=== PATIENT | female | born 1960 | race Two or more races ===

== ENCOUNTER → 2020-05-12 14:44 | Outpatient (BNVA) | payer MEDICARE, MEDICAID, SELFPAY | PROVIDERS: PCP Internal Medicine; Visit Provider Internal Medicine Cardiovascular Disease | DX: I69.351 Hemiplegia and hemiparesis following cerebral infarction affecting right dominant side (principal); I73.9 Peripheral vascular disease, unspecified; R06.00 Dyspnea, unspecified; Z79.01 Long term (current) use of anticoagulants; Z79.82 Long term (current) use of aspirin | CPT/HCPCS: 93005; 99212 ==

== ENCOUNTER 2020-05-24 17:37 | Outpatient (REF) | payer MEDICARE, MEDICAID, SELFPAY ==
--- NOTE | 2020-05-24 | CT_ITS ---
EXAMINATION: CT HEAD WITHOUT CONTRAST CLINICAL INFORMATION: Trauma. COMPARISON: CT head from 08/29/2018. TECHNIQUE: Contiguous axial imaging was performed from the skull base to vertex without intravenous administration of contrast. This CT examination was performed using dose optimization techniques as appropriate, variously including the following: *Automated exposure control. *Adjustment of mA and/or kV according to patient size (this includes techniques or standardized protocols for targeted exams where dose is matched to indication/reason for exam; i.e. extremities or head). *Use of iterative reconstruction technique. 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 Calcific atherosclerotic disease of the intracranial internal carotid arteries. There is no evidence of acute intracranial hemorrhage or edematous territorial infarction. A few foci of hypoattenuation in the periventricular and deep white matter most commonly seen with mild microangiopathy. 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 Otherwise, the figueroa-white matter differentiation is preserved. The ventricles are normal in size and configuration. No evidence for obstructive hydrocephalus. The sella turcica is expanded and partially empty. No new abnormal mass effect or midline shift. No extra-axial fluid collections. No acute soft tissue or osseous abnormalities. 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 Chronic mild retrosubluxation of the odontoid tip with respect to the basion. The mastoid air cells and paranasal sinuses are clear. CT/CT head/brain wo con IMPRESSION: 1. No evidence of acute intracranial hemorrhage or edematous territorial infarction. 2. Changes of prior stent-assisted aneurysm coiling along the anterior communicating artery and right M1-M2 junction. 3. 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 Mild scattered white matter changes.
== END 2020-05-24 17:38 | disposition home or self-care (01) ==
LOC: HO.CT 17:37
PROVIDERS: PCP Internal Medicine; Visit Provider Psychiatry & Neurology Neurology
DX: I60.9 Nontraumatic subarachnoid hemorrhage, unspecified (principal)
CPT/HCPCS: 70450

== ENCOUNTER 2020-06-27 19:15 | Emergency (ER) | payer MEDICARE, MEDICAID, SELFPAY ==
[2020-06-27 20:51] VITALS: BP 165/79; PULSE 84; RESP 18; TEMP 37.1; O2SAT 98; BMI 31.6
[2020-06-27 22:08] LABS: Basophils Percent Auto 0.4 % (0-2); Eosinophils Percent Auto 0.5 % (0-4); Hematocrit 38.1 % (37-47); Hemoglobin 11.7 g/dl (12.0-16.0); Imm Gran Abs Auto 0.02 X10*3/uL (0.00-0.03); Imm Gran Pct Auto 0.3 % (0.0-0.4); Lymphocytes Absolute Auto 1.6 X10*3/uL (1.2-4.9); Lymphocytes Percent Auto 20.1 % (20-40); Mean Corpuscular HGB Conc 30.7 g/dl (31.0-35.0); Mean Corpuscular Hemoglobin 27.5 pg (27.0-33.0); Mean Corpuscular Volume 89.6 fL (80-98); Mean Platelet Volume 11.2 fL (9.4-12.3); Monocytes Absolute Auto 0.6 X10*3/uL (0.1-1.2); Monocytes Percent Auto 7.5 % (2-11); Neutrophils Absolute Auto 5.5 X10*3/uL (2.0-8.3); Neutrophils Percent Auto 71.2 % (45-73); Platelet Count 237 X10*3/uL (160-400); Red Blood Count 4.25 X10*6/uL (4.20-5.50); Red Cell Distribution Width 14.2 % (11.0-16.0); White Blood Count 7.8 X10*3/uL (4.8-10.8)
[2020-06-27 22:09] LABS: MANUAL DIFF FLAG NO
[2020-06-27 22:17] LABS: INTERNATIONAL NORM RATIO 1.1 (0.9-1.1); Prothrombin Time 12.7 SEC (10.8-13.0)
[2020-06-27 22:20] LABS: Partial Thromboplastin Time 46.6 SEC (24.1-38.0)
[2020-06-27 22:29] LABS: Anion Gap 12 (12-20); Blood Urea Nitrogen 10 mg/dL (9-16); Carbon Dioxide 30 mmol/L (22-29); Chloride 107 mmol/L (96-108); Creatinine Clr Calc Pharmacy 84.2; Estimated Glomerular Filt Rate > 60; Glucose Random 104 mg/dL (60-115); Potassium 5.6 mmol/l (3.3-5.1); Sodium 143 mmol/L (135-145)
--- NOTE | 2020-06-27 23:50 | ECG_ITS ---
Test Reason : HEADACHE Blood Pressure : / mmHG Vent. Rate : 073 BPM Atrial Rate : 073 BPM P-R Int : 182 ms QRS Dur : 098 ms QT Int : 388 ms P-R-T Axes : 058 050 032 degrees QTc Int : 427 ms Normal sinus rhythm Normal ECG When compared with ECG of 28-MAR-2019 19:19, No significant change was found Referred By: Page Dalal Electronically Signed By:JARAD GOMES
[2020-06-28] VITALS: BP 141/81; PULSE 86; RESP 18; TEMP 37.2; O2SAT 99
--- NOTE | 2020-06-28 | CT_ITS ---
EXAMINATION: CT HEAD WITHOUT CONTRAST CLINICAL INFORMATION: Headache COMPARISON: 05/24/2020 TECHNIQUE: Contiguous axial imaging was performed from the skull base to vertex without intravenous contrast. This CT examination was performed using dose optimization techniques as appropriate, variously including the following: * Automated exposure control * Adjustment of mA and/or kV according to patient size (this includes techniques or standardized protocols for targeted exams where dose is matched to indication/reason for exam; i.e. extremities or head) Use of iterative reconstruction technique DLP: 669 mGy-cm. FINDINGS: There is no evidence of acute intracranial hemorrhage or territorial infarction. No abnormal mass effect or midline shift is seen. Soriano to white matter differentiation is well preserved. No extra-axial fluid collections are identified. No hydrocephalus. No significant volume loss. Chronic lacunar infarcts of the bilateral caudate heads. Radiopaque coiling again noted at the region of the anterior communicating artery and the right MCA. The osseous structures and soft tissues are normal. The mastoid air cells and visualized portions of the paranasal sinuses are well aerated. CT/CT head/brain wo con IMPRESSION: No acute intracranial pathology.
--- NOTE | 2020-06-28 00:09 | ED.HA ---
HPI - Headache General Chief Complaint: Headache Stated Complaint: HEADACHE Time Seen by Provider: 06/27/20 23:48 Source: patient Mode of arrival: ambulatory History of Present Illness HPI Narrative: This is a 60-year-old female who presents with 2-3 days left-sided headache without photosensitivity or sensitivity to auditory sensation and no speech changes without dizziness, shortness of breath, fevers, chills, chest pain/palpitations and no unilateral weakness numbness/tingling. She does states that she was experiencing blurry vision in the left eye but then describes that is primarily pressure. She endorses a significant history having had a brain bleed in January and is currently on aspirin and Brilinta. Related Data Home Medications Medication Instructions Recorded Confirmed aspirin 81 mg tablet,delayed 81 mg PO QAM 05/12/20 05/12/20 release atorvastatin 80 mg tablet 80 mg PO DAILY 05/12/20 05/12/20 cyclobenzaprine 10 mg tablet 10 mg PO BEDTIME 05/12/20 05/12/20 duloxetine 30 mg capsule,delayed 30 mg PO QAM 05/12/20 05/12/20 release ergocalciferol (vitamin D2) 1,250 1,250 mcg PO QWEEK 05/12/20 05/12/20 mcg (50,000 unit) capsule fluticasone propionate 110 2 puff PO BID 05/12/20 05/12/20 mcg/actuation HFA aerosol inhaler gabapentin 800 mg tablet 800 mg PO TID 05/12/20 05/12/20 hydrochlorothiazide 25 mg tablet 25 mg PO DAILY 05/12/20 05/12/20 loratadine 10 mg tablet 10 mg PO DAILY PRN 05/12/20 05/12/20 meloxicam 15 mg tablet 15 mg PO DAILY 05/12/20 05/12/20 metformin 500 mg tablet mg PO 05/12/20 05/12/20 montelukast 10 mg tablet 10 mg PO DAILY 05/12/20 05/12/20 omeprazole 20 mg capsule,delayed 20 mg PO DAILY 05/12/20 05/12/20 release ondansetron HCl 4 mg tablet mg PO 05/12/20 05/12/20 pregabalin 300 mg capsule 300 mg PO BID 05/12/20 05/12/20 ticagrelor 90 mg tablet 90 mg PO BID 05/12/20 05/12/20 Previous Rx's Medication Instructions Recorded [id number]-[id number] 1 cap PO Q8H PRN #3 cap 06/28/20 [Fioricet] Allergies Allergy/AdvReac Type Severity Reaction Status Date / Time Iodinated Contrast Media Allergy Unknown ITCHING Verified 06/27/20 20:51 [IV CONTRAST] nut - unspecified Allergy Unknown THROAT Verified 06/27/20 20:51 [NUT - UNSPECIFIED] SWELLING penicillin G Allergy Unknown hives Verified 06/27/20 20:51 Penicillins [PENICILLINS] Allergy Unknown HIVES Verified 06/27/20 20:51 peanuts Allergy Unknown Anaphylaxis Uncoded 06/27/20 20:51 Review of Systems Review of Systems: Pertinent positives and negatives as stated in HPI 10 point review of systems otherwise negative. PMFSH Past Medical History Source: nursing notes reviewed Medical History Carpal tunnel syndrome, right Surgical History H/O left breast biopsy History of appendectomy History of cholecystectomy Hx of section Hx of laparoscopic gastric banding Total knee replacement status Family History Family History Father CVA (cerebral vascular accident) CVD (cardiovascular disease) Mother CVD (cardiovascular disease) Uterus cancer Heart attack Social History Social History Alcohol intake: never Smoking Status: Never smoker Use of substances other than those prescribed or required for medical reasons: No Advance Directives: No Advance Directives Information Provided: No Physical Exam Vital Signs: Vital Signs: Last Vital Signs Temp 98.9 F 06/28/20 00:00 Pulse 65 06/28/20 04:48 Resp 16 06/28/20 04:48 BP 156/74 H 06/28/20 04:48 Pulse Ox 100 06/28/20 04:48 Body Mass Index 31.6 VITAL SIGNS: Reviewed. GENERAL: Well developed, well nourished, in no acute distress. HEAD: Normocephalic/atraumatic, EYES: PERRLA, EOMI intact without pain, no nystagmus/pallor/icterus noted EARS: Ext canals without abnormality, TMs non-bulging and non-erythematous NOSE: Nares patent bilateral OROPHARYNX: no oral lesions noted, posterior pharynx clear NECK: Supple, no adenopathy LUNGS: Normal breath sounds. No adventitious sounds or accessory muscle use. SpO2<98> CARDIOVASCULAR: Regular rate and rhythm without noted murmurs, no JVD or lower extremity edema. ABDOMEN: Soft, non-tender, non-distended with bowel sounds. No rigidity. No guarding. No palpable masses or hernias noted MUSCULOSKELETAL: No tenderness, deformities, or effusions noted on gross inspection. EXTREMITIES: No cyanosis, clubbing or edema. SKIN: Inspection of the skin reveals no rashes, ulcerations, jaundice, pallor, or petechiae. NEUROLOGIC: Alert and oriented x 4. Strength and sensation to light touch were grossly intact x 4, no pronator drift, cerebellar testing without deficits, cranial nerves 2-12 grossly intact. Course Course Course Narrative: This is a 60-year-old female with history and clinical presentation consistent with likely headache, migraine headache, doubt glaucoma or intracranial bleed. -labs, CT head without contrast, EKG, Tylenol On review of all investigations there is no evidence of infection, PTT consistent with current anti-platelet/anticoagulation regimen and CT scan without acute finding. Re-evaluation after patient received Tylenol with minimal improvement, so patient was provided with 1 tablet of Fioricet with complete resolution of headache. Re-evaluation of noted elevated potassium is returned as within normal limits at 4.1 and patient is otherwise asymptomatic without chest pain/palpitations. All results and findings were discussed with her bedside and she was discharged home in stable condition. MDM - Headache Lab Data Result diagrams: 06/27/20 22:01 06/28/20 04:46 Labs: Lab Results 06/27/20 06/27/20 06/27/20 Range/Units 22:01 22:01 22:01 WBC 7.8 (4.8-10.8) X10*3/uL RBC 4.25 (4.20-5.50) X10*6/uL Hgb 11.7 L (12.0-16.0) g/dl Hct 38.1 (37-47) % MCV 89.6 (80-98) fL MCH 27.5 (27.0-33.0) pg MCHC 30.7 L (31.0-35.0) g/dl RDW 14.2 (11.0-16.0) % Plt Count 237 (160-400) X10*3/uL MPV 11.2 (9.4-12.3) fL Immature Gran % (Auto) 0.3 (0.0-0.4) % Neut % (Auto) 71.2 (45-73) % Lymph % (Auto) 20.1 (20-40) % [place] % (Auto) 7.5 (2-11) % Eos % (Auto) 0.5 (0-4) % Baso % (Auto) 0.4 (0-2) % Lymph # (Auto) 1.6 (1.2-4.9) X10*3/uL [place] # (Auto) 0.6 (0.1-1.2) X10*3/uL Eos # (Auto) 0.0 (0.0-0.4) X10*3/uL Baso # (Auto) 0.0 (0.0-0.2) X10*3/uL Abs Immat Gran (auto) 0.02 (0.00-0.03) X10*3/uL Absolute Neuts (auto) 5.5 (2.0-8.3) X10*3/uL Absolute Nucleated RBC 0.000 (0.0-0.012) X10*3/uL Nucleated RBC % (auto) 0.0 (0.0-0.2) /100WBC PT 12.7 (10.8-13.0) SEC INR 1.1 (0.9-1.1) APTT 46.6 H (24.1-38.0) SEC Sodium 143 (135-145) mmol/L Potassium 5.6 H (3.3-5.1) mmol/l Chloride 107 (96-108) mmol/L Carbon Dioxide 30 H (22-29) mmol/L Anion Gap 12 (12-20) BUN 10 (9-16) mg/dL Creatinine 0.79 (0.5-1.4) mg/dL Estim Creat Clear Calc 84.2 Estimated GFR > 60 Random Glucose 104 (60-115) mg/dL Calcium 9.0 (8.4-10.2) mg/dL 12/29/20 Range/Units 04:46 WBC (4.8-10.8) X10*3/uL RBC (4.20-5.50) X10*6/uL Hgb (12.0-16.0) g/dl Hct (37-47) % MCV (80-98) fL MCH (27.0-33.0) pg MCHC (31.0-35.0) g/dl RDW (11.0-16.0) % Plt Count (160-400) X10*3/uL MPV (9.4-12.3) fL Immature Gran % (Auto) (0.0-0.4) % Neut % (Auto) (45-73) % Lymph % (Auto) (20-40) % [place] % (Auto) (2-11) % Eos % (Auto) (0-4) % Baso % (Auto) (0-2) % Lymph # (Auto) (1.2-4.9) X10*3/uL [place] # (Auto) (0.1-1.2) X10*3/uL Eos # (Auto) (0.0-0.4) X10*3/uL Baso # (Auto) (0.0-0.2) X10*3/uL Abs Immat Gran (auto) (0.00-0.03) X10*3/uL Absolute Neuts (auto) (2.0-8.3) X10*3/uL Absolute Nucleated RBC (0.0-0.012) X10*3/uL Nucleated RBC % (auto) (0.0-0.2) /100WBC PT (10.8-13.0) SEC INR (0.9-1.1) APTT (24.1-38.0) SEC Sodium 141 (135-145) mmol/L Potassium 4.1 D (3.3-5.1) mmol/l Chloride 107 (96-108) mmol/L Carbon Dioxide 24 (22-29) mmol/L Anion Gap 14 (12-20) BUN 11 (9-16) mg/dL Creatinine 0.67 (0.5-1.4) mg/dL Estim Creat Clear Calc 99.2 Estimated GFR > 60 Random Glucose 101 (60-115) mg/dL Calcium 8.5 (8.4-10.2) mg/dL ECG Data Attestation: I personally reviewed and interpreted this ECG as follows: Prior ECG tracings: available for review (05/12/2020 no acute rhythm changes) Interpretation: Sinus rhythm, HR -73, no evidence of acute ischemia, SC/QRS/QTC within normal limits, questionable increase in T-wave Discharge Plan Discharge Clinical Impression: Headache Qualifiers: Headache type: unspecified Headache chronicity pattern: acute headache Intractability: not intractable Qualified Code(s): R51.9 - Headache, unspecified Patient Disposition: Home, Self-Care Instructions: General Headache (ED) Additional Instructions: 1. Please resume all home medications as prescribed. 2. Please follow-up with your primary care provider for further evaluation and management of your headache. 3. Please do not hesitate to return to the emergency department should you experience any worsening of your symptoms. Prescriptions: New ecdieilnax-myolgpjwhrwkc-[id number] [Fioricet] 50-300-40 mg capsule 1 cap PO Q8H PRN (Reason: headache) Qty: 3 RF: 0 No Action duloxetine 30 mg capsule,delayed release(DR/EC) 30 mg PO QAM RF: 0 Flovent HFA 110 mcg/actuation HFA aerosol inhaler 2 puff PO BID RF: 0 ergocalciferol (vitamin D2) 1,250 mcg (50,000 unit) capsule 1,250 mcg PO QWEEK RF: 0 hydrochlorothiazide 25 mg tablet 25 mg PO DAILY RF: 0 montelukast 10 mg tablet 10 mg PO DAILY RF: 0 aspirin 81 mg tablet,delayed release (DR/EC) 81 mg PO QAM RF: 0 meloxicam 15 mg tablet 15 mg PO DAILY RF: 0 metformin 500 mg tablet PO RF: 0 Brilinta 90 mg tablet 90 mg PO BID RF: 0 pregabalin 300 mg capsule 300 mg PO BID RF: 0 omeprazole 20 mg capsule,delayed release(DR/EC) 20 mg PO DAILY RF: 0 ondansetron HCl 4 mg tablet PO RF: 0 atorvastatin 80 mg tablet 80 mg PO DAILY RF: 0 gabapentin 800 mg tablet 800 mg PO TID RF: 0 cyclobenzaprine 10 mg tablet 10 mg PO BEDTIME RF: 0 loratadine 10 mg tablet 10 mg PO DAILY PRN (Reason: allergies) RF: 0 Referrals: Maya Brannon MD [Primary Care Provider] - 2 days (Re-evaluation outpatient management for headache with negative CT and improvement with Fioricet) Print Language: Lebanese
[2020-06-28] MEDS: Acetaminophen 325 MG TABLET 975 MG PO (00:59)
[2020-06-28 02:33] VITALS: BP 127/64; PULSE 80; RESP 16; O2SAT 100
[2020-06-28] MEDS: Butalb/Acetamin/Caff 50/325/40 TABLET 1 TAB PO (03:21)
--- NOTE | 2020-06-28 03:24 | PC.NURSE ---
pt has been sleeping ekg done, medicated for 6/10 headache pain. skin pink warm and dry no s/s of resp distress. pt is aox3
[2020-06-28 04:48] VITALS: BP 156/74; PULSE 65; RESP 16; O2SAT 100
[2020-06-28 05:31] LABS: Anion Gap 14 (12-20); Blood Urea Nitrogen 11 mg/dL (9-16); Calcium 8.5 mg/dL (8.4-10.2); Carbon Dioxide 24 mmol/L (22-29); Chloride 107 mmol/L (96-108); Creatinine Clr Calc Pharmacy 99.2; Estimated Glomerular Filt Rate > 60; Glucose Random 101 mg/dL (60-115); Potassium 4.1 mmol/l (3.3-5.1); Sodium 141 mmol/L (135-145)
== END 2020-06-28 05:50 | disposition home or self-care (01) ==
PROVIDERS: Emergency Provider Student in an Organized Health Care Education/Training Program; PCP Internal Medicine
DX: R51.9 Headache, unspecified (principal); Z79.899 Other long term (current) drug therapy
CPT/HCPCS: 36415; 70450; 80048; 85025; 85610; 85730; 93005; 99284

== ENCOUNTER → 2020-07-14 13:15 | Outpatient (BNVA) | payer MEDICARE, MEDICAID, SELFPAY | PROVIDERS: PCP Internal Medicine; Visit Provider Internal Medicine Pulmonary Disease | DX: J45.30 Mild persistent asthma, uncomplicated (principal); Z91.09 Other allergy status, other than to drugs and biological substances | CPT/HCPCS: Q3014 ==

== ENCOUNTER 2020-08-17 | Outpatient (REF) | payer OTHER, SELFPAY | END 2020-08-17 00:01 | disposition home or self-care (01) | LOC: CF | PROVIDERS: Visit Provider Internal Medicine Cardiovascular Disease | DX: Z13.89 Encounter for screening for other disorder (principal) ==

== ENCOUNTER → 2020-08-17 13:18 | Outpatient (BNVA) | payer MEDICARE, MEDICAID, SELFPAY | PROVIDERS: PCP Internal Medicine; Visit Provider Internal Medicine Cardiovascular Disease ==

== ENCOUNTER 2020-08-17 13:48 | Emergency (ER) | payer MEDICARE, MEDICAID, SELFPAY | END 2020-08-17 17:03 | disposition left against medical advice (07) | PROVIDERS: Emergency Provider Emergency Medicine; PCP Internal Medicine | DX: R51.9 Headache, unspecified (principal); M54.2 Cervicalgia | CPT/HCPCS: 99212 ==

== ENCOUNTER 2020-08-18 00:52 | Emergency (ER) | payer MEDICARE, MEDICAID, SELFPAY ==
--- NOTE | 2020-08-18 | ECG_ITS ---
Test Reason : CP Blood Pressure : / mmHG Vent. Rate : 076 BPM Atrial Rate : 076 BPM P-R Int : 164 ms QRS Dur : 086 ms QT Int : 356 ms P-R-T Axes : 051 045 031 degrees QTc Int : 400 ms Normal sinus rhythm Normal ECG When compared with ECG of 28-JUN-2020 03:21, No significant change was found Referred By: Feliz Gusman Electronically Signed By:Sylvester Solano
--- NOTE | ~2020-08-18 | XR_ITS ---
EXAMINATION: XR CHEST CLINICAL INFORMATION: Left-sided chest pain. COMPARISON: 03/28/2019 TECHNIQUE: 2 views of the chest were obtained. FINDINGS: Cardiac leads overlie the chest. The lungs are well expanded. There is no focal consolidation, edema, or effusion. No pneumothorax. The cardiomediastinal silhouette is within normal limits. No acute osseous abnormality. Degenerative changes of the spine. XR/XR chest 2V IMPRESSION: Clear lungs.
--- NOTE | ~2020-08-18 | CT_ITS ---
EXAMINATION: CT HEAD WITHOUT CONTRAST CLINICAL INFORMATION: Left-sided headache. COMPARISON: 06/28/2020 TECHNIQUE: Contiguous axial imaging was performed from the skull base to vertex without intravenous contrast. This CT examination was performed using dose optimization techniques as appropriate, variously including the following: * Automated exposure control * Adjustment of mA and/or kV according to patient size (this includes techniques or standardized protocols for targeted exams where dose is matched to indication/reason for exam; i.e. extremities or head) Use of iterative reconstruction technique DLP: 698 mGy-cm. FINDINGS: There is no evidence of acute intracranial hemorrhage or territorial infarction. No abnormal mass effect or midline shift is seen. Soriano to white matter differentiation is well preserved. No extra-axial fluid collections are identified. No hydrocephalus. No significant volume loss. There is no abnormal attenuation within the brain parenchyma. Radiopaque coiling in the region of the right MCA and at the anterior communicating artery again noted. The osseous structures and soft tissues are normal. The mastoid air cells and visualized portions of the paranasal sinuses are well aerated. CT/CT head/brain wo con IMPRESSION: No acute intracranial pathology.
[2020-08-18 00:58] VITALS: BP 164/61; PULSE 84; RESP 16; TEMP 36.6; O2SAT 99
[2020-08-18 01:15] VITALS: BP 171/57; PULSE 86; RESP 18; TEMP 36.1; O2SAT 99; BMI 35.6
--- NOTE | 2020-08-18 01:34 | ED_ITS ---
HPI - General Adult General Chief complaint: Headache Stated complaint: Head Pain Time Seen by Provider: 08/18/20 01:13 Source: patient Mode of arrival: ambulatory Limitations: language barrier (The patient speaks Ecuadorean but 1st language is Bulgarian, [employer] laboratory was used to obtain information) History of Present Illness HPI narrative: 60-year-old female who presents emergency department for evaluation of headache and chest pain. Patient states that she developed a headache yesterday morning at 9:00 a.m.. She states that the headache came on gradually. She states that the headache is very severe and is 9/10. The pain is located on the left side of her head and is a constant, pressure-like pain. The patient states that she had similar pain in February 24, 2020 secondary to a ruptured aneurysm. Patient states she had 1 aneurysm that ruptured and the 2nd aneurysm acquired a interventional procedure. She states that since the aneurysm she also had a similar headache on June 28, 2020 was seen here in the emergency department with a negative workup. The patient states she has had associated nausea with no vomiting. She denies lightheadedness, dizziness, weakness, numbness, loss of bowel or bladder control. She states that she has residual balance difficulties and right-sided weakness secondary to her aneurysm. The patient also is complaining of left-sided chest pain. She states that this started yesterday evening at 10:00 p.m.. The pain came on gradually. She describes the pain as a squeezing tightness. The pain does not change with breathing or with movement. She states the pain is 6/10. The pain does not radiate to her neck, jaw or arms. She denied diaphoresis, dizziness, lightheadedness or shortness of breath. Related Data Home Medications Medication Instructions Recorded Confirmed aspirin 81 mg tablet,delayed 81 mg PO QAM 05/12/20 08/17/20 release atorvastatin 80 mg tablet 80 mg PO DAILY 05/12/20 08/17/20 cyclobenzaprine 10 mg tablet 10 mg PO BEDTIME 05/12/20 08/17/20 duloxetine 30 mg capsule,delayed 30 mg PO QAM 05/12/20 08/17/20 release ergocalciferol (vitamin D2) 1,250 1,250 mcg PO QWEEK 05/12/20 08/17/20 mcg (50,000 unit) capsule fluticasone propionate 110 2 puff PO BID 05/12/20 08/17/20 mcg/actuation HFA aerosol inhaler gabapentin 800 mg tablet 800 mg PO TID 05/12/20 08/17/20 hydrochlorothiazide 25 mg tablet 25 mg PO DAILY 05/12/20 08/17/20 loratadine 10 mg tablet 10 mg PO DAILY PRN 05/12/20 08/17/20 meloxicam 15 mg tablet 15 mg PO DAILY 05/12/20 08/17/20 metformin 500 mg tablet mg PO 05/12/20 08/17/20 montelukast 10 mg tablet 10 mg PO DAILY 05/12/20 08/17/20 omeprazole 20 mg capsule,delayed 20 mg PO DAILY 05/12/20 08/17/20 release ondansetron HCl 4 mg tablet mg PO 05/12/20 08/17/20 pregabalin 300 mg capsule 300 mg PO BID 05/12/20 08/17/20 ticagrelor 90 mg tablet 90 mg PO BID 05/12/20 08/17/20 Previous Rx's Medication Instructions Recorded nwatbqophe-mxncshhpkfynm-asbu 1 cap PO Q8H PRN #3 cap 06/28/20 [Fioricet] metoclopramide HCl [Reglan] 10 mg PO Q6H PRN #14 tab 08/18/20 Allergies Allergy/AdvReac Type Severity Reaction Status Date / Time Iodinated Contrast Media Allergy Unknown ITCHING Verified 07/14/20 13:16 [IV CONTRAST] nut - unspecified Allergy Unknown THROAT Verified 07/14/20 13:16 [NUT - UNSPECIFIED] SWELLING penicillin G Allergy Unknown hives Verified 07/14/20 13:16 Penicillins [PENICILLINS] Allergy Unknown HIVES Verified 07/14/20 13:16 Review of Systems Review of Systems: Yes all other systems are reviewed and are negative Neurologic: Reports Abnormal speech present [facility] Past Medical History Medical History Brain aneurysm Carpal tunnel syndrome, right Surgical History H/O left breast biopsy History of appendectomy History of cholecystectomy Hx of section Hx of laparoscopic gastric banding Total knee replacement status Family History Family History Father CVA (cerebral vascular accident) CVD (cardiovascular disease) Mother CVD (cardiovascular disease) Uterus cancer Heart attack Social History Social History Alcohol intake: never Smoking Status: Never smoker Smoked in Last 30 Days: No Use of substances other than those prescribed or required for medical reasons: No Advance Directives: No Physical Exam Vital Signs: Vital Signs: Last Vital Signs Temp 98.1 F 08/18/20 02:00 Pulse 74 08/18/20 02:00 Resp 16 08/18/20 02:00 BP 111/70 08/18/20 02:00 Pulse Ox 99 08/18/20 02:00 Body Mass Index 35.6 Const: General: cooperative and healthy appearing Orientation/consciousness: oriented to person and oriented to place Limitations: no limitations HENMT: Head: Yes normal to inspection, Yes normocephalic, Yes atraumatic and Yes other (The patient does have tenderness with palpation over her left scalp area) Ears: external ears normal General nose exam: Normal external nose present Face and sinus: Yes normal facial exam Mouth: Normal oral and palatal mucosa present Throat: Yes posterior oropharynx normal Eyes: Periorbital: periorbital findings normal Eyelids: Yes eyelids normal Conjunctivae: conjunctivae normal Sclerae: sclerae normal Corneas: corneas normal Pupils: Equal, round and reactive pupils present Direct Ophthalmoscopy: normal light reflex Neck: Neck: Yes full ROM, Yes no lymphadenopathy, Yes no meningeal signs, Yes trachea midline and Yes supple Chest: Chest palpation & inspection: normal inspection of the chest and tenderness (Moderate left anterior chest) Resp: Effort & Inspection: normal respiratory effort and able to speak in complete sentences Auscultation: clear to auscultation bilaterally Cardio: Rate: regular rate Rhythm: regular rhythm Heart sounds: S1 normal heart sound present, S2 normal heart sound present and no murmurs GI: Inspection: Yes normal to inspection Palpation (GI): Soft to palpation, nontender, no guarding, not rigid and No hepatosplenomegaly present : General: Yes no CVA tenderness Back/Spine/Pelvis: Back: no CVA tenderness Cervical Spine: normal cervical lordosis Thoracic/Lumbar Spine: thoracic and lumbar spine normal to inspection Skin: Lesions: no lesions Rashes: no rashes Wounds: no wounds Neuro: General: oriented to person, oriented to place and no meningeal signs Cranial nerves: Yes CN's II-XII intact bilaterally and Yes Equal, round and reactive pupils present Cognition (Neuro): normal cognition Speech: Abnormal speech present Motor exam (neuro): Other motor observations present (Right upper and lower extremity weakness-chronic) Extrem: General: Yes normal to inspection and Yes full ROM Psych: Appearance: well kempt Mental Status: mental status grossly normal Speech and movement: Normal speech and movement present Affect: normal affect Attitude: cooperative Thought process: Normal thought process present Thought content: Normal thought content present Course Course Course Narrative: 60-year-old female with a history of ruptured brain aneurysm 02/24/2020 who presents emergency department for evaluation of left-sided headache and left-sided chest pain. Physical examination did reveal tenderness palpation of her left scalp as well as tenderness palpation over left anterior chest, otherwise her examination was consistent with her baseline (weakness of the right upper and right lower extremity secondary to subarachnoid hemorrhage/ruptured cerebral aneurysm). At this time I suspect the patient has a migraine syndrome but I will do a workup on the patient to include CT scan of the patient's brain without IV contrast, and a cardiac workup. The patient's headache and left-sided chest pain will be treated with Toradol 30 mg IV, Reglan and 10 mg IV and Benadryl 50 mg IV. She is also ordered to get normal saline x1 L IV. 0359: The patient's headache significantly improved with above treatment. Laboratory evaluation was unremarkable. The CT scan the patient's head without IV contrast revealed no acute process, patient does does have radiopaque coils noted in the right MCA and anterior communicating artery suggesting the both aneurysms were treated in the past. I did discuss these findings with the patient. At this time I do not think that the patient's headache is secondary to subarachnoid bleed. The patient was advised to take the following medications every 6 hours as needed for headaches: Extra-strength Tylenol 2 pills, Benadryl 25 mg 2 pills, Reglan and 10 mg, 1 pill. I did tell her that these medications make her sleepy and that she should lie down in a dark quiet room and this sometimes helps break a migraine-like headache. She was given verbal and printed instructions discharged home. Medical Decision Making Lab Data Result diagrams: 08/18/20 01:59 08/18/20 01:59 Labs: Lab Results 08/18/20 08/18/20 08/18/20 Range/Units 01:59 01:59 01:59 WBC 8.1 (4.8-10.8) X10*3/uL RBC 4.11 L (4.20-5.50) X10*6/uL Hgb 11.4 L (12.0-16.0) g/dl Hct 37.1 (37-47) % MCV 90.3 (80-98) fL MCH 27.7 (27.0-33.0) pg MCHC 30.7 L (31.0-35.0) g/dl RDW 15.4 (11.0-16.0) % Plt Count 252 (160-400) X10*3/uL MPV 10.9 (9.4-12.3) fL Immature Gran % (Auto) 0.1 (0.0-0.4) % Neut % (Auto) 76.0 H (45-73) % Lymph % (Auto) 16.7 L (20-40) % [place] % (Auto) 6.4 (2-11) % Eos % (Auto) 0.6 (0-4) % Baso % (Auto) 0.2 (0-2) % Lymph # (Auto) 1.4 (1.2-4.9) X10*3/uL [place] # (Auto) 0.5 (0.1-1.2) X10*3/uL Eos # (Auto) 0.1 (0.0-0.4) X10*3/uL Baso # (Auto) 0.0 (0.0-0.2) X10*3/uL Abs Immat Gran (auto) 0.01 (0.00-0.03) X10*3/uL Absolute Neuts (auto) 6.2 (2.0-8.3) X10*3/uL Absolute Nucleated RBC 0.000 (0.0-0.012) X10*3/uL Nucleated RBC % (auto) 0.0 (0.0-0.2) /100WBC ESR (0-20) MM/HR Sodium 140 (135-145) mmol/L Potassium 5.2 H (3.3-5.1) mmol/L Chloride 105 (96-108) mmol/L Carbon Dioxide 27 (22-29) mmol/L Anion Gap 13 (12-20) BUN 20 H D (9-16) mg/dL Creatinine 0.83 (0.5-1.4) mg/dL Estim Creat Clear Calc 73.4 Estimated GFR > 60 Random Glucose 118 H (60-115) mg/dL Calcium 8.7 (8.4-10.2) mg/dL Total Bilirubin 0.4 (0.0-1.0) mg/dL AST 22 (5-31) U/L ALT 22 (0-31) U/L Alkaline Phosphatase 92 (39-117) U/L Troponin I High Sens 3.9 (<3.5-17.0) ng/L Total Protein 7.2 (6.5-8.0) g/dL Albumin 4.3 (3.5-5.0) g/dL 08/18/20 Range/Units 01:59 WBC (4.8-10.8) X10*3/uL RBC (4.20-5.50) X10*6/uL Hgb (12.0-16.0) g/dl Hct (37-47) % MCV (80-98) fL MCH (27.0-33.0) pg MCHC (31.0-35.0) g/dl RDW (11.0-16.0) % Plt Count (160-400) X10*3/uL MPV (9.4-12.3) fL Immature Gran % (Auto) (0.0-0.4) % Neut % (Auto) (45-73) % Lymph % (Auto) (20-40) % [place] % (Auto) (2-11) % Eos % (Auto) (0-4) % Baso % (Auto) (0-2) % Lymph # (Auto) (1.2-4.9) X10*3/uL [place] # (Auto) (0.1-1.2) X10*3/uL Eos # (Auto) (0.0-0.4) X10*3/uL Baso # (Auto) (0.0-0.2) X10*3/uL Abs Immat Gran (auto) (0.00-0.03) X10*3/uL Absolute Neuts (auto) (2.0-8.3) X10*3/uL Absolute Nucleated RBC (0.0-0.012) X10*3/uL Nucleated RBC % (auto) (0.0-0.2) /100WBC ESR 14 (0-20) MM/HR Sodium (135-145) mmol/L Potassium (3.3-5.1) mmol/L Chloride (96-108) mmol/L Carbon Dioxide (22-29) mmol/L Anion Gap (12-20) BUN (9-16) mg/dL Creatinine (0.5-1.4) mg/dL Estim Creat Clear Calc Estimated GFR Random Glucose (60-115) mg/dL Calcium (8.4-10.2) mg/dL Total Bilirubin (0.0-1.0) mg/dL AST (5-31) U/L ALT (0-31) U/L Alkaline Phosphatase (39-117) U/L Troponin I High Sens (<3.5-17.0) ng/L Total Protein (6.5-8.0) g/dL Albumin (3.5-5.0) g/dL ECG Data Attestation: I personally reviewed and interpreted this ECG as follows: Interpretation: 0129: Normal sinus rhythm a rate of 76, normal ID, QRS and QTC intervals, no ST segment elevation, no ST segment depression, slightly peaked T- waves V 2 through V5, no old EKG for comparison. Discharge Plan Discharge Clinical Impression: Headache Qualifiers: Headache type: other headache syndrome Qualified Code(s): G44.89 - Other headache syndrome Patient Disposition: Home, Self-Care Instructions: Migraine Headache (ED) Additional Instructions: Your blood work was normal. The CT scan of your brain revealed no bleeding in the brain. Based on your CT scan, you had 2 aneurysms which were treated in the past with metal coils which hopefully will prevent these things from bleeding in the future. For your headaches take the following medications together every 6 hours: Extra-strength Tylenol 500 mg, 2 pills Benadryl 25 mg, 2 pills Reglan (metoclopramide) 10 mg, 1 pill These medications make you sleepy. Do not drive after take these medications. Lie down in a dark quiet room and this often helps the headache go away. Follow-up with your doctor in 2 days. Please return to the emergency department if your symptoms get worse or if you develop any symptoms that are concerning to you. Prescriptions: New metoclopramide HCl [Reglan] 10 mg tablet 10 mg PO Q6H PRN (Reason: nausea and vomiting) Qty: 14 RF: 0 No Action yoliafcipw-fxbbnefozxiph-hofu [Fioricet] 50-300-40 mg capsule 1 cap PO Q8H PRN (Reason: headache) Qty: 3 RF: 0 duloxetine 30 mg capsule,delayed release(DR/EC) 30 mg PO QAM RF: 0 Flovent HFA 110 mcg/actuation HFA aerosol inhaler 2 puff PO BID RF: 0 ergocalciferol (vitamin D2) 1,250 mcg (50,000 unit) capsule 1,250 mcg PO QWEEK RF: 0 hydrochlorothiazide 25 mg tablet 25 mg PO DAILY RF: 0 montelukast 10 mg tablet 10 mg PO DAILY RF: 0 aspirin 81 mg tablet,delayed release (DR/EC) 81 mg PO QAM RF: 0 meloxicam 15 mg tablet 15 mg PO DAILY RF: 0 metformin 500 mg tablet PO RF: 0 Brilinta 90 mg tablet 90 mg PO BID RF: 0 pregabalin 300 mg capsule 300 mg PO BID RF: 0 omeprazole 20 mg capsule,delayed release(DR/EC) 20 mg PO DAILY RF: 0 ondansetron HCl 4 mg tablet PO RF: 0 atorvastatin 80 mg tablet 80 mg PO DAILY RF: 0 gabapentin 800 mg tablet 800 mg PO TID RF: 0 cyclobenzaprine 10 mg tablet 10 mg PO BEDTIME RF: 0 loratadine 10 mg tablet 10 mg PO DAILY PRN (Reason: allergies) RF: 0
[2020-08-18 02:00] VITALS: BP 111/70; PULSE 74; RESP 16; TEMP 36.7; O2SAT 99
[2020-08-18 02:05] LABS: MANUAL DIFF FLAG NO
[2020-08-18] MEDS: 0.9 % Sodium Chloride 1,000 ML 999 ML IV (02:08)
[2020-08-18] MEDS: Metoclopramide HCl 10 MG/2 ML VIAL IVPUSH (02:09)
[2020-08-18] MEDS: diphenhydrAMINE HCL 50 MG/ML VIAL IVPUSH (02:09)
[2020-08-18] MEDS: Ketorolac Tromethamine 30 MG/ML VIAL IVPUSH (02:09)
[2020-08-18 02:16] LABS: Basophils Percent Auto 0.2 % (0-2); Eosinophils Absolute Auto 0.1 X10*3/uL (0.0-0.4); Eosinophils Percent Auto 0.6 % (0-4); Hematocrit 37.1 % (37-47); Hemoglobin 11.4 g/dl (12.0-16.0); Imm Gran Abs Auto 0.01 X10*3/uL (0.00-0.03); Imm Gran Pct Auto 0.1 % (0.0-0.4); Lymphocytes Absolute Auto 1.4 X10*3/uL (1.2-4.9); Lymphocytes Percent Auto 16.7 % (20-40); Mean Corpuscular HGB Conc 30.7 g/dl (31.0-35.0); Mean Corpuscular Hemoglobin 27.7 pg (27.0-33.0); Mean Corpuscular Volume 90.3 fL (80-98); Mean Platelet Volume 10.9 fL (9.4-12.3); Monocytes Absolute Auto 0.5 X10*3/uL (0.1-1.2); Monocytes Percent Auto 6.4 % (2-11); Neutrophils Absolute Auto 6.2 X10*3/uL (2.0-8.3); Platelet Count 252 X10*3/uL (160-400); Red Blood Count 4.11 X10*6/uL (4.20-5.50); Red Cell Distribution Width 15.4 % (11.0-16.0); White Blood Count 8.1 X10*3/uL (4.8-10.8)
[2020-08-18 02:42] LABS: Alanine Aminotransferase 22 U/L (0-31); Albumin Level 4.3 g/dL (3.5-5.0); Alkaline Phosphatase 92 U/L (39-117); Anion Gap 13 (12-20); Aspartate Amino Transferase 22 U/L (5-31); Bilirubin Total 0.4 mg/dL (0.0-1.0); Blood Urea Nitrogen 20 mg/dL (9-16); Calcium 8.7 mg/dL (8.4-10.2); Carbon Dioxide 27 mmol/L (22-29); Chloride 105 mmol/L (96-108); Creatinine Clr Calc Pharmacy 73.4; Estimated Glomerular Filt Rate > 60; Glucose Random 118 mg/dL (60-115); Potassium 5.2 mmol/L (3.3-5.1); Sodium 140 mmol/L (135-145); Total Protein 7.2 g/dL (6.5-8.0)
[2020-08-18 02:47] LABS: Troponin-I High Sensitivity 3.9 ng/L (<3.5-17.0)
[2020-08-18 03:09] LABS: Erythrocyte Sedimentation Rate 14 MM/HR (0-20)
--- NOTE | 2020-08-18 03:25 | PC.NURSE ---
PATIENT AMBULATING STEADILY TO THE RESTROOM. NO DISTRESS NOTED, DENIES DIZZINESS, HEADACHE IS ABOUT 5/10 STATES FEELING BETTER.
== END 2020-08-18 05:11 | disposition home or self-care (01) ==
PROVIDERS: Emergency Provider Emergency Medicine Emergency Medical Services; PCP Internal Medicine
DX: G44.89 Other headache syndrome (principal); Z86.79 Personal history of other diseases of the circulatory system
CPT/HCPCS: 36415; 70450; 71046; 80053; 84484; 85025; 85652; 93005; 96361; 96374; 96375; 99284; J1200; J1885; J2765

== ENCOUNTER 2020-10-06 15:33 | Outpatient (REF) | payer MEDICARE, MEDICAID, SELFPAY ==
--- NOTE | ~2020-10-06 | XR_ITS ---
EXAMINATION: XR CHEST CLINICAL INFORMATION: Dyspnea COMPARISON: 08/18/2020 TECHNIQUE: 2 views of the chest were obtained. FINDINGS: Lung volumes are low. Increased interstitial markings with bronchial wall thickening. No dense consolidation. No effusion. No pneumothorax. The cardiomediastinal silhouette is within normal limits. No acute osseous abnormality. XR/XR chest 2V IMPRESSION: No consolidation. Bronchial wall thickening can be seen with a small airways process such as asthma or atypical/viral infection. Alternatively, mild fluid overload is possible.
== END 2020-10-06 15:34 | disposition home or self-care (01) ==
LOC: HO.XRAY 15:33
PROVIDERS: PCP Internal Medicine; Visit Provider Internal Medicine Cardiovascular Disease
DX: R06.00 Dyspnea, unspecified (principal); I73.9 Peripheral vascular disease, unspecified; I60.9 Nontraumatic subarachnoid hemorrhage, unspecified; I63.9 Cerebral infarction, unspecified
CPT/HCPCS: 71046; 93005; 99212

== ENCOUNTER 2020-11-24 14:30 | Outpatient (RCR) | payer MEDICARE, MEDICAID, SELFPAY | END 2020-12-19 12:59 | disposition other institution (70) | LOC: HO.OT 14:30 | PROVIDERS: PCP Internal Medicine; Visit Provider Internal Medicine | DX: R29.898 Other symptoms and signs involving the musculoskeletal system (principal) | CPT/HCPCS: 97035; 97110; 97167; 97530 ==

== ENCOUNTER → 2021-01-03 12:26 | Outpatient (BNVA) | payer MEDICARE, MEDICAID, SELFPAY | PROVIDERS: PCP Internal Medicine; Visit Provider Internal Medicine Pulmonary Disease | DX: J45.30 Mild persistent asthma, uncomplicated (principal); Z91.09 Other allergy status, other than to drugs and biological substances | CPT/HCPCS: 99212 ==

== ENCOUNTER 2021-02-06 08:57 | Outpatient (REF) | payer MEDICARE, MEDICAID, SELFPAY ==
--- NOTE | ~2021-02-06 | MM_ITS ---
EXAMINATION: MM DIAGNOSTIC DIGITAL BREAST TOMOSYNTHESIS, BILATERAL CLINICAL INFORMATION: Due for yearly. Family history breast cancer, mother and sister. TC score 27%. Benign left stereotactic biopsy 01/28/2019 (Breast parenchyma showing foci with fibroadenomatous changes; calcifications present; negative for malignancy). Follow-up for remaining probable benign calcifications left breast. COMPARISON: Mammography: 02/01/2020, 08/04/2019, 01/28/2019, 01/19/2019, 01/08/2019 (BI-RADS 0). TECHNIQUE: Digital breast tomosynthesis is performed in both the craniocaudal and mediolateral oblique views along with computer-aided detection (CAD). Synthesized 2D images are generated from the tomosynthesis. Magnification left CC x3, magnification left ML x2. FINDINGS: There are scattered areas of fibroglandular density (ACR BI-RADS breast composition Category b). Parenchymal pattern is similar to prior studies. There is no developing density or interval mass or architectural abnormality. There are biopsy clip markers right upper outer quadrant mid depth, left posterior 4:00 position, central inner left breast mid depth. Scattered punctate and some coarse calcifications are noted again on the right. Left breast calcifications for follow-up are similar in distribution to prior studies. There are no suspicious changes. There is some coarsening of calcifications in the left mid outer quadrant and the left mid 6:00 position. The calcifications are now considered to be benign. Results are provided to the patient at time of visit by the technologist. MM/MM tomosynthesis diagnostic BI IMPRESSION: 1. No mammographic evidence of malignancy. 2. No significant changes from prior studies. 3. Left breast calcifications for follow-up are now considered to be benign. ASSESSMENT: BI-RADS 2: Benign RECOMMENDATION: 1. Routine annual mammography screening. 2. The lifetime risk of breast cancer based on the Tyrer-Cuzick Model is 27%. Additional annual adjunct screening with breast MRI may be of benefit in women with a risk score of 20% or greater. This patient's information was entered into a reminder system with a target due date for their next mammogram.
== END 2021-02-06 08:58 | disposition home or self-care (01) ==
LOC: HO.MAMMO 08:57
PROVIDERS: PCP Internal Medicine; Visit Provider Surgery
DX: R92.1 Mammographic calcification found on diagnostic imaging of breast (principal); Z80.3 Family history of malignant neoplasm of breast
CPT/HCPCS: 77062; 77066

== ENCOUNTER 2021-03-13 17:29 | Emergency (ER) | payer MEDICARE, MEDICAID, SELFPAY ==
--- NOTE | ~2021-03-13 | XR_ITS ---
EXAMINATION: XR CHEST CLINICAL INFORMATION: Cough/SOB and chest tightness. COMPARISON: None TECHNIQUE: 2 views of the chest were obtained. FINDINGS: The lungs are well-expanded and clear. The heart size and pulmonary vascularity is normal. There is moderate spondylosis dorsal spine. No lytic process. XR/XR chest 2V IMPRESSION: Unremarkable chest exam.
[2021-03-13 17:33] VITALS: BP 146/107; PULSE 96; RESP 16; TEMP 36.3; O2SAT 98; BMI 32.1
--- NOTE | 2021-03-13 17:37 | ECG_ITS ---
Test Reason : CHEST PAIN Blood Pressure : / mmHG Vent. Rate : 086 BPM Atrial Rate : 086 BPM P-R Int : 176 ms QRS Dur : 086 ms QT Int : 354 ms P-R-T Axes : 047 037 023 degrees QTc Int : 423 ms Normal sinus rhythm Normal ECG When compared with ECG of 18-AUG-2020 01:29, No significant change was found Referred By: Dianne Morel Electronically Signed By:YANY RICHARD
--- NOTE | 2021-03-13 17:49 | ED_ITS ---
HPI - URI/Sore Throat General Chief Complaint: Upper Respiratory Symptoms <JOE Marie - Last Filed: 03/13/21 17:52> Stated Complaint: SOB <JOE Marie - Last Filed: 03/13/21 17:52> Time Seen by Provider: 03/13/21 17:33 <JOE Marie - Last Filed: 03/13/21 17:52> Source: patient <Page Dalal MD - Last Filed: 03/14/21 00:59> Mode of arrival: ambulatory <Page Dalal MD - Last Filed: 03/14/21 00:59> History of Present Illness HPI Narrative: 61-year-old female with known asthma, diabetes presents with worsening shortness of breath over the past couple of days and states that she ran out of her medication. She attempted to call her primary care provider's office yesterday but was unsuccessful in getting refills. She denies any associated fever, chills but states she had a sore throat, headache and corresponding chest tightness. <Page Dalal MD - Last Filed: 03/14/21 00:59> Related Data Home Medications: Home Medications Medication Instructions Recorded Confirmed aspirin 81 mg tablet,delayed 81 mg PO QAM 05/12/20 08/17/20 release atorvastatin 80 mg tablet 80 mg PO DAILY 05/12/20 08/17/20 cyclobenzaprine 10 mg tablet 10 mg PO BEDTIME 05/12/20 08/17/20 duloxetine 30 mg capsule,delayed 30 mg PO QAM 05/12/20 08/17/20 release ergocalciferol (vitamin D2) 1,250 1,250 mcg PO QWEEK 05/12/20 08/17/20 mcg (50,000 unit) capsule fluticasone propionate 110 2 puff PO BID 05/12/20 08/17/20 mcg/actuation HFA aerosol inhaler gabapentin 800 mg tablet 800 mg PO TID 05/12/20 08/17/20 hydrochlorothiazide 25 mg tablet 25 mg PO DAILY 05/12/20 08/17/20 loratadine 10 mg tablet 10 mg PO DAILY PRN 05/12/20 08/17/20 meloxicam 15 mg tablet 15 mg PO DAILY 05/12/20 08/17/20 metformin 500 mg tablet mg PO 05/12/20 08/17/20 montelukast 10 mg tablet 10 mg PO DAILY 05/12/20 08/17/20 omeprazole 20 mg capsule,delayed 20 mg PO DAILY 05/12/20 08/17/20 release ondansetron HCl 4 mg tablet mg PO 05/12/20 08/17/20 pregabalin 300 mg capsule 300 mg PO BID 05/12/20 08/17/20 Previous Rx's Medication Instructions Recorded [id number] 1 cap PO Q8H PRN #3 cap 06/28/20 50 mg-300 mg-40 mg capsule (Fioricet) metoclopramide HCl 10 mg tablet 10 mg PO Q6H PRN #14 tab 08/18/20 (Reglan) albuterol sulfate 90 mcg/actuation 2 puff INHALATION Q4-6H PRN #6.7 g 03/13/21 aerosol inhaler (Ventolin HFA) prednisone 20 mg tablet 40 mg PO DAILY 4 Days #8 tab 03/13/21 <JOE Marie - Last Filed: 03/13/21 17:52> Allergies/Adverse Reactions: Allergies Allergy/AdvReac Type Severity Reaction Status Date / Time Iodinated Contrast Media Allergy Unknown ITCHING Verified 01/03/21 12:55 [IV CONTRAST] nut - unspecified Allergy Unknown THROAT Verified 01/03/21 12:55 [NUT - UNSPECIFIED] SWELLING penicillin G Allergy Unknown hives Verified 01/03/21 12:55 Penicillins [PENICILLINS] Allergy Unknown HIVES Verified 01/03/21 12:55 <JOE Marie - Last Filed: 03/13/21 17:52> Review of Systems Review of Systems: Pertinent positives and negatives as stated in HPI 10 point review systems is otherwise negative. <Page Dalal MD - Last Filed: 03/14/21 00:59> PMFSH Past Medical History Source: nursing notes reviewed <Page Dalal MD - Last Filed: 03/14/21 00:59> Medical History: Medical History Brain aneurysm Carpal tunnel syndrome, right <JOE Marie - Last Filed: 03/13/21 17:52> Surgical History: Surgical History H/O left breast biopsy History of appendectomy History of cholecystectomy Hx of section Hx of laparoscopic gastric banding Total knee replacement status <JOE Marie - Last Filed: 03/13/21 17:52> Family History Family History: Family History Father CVA (cerebral vascular accident) CVD (cardiovascular disease) Mother CVD (cardiovascular disease) Uterus cancer Heart attack <JOE Marie - Last Filed: 03/13/21 17:52> Social History Social History: Social History Alcohol intake: never Patient Tobacco Use Status: Former Tobacco user Use of substances other than those prescribed or required for medical reasons: No Advance Directives: No <JOE Marie - Last Filed: 03/13/21 17:52> Physical Exam Vital Signs: Vital Signs: Last Vital Signs Temp 97.3 F 03/13/21 17:33 Pulse 98 03/14/21 00:33 Resp 17 03/13/21 23:15 BP 146/70 H 03/13/21 23:15 Pulse Ox 97 03/13/21 23:15 Body Mass Index 32.1 <JOE Marie - Last Filed: 03/13/21 17:52> Vital Signs: Last Vital Signs Temp 97.3 F 03/13/21 17:33 Pulse 98 03/14/21 00:33 Resp 17 03/13/21 23:15 BP 146/70 H 03/13/21 23:15 Pulse Ox 97 03/13/21 23:15 Body Mass Index 32.1 VITAL SIGNS: Reviewed. GENERAL: Well developed, well nourished, in no acute distress. HEAD: Normocephalic/atraumatic, EYES: PERRLA, EOMI OROPHARYNX: no oral lesions noted, posterior pharynx clear and non-erythematous without noted tonsillar enlargement/erythema/exudates NECK: Supple, no adenopathy LUNGS: Decreased breath sounds, expiratory wheeze noted bilaterally with scattered rhonchi and tachypnea. SpO2<98> CARDIOVASCULAR: Regular rate and rhythm without noted murmurs, no JVD or lower extremity edema. ABDOMEN: Soft, non-tender, non-distended with bowel sounds. SKIN: Inspection of the skin reveals no rashes NEUROLOGIC: Alert and oriented x 4. Strength and sensation to light touch were grossly intact x 4. <Page Dalal MD - Last Filed: 03/14/21 00:59> Course Course Course Narrative: 17:40pm - 61-year-old female presenting to the ED with URI complaints which include subjective fevers, chills, sore throat, ear pain, intermittent headaches, rhinorrhea/nasal congestion, cough, shortness of breath, chest tightness and wheezing for the past few days worse today. Denies recent travel or sick contacts. On exam patient has mild respiratory distress with inspiratory and expiratory wheezing throughout although her oxygen saturations 98-100% on room air. Patient mildly hypertensive 146/107 otherwise all other vitals are within normal limits. Patient was sent back into the waiting room for further evaluation treatment to the main ED patient had labs, chest x-ray, EKG ordered and she was already swab for COVID/RSV/flu. <JOE Marie - Last Filed: 03/13/21 17:52> Reevaluation(s) Reevaluation #1: 61-year-old female with history and clinical presentation consistent with [id number] asthma exacerbation and she will receive 3 albuterol treatments/Solu-Medrol/magnesium sulfate and re-evaluate. Re-evaluated patient states feeling much better and breath sounds have improved significantly. Patient discharged in stable condition. <Page Dalal MD - Last Filed: 03/14/21 00:59> Time: 23:14 <Page Dalal MD - Last Filed: 03/14/21 00:59> MDM - URI/Sore Throat Lab Data Result diagrams: : 03/13/21 20:37 03/13/21 20:37 <JOE Marie - Last Filed: 03/13/21 17:52> Labs: Lab Results 03/13/21 03/13/21 03/13/21 Range/Units 17:37 20:37 20:37 WBC 7.4 (4.8-10.8) X10*3/uL RBC 4.36 (4.20-5.50) X10*6/uL Hgb 12.2 (12.0-16.0) g/dl Hct 38.5 (37-47) % MCV 88.3 (80-98) fL MCH 28.0 (27.0-33.0) pg MCHC 31.7 (31.0-35.0) g/dl RDW 14.3 (11.0-16.0) % Plt Count 270 (160-400) X10*3/uL MPV 11.4 (9.4-12.3) fL Immature Gran % (Auto) 0.3 (0.0-0.4) % Neut % (Auto) 72.3 (45-73) % Lymph % (Auto) 17.9 L (20-40) % [place] % (Auto) 7.4 (2-11) % Eos % (Auto) 1.8 (0-4) % Baso % (Auto) 0.3 (0-2) % Lymph # (Auto) 1.3 (1.2-4.9) X10*3/uL [place] # (Auto) 0.6 (0.1-1.2) X10*3/uL Eos # (Auto) 0.1 (0.0-0.4) X10*3/uL Baso # (Auto) 0.0 (0.0-0.2) X10*3/uL Abs Immat Gran (auto) 0.02 (0.00-0.03) X10*3/uL Absolute Neuts (auto) 5.4 (2.0-8.3) X10*3/uL Absolute Nucleated RBC 0.000 (0.0-0.012) X10*3/uL Nucleated RBC % (auto) 0.0 (0.0-0.2) /100WBC PT 11.3 (9.9-13.0) SEC INR 1.0 (0.9-1.1) Sodium (135-145) mmol/L Potassium (3.3-5.1) mmol/L Chloride (96-108) mmol/L Carbon Dioxide (22-29) mmol/L Anion Gap (12-20) BUN (9-16) mg/dL Creatinine (0.5-1.4) mg/dL Estim Creat Clear Calc Estimated GFR Random Glucose (60-115) mg/dL Calcium (8.4-10.2) mg/dL Magnesium (1.6-2.6) mg/dL Total Bilirubin (0.0-1.0) mg/dL AST (5-31) U/L ALT (0-31) U/L Alkaline Phosphatase (39-117) U/L Troponin I High Sens (<3.5-17.0) ng/L B-Natriuretic Peptide (<100) pg/mL Total Protein (6.5-8.0) g/dL Albumin (3.5-5.0) g/dL Coronavirus (PCR) NEGATIVE (Negative) Influenza Type A (PCR) NEGATIVE (Negative) Influenza Type B (PCR) NEGATIVE (Negative) RSV RNA Qual (PCR) NEGATIVE (Negative) 03/13/21 03/13/21 Range/Units 20:37 20:37 WBC (4.8-10.8) X10*3/uL RBC (4.20-5.50) X10*6/uL Hgb (12.0-16.0) g/dl Hct (37-47) % MCV (80-98) fL MCH (27.0-33.0) pg MCHC (31.0-35.0) g/dl RDW (11.0-16.0) % Plt Count (160-400) X10*3/uL MPV (9.4-12.3) fL Immature Gran % (Auto) (0.0-0.4) % Neut % (Auto) (45-73) % Lymph % (Auto) (20-40) % [place] % (Auto) (2-11) % Eos % (Auto) (0-4) % Baso % (Auto) (0-2) % Lymph # (Auto) (1.2-4.9) X10*3/uL [place] # (Auto) (0.1-1.2) X10*3/uL Eos # (Auto) (0.0-0.4) X10*3/uL Baso # (Auto) (0.0-0.2) X10*3/uL Abs Immat Gran (auto) (0.00-0.03) X10*3/uL Absolute Neuts (auto) (2.0-8.3) X10*3/uL Absolute Nucleated RBC (0.0-0.012) X10*3/uL Nucleated RBC % (auto) (0.0-0.2) /100WBC PT (9.9-13.0) SEC INR (0.9-1.1) Sodium 140 (135-145) mmol/L Potassium 3.9 D (3.3-5.1) mmol/L Chloride 103 (96-108) mmol/L Carbon Dioxide 29 (22-29) mmol/L Anion Gap 12 (12-20) BUN 18 H (9-16) mg/dL Creatinine 0.77 (0.5-1.4) mg/dL Estim Creat Clear Calc 89.0 Estimated GFR > 60 Random Glucose 106 (60-115) mg/dL Calcium 9.5 D (8.4-10.2) mg/dL Magnesium 2.2 (1.6-2.6) mg/dL Total Bilirubin 0.4 (0.0-1.0) mg/dL AST 19 (5-31) U/L ALT 17 (0-31) U/L Alkaline Phosphatase 123 H D (39-117) U/L Troponin I High Sens 4.6 (<3.5-17.0) ng/L B-Natriuretic Peptide < 10 (<100) pg/mL Total Protein 7.8 (6.5-8.0) g/dL Albumin 4.5 (3.5-5.0) g/dL Coronavirus (PCR) (Negative) Influenza Type A (PCR) (Negative) Influenza Type B (PCR) (Negative) RSV RNA Qual (PCR) (Negative) <JOE Marie - Last Filed: 03/13/21 17:52> Lab Results 03/13/21 03/13/21 03/13/21 Range/Units 17:37 20:37 20:37 WBC 7.4 (4.8-10.8) X10*3/uL RBC 4.36 (4.20-5.50) X10*6/uL Hgb 12.2 (12.0-16.0) g/dl Hct 38.5 (37-47) % MCV 88.3 (80-98) fL MCH 28.0 (27.0-33.0) pg MCHC 31.7 (31.0-35.0) g/dl RDW 14.3 (11.0-16.0) % Plt Count 270 (160-400) X10*3/uL MPV 11.4 (9.4-12.3) fL Immature Gran % (Auto) 0.3 (0.0-0.4) % Neut % (Auto) 72.3 (45-73) % Lymph % (Auto) 17.9 L (20-40) % [place] % (Auto) 7.4 (2-11) % Eos % (Auto) 1.8 (0-4) % Baso % (Auto) 0.3 (0-2) % Lymph # (Auto) 1.3 (1.2-4.9) X10*3/uL [place] # (Auto) 0.6 (0.1-1.2) X10*3/uL Eos # (Auto) 0.1 (0.0-0.4) X10*3/uL Baso # (Auto) 0.0 (0.0-0.2) X10*3/uL Abs Immat Gran (auto) 0.02 (0.00-0.03) X10*3/uL Absolute Neuts (auto) 5.4 (2.0-8.3) X10*3/uL Absolute Nucleated RBC 0.000 (0.0-0.012) X10*3/uL Nucleated RBC % (auto) 0.0 (0.0-0.2) /100WBC PT 11.3 (9.9-13.0) SEC INR 1.0 (0.9-1.1) Sodium (135-145) mmol/L Potassium (3.3-5.1) mmol/L Chloride (96-108) mmol/L Carbon Dioxide (22-29) mmol/L Anion Gap (12-20) BUN (9-16) mg/dL Creatinine (0.5-1.4) mg/dL Estim Creat Clear Calc Estimated GFR Random Glucose (60-115) mg/dL Calcium (8.4-10.2) mg/dL Magnesium (1.6-2.6) mg/dL Total Bilirubin (0.0-1.0) mg/dL AST (5-31) U/L ALT (0-31) U/L Alkaline Phosphatase (39-117) U/L Troponin I High Sens (<3.5-17.0) ng/L B-Natriuretic Peptide (<100) pg/mL Total Protein (6.5-8.0) g/dL Albumin (3.5-5.0) g/dL Coronavirus (PCR) NEGATIVE (Negative) Influenza Type A (PCR) NEGATIVE (Negative) Influenza Type B (PCR) NEGATIVE (Negative) RSV RNA Qual (PCR) NEGATIVE (Negative) 03/13/21 03/13/21 Range/Units 20:37 20:37 WBC (4.8-10.8) X10*3/uL RBC (4.20-5.50) X10*6/uL Hgb (12.0-16.0) g/dl Hct (37-47) % MCV (80-98) fL MCH (27.0-33.0) pg MCHC (31.0-35.0) g/dl RDW (11.0-16.0) % Plt Count (160-400) X10*3/uL MPV (9.4-12.3) fL Immature Gran % (Auto) (0.0-0.4) % Neut % (Auto) (45-73) % Lymph % (Auto) (20-40) % [place] % (Auto) (2-11) % Eos % (Auto) (0-4) % Baso % (Auto) (0-2) % Lymph # (Auto) (1.2-4.9) X10*3/uL [place] # (Auto) (0.1-1.2) X10*3/uL Eos # (Auto) (0.0-0.4) X10*3/uL Baso # (Auto) (0.0-0.2) X10*3/uL Abs Immat Gran (auto) (0.00-0.03) X10*3/uL Absolute Neuts (auto) (2.0-8.3) X10*3/uL Absolute Nucleated RBC (0.0-0.012) X10*3/uL Nucleated RBC % (auto) (0.0-0.2) /100WBC PT (9.9-13.0) SEC INR (0.9-1.1) Sodium 140 (135-145) mmol/L Potassium 3.9 D (3.3-5.1) mmol/L Chloride 103 (96-108) mmol/L Carbon Dioxide 29 (22-29) mmol/L Anion Gap 12 (12-20) BUN 18 H (9-16) mg/dL Creatinine 0.77 (0.5-1.4) mg/dL Estim Creat Clear Calc 89.0 Estimated GFR > 60 Random Glucose 106 (60-115) mg/dL Calcium 9.5 D (8.4-10.2) mg/dL Magnesium 2.2 (1.6-2.6) mg/dL Total Bilirubin 0.4 (0.0-1.0) mg/dL AST 19 (5-31) U/L ALT 17 (0-31) U/L Alkaline Phosphatase 123 H D (39-117) U/L Troponin I High Sens 4.6 (<3.5-17.0) ng/L B-Natriuretic Peptide < 10 (<100) pg/mL Total Protein 7.8 (6.5-8.0) g/dL Albumin 4.5 (3.5-5.0) g/dL Coronavirus (PCR) (Negative) Influenza Type A (PCR) (Negative) Influenza Type B (PCR) (Negative) RSV RNA Qual (PCR) (Negative) <Page Dalal MD - Last Filed: 03/14/21 00:59> ECG Data Attestation: I personally reviewed and interpreted this ECG as follows: <Page Dalal MD - Last Filed: 03/14/21 00:59> Prior ECG tracings: available for review (08/18/2020 no acute changes on comparison) <Page Dalal MD - Last Filed: 03/14/21 00:59> Interpretation: Normal sinus rhythm, HR-86, no STEMI, [place]/QRS/QTC are within normal limits. <Page Dalal MD - Last Filed: 03/14/21 00:59> Discharge Plan Discharge Clinical Impression: Asthma exacerbation <JOE Marie - Last Filed: 03/13/21 17:52> Patient Disposition: Home, Self-Care <JOE Marie - Last Filed: 03/13/21 17:52> Instructions: Asthma (ED) <JOE Marie - Last Filed: 03/13/21 17:52> Additional Instructions: 1. Resume all home medications as prescribed. 2. Follow-up with your primary care provider in the next 1-2 days for re- evaluation and further outpatient management. Return to the ER for acute worsening of symptoms. <JOE Marie - Last Filed: 03/13/21 17:52> Prescriptions: New prednisone 20 mg tablet 40 mg PO DAILY 4 Days Qty: 8 RF: 0 albuterol sulfate [Ventolin HFA] 90 mcg/actuation HFA aerosol inhaler 2 puff inhalation Q4-6H PRN (Reason: shortness of breath or wheezing) Qty: 6 .7 RF: 0 No Action [id number]-ydwupinncecdo-[id number] [Fioricet] 50-300-40 mg capsule 1 cap PO Q8H PRN (Reason: headache) Qty: 3 RF: 0 metoclopramide HCl [Reglan] 10 mg tablet 10 mg PO Q6H PRN (Reason: nausea and vomiting) Qty: 14 RF: 0 duloxetine 30 mg capsule,delayed release(DR/EC) 30 mg PO QAM RF: 0 Flovent HFA 110 mcg/actuation HFA aerosol inhaler 2 puff PO BID RF: 0 ergocalciferol (vitamin D2) 1,250 mcg (50,000 unit) capsule 1,250 mcg PO QWEEK RF: 0 hydrochlorothiazide 25 mg tablet 25 mg PO DAILY RF: 0 montelukast 10 mg tablet 10 mg PO DAILY RF: 0 aspirin 81 mg tablet,delayed release (DR/EC) 81 mg PO QAM RF: 0 meloxicam 15 mg tablet 15 mg PO DAILY RF: 0 metformin 500 mg tablet PO RF: 0 pregabalin 300 mg capsule 300 mg PO BID RF: 0 omeprazole 20 mg capsule,delayed release(DR/EC) 20 mg PO DAILY RF: 0 ondansetron HCl 4 mg tablet PO RF: 0 atorvastatin 80 mg tablet 80 mg PO DAILY RF: 0 gabapentin 800 mg tablet 800 mg PO TID RF: 0 cyclobenzaprine 10 mg tablet 10 mg PO BEDTIME RF: 0 loratadine 10 mg tablet 10 mg PO DAILY PRN (Reason: allergies) RF: 0 <JOE Marie - Last Filed: 03/13/21 17:52> Referrals: Maya Brannon MD [Primary Care Provider] - 2 days <JOE Marie - Last Filed: 03/13/21 17:52> Print Language: Romansh <JOE Marie - Last Filed: 03/13/21 17:52>
[2021-03-13 19:42] LABS: Influenza A PCR NEGATIVE (Negative); Influenza B PCR NEGATIVE (Negative); Resp Syncy Virus RNA Qual PCR NEGATIVE (Negative); SARS COV2 PCR INHOUSE NEGATIVE (Negative)
[2021-03-13 20:42] LABS: MANUAL DIFF FLAG NO
[2021-03-13 20:43] LABS: Basophils Percent Auto 0.3 % (0-2); Eosinophils Absolute Auto 0.1 X10*3/uL (0.0-0.4); Eosinophils Percent Auto 1.8 % (0-4); Hematocrit 38.5 % (37-47); Hemoglobin 12.2 g/dl (12.0-16.0); Imm Gran Abs Auto 0.02 X10*3/uL (0.00-0.03); Imm Gran Pct Auto 0.3 % (0.0-0.4); Lymphocytes Absolute Auto 1.3 X10*3/uL (1.2-4.9); Lymphocytes Percent Auto 17.9 % (20-40); Mean Corpuscular HGB Conc 31.7 g/dl (31.0-35.0); Mean Corpuscular Volume 88.3 fL (80-98); Mean Platelet Volume 11.4 fL (9.4-12.3); Monocytes Absolute Auto 0.6 X10*3/uL (0.1-1.2); Monocytes Percent Auto 7.4 % (2-11); Neutrophils Absolute Auto 5.4 X10*3/uL (2.0-8.3); Neutrophils Percent Auto 72.3 % (45-73); Platelet Count 270 X10*3/uL (160-400); Red Blood Count 4.36 X10*6/uL (4.20-5.50); Red Cell Distribution Width 14.3 % (11.0-16.0); White Blood Count 7.4 X10*3/uL (4.8-10.8)
[2021-03-13 20:48] LABS: Prothrombin Time 11.3 SEC (9.9-13.0)
[2021-03-13 21:02] LABS: Alanine Aminotransferase 17 U/L (0-31); Albumin Level 4.5 g/dL (3.5-5.0); Alkaline Phosphatase 123 U/L (39-117); Anion Gap 12 (12-20); Aspartate Amino Transferase 19 U/L (5-31); Bilirubin Total 0.4 mg/dL (0.0-1.0); Blood Urea Nitrogen 18 mg/dL (9-16); Calcium 9.5 mg/dL (8.4-10.2); Carbon Dioxide 29 mmol/L (22-29); Chloride 103 mmol/L (96-108); Estimated Glomerular Filt Rate > 60; Glucose Random 106 mg/dL (60-115); Magnesium 2.2 mg/dL (1.6-2.6); Potassium 3.9 mmol/L (3.3-5.1); Sodium 140 mmol/L (135-145); Total Protein 7.8 g/dL (6.5-8.0)
[2021-03-13 21:03] LABS: B Type Natriuretic Peptide < 10 pg/mL (<100); Troponin-I High Sensitivity 4.6 ng/L (<3.5-17.0)
--- NOTE | 2021-03-13 21:35 | ED.GENADULT ---
HPI - General Adult General Chief complaint: Upper Respiratory Symptoms Stated complaint: SOB Time Seen by Provider: 03/13/21 17:33 Source: patient Mode of arrival: ambulatory History of Present Illness HPI narrative: 61-year-old female with history of asthma, diabetes, and hypertension who presents with worsening shortness of breath for the past 2 days and states that she ran out of her medication. Otherwise, she denies any fever, chills, sore throat, new cough and is otherwise been eating and drinking without difficulty and denies any GI or symptoms. In addition, patient denies any lower extremity swelling. Related Data Home Medications Medication Instructions Recorded Confirmed aspirin 81 mg tablet,delayed 81 mg PO QAM 05/12/20 08/17/20 release atorvastatin 80 mg tablet 80 mg PO DAILY 05/12/20 08/17/20 cyclobenzaprine 10 mg tablet 10 mg PO BEDTIME 05/12/20 08/17/20 duloxetine 30 mg capsule,delayed 30 mg PO QAM 05/12/20 08/17/20 release ergocalciferol (vitamin D2) 1,250 1,250 mcg PO QWEEK 05/12/20 08/17/20 mcg (50,000 unit) capsule fluticasone propionate 110 2 puff PO BID 05/12/20 08/17/20 mcg/actuation HFA aerosol inhaler gabapentin 800 mg tablet 800 mg PO TID 05/12/20 08/17/20 hydrochlorothiazide 25 mg tablet 25 mg PO DAILY 05/12/20 08/17/20 loratadine 10 mg tablet 10 mg PO DAILY PRN 05/12/20 08/17/20 meloxicam 15 mg tablet 15 mg PO DAILY 05/12/20 08/17/20 metformin 500 mg tablet mg PO 05/12/20 08/17/20 montelukast 10 mg tablet 10 mg PO DAILY 05/12/20 08/17/20 omeprazole 20 mg capsule,delayed 20 mg PO DAILY 05/12/20 08/17/20 release ondansetron HCl 4 mg tablet mg PO 05/12/20 08/17/20 pregabalin 300 mg capsule 300 mg PO BID 05/12/20 08/17/20 Previous Rx's Medication Instructions Recorded glynznkdsm-dvtwfadzrmsnu-mfevkytp 1 cap PO Q8H PRN #3 cap 06/28/20 50 mg-300 mg-40 mg capsule (Fioricet) metoclopramide HCl 10 mg tablet 10 mg PO Q6H PRN #14 tab 08/18/20 (Reglan) albuterol sulfate 90 mcg/actuation 2 puff INHALATION Q4-6H PRN #6.7 g 03/13/21 aerosol inhaler (Ventolin HFA) prednisone 20 mg tablet 40 mg PO DAILY 4 Days #8 tab 03/13/21 Allergies Allergy/AdvReac Type Severity Reaction Status Date / Time Iodinated Contrast Media Allergy Unknown ITCHING Verified 01/03/21 12:55 [IV CONTRAST] nut - unspecified Allergy Unknown THROAT Verified 01/03/21 12:55 [NUT - UNSPECIFIED] SWELLING penicillin G Allergy Unknown hives Verified 01/03/21 12:55 Penicillins [PENICILLINS] Allergy Unknown HIVES Verified 01/03/21 12:55 Review of Systems Review of Systems: Pertinent positives and negatives as stated in HPI 10 point review of systems is otherwise negative. PMFSH Past Medical History Source: nursing notes reviewed Medical History Brain aneurysm Carpal tunnel syndrome, right Surgical History H/O left breast biopsy History of appendectomy History of cholecystectomy Hx of section Hx of laparoscopic gastric banding Total knee replacement status Family History Family History Father CVA (cerebral vascular accident) CVD (cardiovascular disease) Mother CVD (cardiovascular disease) Uterus cancer Heart attack Social History Social History Alcohol intake: never Patient Tobacco Use Status: Former Tobacco user Physical Exam Vital Signs: Vital Signs: Last Vital Signs Temp 97.3 F 03/13/21 17:33 Pulse 98 03/14/21 00:33 Resp 17 03/13/21 23:15 BP 146/70 H 03/13/21 23:15 Pulse Ox 98 03/14/21 01:10 Body Mass Index 32.1 VITAL SIGNS: Reviewed. GENERAL: Well developed, well nourished, in no acute distress. HEAD: Normocephalic/atraumatic EYES: PERRLA, EOMI OROPHARYNX: no oral lesions noted, posterior pharynx clear LUNGS: Good respiratory effort, mild tachypnea, significant expiratory wheezing bilaterally. SpO2<98> CARDIOVASCULAR: Regular rate and rhythm without noted murmurs, no JVD or lower extremity edema. ABDOMEN: Soft, non-tender, non-distended with bowel sounds. MUSCULOSKELETAL: No tenderness, deformities, or effusions noted on gross inspection. EXTREMITIES: No cyanosis, clubbing or edema. SKIN: Inspection of the skin reveals no rashes NEUROLOGIC: Alert and oriented x 4. Strength and sensation to light touch were grossly intact x 4. Course Course Course Narrative: 61-year-old female with history and clinical presentation most suggestive of mild asthma exacerbation without evidence of CHF or pneumonia. Review of all investigations otherwise negative for acute findings and patient discharged in stable condition and on re-evaluation patient states feeling much better. Medical Decision Making Lab Data Result diagrams: 03/13/21 20:37 03/13/21 20:37 Labs: Lab Results 03/13/21 03/13/21 03/13/21 Range/Units 17:37 20:37 20:37 WBC 7.4 (4.8-10.8) X10*3/uL RBC 4.36 (4.20-5.50) X10*6/uL Hgb 12.2 (12.0-16.0) g/dl Hct 38.5 (37-47) % MCV 88.3 (80-98) fL MCH 28.0 (27.0-33.0) pg MCHC 31.7 (31.0-35.0) g/dl RDW 14.3 (11.0-16.0) % Plt Count 270 (160-400) X10*3/uL MPV 11.4 (9.4-12.3) fL Immature Gran % (Auto) 0.3 (0.0-0.4) % Neut % (Auto) 72.3 (45-73) % Lymph % (Auto) 17.9 L (20-40) % [place] % (Auto) 7.4 (2-11) % Eos % (Auto) 1.8 (0-4) % Baso % (Auto) 0.3 (0-2) % Lymph # (Auto) 1.3 (1.2-4.9) X10*3/uL [place] # (Auto) 0.6 (0.1-1.2) X10*3/uL Eos # (Auto) 0.1 (0.0-0.4) X10*3/uL Baso # (Auto) 0.0 (0.0-0.2) X10*3/uL Abs Immat Gran (auto) 0.02 (0.00-0.03) X10*3/uL Absolute Neuts (auto) 5.4 (2.0-8.3) X10*3/uL Absolute Nucleated RBC 0.000 (0.0-0.012) X10*3/uL Nucleated RBC % (auto) 0.0 (0.0-0.2) /100WBC PT 11.3 (9.9-13.0) SEC INR 1.0 (0.9-1.1) Sodium (135-145) mmol/L Potassium (3.3-5.1) mmol/L Chloride (96-108) mmol/L Carbon Dioxide (22-29) mmol/L Anion Gap (12-20) BUN (9-16) mg/dL Creatinine (0.5-1.4) mg/dL Estim Creat Clear Calc Estimated GFR Random Glucose (60-115) mg/dL Calcium (8.4-10.2) mg/dL Magnesium (1.6-2.6) mg/dL Total Bilirubin (0.0-1.0) mg/dL AST (5-31) U/L ALT (0-31) U/L Alkaline Phosphatase (39-117) U/L Troponin I High Sens (<3.5-17.0) ng/L B-Natriuretic Peptide (<100) pg/mL Total Protein (6.5-8.0) g/dL Albumin (3.5-5.0) g/dL Coronavirus (PCR) NEGATIVE (Negative) Influenza Type A (PCR) NEGATIVE (Negative) Influenza Type B (PCR) NEGATIVE (Negative) RSV RNA Qual (PCR) NEGATIVE (Negative) 03/13/21 03/13/21 Range/Units 20:37 20:37 WBC (4.8-10.8) X10*3/uL RBC (4.20-5.50) X10*6/uL Hgb (12.0-16.0) g/dl Hct (37-47) % MCV (80-98) fL MCH (27.0-33.0) pg MCHC (31.0-35.0) g/dl RDW (11.0-16.0) % Plt Count (160-400) X10*3/uL MPV (9.4-12.3) fL Immature Gran % (Auto) (0.0-0.4) % Neut % (Auto) (45-73) % Lymph % (Auto) (20-40) % [place] % (Auto) (2-11) % Eos % (Auto) (0-4) % Baso % (Auto) (0-2) % Lymph # (Auto) (1.2-4.9) X10*3/uL [place] # (Auto) (0.1-1.2) X10*3/uL Eos # (Auto) (0.0-0.4) X10*3/uL Baso # (Auto) (0.0-0.2) X10*3/uL Abs Immat Gran (auto) (0.00-0.03) X10*3/uL Absolute Neuts (auto) (2.0-8.3) X10*3/uL Absolute Nucleated RBC (0.0-0.012) X10*3/uL Nucleated RBC % (auto) (0.0-0.2) /100WBC PT (9.9-13.0) SEC INR (0.9-1.1) Sodium 140 (135-145) mmol/L Potassium 3.9 D (3.3-5.1) mmol/L Chloride 103 (96-108) mmol/L Carbon Dioxide 29 (22-29) mmol/L Anion Gap 12 (12-20) BUN 18 H (9-16) mg/dL Creatinine 0.77 (0.5-1.4) mg/dL Estim Creat Clear Calc 89.0 Estimated GFR > 60 Random Glucose 106 (60-115) mg/dL Calcium 9.5 D (8.4-10.2) mg/dL Magnesium 2.2 (1.6-2.6) mg/dL Total Bilirubin 0.4 (0.0-1.0) mg/dL AST 19 (5-31) U/L ALT 17 (0-31) U/L Alkaline Phosphatase 123 H D (39-117) U/L Troponin I High Sens 4.6 (<3.5-17.0) ng/L B-Natriuretic Peptide < 10 (<100) pg/mL Total Protein 7.8 (6.5-8.0) g/dL Albumin 4.5 (3.5-5.0) g/dL Coronavirus (PCR) (Negative) Influenza Type A (PCR) (Negative) Influenza Type B (PCR) (Negative) RSV RNA Qual (PCR) (Negative) Discharge Plan Discharge Clinical Impression: Asthma exacerbation Patient Disposition: Home, Self-Care Instructions: Asthma (ED) Additional Instructions: 1. Resume all home medications as prescribed. 2. Follow-up with your primary care provider in the next 1-2 days for re-evaluation and further outpatient management. Return to the ER for acute worsening of symptoms. Prescriptions: New prednisone 20 mg tablet 40 mg PO DAILY 4 Days Qty: 8 RF: 0 albuterol sulfate [Ventolin HFA] 90 mcg/actuation HFA aerosol inhaler 2 puff inhalation Q4-6H PRN (Reason: shortness of breath or wheezing) Qty: 6.7 RF: 0 No Action mdxwpbjjnz-rfnpmtesllgyp-hbyd [Fioricet] 50-300-40 mg capsule 1 cap PO Q8H PRN (Reason: headache) Qty: 3 RF: 0 metoclopramide HCl [Reglan] 10 mg tablet 10 mg PO Q6H PRN (Reason: nausea and vomiting) Qty: 14 RF: 0 duloxetine 30 mg capsule,delayed release(DR/EC) 30 mg PO QAM RF: 0 Flovent HFA 110 mcg/actuation HFA aerosol inhaler 2 puff PO BID RF: 0 ergocalciferol (vitamin D2) 1,250 mcg (50,000 unit) capsule 1,250 mcg PO QWEEK RF: 0 hydrochlorothiazide 25 mg tablet 25 mg PO DAILY RF: 0 montelukast 10 mg tablet 10 mg PO DAILY RF: 0 aspirin 81 mg tablet,delayed release (DR/EC) 81 mg PO QAM RF: 0 meloxicam 15 mg tablet 15 mg PO DAILY RF: 0 metformin 500 mg tablet PO RF: 0 pregabalin 300 mg capsule 300 mg PO BID RF: 0 omeprazole 20 mg capsule,delayed release(DR/EC) 20 mg PO DAILY RF: 0 ondansetron HCl 4 mg tablet PO RF: 0 atorvastatin 80 mg tablet 80 mg PO DAILY RF: 0 gabapentin 800 mg tablet 800 mg PO TID RF: 0 cyclobenzaprine 10 mg tablet 10 mg PO BEDTIME RF: 0 loratadine 10 mg tablet 10 mg PO DAILY PRN (Reason: allergies) RF: 0 Referrals: Maya Brannon MD [Primary Care Provider] - 2 days Interventions: ED Discharge Assessment Last Done: 03/14/21 01:12 Discharge Date/Time: 03/14/21 01:18 Print Language: Peruvian
[2021-03-13] MEDS: Albuterol Sulfate (0.083%) 2.5 MG/3 ML VIAL.NEB 10 MG INHALE (21:54)
[2021-03-13 21:57] VITALS: PULSE 96; O2SAT 98
[2021-03-13 22:29] VITALS: PULSE 96; O2SAT 96
[2021-03-13] MEDS: Albuterol Sulfate (0.083%) 2.5 MG/3 ML VIAL.NEB 5 MG INHALE (22:29)
[2021-03-13] MEDS: Magnesium Sulfate/H2O 2 GM/50 ML PIGGYBACK IV (23:06)
[2021-03-13] MEDS: methylPREDNISolone Sod Succ 125 MG/2 ML VIAL IVPUSH (23:06)
[2021-03-13 23:15] VITALS: BP 146/70; PULSE 105; RESP 17; O2SAT 97
[2021-03-14] MEDS: Albuterol Sulfate (0.083%) 2.5 MG/3 ML VIAL.NEB 5 MG INHALE (00:32)
[2021-03-14 00:33] VITALS: PULSE 98; O2SAT 97
[2021-03-14 01:10] VITALS: O2SAT 98
--- NOTE | 2021-03-14 01:11 | PC.NURSE ---
Pt completed last breathing treatment and reports feeling much better. Provider aware of pt not being able to provide urine for UA. Plan is for pt to be discharged home.
== END 2021-03-14 01:18 | disposition home or self-care (01) ==
PROVIDERS: Physician Assistant Medical; Emergency Provider Student in an Organized Health Care Education/Training Program; PCP Internal Medicine
DX: R06.02 Shortness of breath (principal); I10 Essential (primary) hypertension; Z79.899 Other long term (current) drug therapy; Z20.822 Contact with and (suspected) exposure to COVID-19
CPT/HCPCS: 0241U; 36415; 71046; 80053; 83735; 83880; 84484; 85025; 85610; 93005; 94640; 94644; 96365; 96366; 96375; 99285; J2930; J3475

== ENCOUNTER → 2021-05-04 11:17 | Outpatient (BNVA) | payer OTHER, SELFPAY | PROVIDERS: PCP Internal Medicine; Referring Provider Internal Medicine; Visit Provider Internal Medicine Cardiovascular Disease | DX: I73.9 Peripheral vascular disease, unspecified (principal); I63.9 Cerebral infarction, unspecified; R06.00 Dyspnea, unspecified | CPT/HCPCS: 99212 ==

== ENCOUNTER 2021-07-04 10:42 | Outpatient (REF) | payer OTHER, SELFPAY ==
[2021-07-04 13:50] LABS: Binax Internal Control QC Valid; Binax Now Covid-19 Ag Positive (Negative)
[2021-07-04 13:51] LABS: Binax Lot number: 9864
== END 2021-07-04 10:43 | disposition home or self-care (01) ==
LOC: HO.LAB 10:42
PROVIDERS: Visit Provider Internal Medicine
DX: Z20.822 Contact with and (suspected) exposure to COVID-19 (principal)
CPT/HCPCS: 36415; C9803

== ENCOUNTER 2021-07-30 21:25 | Emergency (ER) | payer OTHER, SELFPAY ==
--- NOTE | ~2021-07-30 | XR_ITS ---
EXAMINATION: LEFT HIP 3 VIEWS AND LEFT KNEE 2 VIEWS CLINICAL INFORMATION: Pain status post fall COMPARISON: None TECHNIQUE: As above nonweightbearing FINDINGS: No fracture within the left hip. Left pubic bone intact. Joint spaces preserved. Left knee imaging images no effusion or fracture. Joint spaces maintained. Mild generalized spurring. XR/XR knee LT 2V IMPRESSION: No fracture.
--- NOTE | ~2021-07-30 | XR_ITS ---
EXAMINATION: LEFT HIP 3 VIEWS AND LEFT KNEE 2 VIEWS CLINICAL INFORMATION: Pain status post fall COMPARISON: None TECHNIQUE: As above nonweightbearing FINDINGS: No fracture within the left hip. Left pubic bone intact. Joint spaces preserved. Left knee imaging images no effusion or fracture. Joint spaces maintained. Mild generalized spurring. XR/XR hip LT w PEL1V IMPRESSION: No fracture.
[2021-07-30 21:28] VITALS: BP 146/74; PULSE 83; RESP 18; TEMP 36.4; O2SAT 99; BMI 31.8
[2021-07-30 22:39] VITALS: BP 139/65; PULSE 76; RESP 16; TEMP 36.4; O2SAT 97
--- NOTE | 2021-07-30 22:53 | ED_ITS ---
HPI - Fall General Chief Complaint: Fall Stated Complaint: fall in bathtub Time Seen by Provider: 07/30/21 22:53 History of Present Illness HPI Narrative: Patient 61-year-old female status post accidental fall. Patient fell on her left gluteal area. Having pain also to the left knee. She was in a bathtub at the time. Slipped. Patient denies any head injury. Denies any loss of consciousness. Is not on any blood thinners. No systemic complaints. No nausea no vomiting no focal weakness. Pain worsens with movement. Patient from home. Related Data Home Medications Medication Instructions Recorded Confirmed aspirin 81 mg tablet,delayed 81 mg PO QAM 05/12/20 05/04/21 release atorvastatin 80 mg tablet 80 mg PO DAILY 05/12/20 05/04/21 cyclobenzaprine 10 mg tablet 10 mg PO BEDTIME 05/12/20 05/04/21 duloxetine 30 mg capsule,delayed 30 mg PO QAM 05/12/20 05/04/21 release ergocalciferol (vitamin D2) 1,250 1,250 mcg PO QWEEK 05/12/20 05/04/21 mcg (50,000 unit) capsule fluticasone propionate 110 2 puff PO BID 05/12/20 05/04/21 mcg/actuation HFA aerosol inhaler gabapentin 800 mg tablet 800 mg PO TID 05/12/20 05/04/21 hydrochlorothiazide 25 mg tablet 25 mg PO DAILY 05/12/20 05/04/21 loratadine 10 mg tablet 10 mg PO DAILY PRN 05/12/20 05/04/21 meloxicam 15 mg tablet 15 mg PO DAILY 05/12/20 05/04/21 montelukast 10 mg tablet 10 mg PO DAILY 05/12/20 05/04/21 omeprazole 20 mg capsule,delayed 20 mg PO DAILY 05/12/20 05/04/21 release ondansetron HCl 4 mg tablet mg PO 05/12/20 05/04/21 pregabalin 300 mg capsule 300 mg PO BID 05/12/20 05/04/21 metformin 500 mg tablet 500 mg PO DAILY tab 05/04/21 05/04/21 Previous Rx's Medication Instructions Recorded tpmntgoydr-muakjvdadymoe-dgeerdpp 1 cap PO Q8H PRN #3 cap 06/28/20 50 mg-300 mg-40 mg capsule (Fioricet) metoclopramide HCl 10 mg tablet 10 mg PO Q6H PRN #14 tab 08/18/20 (Reglan) albuterol sulfate 90 mcg/actuation 2 puff INHALATION Q4-6H PRN #6.7 03/13/21 g aerosol inhaler (Ventolin HFA) Allergies Allergy/AdvReac Type Severity Reaction Status Date / Time Iodinated Contrast Media Allergy Unknown ITCHING Verified 07/30/21 21:27 [IV CONTRAST] nut - unspecified Allergy Unknown THROAT Verified 07/30/21 21:27 [NUT - UNSPECIFIED] SWELLING penicillin G Allergy Unknown hives Verified 07/30/21 21:27 Penicillins [PENICILLINS] Allergy Unknown HIVES Verified 07/30/21 21:27 Review of Systems Verdana 4l Review of Systems: Verdana 4d Positive pain to the left Verdana 4d hip area. Positive pain to the left knee area. No head injury no nausea no vomiting. Not on blood thinners. No focal weakness. Verdana 4d Yes all other systems are reviewed and are negative [facility] Past Medical History Attestation statement: The following information was validated with the patient. Medical History Brain aneurysm Carpal tunnel syndrome, right Surgical History H/O left breast biopsy History of appendectomy History of cholecystectomy Hx of section Hx of laparoscopic gastric banding Total knee replacement status Family History Family History Father CVA (cerebral vascular accident) CVD (cardiovascular disease) Mother CVD (cardiovascular disease) Uterus cancer Heart attack Social History Social History Alcohol intake: never Patient Tobacco Use Status: Former Tobacco user Advance Directives: No Advance Directives Information Provided: Yes Physical Exam Verdana 4l Vital Signs: Verdana 4d Verdana 4d Vital Signs: Verdana 4d Verdana 4Bd Last Vital Signs Verdana 4d [employer] New 4d [employer] New 4d Temp 97.5 F 07/30/21 22:39 [employer] New 4d Pulse 76 07/30/21 22:39 [employer] New 4d Resp 16 07/30/21 22:39 BP 139/65 07/30/21 22:39 Pulse Ox 97 07/30/21 22:39 BMI result Body Mass Index 31.8 Appearance: Alert. Oriented X3. No acute distress. Eyes: Pupils equal, round and reactive to light. ENT: Pharynx normal. Neck: Normal inspection. Neck supple. No lymph nodes noted. No crepitus CVS: Normal heart rate and rhythm. Pulses normal. Normal S1 and S2 Respiratory: No respiratory distress. Breath sounds normal. No Wheezing. No rales Abdomen: Soft and nontender. No rigidity. No distention. good BS x4 Skin: Skin warm and dry. Normal skin color. Normal skin turgor. Extremities: Positive contusion noted in the left knee. Pain on full extension of the knee. There is no tenderness on palpation of medial or lateral collateral ligament. Distal pulses intact sensation intact skin intact. Pain on palpation of the left hip. Pain on movement. Neuro: Oriented X 3. No motor deficit. No sensory deficit. Moving all extermities. No slurred speech MDM - Fall MDM Narrative Medical decision making narrative: No head injury. Not on blood thinners. X-ray of the hip and knee were both grossly negative for any acute fractures. Will discharge patient home. Close follow-up on an outpatient basis. Medical Records Attestation: I reviewed the patient's medical records. Lab Data Attestation: I reviewed the patient's lab results. Discharge Plan Discharge Clinical Impression: Contusion Patient Disposition: Home, Self-Care Instructions: Bone Bruise (ED) Prescriptions: No Action huqmkddcpe-zcbgxxaryyujx-rwhf [Fioricet] 50-300-40 mg capsule 1 cap PO Q8H PRN (Reason: headache) Qty: 3 0RF metoclopramide HCl [Reglan] 10 mg tablet 10 mg PO Q6H PRN (Reason: nausea and vomiting) Qty: 14 0RF albuterol sulfate [Ventolin HFA] 90 mcg/actuation HFA aerosol inhaler 2 puff inhalation Q4-6H PRN (Reason: shortness of breath or wheezing) Qty: 6.7 0RF duloxetine 30 mg capsule,delayed release(DR/EC) 30 mg PO QAM 0RF Flovent HFA 110 mcg/actuation HFA aerosol inhaler 2 puff PO BID 0RF ergocalciferol (vitamin D2) 1,250 mcg (50,000 unit) capsule 1,250 mcg PO QWEEK 0RF hydrochlorothiazide 25 mg tablet 25 mg PO DAILY 0RF montelukast 10 mg tablet 10 mg PO DAILY 0RF aspirin 81 mg tablet,delayed release (DR/EC) 81 mg PO QAM 0RF meloxicam 15 mg tablet 15 mg PO DAILY 0RF pregabalin 300 mg capsule 300 mg PO BID 0RF omeprazole 20 mg capsule,delayed release(DR/EC) 20 mg PO DAILY 0RF ondansetron HCl 4 mg tablet PO 0RF atorvastatin 80 mg tablet 80 mg PO DAILY 0RF gabapentin 800 mg tablet 800 mg PO TID 0RF cyclobenzaprine 10 mg tablet 10 mg PO BEDTIME 0RF loratadine 10 mg tablet 10 mg PO DAILY PRN (Reason: allergies) 0RF metformin 500 mg tablet 500 mg PO DAILY 0RF Referrals: Maya Brannon MD [Primary Care Provider] - 2 days (Ice Motrin for pain.) Ellie Petit MD [Physician] - 2 days
== END 2021-07-30 23:29 | disposition home or self-care (01) ==
PROVIDERS: Emergency Provider Emergency Medicine Emergency Medical Services; PCP Internal Medicine
DX: S30.0XXA Contusion of lower back and pelvis, initial encounter (principal); M54.50 Low back pain, unspecified; M25.552 Pain in left hip; M25.551 Pain in right hip; M25.562 Pain in left knee; W18.2XXA Fall in (into) shower or empty bathtub, initial encounter; Y93.9 Activity, unspecified; Y92.002 Bathroom of unspecified non-institutional (private) residence as the place of occurrence of the external cause; Y99.9 Unspecified external cause status; Z87.891 Personal history of nicotine dependence; Z79.899 Other long term (current) drug therapy
CPT/HCPCS: 73502; 73560; 99283

== ENCOUNTER 2021-08-17 | Outpatient (REF) | payer OTHER, SELFPAY | END 2021-08-17 00:01 | disposition home or self-care (01) | LOC: CF | PROVIDERS: Visit Provider Internal Medicine Cardiovascular Disease | DX: Z13.89 Encounter for screening for other disorder (principal) ==

== ENCOUNTER 2022-01-08 14:47 | Outpatient (REF) | payer OTHER, SELFPAY ==
[2022-01-08 16:10] LABS: Hematocrit 36.1 % (37.0-47.0); Hemoglobin 11.3 g/dl (12.0-16.0); Mean Corpuscular HGB Conc 31.3 g/dl (31.0-35.0); Mean Corpuscular Hemoglobin 27.9 pg (27.0-33.0); Mean Corpuscular Volume 89.1 fL (80.0-98.0); Mean Platelet Volume 11.5 fL (9.4-12.3); Platelet Count 289 X10*3/uL (160-400); Red Blood Count 4.05 X10*6/uL (4.20-5.50); Red Cell Distribution Width 14.3 % (11.0-16.0); White Blood Count 8.6 X10*3/uL (4.8-10.8)
[2022-01-08 16:51] LABS: Anion Gap 12 (12-20); Blood Urea Nitrogen 14 mg/dL (9-16); Calcium 9.4 mg/dL (8.4-10.2); Carbon Dioxide 28 mmol/L (22-29); Chloride 104 mmol/L (96-108); Estimated Glomerular Filt Rate > 60; Glucose Random 99 mg/dL (60-115); Potassium 4.1 mmol/L (3.3-5.1); Sodium 140 mmol/L (135-145)
[2022-01-08 17:08] LABS: TSH reflex Free T4 0.68 uIU/mL (0.32-4.0)
== END 2022-01-08 14:48 | disposition home or self-care (01) ==
LOC: HO.LAB 14:47
PROVIDERS: PCP Internal Medicine; Referring Provider Internal Medicine; Visit Provider Internal Medicine Cardiovascular Disease
DX: R53.83 Other fatigue (principal); R06.00 Dyspnea, unspecified; Z79.899 Other long term (current) drug therapy
CPT/HCPCS: 36415; 80048; 84443; 85027; 93005; 99212

== ENCOUNTER → 2022-07-16 10:18 | Outpatient (BNVA) | payer OTHER, SELFPAY | PROVIDERS: PCP Internal Medicine; Referring Provider Internal Medicine; Visit Provider Internal Medicine Cardiovascular Disease | DX: I73.9 Peripheral vascular disease, unspecified (principal); I63.9 Cerebral infarction, unspecified; R06.00 Dyspnea, unspecified | CPT/HCPCS: 99212 ==

== ENCOUNTER 2022-08-03 10:17 | Outpatient (REF) | payer OTHER, SELFPAY ==
--- NOTE | ~2022-08-03 | FL_ITS ---
EXAMINATION: FL MODIFIED BARIUM SWALLOW CLINICAL INFORMATION: Dysphagia, coughing while eating. I63.9-cerebral infarction, unspecified. COMPARISON: None TECHNIQUE: Modified barium swallow examination is performed with imaging in the lateral view and the presence of the speech pathologist using a variety of barium consistencies. The exam is performed with fluoroscopic evaluation, videofluoroscopy, and some fluoroscopic spot views. Fluoroscopy time: 2.3 minutes DAP: 2.794 Gycm2 Fluoroscopic spot and last image saved: 5 FINDINGS: There is no laryngeal penetration or aspiration seen. No nasopharyngeal penetration. Patient has coughing following swallowing. There is some trace coating of aryepiglottic fold and piriform sinus. No significant pooling. See speech pathologist report for further assessment and recommendation. FL/FL barium swallow modified IMPRESSION: -No laryngeal penetration or aspiration demonstrated. -Trace coating aryepiglottic fold and piriform sinus with subsequent coughing. -See speech pathologist report for further assessment and recommendation.
--- NOTE | 2022-08-06 13:19 | MHC.SL.IMP ---
Date of Plan of Treatment: 08/03/22 Onset of Symptoms/Illness: 08/03/21 Date Treatment Started: 08/03/22 Admitting Diagnosis: Past medical hx: brain aneurysm, carpal tunnel syndrome, right; Surgical hx: left breast biopsy, appendectomy, cholecystectomy, , laparoscopic gastric banding, total knee replacement status Primary Speech & Language Diagnosis: R13.10 Dysphagia Reason for Today's Visit: 13453 Modified Barium Swallow Study Pre-evaluation Dietary Consistencies: Regular Pre-evaluation Liquid Consistency: Thin Pre-evaluation Medication Administration: Whole with Liquid Medical History: [place], [place] Modified Barium Swallow Study Fluoroscopic Evaluation of Swallowing Function CPT Code 59864 Evaluation Year: 2022 Reason for Study: Pt reports coughing when eating and drinking. Referring Physician: Sylvester Solano MD Evaluating Clinician: Samra Patino MA, CCC-SEDIMENTATIONIST Study Number: 1 Patient Name: Ewa Kuhn Status: Outpatient, Ambulatory Age: 62 Gender: Female MEDICAL HISTORY: Year of Onset or Diagnosis: 2022 Past Medical History: Past medical hx: brain aneurysm, carpal tunnel syndrome, right; Surgical hx: left breast biopsy, appendectomy, cholecystectomy, , laparoscopic gastric banding, total knee replacement status Current (pre-evaluation) Intake/Diet: Route: PO Diet Grade: Regular Liquid Consistencies: Thin Pre-Study Functional Oral Intake Scale (FOIS): 7- Total oral intake with no restrictions Pain: None reported at time of study SUBJECTIVE: Pt is a 62 year old female referred for a modified barium swallow study by Dr. Solano of [facility]. 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 Pt had residual right side weakness and underwent rehab while in [place]. 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 Pt reported she cannot eat bread, as she coughs and chokes when she tries to eat bread. Pt reported onset of dysphagia after having the aneurysm. Pt reported coughing with both foods and liquids. She also complained of having a very dry mouth and having to chew gum ?to make more saliva.? Oral Motor Exam Facial Symmetry: Symmetrical Mouth Occlusion: Normal Oral-Facial Teeth Characteristics: Intact/Normal Oral-Facial Lip Pucker Description: Normal Oral-Facial Smile (Lips) Description: Normal Oral-Facial Puff Cheeks Description: Normal Tongue Size: Normal Tongue Frenum Length: Normal Tongue Excursion Description: Normal Tongue Range of Movement Description: Normal Tongue Speed of Movement Description: Normal Tongue Strength of Movement (against opposing pressure): Normal Tongue Movement Characteristics: Normal/Absent Is patient able to manage secretions?: Yes Is patient able to produce volitional cough?: Yes Food and Liquid Trials: Oral Impairment: Lip Closure: Did not test Oral Impairment: Tongue Control During Bolus Hold: 0=Cohesive bolus between tongue to palatal seal Oral Impairment: Bolus Preparation/Mastication: 0=Timely and efficient chewing and mashing Oral Impairment: Bolus Transport/Lingual Motion: 0=Brisk tongue motion Oral Impairment: Oral Residue: 1=Trace residue lining oral structures Oral Impairment:Initiation of Pharyngeal Swallow: 0=Bolus head at posterior angle of ramus (first hyoid excursion) Pharyngeal Impairment: Soft Palate Elevation: 0=No bolus between soft palate (SP)/pharyngeal wall (PW) Pharyngeal Impairment: Laryngeal Elevation: 0=Complete superior movement of thyroid cartilage (see description) Pharyngeal Impairment: Anterior Hyoid Excursion: 0=Complete anterior movement Pharyngeal Impairment: Epiglottic Movement: 0=Complete inversion Pharyngeal Impairment: Laryngeal Vestibular Closure:: 0=Complete: no air/contrast in laryngeal vestibule Pharyngeal Impairment: Pharyngeal Stripping Wave: 0=Present: complete Pharyngeal Impairment: Pharyngeal Contraction: 0=Complete Pharyngeal Impairment: Pharyngoesophageal Segment Openin=Complete distension and complete duration: no obstruction of flow Pharyngeal Impairment: Tongue Base (TB) Retraction: 2=Narrow column of contrast/air between TB and posterior PW Pharyngeal Impairment: Pharyngeal Residue: 1=Trace residue within or on pharyngeal structures Pharyngeal Impairment: Esophageal Clearance Upright Position: Did not test Impressions and Recommendations Clinical Observations: OBJECTIVE: Time-out: performed at 02:45 Evaluation Start: 02:30; Stop: 02:36 Patient Positioning: Standing Viewing Planes: LATERAL ONLY Contrast: MBSImP? Standardized Protocol using commercially prepared, standardized Barium viscosities, including: Varibar? THIN LIQUID (40% w/v, <15 cps) , 1/2 Shortbread Cookie (1 x1 x.25 ) MBSImP ID: [id number] MBSImP Results: Lip closure for intraoral bolus containment could not be assessed due to logistical reasons not related to physiologic impairment. Tongue control during bolus hold maintained a cohesive bolus held between tongue to palate seal. Bolus preparation and mastication resulted in timely and efficient chewing and mashing. Bolus transport/lingual motion was with brisk tongue motion. Oral residue was a trace, lining oral structures. Initiation of the pharyngeal swallow occurred as the bolus head reached the posterior angle of the mandibular ramus. Soft palate elevation resulted in no bolus between the soft palate and the pharyngeal wall. Laryngeal elevation demonstrated complete superior movement of the thyroid cartilage with complete approximation of the arytenoids to the epiglottic petiole. Anterior hyoid excursion demonstrated complete anterior movement. Epiglottic movement resulted in complete inversion. Laryngeal vestibular closure was complete, as indicated by no air or contrast within the laryngeal vestibule at the height of the swallow. Pharyngeal stripping wave was present and complete. Pharyngeal contraction was complete. Pharyngoesophageal segment opening was completely distended for complete duration with no obstruction of bolus flow. Tongue base retraction allowed a narrow column of contrast or air between the retracted tongue base and the posterior pharyngeal wall. Pharyngeal residue was a trace within or on pharyngeal structures. Esophageal clearance in the upright position could not be assessed due to logistical reasons not related to physiologic impairment. Oral Impairment Score: 0 (absence of score, component 1) Pharyngeal Impairment Score: 2 Esophageal Impairment Score: --- (absence of score, component 17) Laryngeal Penetration and Aspiration: Neither penetration nor aspiration was observed in today's study with Cookie, Thin. ASSESSMENT: Clinician Assessment: This exam was conducted by a multidisciplinary team, which included a speech pathologist, radiologist, and waste minimization technician. Pt was standing for lateral and AP views. Pt was able to feed herself without any difficulty. Pt trialed the following liquid and solid consistencies: thin liquid barium by cup, pureed solid (applesauce mixed with barium paste), regular solid (Aidee Doone shortbread cookie coated with barium paste), barium pill tablet with sips of thin liquid barium by cup. Pt demonstrated good tongue control, as she maintained a cohesive bolus between tongue to palatal seal with no premature posterior escape. Timely and efficient mastication. Posterior lingual movement for the transport of bolus was timely and brisk. There was trace lingual residue which cleared with a dry swallow. Pharyngeal swallow trigger was timely, initiated as bolus head reached posterior angle of the ramus. No nasopharyngeal reflux. Laryngeal elevation was complete with complete epiglottic inversion and complete laryngeal vestibular closure. Pt was observed to consistently cough when swallowing. However, there was no evidence of penetration or aspiration with intake of solids and liquids during this exam. Pharyngeal clearance was good, with a very trace amount of residue on the tongue base and in the pyriform sinus. No significant pooling. There was no obstruction of flow through the pharyngoesophageal segment opening. Pt swallowed barium pill tablet with sips of thin liquid barium. Barium pill passed through the oral and pharyngeal cavities with no hang up. Liquid Intake Recommendation: Thin Liquid Intake Strategies: Small Sips Dietary Recommendations: Regular Medication Administration: Whole with Liquid Please contact the pharmacy regarding appropriate crushable or liquid drug formulations that are available whenever modified delivery is recommended. Compensatory Strategies Recommended: Sitting Upright (90 deg), Double Swallow, Small Bites and Sips, Alternate Liquids/Solids, Rate of Ingestion Change Supervision during eating and or drinking: None Needed Recommendation for Speech Therapy: NA:Typical Evaluation PLAN: Intake Recommendations: Route: PO Diet Grade: Regular Liquid Consistencies: Thin Post-Study Functional Oral Intake Scale (FOIS): 7- Total oral intake with no restrictions This exam was unremarkable. No evidence of aspiration or penetration with intake of liquids and solids during this exam. Very trace oral and pharyngeal residue considered to be within functional limits. Recommend resume unmodified diet regular solids and thin liquids Further speech therapy intervention is not warranted at this time as pt?s swallow function is deemed to be within functional limits. Pt did cough throughout trials. Recommend continued workup with G.I. versus ENT to work up for cough and pt?s complaints of dry mouth. Recommend pt to continue monitoring dysphagia. If there are any changes or worsening of symptoms, recommend pt to contact PCP, at which time a repeat-evaluation may be indicated. Suggested Referrals: The patient might benefit from a referral to: Gastroenterology Indication for Referral: Cough during PO intake, dry mouth Otolaryngology Indication for Referral: Cough during PO intake, dry mouth Therapy Recommendations: Therapy will be discontinued Prognosis for Improvement: The prognosis for the patient to meet nutritional needs by mouth is excellent based on degree of impairment. Clinician - Supplemental, Miscellaneous Communication: It is important to note MBSS objective studies are snapshots in time and Patient function might vary with factors such as time of day or concomitant medical conditions. For this reason, the final treatment plan for this patient should rest with their medical care team. Additional recommendations should be considered with the totality of the Patient in mind. Thank for the opportunity to participate in the care of this patient. If you have any questions about the content of this report, please contact the [facility] at [facility]. Education: Education regarding findings from today's study and plans for therapy were provided to Patient only through Verbal Instruction. Understanding was expressed by the Patient only. Crisis Counselor Clinician/Clinical Fellow: No Supervisory Statement: N/A Speech Language Pathologist: Samra Patino M.A., CCC-SEDIMENTATIONIST
== END 2022-08-03 10:18 | disposition home or self-care (01) ==
LOC: HO.XRAY 10:17
PROVIDERS: Visit Provider Internal Medicine Cardiovascular Disease
DX: I63.9 Cerebral infarction, unspecified (principal)
CPT/HCPCS: 74230; 92611

== ENCOUNTER 2022-09-04 11:36 | Outpatient (REF) | payer OTHER, SELFPAY ==
--- NOTE | ~2022-09-04 | MM_ITS ---
EXAMINATION: MM SCREENING DIGITAL BREAST TOMOSYNTHESIS, BILATERAL CLINICAL INFORMATION: Screening. Asymptomatic. Family history breast cancer, mother. Left stereotactic biopsy 2018 (fibroadenomatous changes). The lifetime risk of breast cancer based on the Tyrer-Cuzick Model is 21%. COMPARISON: Mammography: 02/06/2021, 02/01/2020, 08/04/2019, 01/28/2019, 01/19/2019, 01/08/2019 TECHNIQUE: Digital breast tomosynthesis is performed in both the craniocaudal and mediolateral oblique views along with computer-aided detection (CAD). Synthesized 2D images are generated from the tomosynthesis. FINDINGS: There are scattered areas of fibroglandular density (ACR BI-RADS breast composition Category b). Parenchymal pattern is similar to prior studies and there is no significant mass or developing density or architectural abnormality. Again, there are biopsy clip markers mid upper outer right breast and 2 clip markers on the left. There are scattered isolated and grouped calcifications, some on left are coarser from more remote exams suggesting fibroadenomatous changes. The axilla and skin contours are unremarkable. There are no significant changes from prior exam. MM/MM tomosynthesis screening BI IMPRESSION: No mammographic evidence of malignancy. ASSESSMENT: BI-RADS 2: Benign RECOMMENDATION: Routine annual mammography screening. This patient's information was entered into a reminder system with a target due date for their next mammogram.
== END 2022-09-04 11:37 | disposition home or self-care (01) ==
LOC: HO.MAMMO 11:36
PROVIDERS: Visit Provider Internal Medicine
DX: Z12.31 Encounter for screening mammogram for malignant neoplasm of breast (principal)
CPT/HCPCS: 77063; 77067

== ENCOUNTER 2023-01-28 09:15 | Outpatient (AMB) | payer OTHER, SELFPAY ==
[2023-01-28 09:44] VITALS: BP 130/80; PULSE 62; BMI 34.5
--- NOTE | 2023-01-28 09:44 | A.OFFVIS_ITS ---
Intake Vital Signs 01/28/23 09:44 Height 5 ft 6 in Weight 213 lb 13.574 oz BMI 34.5 BP 130/80 Blood Pressure Location Lt brachial Position Sitting Pulse 62 Intake Visit Reasons: Sat FU KM PT Intake Note: Sat [facility] PT Lapel Padder Blindstitch Required: No Allergies Iodinated Contrast Media [IV CONTRAST] Allergy (Unknown, Verified 01/28/23 09:53) ITCHING nut - unspecified [NUT - UNSPECIFIED] Allergy (Unknown, Verified 01/28/23 09:53) THROAT SWELLING penicillin G Allergy (Unknown, Verified 01/28/23 09:53) hives Penicillins [PENICILLINS] Allergy (Unknown, Verified 01/28/23 09:53) HIVES Medication List - Last Reconciled 01/28/23 by PATTI Foster albuterol sulfate 90 mcg/actuation (Ventolin HFA) 2 puffs inhalation Q4-6H PRN aspirin 81 mg PO QAM atorvastatin 80 mg PO DAILY zifquqfsrp-jhlllemmsdvor-cnbh 50-300-40 mg (Fioricet) 1 cap PO Q8H PRN cyclobenzaprine 10 mg PO BEDTIME duloxetine 30 mg PO QAM ergocalciferol (vitamin D2) 1,250 mcg PO QWEEK fluticasone propionate 110 mcg/actuation 2 puffs PO BID gabapentin 800 mg PO TID hydrochlorothiazide 25 mg PO DAILY loratadine 10 mg PO DAILY PRN meloxicam 15 mg PO DAILY metformin 500 mg PO DAILY metoclopramide HCl (Reglan) 10 mg PO Q6H PRN montelukast 10 mg PO DAILY omeprazole 20 mg PO DAILY ondansetron HCl mg PO pregabalin 300 mg PO BID HPI 4 MON FU KM PT HPI Details Neris is a 63-year-old female with past medical history of hypertension, smoking, peripheral vascular disease, asthma, 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 Today she reports she has been doing well since her last visit in July. She will notice some heart palpitations in the night where her heart is beating fast but not during the daytime. She has had no sustained rapid heartbeats, no dizziness, presyncope, syncope, falls. No chest discomfort at rest or with activity. No shortness of breath, PND, orthopnea or edema. She has chronic ri ght-sided weakness from her prior CVA and reports only light physical activities. She is able to ambulate without a cane. 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 She is taking her meds as directed. [facility] Medical History Brain aneurysm Carpal tunnel syndrome, right Surgical History H/O left breast biopsy History of appendectomy History of cholecystectomy Hx of section Hx of laparoscopic gastric banding Total knee replacement status Family History Father CVA (cerebral vascular accident) CVD (cardiovascular disease) Mother CVD (cardiovascular disease) Uterus cancer Heart attack Social History Alcohol intake: never Patient Tobacco Use Status: Former Tobacco user Review of Systems ENT Reports dizziness Card Denies chest pain, Denies chest pain at rest, Denies chest pain with activity, Denies rapid heart rate, Denies pedal edema, Denies edema, Denies leg edema, Denies lightheadedness, Reports palpitations (At night at times), Denies dyspnea, Denies dyspnea on exertion and Denies orthopnea Resp Denies cough, Denies dyspnea and Denies dyspnea on exertion GI Denies hematochezia and Denies change in stool character Musc Details: Right-sided weakness Reports abnormal gait, Reports limited range of motion, Reports muscle cramps, Denies muscle weakness, Denies numbness, Denies radiating pain into limb, Denies stiffness and Denies tingling Neuro Reports abnormal gait, Reports dizziness, Denies numbness and Denies tingling Endo Reports palpitations (At night at times) Physical Exam Vital Signs: Last Vital Signs Pulse 62 01/28/23 09:44 BP 130/80 01/28/23 09:44 BMI result Body Mass Index 34.5 Const General: cooperative, healthy appearing, comfortable and no acute distress Orientation/consciousness: patient oriented x3 Neck Neck: Yes normal visual inspection Resp Effort & Inspection: normal respiratory effort Auscultation: clear to auscultation bilaterally, no crackles, no rales, no rhonchi and no wheezes Cardio Jugular venous distension: no JVD Rate: regular rate Rhythm: regular rhythm Heart sounds: S1 normal heart sound present, S2 normal heart sound present, no murmurs and no rubs GI Inspection: Yes normal to inspection Neuro General: patient oriented x3 Extrem Other: Right weakness Psych Appearance: grossly normal Mental Status: mental status grossly normal Speech and movement: Normal speech and movement present Office Procedures EKG Details: Today, read by me Normal sinus rhythm, no acute ST or T-wave abnormalities, rate 62, QTC 391 millisecond [id number], Complete Assessment & Plan Assessment & Plan (1) Hypertension: Code(s): I10 - Essential (primary) hypertension Plan: Dequincy blood pressure goal less than 130/85. Blood pressure controlled at present. Continue hydrochlorothiazide. She tells me labs are followed by her PCP. (2) ANTON (dyspnea on exertion): Code(s): R06.00 - Dyspnea, unspecified Plan: Previously evaluated for shortness of breath with activity. Echocardiogram had shown normal EF, normal RV function, normal valves. She did have mild sleep apnea on sleep study. Currently with her right-sided weakness she is more sedentary overall. Breathing is not a primary complaint of hers. On exam she has no clinical signs indicating heart failure. (3) CVA (cerebral vascular accident): Code(s): I63.9 - Cerebral infarction, unspecified Plan: 03/2020 developed severe headache, subarachnoid hemorrhage related to aneurysm, residual CVA with right-sided weakness. Clinically doing well and ambulates without assistance. (4) Palpitations: Code(s): R00.2 - Palpitations Plan: Reports of waking up in the night at times with rapid heartbeat. She has no daytime heart palpitations. She has no dizziness, presyncope, syncope, falls. Unclear if anxiety is a component. If she does have daytime heart palpitations then will order a Holter monitor. Coding Level of Care Code Est Pt Level 4 (55994) Diagnoses Hypertension I10 ANTON (dyspnea on exertion) R06.00 CVA (cerebral vascular accident) I63.9 Palpitations R00.2 CPT Codes EKG - CPT: 05211-Yhiqrhinliibrechf, Complete ([id number]) Time Spent (min) 22 Comment Chart review, documentation, interview, assess
== END 2023-01-28 10:11 | disposition home or self-care (01) ==
PROVIDERS: PCP Internal Medicine; Visit Provider Nurse Practitioner Family
DX: I10 Essential (primary) hypertension (principal); R06.00 Dyspnea, unspecified; I63.9 Cerebral infarction, unspecified; R00.2 Palpitations
CPT/HCPCS: 93010; 99214

== ENCOUNTER → 2023-01-28 09:15 | Outpatient (BNVA) | payer OTHER, SELFPAY | PROVIDERS: PCP Internal Medicine; Visit Provider Nurse Practitioner Family | DX: I10 Essential (primary) hypertension (principal); R06.00 Dyspnea, unspecified; R00.2 Palpitations; I69.341 Monoplegia of lower limb following cerebral infarction affecting right dominant side | CPT/HCPCS: 93005; 99212 ==

== ENCOUNTER 2023-02-01 10:28 | Outpatient (REF) | payer OTHER, SELFPAY ==
[2023-02-01 15:21] LABS: Alanine Aminotransferase 16 U/L (0-31); Albumin Level 4.1 g/dL (3.5-5.0); Alkaline Phosphatase 111 U/L (39-117); Anion Gap 17 (12-20); Aspartate Amino Transferase 16 U/L (5-31); Bilirubin Direct 0.2 mg/dL (0.0-0.5); Bilirubin Total 0.4 mg/dL (0.0-1.0); Blood Urea Nitrogen 13 mg/dL (9-16); Calcium 9.7 mg/dL (8.4-10.2); Carbon Dioxide 26 mmol/L (22-29); Chloride 103 mmol/L (96-108); Cholesterol 132 mg/dL; Estimated Glomerular Filt Rate > 60; Glucose Random 103 mg/dL (60-115); HDL Cholesterol 42 mg/dL; LDL Cholesterol Calculated 71 mg/dl; Sodium 141 mmol/L (135-145); Total Protein 7.6 g/dL (6.5-8.0); Triglycerides 97 mg/dL
[2023-02-01 15:24] LABS: TSH reflex Free T4 1.16 uIU/mL (0.32-4.0)
== END 2023-02-01 10:29 | disposition home or self-care (01) ==
LOC: HO.HHCL 10:28
PROVIDERS: Visit Provider Internal Medicine
DX: E66.01 Morbid (severe) obesity due to excess calories (principal); Z68.36 Body mass index [BMI] 36.0-36.9, adult; E11.9 Type 2 diabetes mellitus without complications
CPT/HCPCS: 36415; 80048; 80061; 80076; 84443

== ENCOUNTER → 2023-02-07 10:33 | Outpatient (BNVA) | payer OTHER, SELFPAY | PROVIDERS: PCP Internal Medicine; Visit Provider Physician Assistant Surgical ==

== ENCOUNTER 2023-03-08 09:00 | Outpatient (RCR) | payer OTHER, SELFPAY ==
[2023-02-19 11:06] VITALS: BP 155/73; PULSE 71; O2SAT 98
== END 2023-04-18 08:51 | disposition home or self-care (01) ==
LOC: HO.PT 09:00
PROVIDERS: PCP Internal Medicine; Visit Provider Internal Medicine
DX: R26.81 Unsteadiness on feet (principal)
CPT/HCPCS: 97110; 97112; 97162; 97530

== ENCOUNTER 2023-04-03 10:20 | Outpatient (AMB) | payer OTHER, SELFPAY ==
--- NOTE | 2023-04-03 10:52 | MHC.OFFVISWM ---
Intake VS Expanded 04/03/23 10:59 BP 137/68 Blood Pressure Location Rt brachial Blood Pressure Position Sitting Pulse 76 Pulse Source Pulse Oximeter Temp 97.0 F Temperature Source Temporal Artery Scan Pulse Oximetry 97 Oxygen Delivery Method Room Air Height 5 ft 6 in Weight 208 lb 12.8 oz BMI 33.7 Body Fat % 42.8 Body Fat Mass 89.2 Fat Free Mass 119.4 Visceral Fat Rating 12.0 Body Water % 40.5 Body Water Mass 84.6 Muscle Mass/Score 113.6 Basal Metabolic Rate/Score 1,651 Intake Visit Reasons: (OV) TECHNOLOGY RISK INTERN Revision SWL BMI 35.0 Allergies Iodinated Contrast Media [IV CONTRAST] Allergy (Unknown, Verified 04/03/23 11:01) ITCHING nut - unspecified [NUT - UNSPECIFIED] Allergy (Unknown, Verified 04/03/23 11:01) THROAT SWELLING penicillin G Allergy (Unknown, Verified 04/03/23 11:01) hives Penicillins [PENICILLINS] Allergy (Unknown, Verified 04/03/23 11:01) HIVES HPI HPI Comments History of Present Illness Details This is a 63 year old woman who is here to start SWL program. Pt had GBP at [facility] in 2009, pre op weight was 269 lbs and lowest weight ws 133 lbs. She gained weight after diagnosis of CVA and brain aneurysm in 2019. Has not resumed exercise since then. Her goal is to lose enough weight to feel good again. She lives with alone and is retired. She wakes at: 6:30 am, bed at 8pm Breakfast: coffee with black no sugar. 7:30 am - 1 egg with 2 slices toast with butter. Lunch: 11:30 am - chicken soup (canned) or from [employer] Dinner: 6pm - (large poriton) salad with ludivina dressing,may have baked potato. With chicken or fish - not every night. (4-5 oz). Does not eat and drink at same time, water only After dinner: if hungry has a half glass of skim milk Other snacks: not usually, but may have fruit or yogurt Liquids: no soda, has OJ occasionally Alcohol intake: none, tobacco: quit before GBP, marijuana: none Exercise: Has treadmill at home walks up to 10 minutes and gets tired and stops. no gym membership , wants to restart pool exercise at [facility]. Her neurologist is Dr Kline at [facility], but we do not have access to his notes. Will obtain. ECG in computer January 2023 - [facility] - CMP January 2023 , no Hgb A1C or CBC done SS study done about 1-2 years ago - ECHO - do not see results. Last mammogram: August 2022, birads 2 Last pap smear: up to date control method: post menopausal RD: 4 ESS:4 GERD3: QOL:158 PFSH Medical History (Updated 04/03/23 @ 11:03 by Eleni Sousa PA-C) Brain aneurysm Carpal tunnel syndrome, right Surgical History (Updated 04/03/23 @ 11:41 by Eleni Sousa PA-C) Hx of section H/O left breast biopsy Total knee replacement status Hx of laparoscopic gastric banding History of cholecystectomy History of appendectomy Family History Father CVA (cerebral vascular accident) CVD (cardiovascular disease) Mother CVD (cardiovascular disease) Uterus cancer Heart attack Social History Alcohol intake: never Patient Tobacco Use Status: Former Tobacco user Physical Exam Vital Signs: Last Vital Signs Temp 97.0 F 04/03/23 10:59 Pulse 76 04/03/23 10:59 BP 137/68 04/03/23 10:59 Pulse Ox 97 04/03/23 10:59 Oxygen Delivery Method Room Air 04/03/23 10:59 BMI result Body Mass Index 33.7 Const General: cooperative, no acute distress and well developed Nutritional Appearance: obese Orientation/consciousness: patient oriented x3 HEENT Head: Yes normal to inspection Neck Neck: Yes normal visual inspection Thyroid: Thyroid normal Resp Effort & Inspection: normal respiratory effort Auscultation: clear to auscultation bilaterally Cardio Rate: regular rate Rhythm: regular rhythm Heart sounds: S1 normal heart sound present, S2 normal heart sound present and no murmurs GI Inspection: No distended, Yes incision (open maxine and open appy scars. Laparoscopic upper abd incisions) and Yes obesity Palpation (GI): Soft to palpation, nontender and no guarding Skin General skin exam: no rashes or lesions noted and other (warm and dry) Wounds: no wounds Hair: normal Neuro General: patient oriented x3 Extrem General: Yes no pedal edema and Yes no calf tenderness Psych Attitude: cooperative Thought process: Normal thought process present Thought content: Normal thought content present Insight: Good insight present (Psych) Judgement: Good judgement present (Psych) Assessment & Plan Assessment & Plan (1) Obesity: Code(s): E66.9 - Obesity, unspecified Plan: This is a 63 yo woman with obesity s/p GBP and CVA/aneursym who is interested in revision of previous GBP. We will optain OR notes from [facility]. And will obtain last office notes from her neurologist. This is will be reviewed by Dr Mendez for candidacy for revision. Blood work, h pylori (not ordered yet) , CXR, Abd ULS and UGI have been ordered. She is being scheduled for RD and BH initial consultations. She will start SWL classes and watch at 3 classes before her next appt with Razia. 1. Adequate sleep of 7-8 hours per night discussed, had SS 2 years ago at [facility], normal per patient. 2. Healthy meal plan - All meals/MR's need to take 20 minutes to complete 6:30 - coffee 8am - 30 gram shake 1 pm - 4 oz and 4 oz meal 4 pm- shake 7 pm- yogurt Exercise - start with treadmill at spped of 2.5, 0 inlcine for 15 mintues dialy this week, then 20 mintues daily next week. Pt will purchase body composition analyzer (recommended list given to patient) and weight herself weekly. Next appt with me in 3 weeks. Text me with any questions and weekly weights. Patient is morbidly obese and is not considered stable at this time.?I spent a total of 60 minutes reviewing/updating records, examining the patient and counseling the patient on weight management as detailed above. 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 Code(s): I60.9 - Nontraumatic subarachnoid hemorrhage, unspecified (4) Tobacco abuse: Code(s): Z72.0 - Tobacco use (5) Hypertension: Code(s): I10 - Essential (primary) hypertension (6) Diabetes mellitus: Code(s): E11.9 - Type 2 diabetes mellitus without complications (7) S/P gastric bypass: Code(s): Z98.84 - Bariatric surgery status Orders: Orders Insulin Today E11.9 - Type 2 diabetes mellitus without complications, E66.9 - Obesity, unspecified, I60.9 - Nontraumatic subarachnoid hemorrhage, unspecified, I63.9 - Cerebral infarction, unspecified, Z98.84 - Bariatric surgery status Lipid Panel Today E11.9 - Type 2 diabetes mellitus without complications, E66.9 - Obesity, unspecified, I60.9 - Nontraumatic subarachnoid hemorrhage, unspecified, I63.9 - Cerebral infarction, unspecified, Z98.84 - Bariatric surgery status IRON PROFILE Today E11.9 - Type 2 diabetes mellitus without complications, E66.9 - Obesity, unspecified, I60.9 - Nontraumatic subarachnoid hemorrhage, unspecified, I63.9 - Cerebral infarction, unspecified, Z98.84 - Bariatric surgery status Complete Blood Count Auto Diff Today E11.9 - Type 2 diabetes mellitus without complications, E66.9 - Obesity, unspecified, I60.9 - Nontraumatic subarachnoid hemorrhage, unspecified, I63.9 - Cerebral infarction, unspecified, Z98.84 - Bariatric surgery status Vitamin B12 and Folate Today E11.9 - Type 2 diabetes mellitus without complications, E66.9 - Obesity, unspecified, I60.9 - Nontraumatic subarachnoid hemorrhage, unspecified, I63.9 - Cerebral infarction, unspecified, Z98.84 - Bariatric surgery status Zinc Today E11.9 - Type 2 diabetes mellitus without complications, E66.9 - Obesity, unspecified, I60.9 - Nontraumatic subarachnoid hemorrhage, unspecified, I63.9 - Cerebral infarction, unspecified, Z98.84 - Bariatric surgery status Vitamin A Today E11.9 - Type 2 diabetes mellitus without complications, E66.9 - Obesity, unspecified, I60.9 - Nontraumatic subarachnoid hemorrhage, unspecified, I63.9 - Cerebral infarction, unspecified, Z98.84 - Bariatric surgery status C Reactive Protein Today E11.9 - Type 2 diabetes mellitus without complications, E66.9 - Obesity, unspecified, I60.9 - Nontraumatic subarachnoid hemorrhage, unspecified, I63.9 - Cerebral infarction, unspecified, Z98.84 - Bariatric surgery status Ferritin Today E11.9 - Type 2 diabetes mellitus without complications, E66.9 - Obesity, unspecified, I60.9 - Nontraumatic subarachnoid hemorrhage, unspecified, I63.9 - Cerebral infarction, unspecified, Z98.84 - Bariatric surgery status H Pylori Breath Test Today E11.9 - Type 2 diabetes mellitus without complications, E66.9 - Obesity, unspecified, I60.9 - Nontraumatic subarachnoid hemorrhage, unspecified, I63.9 - Cerebral infarction, unspecified, Z98.84 - Bariatric surgery status Vitamin D 25-OH Total Today E11.9 - Type 2 diabetes mellitus without complications, E66.9 - Obesity, unspecified, I60.9 - Nontraumatic subarachnoid hemorrhage, unspecified, I63.9 - Cerebral infarction, unspecified, Z98.84 - Bariatric surgery status Hemoglobin A1c Today E11.9 - Type 2 diabetes mellitus without complications, E66.9 - Obesity, unspecified, I60.9 - Nontraumatic subarachnoid hemorrhage, unspecified, I63.9 - Cerebral infarction, unspecified, Z98.84 - Bariatric surgery status FL upper GI w air Today E11.9 - Type 2 diabetes mellitus without complications, E66.9 - Obesity, unspecified, I60.9 - Nontraumatic subarachnoid hemorrhage, unspecified, I63.9 - Cerebral infarction, unspecified, Z98.84 - Bariatric surgery status Vitamin B1 Today E11.9 - Type 2 diabetes mellitus without complications, E66.9 - Obesity, unspecified, I60.9 - Nontraumatic subarachnoid hemorrhage, unspecified, I63.9 - Cerebral infarction, unspecified, Z98.84 - Bariatric surgery status PTHI Today E11.9 - Type 2 diabetes mellitus without complications, E66.9 - Obesity, unspecified, I60.9 - Nontraumatic subarachnoid hemorrhage, unspecified, I63.9 - Cerebral infarction, unspecified, Z98.84 - Bariatric surgery status US abdomen comp w elastography Today E11.9 - Type 2 diabetes mellitus without complications, E66.9 - Obesity, unspecified, I60.9 - Nontraumatic subarachnoid hemorrhage, unspecified, I63.9 - Cerebral infarction, unspecified, Z98.84 - Bariatric surgery status XR chest 2V Today E11.9 - Type 2 diabetes mellitus without complications, E66.9 - Obesity, unspecified, I60.9 - Nontraumatic subarachnoid hemorrhage, unspecified, I63.9 - Cerebral infarction, unspecified, Z98.84 - Bariatric surgery status Referrals Behavioral Health Referral E11.9 - Type 2 diabetes mellitus without complications, E66.9 - Obesity, unspecified, I60.9 - Nontraumatic subarachnoid hemorrhage, unspecified, I63.9 - Cerebral infarction, unspecified, Z98.84 - Bariatric surgery status Nutrition/Dietitian Referral E11.9 - Type 2 diabetes mellitus without complications, E66.9 - Obesity, unspecified, I60.9 - Nontraumatic subarachnoid hemorrhage, unspecified, I63.9 - Cerebral infarction, unspecified, Z98.84 - Bariatric surgery status Coding Level of Care Code New Pt Level 5 (72818) Diagnoses Obesity E66.9 CVA (cerebral vascular accident) I63.9 Subarachnoid hemorrhage I60.9 Tobacco abuse Z72.0 Hypertension I10 Diabetes mellitus E11.9 S/P gastric bypass Z98.84
[2023-04-03 10:59] VITALS: BP 137/68; PULSE 76; TEMP 36.1; O2SAT 97; BMI 33.7
== END 2023-04-03 11:51 | disposition home or self-care (01) ==
PROVIDERS: PCP Internal Medicine; Visit Provider Physician Assistant
DX: E66.9 Obesity, unspecified (principal); Z68.33 Body mass index [BMI] 33.0-33.9, adult; Z98.84 Bariatric surgery status; E11.9 Type 2 diabetes mellitus without complications
CPT/HCPCS: 99205

== ENCOUNTER → 2023-04-03 10:20 | Outpatient (BNVA) | payer OTHER, SELFPAY | PROVIDERS: PCP Internal Medicine; Visit Provider Physician Assistant ==

== ENCOUNTER 2023-04-10 09:46 | Outpatient (REF) | payer OTHER, SELFPAY ==
--- NOTE | ~2023-04-10 | XR_ITS ---
EXAMINATION: XR CHEST CLINICAL INFORMATION: Obesity COMPARISON: Previous chest x-ray March 2021 TECHNIQUE: 2 views of the chest were obtained. FINDINGS: No significant abnormality is noted involving the heart, lungs, mediastinum, bony thorax or soft tissues. Degenerative changes of the spine. XR/XR chest 2V IMPRESSION: Unremarkable examination.
[2023-04-11 09:39] LABS: Calcium (PTHI) 9.1 mg/dL (8.6-10.4); PTHI 104 pg/mL (16-77)
[2023-04-13 18:08] LABS: Zinc 64 mcg/dL (60-130)
[2023-04-15 00:29] LABS: Vitamin B1 <6 nmol/L (8-30)
[2023-04-16 10:58] LABS: Vitamin A 34 mcg/dL (38-98)
== END 2023-04-10 09:47 | disposition home or self-care (01) ==
LOC: HO.LAB 09:46
PROVIDERS: PCP Internal Medicine; Visit Provider Physician Assistant
DX: E66.9 Obesity, unspecified (principal); E11.9 Type 2 diabetes mellitus without complications; I63.9 Cerebral infarction, unspecified; I60.9 Nontraumatic subarachnoid hemorrhage, unspecified; Z98.84 Bariatric surgery status
CPT/HCPCS: 36415; 71046; 80061; 82306; 82607; 82728; 82746; 83036; 83525; 83540; 83970; 84425; 84590; 84630; 85025; 86140

== ENCOUNTER → 2023-04-29 08:51 | Outpatient (BNVA) | payer OTHER, SELFPAY | PROVIDERS: PCP Internal Medicine; Visit Provider Counselor Mental Health ==

== ENCOUNTER → 2023-05-01 11:43 | Outpatient (BNVA) | payer OTHER, SELFPAY | PROVIDERS: PCP Internal Medicine; Visit Provider Dietitian, Registered | DX: E66.9 Obesity, unspecified (principal); Z71.3 Dietary counseling and surveillance | CPT/HCPCS: 97802 ==

== ENCOUNTER 2023-05-02 09:12 | Outpatient (AMB) | payer OTHER, SELFPAY ==
--- NOTE | 2023-05-02 09:15 | A.OFFVIS_ITS ---
Intake VS Expanded 05/02/23 09:23 BP 139/67 Blood Pressure Location Rt brachial Blood Pressure Position Sitting Pulse 71 Pulse Source Pulse Oximeter Temp 96.3 F L Temperature Source Tympanic Pulse Oximetry 100 Oxygen Delivery Method Room Air Height 5 ft 6 in Weight 212 lb 3.2 oz BMI 34.2 Body Fat % 42.9 Body Fat Mass 91.0 Fat Free Mass 121.0 Visceral Fat Rating 12.0 Body Water % 40.4 Body Water Mass 85.8 Muscle Mass/Score 114.8 Basal Metabolic Rate/Score 1,673 Intake Visit Reasons: (OV) F/U SWL Allergies Iodinated Contrast Media [IV CONTRAST] Allergy (Unknown, Verified 05/02/23 09:20) ITCHING nut - unspecified [NUT - UNSPECIFIED] Allergy (Unknown, Verified 05/02/23:) THROAT SWELLING penicillin G Allergy (Unknown, Verified 05/02/23 09:20) hives Penicillins [PENICILLINS] Allergy (Unknown, Verified 05/02/23:) HIVES HPI HPI Comments History of Present Illness Details This is the patients second appt for SWL. Starting weight was 208.8lbs on 04/03/23. She has gained 4 lbs since [facility] visit. Exercise - states she walks 5 blocks 20 minutes per day. Treadmill 10 minutes - then gets tired and gets off. Meal plan: 7am - 1 egg with 1 toast with no salt bu tter 11 am - homemade chicken soup with yenifer ts and potatoes 5pm - salad with chicken or fish. water or Crystal light 7pm - half or full apple [facility] Medical History (Updated 04/03/23 @ 11:03 by Eleni Sousa PA-C) Brain aneurysm Carpal tunnel syndrome, right Surgical History Hx of section H/O left breast biopsy Total knee replacement status Hx of laparoscopic gastric banding History of cholecystectomy History of appendectomy Family History Father CVA (cerebral vascular accident) CVD (cardiovascular disease) Mother CVD (cardiovascular disease) Uterus cancer Heart attack Social History Alcohol intake: never Patient Tobacco Use Status: Former Tobacco user Physical Exam Vital Signs: Last Vital Signs Temp 96.3 F L 05/02/23 09:23 Pulse 71 05/02/23 09:23 BP 139/67 05/02/23 09:23 Pulse Ox 100 05/02/23 09:23 Oxygen Delivery Method Room Air 05/02/23 09:23 BMI result Body Mass Index 34.2 Assessment & Plan Assessment & Plan (1) Obesity: Code(s): E66.9 - Obesity, unspecified Plan: 63 yo woman s/p GBP with history of CVA/aneurysm has not started the meal or exercise plans that we created on 04/03. She has no explanation about why she did not start. Can not tell me why it is important. She bought a scale but has not weighed herslef or sent me information - she was surprised she had gained 4 lbs. I told her that to stay in our program she will need to adhere to the meal and exercise that we have given her. She has othr options for SWL program in our area. I told her that she will need to send me her weights weekly and her meal and exercise plans via text for now - if she has progress we will continue with appointments. No appts in the office scheduled now. Patient is obese and is not considered stable at this time. I spent 25 minutes in total with patient reviewing/updating records, examining the patient and counseling the patient on weight management as detailed above. (2) S/P gastric bypass: Code(s): Z98.84 - Bariatric surgery status Coding Level of Care Code Est Pt Level 4 (62000) Diagnoses Obesity E66.9 S/P gastric bypass Z98.84
[2023-05-02 09:23] VITALS: BP 139/67; PULSE 71; TEMP 35.7; O2SAT 100; BMI 34.2
== END 2023-05-02 10:13 | disposition home or self-care (01) ==
PROVIDERS: PCP Internal Medicine; Visit Provider Physician Assistant
DX: E66.9 Obesity, unspecified (principal); Z98.84 Bariatric surgery status
CPT/HCPCS: 99214

== ENCOUNTER → 2023-05-02 09:12 | Outpatient (BNVA) | payer OTHER, SELFPAY | PROVIDERS: PCP Internal Medicine; Visit Provider Physician Assistant | DX: E66.9 Obesity, unspecified (principal); Z68.34 Body mass index [BMI] 34.0-34.9, adult; Z98.84 Bariatric surgery status; Z90.49 Acquired absence of other specified parts of digestive tract | CPT/HCPCS: 99212 ==

== ENCOUNTER 2023-05-08 07:49 | Outpatient (REF) | payer OTHER, SELFPAY ==
--- NOTE | ~2023-05-08 | US_ITS ---
EXAMINATION: US COMPLETE ABDOMEN WITH LIVER ELASTOGRAPHY CLINICAL INFORMATION: Obesity. COMPARISON: Report of the CT abdomen and pelvis dated 05/03/2012; report of the abdominal ultrasound dated 12/30/2015. TECHNIQUE: Real-time imaging of the abdominal viscera. Noninvasive ultrasound liver fibrosis assessment is performed using Willis ElastPQ point quantification shear wave elastography (2D-SWE) with a C5-2 MHz transducer. Multiple elastography samples are obtained. FINDINGS: PANCREAS: Normal. The visualized pancreatic head and body are normal in appearance. The remainder of the pancreas is obscured from visualization by the overlying bowel gas. ABDOMINAL AORTA: The proximal, middle, and distal aortic segments are normal in caliber. INFERIOR VENA CAVA: Visualized portions are normal. LIVER: The liver demonstrates normal size, contour and generally increased echogenicity. No intrahepatic biliary duct dilatation. Within the right hepatic lobe, 2.8 x 2.2 x 3.6 cm and 0.8 x 0.5 x 0.4 cm hyperechoic, circumscribed masses are seen, the former showing mild associated color Doppler flow. The right lobe measures 14.9 cm in length. The left lobe measures 9.4 cm in length. Portal flow is towards the liver (hepatopetal). Shear wave liver elastography median stiffness is 1.1 m/s (reference: normal median stiffness is 1.3 m/s or less). IQR/median stiffness to assess sampling precision is 0.29 (reference: good quality data set is IQR/median stiffness of 0.15 or less). GALLBLADDER: Surgically absent. COMMON BILE DUCT: Normal in caliber measuring 1.1 cm in diameter. RIGHT KIDNEY: Normal. No hydronephrosis. No renal calculi or focal parenchymal lesions. The kidney measures 10.3 cm in maximum dimension. LEFT KIDNEY: Normal. No hydronephrosis. No renal calculi or focal parenchymal lesions. The kidney measures 10.9 cm in maximum dimension. SPLEEN: Normal. The spleen measures 9.6 cm in maximum dimension. FREE FLUID: None. US/US abdomen comp w elastography IMPRESSION: 1. There is generalized increase in hepatic echotexture, consistent with fatty infiltration or hepatocellular disease. Please correlate clinically. No focal hepatic mass or intrahepatic biliary dilatation is seen. 2. Liver elastography: Although measurements suggest a high probability of normal liver stiffness, there is statistical variability of the sampling which decreases accuracy. 3. There are 3.6 cm and 0.8 cm hyperechoic, circumscribed masses within the right hepatic lobe, with ultrasound features characteristic of benign hemangiomas. These are of doubtful clinical significance. If of continued clinical concern (i.e., history of hepatocellular disease or known malignancy), these can be further evaluated with ultrasound or MRI. Of note, on the report of the CT the abdomen and pelvis dated 05/03/2012 (images not available), a 5.4 cm benign hemangioma is described within the right hepatic lobe, showing peripheral nodular, clumped enhancement. REFERENCE: Society of Radiologists in Ultrasound Liver Stiffness Thresholds (2020): LIVER STIFFNESS THRESHOLDS: *Liver Stiffness equal or less than 1.3 m/s: High probability of being normal. *Liver Stiffness less than 1.7 m/s: In the absence of other known clinical signs, rules out compensated advanced chronic liver disease. *Liver Stiffness 1.7-2.1 m/s: Suggestive of compensated advanced chronic liver disease but need further test for confirmation. *Liver Stiffness over 2.1 m/s: Rules in compensated advanced chronic liver disease. *Liver Stiffness over 2.4 m/s: Suggestive of clinically significant portal hypertension. QUALITY OF DATA SET: *IQR/Median value equal or less than 0.15 implies a quality data set. *IQR/Median value over 0.15 implies a poor quality data set. SIGNIFICANT CHANGE FROM PRIOR EXAM: Significant change if liver stiffness measurement is 10% or greater from prior exam. OTHER CONSIDERATIONS: The stage of liver fibrosis may be overestimated in the setting of acute hepatitis, liver inflammation, elevated liver function tests, hepatic vascular congestion, obstructive cholestasis, non-fasting state, and infiltrative diseases such as amyloidosis and lymphoma. In some patients with NAFLD, the liver stiffness thresholds for compensated advanced chronic liver disease may be lower. In causes other than viral hepatitis and NAFLD, liver stiffness thresholds are not well established.
== END 2023-05-08 07:50 | disposition home or self-care (01) ==
LOC: HO.US 07:49
PROVIDERS: PCP Internal Medicine; Visit Provider Physician Assistant
DX: E66.9 Obesity, unspecified (principal); Z98.84 Bariatric surgery status; E11.9 Type 2 diabetes mellitus without complications; I60.9 Nontraumatic subarachnoid hemorrhage, unspecified
CPT/HCPCS: 76705; 76981

== ENCOUNTER 2023-05-14 09:26 | Outpatient (AMB) | payer OTHER, SELFPAY ==
--- NOTE | 2023-05-14 09:51 | MHC.OFFVIS ---
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 States her thumb locks and is painful. She reports locking increase 2 months ago. Also states she has bilateral hand numbness and tinging that increases at night time. Right > Left. Patient would like to discuss surgical intervention vs injection. Patient has Hx of right hand CTR in 2006. 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 She is reportedly status post a right carpal tunnel release in 2005 that initially had good resolution of symptoms. She also complains of painful locking and catching of her right thumb. On the right side she also appears to have had a harvesting of her right radial artery which she said was taken for a brain aneurysm surgery. That was in 2019. [facility] Medical History (Updated 05/14/23 @ 10:41 by Ellie Petit MD) Brain aneurysm Carpal tunnel syndrome, right Surgical History Hx of section H/O left breast biopsy Total knee replacement status Hx of laparoscopic gastric banding History of cholecystectomy History of appendectomy Family History Father CVA (cerebral vascular accident) CVD (cardiovascular disease) Mother CVD (cardiovascular disease) Uterus cancer Heart attack Social History (Updated 05/14/23 @ 10:18 by DEVONTE Vang) Alcohol intake: never Patient Tobacco Use Status: Former Tobacco user Current occupational 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 Physical Exam Vital Signs: BMI result Body Mass Index 34.2 Const General: cooperative, healthy appearing and no acute distress Orientation/consciousness: oriented to person and oriented to place HEENT Head: Yes normocephalic and Yes atraumatic Eyes EOM: EOMs intact bilaterally Resp Effort & Inspection: normal respiratory effort and able to speak in complete sentences Cardio Jugular venous distension: no JVD Skin General skin exam: turgor normal Rashes: no rashes Neuro General: oriented to person and oriented to place Extrem Other: Evaluation of right Upper Extremity: Neuro: Median, ulnar, radial nerves motor and sensory intact except for some decreased sensation in the median nerve distribution today. Normal sensation to the small finger. Good finger cross and APB muscle belly firing. She does have a scar over the radial artery in the volar radial distal forearm, and another scar just proximal to the antecubital fossa. She says this is where they took an artery to treat her brain aneurysm. Her fingers are all pink with good cap refill. She does say they get colder in the right hand with cold weather. Vascular: Cap refill brisk. ROM: Can bring fingers closed to a fist and back out to extension. Smooth and painless wrist ROM Skin: No lacerations or abrasions. General: No eccymosis. No erythema or evidence of infection. She has visible and palpable locking and catching of the right thumb. Tenderness over the right thumb A1 danielle. Psych Appearance: grossly normal Affect: normal affect Attitude: cooperative Office Procedures Fracture Care Details: No fracture, injection Fracture Billing Code: Fracture Billing Code Assessment & Plan Assessment & Plan (1) Trigger finger of right thumb: Code(s): M65.311 - Trigger thumb, right thumb (2) Numbness and tingling in both hands: Code(s): R20.0 - Anesthesia of skin; R20.2 - Paresthesia of skin Plan Assessment and plan: 1. Right trigger thumb I educated about this condition We discussed operative and non operative treatment options and she wished to proceed with an injection Injection #1: The risks and benefits of a steroid injection including but not limited to risk of damage to blood vessels, nerves, tendons, infection, skin bleaching, failure to improve symptoms, increased pain, and possible need for further injections or other intervention were discussed with the patient and the patient wishes to proceed with the steroid injection. Once consent was obtained, I sterilely prepped the area over the A1 danielle of the flexor tendon sheath of the right thumb. I then injected the flexor tendon sheath with a combination of 1 mL of dexamethasone (4mg/ml), and 1% lidocaine. The patient tolerated the procedure well with no complications. If the patient continues to have locking and catching 4-6 weeks following this injection, they may call to schedule appointment to be seen for possible A1 danielle release. 2. Bilateral hand numbness and tingling Right hand reportedly status post carpal tunnel release in 2005 initially with good results I am ordering a bilateral EMG nerve conduction study. She will follow-up after that study. Orders: Orders NE nerve conduction velocity Today R20.0 - Anesthesia of skin, R20.2 - Paresthesia of skin Coding Level of Care Code New Pt Level 4 (92484) Diagnoses Trigger finger of right thumb M65.311 Numbness and tingling in both hands R20.0; R20.2 CPT Codes Fracture Care - Fracture Billing Code: Fracture Billing Code ([id number])
[2023-05-14 09:52] VITALS: BMI 34.2
== END 2023-05-14 10:39 | disposition home or self-care (01) ==
PROVIDERS: PCP Internal Medicine; Visit Provider Orthopaedic Surgery
DX: M65.311 Trigger thumb, right thumb (principal); R20.0 Anesthesia of skin; R20.2 Paresthesia of skin
CPT/HCPCS: 20550; 99204

== ENCOUNTER → 2023-05-14 09:26 | Outpatient (BNVA) | payer OTHER, SELFPAY | PROVIDERS: PCP Internal Medicine; Visit Provider Orthopaedic Surgery | DX: M65.311 Trigger thumb, right thumb (principal); R20.0 Anesthesia of skin; R20.2 Paresthesia of skin | CPT/HCPCS: 20550; 99202; J1100 ==

== ENCOUNTER 2023-05-24 16:30 | Inpatient (IN) | payer OTHER, SELFPAY ==
--- NOTE | 2023-05-24 | ECG_ITS ---
Test Reason : STROKE Blood Pressure : / mmHG Vent. Rate : 071 BPM Atrial Rate : 071 BPM P-R Int : 180 ms QRS Dur : 082 ms QT Int : 362 ms P-R-T Axes : 066 036 030 degrees QTc Int : 393 ms Normal sinus rhythm Normal ECG When compared with ECG of 13-MAR-2021 19:14, No significant change was found Referred By: Generic ED Physician Electronically Signed By:CHRISTAL JOHNSON MD
--- NOTE | ~2023-05-24 | CT_ITS ---
EXAMINATION: CT HEAD WITHOUT CONTRAST CLINICAL INFORMATION: Weakness. COMPARISON: 08/18/2020. TECHNIQUE: Contiguous axial imaging was performed from the skull base to vertex without intravenous administration of contrast. This CT examination was performed using dose optimization techniques as appropriate, variously including the following: *Automated exposure control *Adjustment of mA and/or kV according to patient size (this includes techniques or standardized protocols for targeted exams where dose is matched to indication/reason for exam; i.e. extremities or head) *Use of iterative reconstruction technique DLP: 651 mGy-cm FINDINGS: The lateral, third and fourth ventricles are normally outlined. The cortical sulci and basal cisterns are normally outlined as well. There is no acute territorial defect, hemorrhage or midline shift. The extra-axial spaces are unremarkable. Aneurysm clips are seen in the right middle cranial fossa as well as in the region of the sella similar to prior. Calvarium: Intact. Maxillofacial sinuses and mastoids: Clear as visualized. CT/CT head/brain wo IV con IMPRESSION: No acute intracranial pathology.
--- NOTE | ~2023-05-24 | CT_ITS ---
EXAMINATION: CTA head and neck CLINICAL INFORMATION: Headache, right-sided weakness/facial droop, rule out clot COMPARISON: CT head on 08/18/2020 TECHNIQUE: Test bolus sequences followed by intravenous administration of contrast. Helical imaging was performed in the axial plane from the skull vertex to the thoracic inlet. Delayed postcontrast imaging of the head was also performed. The data was processed at the histology technologist workstation for generation of MIP sequences. Angled MIPs and volume rendered reformatted images were also generated at an offline 3D workstation. Stenoses are assessed in accordance with NASCET criteria unless otherwise indicated. This CT examination was performed using dose optimization techniques as appropriate, variously including the following: *Automated exposure control *Adjustment of mA and/or kV according to patient size (this includes techniques or standardized protocols for targeted exams where dose is matched to indication/reason for exam; i.e. extremities or head) *Use of iterative reconstruction technique FINDINGS: CTA NECK: Common origin of the innominate and left common carotid artery, normal variant. The innominate and bilateral subclavian arteries are patent. The origins and cervical segments of the common carotid arteries as well as the common carotid artery bifurcations are patent bilaterally. The cervical segments of the internal carotid arteries are also patent bilaterally. Incidentally identified medialization of the proximal segment of the right cervical ICA with retropharyngeal course. Nondominant right vertebral artery. The origins and cervical segments of the vertebral arteries are patent bilaterally. No hemodynamically significant stenosis, dissection, or aneurysm. CTA HEAD: Mild to moderate atherosclerotic calcifications of the bilateral carotid siphons. Anterior circulation: The petrous, cavernous, and supraclinoid segments of the internal carotid arteries are patent bilaterally. Sequelae of coil embolization in the regions of the anterior communicating artery complex and the right M1 M2 junction with associated streak artifact slightly limiting evaluation. There are additional metallic clips involving the distal left A2 and mid to distal right M2, likely postsurgical. Otherwise, the major branches of the anterior and middle cerebral arteries are patent. No large vessel occlusion, saccular aneurysm, or dissection. Posterior circulation: The intracranial vertebral arteries are normal in caliber and patent. The basilar artery is normal in caliber and course. The posterior cerebral and superior cerebellar arteries arise normally from the basilar summit. Left posterior cerebral artery. No aneurysm. On delayed imaging, the venous structures demonstrate normal contrast opacification. No filling defect. No abnormal intraparenchymal enhancement. Soft tissues: No suspicious neck mass or cervical lymphadenopathy. Lungs: Multifocal groundglass opacities, nonspecific and can be seen with small airway disease, pulmonary edema, infection/inflammation, atelectasis. Bones: No acute osseous abnormality. No lytic or blastic osseous lesions. Multilevel degenerative changes of the visualized spine. CT/CT angio head neck stroke IMPRESSION: 1. No large vessel occlusion, flow-limiting stenosis, or aneurysm of the head and neck vasculature. 2. Sequelae of coil embolization of the anterior communicating artery and right M1 M2 junction. 3. Multifocal groundglass opacities in the visualized lungs, nonspecific and can be seen with small airway disease, pulmonary edema, infection/inflammation, atelectasis.
--- NOTE | ~2023-05-24 | MR_ITS ---
EXAMINATION: MRI OF THE BRAIN WITHOUT CONTRAST CLINICAL INFORMATION: Possible stroke. Severe headache and blurred vision. COMPARISON: CTA of the head and neck and CT scan of the head 05/24/2023. Multiple prior CT scans of the head. TECHNIQUE: MRI of the brain was obtained using routine sequences without contrast. FINDINGS: No diffusion abnormalities are identified to suggest an acute or subacute infarct. No mass effect or midline shift is seen. There is overall mild commensurate prominence of the ventricles and sulci. There are likely sequelae of chronic infarcts in the caudate heads bilaterally with mild exvacuo dilatation of the anterior horns of the lateral ventricles. There are small areas of hyperintense T2 and FLAIR signal in the posterior right centrum semiovale and in the high left posterior frontal lobe, consistent with small areas of gliosis. No extra-axial fluid collections are seen. The brainstem and cerebellum are normal. There are areas of low gradient signal in the regions of the previously embolized aneurysms in the regions of the anterior communicating artery and distal M1 segment of the right middle cerebral artery. There is no evidence of acute hemorrhage. The craniovertebral junction signal are normal. There is a mildly expanded empty sella, demonstrated on prior imaging. Overall, the major intracranial flow-voids at the level of the [place] are preserved. The dural venous sinus flow-voids are maintained. The mastoid air cells and paranasal sinuses are well-aerated. MR/MR head/brain wo con IMPRESSION: 1. There are no acute bleeds or territorial infarcts. No masses are demonstrated. The study redemonstrates a mildly expanded pituitary fossa with an empty sella 2. There are sequelae of previously embolized aneurysms in the regions of the anterior communicating artery and distal M1 segment of the right middle cerebral artery. 3. There are sequelae of chronic infarcts in the caudate heads bilaterally and there are small gliotic areas in the subcortical frontal lobes. There is mild diffuse volume loss.
[2023-05-24 16:50] VITALS: BP 126/74; PULSE 82; RESP 20; TEMP 36.1; O2SAT 97; BMI 33.7
--- NOTE | 2023-05-24 16:56 | ED_ITS ---
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 Patient states that yesterday morning at 09:00 hours she developed a headache. She states the headache came on gradually but then became severe. She describes the headache as a pressure-like sensation in the back of her head. She states she also has pressure behind her eyes. She states that the pain is now a constant, pounding sensation which is 10/10. She states she has blurred vision and weakness in her right arm and right leg. She states that her right hand and right leg also is numb and tingly. The patient states that she did not come to the hospital till today she thought that her symptoms were going to improve. 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 She also has a history of a stroke in 2009. She denied fever, chills, rhinorrhea, sore throat, cough, nausea, vomiting, diarrhea. Related Data Home Medications Medication Instructions Recorded Confirmed aspirin 81 mg tablet,delayed 81 mg PO DAILY 05/12/20 05/24/23 release duloxetine 30 mg capsule,delayed 30 mg PO DAILY 05/12/20 05/24/23 release fluticasone propionate 110 2 puff PO BID 05/12/20 05/24/23 mcg/actuation HFA aerosol inhaler hydrochlorothiazide 25 mg tablet 25 mg PO DAILY 05/12/20 05/24/23 meloxicam 15 mg tablet 15 mg PO DAILY 05/12/20 05/24/23 montelukast 10 mg tablet 10 mg PO BEDTIME 05/12/20 05/24/23 pregabalin 300 mg capsule 300 mg PO BID 05/12/20 05/24/23 metformin 500 mg tablet 500 mg PO DAILY 05/04/21 05/24/23 amlodipine 10 mg tablet 10 mg PO DAILY 05/24/23 05/24/23 atorvastatin 40 mg tablet 40 mg PO DAILY 05/24/23 05/24/23 carvedilol 6.25 mg tablet 6.25 mg PO BIDWM 05/24/23 05/24/23 cholecalciferol (vitamin D3) 25 25 mcg PO QAM 05/24/23 05/24/23 mcg (1,000 unit) capsule (Vitamin D3) esomeprazole magnesium 20 mg 20 mg PO DAILY 05/24/23 05/24/23 capsule,delayed release Previous Rx's Medication Instructions Recorded albuterol sulfate 90 mcg/actuation 2 puff inhalation Q4-6H PRN 03/13/21 aerosol inhaler (Ventolin HFA) shortness of breath or wheezing #6.7 grams iron,carbonyl 65 mg-vitamin C 125 1 tab PO BEDTIME #30 tabs 04/22/23 mg tablet,delayed release (Vitron-C) vit B complex 100 combo no.2 100 1 tab PO DAILY #30 tabs 04/22/23 mg tablet,extended release (Balanced B-100 Complex) vitamin A palmitate 3,000 mcg 3,000 mcg PO DAILY 3 weeks #21 caps 04/22/23 (10,000 unit) capsule Allergies Allergy/AdvReac Type Severity Reaction Status Date / Time Iodinated Contrast Media Allergy Unknown ITCHING Verified 05/24/23 16:57 [IV CONTRAST] nut - unspecified Allergy Unknown THROAT Verified 05/24/23 16:57 [NUT - UNSPECIFIED] SWELLING penicillin G Allergy Unknown hives Verified 05/24/23 16:57 Penicillins [PENICILLINS] Allergy Unknown HIVES Verified 05/24/23 16:57 Review of Systems 2 Review of Systems: Yes all other systems are reviewed and are negative [facility] Past Medical History [facility] Narrative: Past medical history: Diabetes mellitus, hypertension, peripheral vascular disease, stroke 2010, subarachnoid hemorrhage secondary to ruptured aneurysm 4 years prior treated with coil. Social history: She denies tobacco, alcohol and drug use. Medical History (Updated 05/24/23 @ 21:51 by JOE Alvarez) Diabetes mellitus Hypertension Subarachnoid hemorrhage Mild persistent asthma Tobacco abuse PVD (peripheral vascular disease) Brain aneurysm Carpal tunnel syndrome, right Surgical History (Updated 05/24/23 @ 21:50 by JOE Alvarez) Status post coil embolization of cerebral aneurysm Hx of section H/O left breast biopsy Total knee replacement status Hx of laparoscopic gastric banding History of cholecystectomy History of appendectomy Family History Family History Father CVA (cerebral vascular accident) CVD (cardiovascular disease) Mother CVD (cardiovascular disease) Uterus cancer Heart attack Social History Alcohol intake: never Patient Tobacco Use Status: Former Tobacco user Smoked in Last 30 Days: No Use of substances other than those prescribed or required for medical reasons: No Advance Directives: No Advance Directives Information Provided: No Nutrition Risks: No Nutritional Risk Patient : No Current occupational 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 Exam: General: Awake, alert in no distress, answers all questions appropriately Head: Normocephalic, atraumatic EENT: PERRL, Lids normal, sclera normal, conjunctiva normal, nose normal , ears normal, throat without erythema or exudates Neck: Supple, no adenopathy, no trachea midline or C-spine tenderness Lung: breath sounds symmetric, no wheezing, rales or rhonchi Chest: symmetric movement, nontender Heart: regular rate and rhythm, normal S1, S2 no murmurs or rubs Abdomen: soft, non-tender, nondistended, normal bowel sounds Back: no vertebral tenderness, no CVAT Extremities: no deformities, moves all extremities symmetrically Skin: no rashes, no lesion, normal color and warmth Neuro: Cranial nerves: Right facial droop Strength: Upper extremities: Patient is able to hold her right arm up against gravity but then quickly drifts, diminished strength compared to the left Lower extremities: Patient is able to minimally left her right leg up against gravity quickly drifts back to the stretcher Sensory: Diminished light touch on the right compared to left Psych: Pleasant, cooperative NIH Stroke Scale Internal: Initial- Upon Arrival Level of Consciousness: Alert Level of Consciousness Questions: Answers both questions correctly Level of Consciousness Commands: Performs both tasks correctly Best Gaze: Normal Visual: No visual loss Facial Palsy: Partial paralysis Motor Arm (Right): Drift Motor Arm (Left): No drift Motor Leg (Right): Some effort against gravity Motor Leg (Left): No drift Limb Ataxia: Absent Sensory: Normal Best Language: No aphasia Dysarthia: Normal Extinction and Inattention: No abnormality Score: 5 Course Course Course Narrative: This is a rapid medical exam: Additional HPI, ROS, PE not included below will be deferred to primary provider. Patient is a 63-year-old female with history of aneurism with coil placement presenting to the emergency department with severe headache since 9am yesterday. Reports baseline weakness to right side since coil placement but states weakness is worse than normal. Right facial droop and right upper and lower extremity weakness noted in triage. Plan: battery recharger notified and patient brought directly to main ED, head CT ordered Medications Administered Generic Name Dose Route Start Last Admin Trade Name Freq PRN Reason Stop Dose Admin Enoxaparin Sodium 40 mg 05/24/23 21:45 05/24/23 22:32 Enoxaparin Sodium 40 Mg/0.4 Ml Syringe SUBCUT 40 mg Q24H JOHNSON Administration Discontinued Medications Generic Name Dose Route Start Last Admin Trade Name Freq PRN Reason Stop Dose Admin Acetaminophen/Butalbital/Caffeine 1 tab 05/24/23 21:31 05/24/23 22:32 Butalb/Acetamin/Caff 50/325/40 Tablet PO 05/24/23 21:32 1 tab ONCE ONE Administration Aspirin 81 mg 05/24/23 21:31 05/24/23 22:32 Aspirin Enteric Coated 81 Mg Tablet.Dr PO 05/24/23 21:32 81 mg ONCE ONE Administration Diphenhydramine HCl 50 mg 05/24/23 17:43 05/24/23 17:52 Diphenhydramine Hcl 50 Mg/Ml Vial IVPUSH 05/24/23 17:44 50 mg ONCE ONE Administration Iohexol 100 ml 05/24/23 18:07 05/24/23 18:07 Iohexol 350 Mg/Ml 100 Ml Infus..Btl IV 05/24/23 18:08 70 ml ONCE ONE Administration Metoclopramide HCl 10 mg 05/24/23 17:43 05/24/23 17:52 Metoclopramide Hcl 10 Mg/2 Ml Vial IVPUSH 05/24/23 17:44 10 mg ONCE STA Administration Morphine Sulfate 4 mg 05/24/23 17:43 05/24/23 17:52 Morphine Sulfate 4 Mg/Ml Cartridge IVPUSH 05/24/23 17:44 4 mg ONCE STA Administration Protocol Morphine Sulfate 4 mg 05/24/23 20:26 05/24/23 20:36 Morphine Sulfate 4 Mg/Ml Cartridge IVPUSH 05/24/23 20:27 4 mg ONCE STA Administration Protocol Potassium Chloride 40 meq 05/24/23 21:47 05/24/23 22:32 Potassium Chloride Packet 20 Meq Packet PO 05/24/23 21:48 40 meq ONCE ONE Administration Medical Decision Making Medical Decision Making [facility] Narrative: 63-year-old female PMH diabetes mellitus, hypertension, peripheral vascular disease, stroke 2009, subarachnoid hemorrhage secondary to ruptured an emergent 4 years prior to with coil, who presents emergency department for evaluation of headache, blurred vision, facial and right-sided weakness the began yesterday at 09:00 hours and persisted today. Patient's examination revealed a right facial droop with right arm and right leg weak with the leg being weaker than the arm. Following evaluation was ordered: CBC, CMP, PT/INR, PTT, troponin, is CT scan of the brain without IV contrast, CT angiogram head and neck. Patient was treated with morphine 4 mg IV x2, Benadryl 50 mg IV and regular and 10 mg IV with improvement of her headache. 20:46 CT scan of the patient's head revealed no acute stroke or bleed. CT angiogram head and neck did not reveal any retrieval clot. The patient is outside of the therapeutic window for TNK Patient's headache did improve with the above treatment but she still has right- sided weakness, therefore I am concerned that she had a stroke. I will discuss admission with the covering hospitalist. Differential Diagnosis Differential Diagnoses: The differential diagnosis associated with the presentation includes Differential diagnosis includes was not limited to complex migraine, cerebral bleed, stroke, mass effect Admission/Observation Consideration of admission/observation: Escalation of care including admission/observation considered Consult Healthcare Provider Management of the patient was discussed with: Hospitalist Lab Data [facility] Lab Attestation statement: I reviewed the patient's lab results. See MDM 05/24/23 17:20 05/24/23 17:20 Labs: Lab Results 05/24/23 05/24/23 Range/Units 17:20 17:33 WBC 9.5 (4.8-10.8) X10*3/uL RBC 4.81 (4.20-5.50) X10*6/uL Hgb 12.9 (12.0-16.0) g/dl Hct 41.5 (37.0-47.0) % MCV 86.3 (80.0-98.0) fL MCH 26.8 L (27.0-33.0) pg MCHC 31.1 (31.0-35.0) g/dl RDW 15.4 (11.0-16.0) % Plt Count 290 (160-400) X10*3/uL MPV 12.2 (9.4-12.3) fL Immature Gran % (Auto) 0.2 (0.0-0.4) % Neut % (Auto) 72.1 (45-73) % Lymph % (Auto) 17.8 L (20-40) % [place] % (Auto) 8.7 (2-11) % Eos % (Auto) 0.8 (0-4) % Baso % (Auto) 0.4 (0-2) % Lymph # (Auto) 1.7 (1.2-4.9) X10*3/uL [place] # (Auto) 0.8 (0.1-1.2) X10*3/uL Eos # (Auto) 0.1 (0.0-0.4) X10*3/uL Baso # (Auto) 0.0 (0.0-0.2) X10*3/uL Abs Immat Gran (auto) 0.02 (0.00-0.03) X10*3/uL Absolute Neuts (auto) 6.8 (2.0-8.3) x10*3/uL Absolute Nucleated RBC 0.000 (0.0-0.012) X10*3/uL Nucleated RBC % (auto) 0.0 (0.0-0.2) /100WBC PT 11.0 L (11.1-13.3) SEC INR 0.9 (0.9-1.1) APTT 40.9 H (26.0-36.4) SEC Sodium 142 (135-145) mmol/L Potassium 3.1 L D (3.3-5.1) mmol/L Chloride 104 (96-108) mmol/L Carbon Dioxide 29 (22-29) mmol/L Anion Gap 12 (12-20) BUN 14 (9-16) mg/dL Creatinine 0.87 (0.5-1.4) mg/dL Estim Creat Clear Calc 78.7 Estimated GFR > 60 POC Glucose 96 (60-115) mg/dL Random Glucose 95 (60-115) mg/dL Calcium 10.1 (8.4-10.2) mg/dL Total Bilirubin 0.5 (0.0-1.0) mg/dL AST 21 (5-31) U/L ALT 19 (0-31) U/L Alkaline Phosphatase 136 H (39-117) U/L Troponin I High Sens 3.1 (<3.5-17.0) ng/L Total Protein 8.9 H (6.5-8.0) g/dL Albumin 4.9 (3.5-5.0) g/dL Triglycerides 119 (<150) mg/dL Cholesterol 165 (<200) mg/dL LDL Cholesterol, Calc 90 (<100) mg/dL HDL Cholesterol 52 (>40) mg/dL Independent Interpretation I performed an independent interpretation of an: EKG Interpretation: My interpretation patient's 12 EKG done at 17:30 hours is as follows: Normal sinus rhythm rate of 71, normal NM interval, QRS duration QTC interval, no ST segment elevation, no ST segment depression, inverted T-wave in lead 3 and V1, no PACs, no PVCs-this is a normal EKG Radiology Impression Discussion of test interpretation with radiology: I have reviewed the radiologist's reading. Radiologist Impression: CT head/brain wo IV con FINDINGS: The lateral, third and fourth ventricles are normally outlined. The cortical sulci and basal cisterns are normally outlined as well. There is no acute territorial defect, hemorrhage or midline shift. The extra-axial spaces are unremarkable. Aneurysm clips are seen in the right middle cranial fossa as well as in the region of the sella similar to prior. Calvarium: Intact. Maxillofacial sinuses and mastoids: Clear as visualized. IMPRESSION: No acute intracranial pathology. Dictated By: Avni Sanabria CT angio head neck stroke IMPRESSION: 1. No large vessel occlusion, flow-limiting stenosis, or aneurysm of the head and neck vasculature. 2. Sequelae of coil embolization of the anterior communicating artery and right M1 M2 junction. 3. Multifocal groundglass opacities in the visualized lungs, nonspecific and can be seen with small airway disease, pulmonary edema, infection/inflammation, atelectasis. Dictated By: Rolando Pierre MD Independent Historian Clinical information obtained from an independent historian. History obtained from or confirmed by: Spouse Critical Care Time Critical Care Time Critical Care Time: Yes Total Critical Care Time: 45 Attestation: Critical Care: The patient was critically ill with a high probability of imminent or life threatening deterioration. I spent greater than 30 minutes of discontinuous time evaluating the patient,delivering critical care at the bedside, discussing and evaluating pertinent data with consultants. Critical care time does not include time spent performing separately billable procedures or teaching. Total time spent performing critical care was 45 minutes. Discharge Plan Discharge Clinical Impression: Stroke Qualifiers: CVA mechanism: unspecified Qualified Code(s): I63.9 - Cerebral infarction, unspecified Acute headache Qualifiers: Intractability: not intractable Patient Disposition: Admitted As Inpatient
[2023-05-24 17:23] VITALS: BP 129/73; PULSE 71; RESP 12; TEMP 36.8; O2SAT 98
[2023-05-24 17:27] LABS: MANUAL DIFF FLAG NO
[2023-05-24 17:28] LABS: Basophils Percent Auto 0.4 % (0-2); Eosinophils Absolute Auto 0.1 X10*3/uL (0.0-0.4); Eosinophils Percent Auto 0.8 % (0-4); Hematocrit 41.5 % (37.0-47.0); Hemoglobin 12.9 g/dl (12.0-16.0); Imm Gran Abs Auto 0.02 X10*3/uL (0.00-0.03); Imm Gran Pct Auto 0.2 % (0.0-0.4); Lymphocytes Absolute Auto 1.7 X10*3/uL (1.2-4.9); Lymphocytes Percent Auto 17.8 % (20-40); Mean Corpuscular HGB Conc 31.1 g/dl (31.0-35.0); Mean Corpuscular Hemoglobin 26.8 pg (27.0-33.0); Mean Corpuscular Volume 86.3 fL (80.0-98.0); Mean Platelet Volume 12.2 fL (9.4-12.3); Monocytes Absolute Auto 0.8 X10*3/uL (0.1-1.2); Monocytes Percent Auto 8.7 % (2-11); Neutrophils Absolute Auto 6.8 x10*3/uL (2.0-8.3); Neutrophils Percent Auto 72.1 % (45-73); Platelet Count 290 X10*3/uL (160-400); Red Blood Count 4.81 X10*6/uL (4.20-5.50); Red Cell Distribution Width 15.4 % (11.0-16.0); White Blood Count 9.5 X10*3/uL (4.8-10.8)
[2023-05-24 17:35] LABS: INTERNATIONAL NORM RATIO 0.9 (0.9-1.1)
[2023-05-24 17:36] LABS: Glucose, Whole Blood 96 mg/dL (60-115)
[2023-05-24 17:37] LABS: Partial Thromboplastin Time 40.9 SEC (26.0-36.4)
[2023-05-24 17:45] LABS: Alanine Aminotransferase 19 U/L (0-31); Albumin Level 4.9 g/dL (3.5-5.0); Alkaline Phosphatase 136 U/L (39-117); Anion Gap 12 (12-20); Aspartate Amino Transferase 21 U/L (5-31); Bilirubin Total 0.5 mg/dL (0.0-1.0); Blood Urea Nitrogen 14 mg/dL (9-16); Calcium 10.1 mg/dL (8.4-10.2); Carbon Dioxide 29 mmol/L (22-29); Chloride 104 mmol/L (96-108); Creatinine Clr Calc Pharmacy 78.7; Estimated Glomerular Filt Rate > 60; Glucose Random 95 mg/dL (60-115); Potassium 3.1 mmol/L (3.3-5.1); Sodium 142 mmol/L (135-145); Total Protein 8.9 g/dL (6.5-8.0)
[2023-05-24 17:52] LABS: Troponin-I High Sensitivity 3.1 ng/L (<3.5-17.0)
[2023-05-24] MEDS: Morphine Sulfate 4 MG/ML CARTRIDGE IVPUSH ×2 (17:52→20:36)
[2023-05-24] MEDS: diphenhydrAMINE HCL 50 MG/ML VIAL IVPUSH (17:52)
[2023-05-24] MEDS: Metoclopramide HCl 10 MG/2 ML VIAL IVPUSH (17:52)
[2023-05-24] MEDS: iohexoL 350 MG/ML 100 ML INFUS..BTL IV (18:07)
--- NOTE | 2023-05-24 20:09 | PC.NURSE ---
Patient resting on stretcher, respirations even and unlabored, no apparent distress at this time
[2023-05-24 20:36] VITALS: BP 110/60; PULSE 73; RESP 16; TEMP 37.1; O2SAT 96
--- NOTE | 2023-05-24 20:39 | PC.NURSE ---
Patent medicated per AUG, offers no complaints to this RN. Endorses photophobia and 5/10 headache
[2023-05-24 21:39] VITALS: BP 125/68; PULSE 74; RESP 14; O2SAT 97
--- NOTE | 2023-05-24 21:39 | P.HPHOSP_ITS ---
<Statement entered by Harvey Ramos MD - 05/25/23 06:29> Patient seen and examined at bedside, I agree with the findings in PA H&P Patient's presentation is concerning for complex migraine versus stroke, will obtain MRI, neurology consult, aspirin and statin For full H&P please see below History of Present Illness Date of Service: 05/24/23 Attending physician on admission: Harvey Ramos Chief Complaint: headache, r sided weakness 63-year-old female with history of wyn-uflfdfj-bitlhavcn type 2 diabetes, hypertension, history of subarachnoid hemorrhage, history brain aneurysm s/p coil, asthma, peripheral vascular disease, history of left-sided breast cancer treated with radiation and lumpectomy, former smoker presents to the ED earlier today with her sister, Maria R, for evaluation of headache and right-sided weakness. She states yesterday around 09:00 developed an occipital headache described as a pulsing sensation. Yesterday evening, developed photophobia and blurred vision the eyes bilaterally but denies any vision loss. Around 04:00 she woke up and reports is peering Tripp a cramping sensation and paresthesias in the right hand which progressed to the elbow and then her shoulder. She states that the same time had similar symptoms in the right lower extremity with associated weakness. She denies any slurred speech, facial droop, left-sided weakness/paresthesias. Symptoms persist. She also endorses neck pain. On arrival, vital stable. Hematology studies unremarkable. Renal function normal, electrolyte levels normal except for a mild hypokalemia of 3.1. Troponin 3.1. Lipid panel pending. Head CT is negative for any acute intracranial pathology. CTA of the head/neck is negative for any large vessel occlusion or flow-limiting stenosis. There is sequelae of coil embolization of the [place] and right M1 M2 junction. EKG shows NSR, rate 71, no st/t wave abnormality. Review of Systems 2 Review of Systems: General: No fevers, malaise, unintentional weight loss HEENT: +blurred vision, +photophobia. No vision loss, diplopia Cardiovascular: No chest pain, palpitations, or leg edema Respiratory: No shortness of breath, wheezing, cough GI: No abdominal pain, nausea, vomiting, diarrhea : No dysuria, hematuria, increased urinary frequency MSK: No myalgia, back pain Neuro: +headaches, + right sided weakness, +right sided paresthesias Skin: No rashes or lesions [facility] Medical History (Updated 05/24/23 @ 21:51 by JOE Alvarez) Diabetes mellitus Hypertension Subarachnoid hemorrhage Mild persistent asthma Tobacco abuse PVD (peripheral vascular disease) Brain aneurysm Carpal tunnel syndrome, right Family History Father CVA (cerebral vascular accident) CVD (cardiovascular disease) Mother CVD (cardiovascular disease) Uterus cancer Heart attack Surgical History (Updated 05/24/23 @ 21:50 by JOE Alvarez) Status post coil embolization of cerebral aneurysm Hx of section H/O left breast biopsy Total knee replacement status Hx of laparoscopic gastric banding History of cholecystectomy History of appendectomy Alcohol intake: never Patient Tobacco Use Status: Former Tobacco user Current occupational 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 Meds Allergies Allergy/AdvReac Type Severity Reaction Status Date / Time Iodinated Contrast Media Allergy Unknown ITCHING Verified 05/24/23 16:57 [IV CONTRAST] nut - unspecified Allergy Unknown THROAT Verified 05/24/23 16:57 [NUT - UNSPECIFIED] SWELLING penicillin G Allergy Unknown hives Verified 05/24/23 16:57 Penicillins [PENICILLINS] Allergy Unknown HIVES Verified 05/24/23 16:57 Active Medications: Current Medications Acetaminophen (Acetaminophen 325 Mg Tablet) 650 mg PO Q6H PRN PRN Reason: Pain, Mild (Pain Scale 1-3) Al Hydroxide/Mg Hydroxide (Magnesium Hydrox/Alum Hydrox 30 Ml Oral.Susp) 30 ml PO Q4H PRN PRN Reason: Heartburn/Nausea Aspirin (Aspirin Enteric Coated 81 Mg Tablet.Dr) 81 mg PO DAILY [facility] Atorvastatin Calcium (Atorvastatin Calcium 40 Mg Tablet) 40 mg PO DAILY [facility] Enoxaparin Sodium (Enoxaparin Sodium 40 Mg/0.4 Ml Syringe) 40 mg SUBCUT Q24H [facility] Ondansetron HCl (Ondansetron Hcl 4 Mg/2 Ml Vial) 4 mg IVPUSH Q8H PRN PRN Reason: Nausea and Vomiting Senna (Sennosides 8.6 Mg Tablet) 17.2 mg PO BEDTIME PRN PRN Reason: Constipation Sodium Chloride (0.9 % Sodium Chloride Flush 3 Ml Syringe) 3 ml IVFLUSH [facility] Home Medications Medication Instructions Recorded Confirmed Last Taken Type aspirin 81 mg tablet,delayed 81 mg PO DAILY 05/12/20 01/28/23 Unknown History release duloxetine 30 mg capsule,delayed 30 mg PO QAM 05/12/20 07/16/22 Unknown History release fluticasone propionate 110 2 puff PO BID 05/12/20 01/28/23 Unknown History mcg/actuation HFA aerosol inhaler hydrochlorothiazide 25 mg tablet 25 mg PO DAILY 05/12/20 01/28/23 Unknown History loratadine 10 mg tablet 10 mg PO DAILY PRN allergies 05/12/20 01/28/23 Unknown History meloxicam 15 mg tablet 15 mg PO DAILY 05/12/20 01/28/23 Unknown History montelukast 10 mg tablet 10 mg PO BEDTIME 05/12/20 01/28/23 Unknown History omeprazole 20 mg capsule,delayed 20 mg PO DAILY 05/12/20 01/28/23 Unknown History release pregabalin 300 mg capsule 300 mg PO BID 05/12/20 01/28/23 Unknown History metformin 500 mg tablet 500 mg PO DAILY 05/04/21 01/28/23 Unknown History amlodipine 10 mg tablet 10 mg PO DAILY 05/24/23 Unknown History atorvastatin 40 mg tablet 40 mg PO DAILY 05/24/23 Unknown History carvedilol 6.25 mg tablet 6.25 mg PO BIDWM 05/24/23 Unknown History cholecalciferol (vitamin D3) 25 25 mcg PO QAM 05/24/23 Unknown History mcg (1,000 unit) capsule (Vitamin D3) esomeprazole magnesium 20 mg 20 mg PO DAILY 05/24/23 Unknown History capsule,delayed release Physical Exam 2 Vital Signs and Narrative: Vital Signs: Last Vital Signs Temp 98.7 F 05/24/23 20:36 Pulse 73 05/24/23 20:36 Resp 16 05/24/23 20:36 BP 110/60 05/24/23 20:36 Pulse Ox 96 05/24/23 20:36 O2 Del Method Room Air 05/24/23 20:36 BMI result Body Mass Index 33.7 Constitutional - Awake and Alert, No apparent distress Eyes - PERRLA, EOMI Neck - supple but diffusely ttp Cardiovascular - S1S2, RRR, No edema Respiratory - Normal lung expansion, Normal respiratory effort, No respiratory distress, CTA bilaterally Extremities - no calf tenderness bilaterally, no swelling Skin - Warm/Dry Neurological - Alert & oriented x3, left sided facial droop otherwise CN II-XII in tact, 2/5 strength RUE and RLE with +arm drift. 5/5 strength LUE and LLE. 2+ patellar reflexes, downgoing babinski. Normal finger to nose testing Psychological - Appropriate affect Results Labs 05/24/23 17:20 05/24/23 17:20 Labs: Laboratory Results - last 24 hr 05/24/23 05/24/23 17:20 17:33 MCV 86.3 MCH 26.8 L MCHC 31.1 RDW 15.4 Plt Count 290 MPV 12.2 Immature Gran % (Auto) 0.2 Neut % (Auto) 72.1 Lymph % (Auto) 17.8 L [place] % (Auto) 8.7 Eos % (Auto) 0.8 Baso % (Auto) 0.4 Lymph # (Auto) 1.7 [place] # (Auto) 0.8 Eos # (Auto) 0.1 Baso # (Auto) 0.0 Abs Immat Gran (auto) 0.02 Absolute Neuts (auto) 6.8 Absolute Nucleated RBC 0.000 Nucleated RBC % (auto) 0.0 PT 11.0 L INR 0.9 APTT 40.9 H Anion Gap 12 Estim Creat Clear Calc 78.7 Estimated GFR > 60 POC Glucose 96 Random Glucose 95 Calcium 10.1 Total Bilirubin 0.5 AST 21 ALT 19 Alkaline Phosphatase 136 H Total Protein 8.9 H Albumin 4.9 Imaging Radiologist's Impressions: Impressions Head CT 05/24/23 17:11 IMPRESSION: No acute intracranial pathology. Head/Neck CTA 05/24/23 18:15 IMPRESSION: 1. No large vessel occlusion, flow-limiting stenosis, or aneurysm of the head and neck vasculature. 2. Sequelae of coil embolization of the anterior communicating artery and right M1 M2 junction. 3. Multifocal groundglass opacities in the visualized lungs, nonspecific and can be seen with small airway disease, pulmonary edema, infection/inflammation, atelectasis. Assessment and Plan (1) Acute headache: Qualifiers: Intractability: not intractable Status: Acute (2) Stroke: Qualifiers: CVA mechanism: unspecified Qualified Code(s): I63.9 - Cerebral infarction, unspecified Status: Acute Plan 63-year-old female with history of aba-[id number]-[id number] type 2 diabetes, hypertension, history of subarachnoid hemorrhage, history brain aneurysm s/p coil, asthma, peripheral vascular disease, history of left-sided breast cancer treated with radiation and lumpectomy, former smoker to be admitted for further management of suspected CVA. #Suspected CVA- not a tpa candidate given duration of symptoms -vs complex migraine given somewhat insidious onset of symptoms and ongoing headache -still with significant right sided weakness and left sided facial droop -Head CT and CTA head/neck negative for acute intracranial pathology, LVO, or significant stenosis -MRI brain ordered -Nursing bedside swallow eval -ASA 81mg now and daily -Atorvastatin 40mg daily, lipid profile pending -Neuro checks -stroke edu -neuro consult -monitor on telemetry #Acute headache with blurred vision and photophobia- likely migraine headache -head ct negative for acute intracranial abnormality -fioricet ordered #Acute hypokalemia -K 3.1, repleted -Follow lytes. Consider alternative to hctz or daily supplement if persistent #HTN -bp reasonably controlled -continue carvedilol, hctz # qrg-xkaaczn-ojppxsaxu type 2 diabetes -controlled with last A1c 6.6% -POC glucose -diabetic diet -Humalog on sliding scale -hold oral antihyperglycemics # mild persistent asthma -no acute exacerbation -continue Flovent, albuterol p.r.n. # GERD -continue PPI # unspecified neuropathy -continue gabapentin DVT prophylaxis-Lovenox Full code Patient requires inpatient stay at least 2 midnights for management of acute CVA Quality Stroke Does the patient have a stroke diagnosis?: Yes Reason for No Anti-thrombotic by Day Two: Drug treatment not indicated VTE Prior VTE?: No VTE Risk Level:: Medical - moderate - high VTE Device Contraindication: Treatment Not Indicated VTE Drug Contraindication: N/A - Med Ordered
[2023-05-24 22:04] LABS: Cholesterol 165 mg/dL (<200); HDL Cholesterol 52 mg/dL (>40); LDL Cholesterol Calculated 90 mg/dL (<100); Triglycerides 119 mg/dL (<150)
--- NOTE | 2023-05-24 22:20 | PHA.MEDREC ---
Pharmacy Consult ? Medication Reconciliation Pharmacy has completed the medication reconciliation.spoke to pt and she states she doesn't know her medications. she says she only uses [facility] so claim history used to complete med rec.
[2023-05-24] MEDS: Enoxaparin Sodium 40 MG/0.4 ML SYRINGE SUBCUT (22:32)
[2023-05-24] MEDS: Butalb/Acetamin/Caff 50/325/40 TABLET 1 TAB PO (22:32)
[2023-05-24] MEDS: Potassium Chloride Packet 20 MEQ PACKET 40 MEQ PO (22:32)
[2023-05-24] MEDS: Aspirin Enteric Coated 81 MG TABLET.DR PO (22:32)
--- NOTE | 2023-05-24 22:58 | PC.NURSE ---
Patient continues to rest on stretcher, awaiting bed assignment. Patient was sat up to complete swallow eval. Patient was able to swallow water with no issue, then medications as well. Patient offers no complaints to this RN, respiraitons are even and unlabored, skin pwd, alert and oriented x4. Daughter at bedside
[2023-05-25] VITALS (8 sets, daily range): BP systolic 110–159; BP diastolic 57–68; PULSE 62–71; RESP 13–20; TEMP 36.3–36.7; O2SAT 91–100; BMI 34.3
--- NOTE | 2023-05-25 00:09 | PC.NURSE ---
Took over care for HUMBERTO Branch, pt a&o, able to speak in full sentences, swallow evaluation complete prior shift.
[2023-05-25] MEDS: 0.9 % Sodium Chloride Flush 3 ML SYRINGE IVFLUSH ×4 (05:50→23:54)
[2023-05-25 06:13] LABS: MANUAL DIFF FLAG NO
[2023-05-25 06:20] LABS: Basophils Percent Auto 0.4 % (0-2); Eosinophils Absolute Auto 0.1 X10*3/uL (0.0-0.4); Eosinophils Percent Auto 1.2 % (0-4); Hematocrit 33.7 % (37.0-47.0); Hemoglobin 10.7 g/dl (12.0-16.0); Imm Gran Abs Auto 0.01 X10*3/uL (0.00-0.03); Imm Gran Pct Auto 0.2 % (0.0-0.4); Lymphocytes Percent Auto 20.1 % (20-40); Mean Corpuscular HGB Conc 31.8 g/dl (31.0-35.0); Mean Corpuscular Hemoglobin 27.5 pg (27.0-33.0); Mean Corpuscular Volume 86.6 fL (80.0-98.0); Mean Platelet Volume 12.5 fL (9.4-12.3); Monocytes Absolute Auto 0.4 X10*3/uL (0.1-1.2); Monocytes Percent Auto 8.8 % (2-11); Neutrophils Absolute Auto 3.5 x10*3/uL (2.0-8.3); Neutrophils Percent Auto 69.3 % (45-73); Platelet Count 226 X10*3/uL (160-400); Red Blood Count 3.89 X10*6/uL (4.20-5.50); Red Cell Distribution Width 15.4 % (11.0-16.0)
--- NOTE | 2023-05-25 06:28 | PC.NURSE ---
pt oob to bathroom, pt had steady gait, nuero intact. clear speech, a&o.
[2023-05-25 06:41] LABS: Anion Gap 12 (12-20); Blood Urea Nitrogen 12 mg/dL (9-16); Calcium 8.9 mg/dL (8.4-10.2); Carbon Dioxide 26 mmol/L (22-29); Chloride 105 mmol/L (96-108); Creatinine Clr Calc Pharmacy 92.6; Estimated Glomerular Filt Rate > 60; Glucose Random 107 mg/dL (60-115); Potassium 3.5 mmol/L (3.3-5.1); Sodium 139 mmol/L (135-145)
[2023-05-25 07:31] LABS: Glucose, Whole Blood 84 mg/dL (60-115)
--- NOTE | 2023-05-25 07:57 | PC.NURSE ---
patient resting in bed, sitting up eating breakfast. patient respirations equal and unlabored. call preston within reach, able to make needs known
[2023-05-25] MEDS: Aspirin Enteric Coated 81 MG TABLET.DR PO (08:10)
[2023-05-25] MEDS: Atorvastatin Calcium 40 MG TABLET PO (08:10)
--- NOTE | 2023-05-25 10:25 | PC.NURSE ---
patient going to MRI
[2023-05-25 13:07] LABS: Glucose, Whole Blood 172 mg/dL (60-115)
[2023-05-25] MEDS: Insulin Lispro 100 UNIT/ML 3 ML VIAL SUBCUT (13:09)
[2023-05-25] MEDS: Acetaminophen 325 MG TABLET 650 MG PO (15:02)
--- NOTE | 2023-05-25 15:09 | P.PNIM_ITS ---
Subjective Subjective Date of Service: 05/25/23 Review of Systems Follow up headache headache better, mild blurred vision Physical Exam 2 Vital Signs: Vital Signs: Last Vital Signs Temp 97.9 F 05/25/23 13:12 Pulse 71 05/25/23 13:12 Resp 18 05/25/23 13:12 BP 110/68 05/25/23 14:23 Pulse Ox 97 05/25/23 13:12 O2 Del Method Room Air 05/25/23 13:12 BMI result Body Mass Index 34.3 Appearing in no acute distress lung sounds are clear to auscultation heart regular rate rhythm, clear S1, S2 positive bowel sounds, abdomen is soft, nontender neuro patient is alert x3, no focal deficits Objective Data Active Medications Acetaminophen (Acetaminophen 325 Mg Tablet) 650 mg PO Q6H PRN PRN Reason: Pain, Mild (Pain Scale 1-3) Last Admin: 05/25/23 15:02 Dose: 650 mg Documented By: STEPHEN Al Hydroxide/Mg Hydroxide (Magnesium Hydrox/Alum Hydrox 30 Ml Oral.Susp) 30 ml PO Q4H PRN PRN Reason: Heartburn/Nausea Aspirin (Aspirin Enteric Coated 81 Mg Tablet.Dr) 81 mg PO DAILY [facility] Last Admin: 05/25/23 08:10 Dose: 81 mg Documented By: ALIN Atorvastatin Calcium (Atorvastatin Calcium 40 Mg Tablet) 40 mg PO DAILY [facility] Last Admin: 05/25/23 08:10 Dose: 40 mg Documented By: ALIN Dextrose (Dextrose 50 % 25 Gm/50 Ml Syringe) 25 gm IVPUSH Q15M PRN; Protocol PRN Reason: per Hypoglycemia Standing Ord. Enoxaparin Sodium (Enoxaparin Sodium 40 Mg/0.4 Ml Syringe) 40 mg SUBCUT Q24H [facility] Last Admin: 05/24/23 22:32 Dose: 40 mg Documented By: SAMANSIB Glucose (Glucose Gel 15 Gm Gel..Gram.) 15 gm PO Q15M PRN; Protocol PRN Reason: per Hypoglycemia Standing Ord. Insulin Human Lispro (Insulin Lispro 100 Unit/Ml 3 Ml Vial) 0 unit SUBCUT QIDACHS [facility]; Protocol Last Admin: 05/25/23 13:09 Dose: 2 unit Documented By: ALIN Ondansetron HCl (Ondansetron Hcl 4 Mg/2 Ml Vial) 4 mg IVPUSH Q8H PRN PRN Reason: Nausea and Vomiting Senna (Sennosides 8.6 Mg Tablet) 17.2 mg PO BEDTIME PRN PRN Reason: Constipation Sodium Chloride (0.9 % Sodium Chloride Flush 3 Ml Syringe) 3 ml IVFLUSH QSHIFT [facility] Last Admin: 05/25/23 15:03 Dose: 3 ml Documented By: STEPHEN Labs 05/25/23 05:55 05/25/23 05:55 Labs: Laboratory Results - last 24 hr 05/24/23 05/24/23 05/25/23 17:20 17:33 05:55 MCV 86.3 86.6 MCH 26.8 L 27.5 MCHC 31.1 31.8 RDW 15.4 15.4 Plt Count 290 226 MPV 12.2 12.5 H Immature Gran % (Auto) 0.2 0.2 Neut % (Auto) 72.1 69.3 Lymph % (Auto) 17.8 L 20.1 [place] % (Auto) 8.7 8.8 Eos % (Auto) 0.8 1.2 Baso % (Auto) 0.4 0.4 Lymph # (Auto) 1.7 1.0 L [place] # (Auto) 0.8 0.4 Eos # (Auto) 0.1 0.1 Baso # (Auto) 0.0 0.0 Abs Immat Gran (auto) 0.02 0.01 Absolute Neuts (auto) 6.8 3.5 Absolute Nucleated RBC 0.000 0.000 Nucleated RBC % (auto) 0.0 0.0 PT 11.0 L INR 0.9 APTT 40.9 H Anion Gap 12 12 Estim Creat Clear Calc 78.7 92.6 Estimated GFR > 60 > 60 POC Glucose 96 Random Glucose 95 107 Calcium 10.1 8.9 D Total Bilirubin 0.5 AST 21 ALT 19 Alkaline Phosphatase 136 H Total Protein 8.9 H Albumin 4.9 Triglycerides 119 Cholesterol 165 LDL Cholesterol, Calc 90 HDL Cholesterol 52 05/25/23 05/25/23 07:22 13:04 MCV MCH MCHC RDW Plt Count MPV Immature Gran % (Auto) Neut % (Auto) Lymph % (Auto) [place] % (Auto) Eos % (Auto) Baso % (Auto) Lymph # (Auto) [place] # (Auto) Eos # (Auto) Baso # (Auto) Abs Immat Gran (auto) Absolute Neuts (auto) Absolute Nucleated RBC Nucleated RBC % (auto) PT INR APTT Anion Gap Estim Creat Clear Calc Estimated GFR POC Glucose 84 172 H Random Glucose Calcium Total Bilirubin AST ALT Alkaline Phosphatase Total Protein Albumin Triglycerides Cholesterol LDL Cholesterol, Calc HDL Cholesterol Assessment and Plan (1) Stroke: Status: Acute (2) Subarachnoid hemorrhage: Status: Acute Plan 63-year-old female with history of iyz-qmdgaaj-kzmirjenp type 2 diabetes, hypertension, history of subarachnoid hemorrhage, history brain aneurysm s/p coil, asthma, peripheral vascular disease, history of left-sided breast cancer treated with radiation and lumpectomy, former smoker to be admitted for further management of suspected CVA. Suspected CVA- not a tpa candidate given duration of symptoms vs complex migraine given somewhat insidious onset of symptoms and ongoing headache still with significant right sided weakness and left sided facial droop Head CT and CTA head/neck negative for acute intracranial pathology, LVO, or significant stenosis MRI brain negative for acute stroke Nursing bedside swallow eval ASA 81mg now and daily Atorvastatin 40mg daily neuro consult pending monitor on telemetry Acute headache with blurred vision and photophobia- likely migraine headache head ct negative for acute intracranial abnormality fioricet ordered Acute hypokalemia K 3.1, repleted Follow lycyndie. Consider alternative to hctz or daily supplement if persistent HTN bp reasonably controlled continue carvedilol, hctz [id number]-jucnbtfob type 2 diabetes controlled with last A1c 6.6% POC glucose diabetic diet Humalog on sliding scale hold oral antihyperglycemics mild persistent asthma no acute exacerbation Flovent, albuterol p.r.n. GERD continue PPI unspecified neuropathy continue gabapentin DVT prophylaxis-Lovenox Full code Patient requires inpatient stay at least 2 midnights for management of acute CVA Quality Stroke Does the patient have a stroke diagnosis?: Yes Reason for No Anti-thrombotic by Day Two: Drug treatment not indicated VTE Prior VTE?: No VTE Risk Level:: Medical - moderate - high VTE Device Contraindication: Treatment Not Indicated VTE Drug Contraindication: N/A - Med Ordered
[2023-05-25 15:41] LABS: Glucose, Whole Blood 103 mg/dL (60-115)
--- NOTE | 2023-05-25 16:03 | MHC.CM.PN ---
Met with pt to discusss d/c planning Pt resides w/son and daughter in law who are also her [employer]'s. Pt has DM supplies, cane, commode, shower chair and other DME but no services. Son will transport pt to home at d/c. HCP completed and uploaded, IMM in chart. PCP Kenai Goldstein
[2023-05-25 20:17] LABS: Glucose, Whole Blood 94 mg/dL (60-115)
[2023-05-25] MEDS: Enoxaparin Sodium 40 MG/0.4 ML SYRINGE SUBCUT (20:49)
[2023-05-26 03:19] VITALS: BP 123/65; PULSE 78; RESP 20; TEMP 36.2; O2SAT 96
[2023-05-26] MEDS: Acetaminophen 325 MG TABLET 650 MG PO (06:01)
[2023-05-26 06:43] LABS: Anion Gap 11 (12-20); Blood Urea Nitrogen 12 mg/dL (9-16); Calcium 9.3 mg/dL (8.4-10.2); Carbon Dioxide 29 mmol/L (22-29); Chloride 106 mmol/L (96-108); Creatinine Clr Calc Pharmacy 92.1; Estimated Glomerular Filt Rate > 60; Glucose Random 114 mg/dL (60-115); Potassium 4.1 mmol/L (3.3-5.1); Sodium 142 mmol/L (135-145)
[2023-05-26 07:28] VITALS: BP 124/63; PULSE 65; RESP 20; TEMP 36.6; O2SAT 97
[2023-05-26 07:33] LABS: Glucose, Whole Blood 118 mg/dL (60-115)
[2023-05-26] MEDS: Atorvastatin Calcium 40 MG TABLET PO (08:45)
[2023-05-26] MEDS: Aspirin Enteric Coated 81 MG TABLET.DR PO (08:45)
[2023-05-26] MEDS: 0.9 % Sodium Chloride Flush 3 ML SYRINGE IVFLUSH (08:46)
--- NOTE | 2023-05-26 09:15 | PM.NEUROCN ---
History of Present Illness Data of Consult Service Date: 05/26/23 Primary Care Provider: Maya Hernandez MD [facility] Reason for consult: Question stroke 63 years old woman with previous history of cerebral aneurysm status post coiling, breast cancer, and diabetes who came to hospital with left-sided headache. She denied any recent cold or flu-like illness or trauma. Headache got worse with throbbing pain worse with light and noise and associated with nausea. It lasted for about a day. She was afraid of having aneurysm waking again and came to hospital. Workup did not reveal any focal pathology. Now she was feeling better. Review of Systems Review of Systems: No recent cold or flu-like illness or trauma. [facility] Past Medical History Medical History (Updated 05/26/23 @ 09:18 by Derrick Lubin MD) Diabetes mellitus Hypertension Subarachnoid hemorrhage Mild persistent asthma Tobacco abuse PVD (peripheral vascular disease) Brain aneurysm Carpal tunnel syndrome, right Family History Family History Father CVA (cerebral vascular accident) CVD (cardiovascular disease) Mother CVD (cardiovascular disease) Uterus cancer Heart attack Surgical History Surgical History (Updated 05/24/23 @ 21:50 by JOE Alvarez) Status post coil embolization of cerebral aneurysm Hx of section H/O left breast biopsy Total knee replacement status Hx of laparoscopic gastric banding History of cholecystectomy History of appendectomy Social History Household Members: Family Household Members Other:: 3 Housing: Apartment Do you presently have visiting nurse or other home services: Yes Unable to assess alcohol history related to: Unable to respond Alcohol intake: never Patient Tobacco Use Status: Former Tobacco user Tobacco use type: Cigarette service: No Current occupational 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 Meds Allergies Allergy/AdvReac Type Severity Reaction Status Date / Time Iodinated Contrast Media Allergy Unknown ITCHING Verified 05/24/23 16:57 [IV CONTRAST] nut - unspecified Allergy Unknown THROAT Verified 05/24/23 16:57 [NUT - UNSPECIFIED] SWELLING penicillin G Allergy Unknown hives Verified 05/24/23 16:57 Penicillins [PENICILLINS] Allergy Unknown HIVES Verified 05/24/23 16:57 Active Medications: Current Medications Acetaminophen (Acetaminophen 325 Mg Tablet) 650 mg PO Q6H PRN PRN Reason: Pain, Mild (Pain Scale 1-3) Last Admin: 05/26/23 06:01 Dose: 650 mg Al Hydroxide/Mg Hydroxide (Magnesium Hydrox/Alum Hydrox 30 Ml Oral.Susp) 30 ml PO Q4H PRN PRN Reason: Heartburn/Nausea Aspirin (Aspirin Enteric Coated 81 Mg Tablet.) 81 mg PO DAILY [facility] Last Admin: 05/26/23 08:45 Dose: 81 mg Atorvastatin Calcium (Atorvastatin Calcium 40 Mg Tablet) 40 mg PO DAILY [facility] Last Admin: 05/26/23 08:45 Dose: 40 mg Dextrose (Dextrose 50 % 25 Gm/50 Ml Syringe) 25 gm IVPUSH Q15M PRN; Protocol PRN Reason: per Hypoglycemia Standing Ord. Enoxaparin Sodium (Enoxaparin Sodium 40 Mg/0.4 Ml Syringe) 40 mg SUBCUT Q24H [facility] Last Admin: 05/25/23 20:49 Dose: 40 mg Glucose (Glucose Gel 15 Gm Gel..Gram.) 15 gm PO Q15M PRN; Protocol PRN Reason: per Hypoglycemia Standing Ord. Insulin Human Lispro (Insulin Lispro 100 Unit/Ml 3 Ml Vial) 0 unit SUBCUT QIDACHS [facility]; Protocol Last Admin: 05/26/23 07:40 Dose: Not Given Ondansetron HCl (Ondansetron Hcl 4 Mg/2 Ml Vial) 4 mg IVPUSH Q8H PRN PRN Reason: Nausea and Vomiting Senna (Sennosides 8.6 Mg Tablet) 17.2 mg PO BEDTIME PRN PRN Reason: Constipation Sodium Chloride (0.9 % Sodium Chloride Flush 3 Ml Syringe) 3 ml IVFLUSH QSHIFT [facility] Last Admin: 05/26/23 08:46 Dose: 3 ml Home Medications Medication Instructions Recorded Confirmed Last Taken Type aspirin 81 mg tablet,delayed 81 mg PO DAILY 05/12/20 05/24/23 05/24/23 History release duloxetine 30 mg capsule,delayed 30 mg PO DAILY 05/12/20 05/24/23 05/24/23 History release fluticasone propionate 110 2 puff PO BID 05/12/20 05/24/23 05/24/23 History mcg/actuation HFA aerosol inhaler hydrochlorothiazide 25 mg tablet 25 mg PO DAILY 05/12/20 05/24/23 05/24/23 History meloxicam 15 mg tablet 15 mg PO DAILY 05/12/20 05/24/23 05/24/23 History montelukast 10 mg tablet 10 mg PO BEDTIME 05/12/20 05/24/23 05/23/23 History pregabalin 300 mg capsule 300 mg PO BID 05/12/20 05/24/23 05/24/23 History metformin 500 mg tablet 500 mg PO DAILY 05/04/21 05/24/23 05/24/23 History amlodipine 10 mg tablet 10 mg PO DAILY 05/24/23 05/24/23 05/24/23 History atorvastatin 40 mg tablet 40 mg PO DAILY 05/24/23 05/24/23 05/24/23 History carvedilol 6.25 mg tablet 6.25 mg PO BIDWM 05/24/23 05/24/23 05/24/23 History cholecalciferol (vitamin D3) 25 25 mcg PO QAM 05/24/23 05/24/23 05/24/23 History mcg (1,000 unit) capsule (Vitamin D3) esomeprazole magnesium 20 mg 20 mg PO DAILY 05/24/23 05/24/23 05/24/23 History capsule,delayed release Physical Exam Vital Signs: Vital Signs: Last Vital Signs Temp 97.8 F 05/26/23 07:28 Pulse 65 05/26/23 07:28 Resp 20 05/26/23 07:28 BP 124/63 05/26/23 07:28 Pulse Ox 97 05/26/23 07:28 O2 Del Method Room Air 05/26/23 07:28 BMI result Body Mass Index 34.3 Neuro: Other: She is alert and awake with normal spontaneity of speech fluency comprehension and anxious affect. Face is symmetrical. Visual morrow are full. There is no pronator drift. Deep tendon reflexes are trace with flexor plantars. Speech is normal. Results Labs 05/25/23 05:55 05/26/23 05:49 Labs: BMP 05/26/23 05:49 Sodium 142 Potassium 4.1 Chloride 106 Carbon Dioxide 29 BUN 12 [address] 0[address] of brain did not reveal any acute pathology. CTA of brain did not reveal any vascular lesion except evidence of previous quite laying. MRI of brain also did not reveal any acute lesion. Assessment and Plan (1) Acute headache: Qualifiers: Intractability: not intractable Headache type: unspecified Qualified Code(s): R51.9 - Headache, unspecified Status: Acute 63 years old woman with previous history of cerebral quite laying and breast cancer came to hospital with left-sided throbbing headache with photophobia nausea lasting for about a day. Workup or imaging did not reveal any acute pathology or any evidence of cerebral aneurysm, subarachnoid hemorrhage, or stroke. Likely etiology of headache is migraine. But she say stat she did not have headaches. In any case she had reasonable workup done and my suggestion is to reassure and educate her and give her few tablets of somewhat Triptan 50 mg to be taken p.r.n. for headache. Procedures Date of Service Date of Service: 05/26/23
--- NOTE | 2023-05-26 10:28 | PM.DS ---
DS: Providers Provider Date of Service: 05/26/23 Date of admission: 05/24/23 21:31 Primary care physician: Maya Hernandez MD Consults: 05/24/23 21:33 Consult to Neurology Routine Consulting Provider: Derrick Lubin Reason for consultation: ?cva DS: Diagnosis Discharge Diagnosis (1) Acute headache: Status: Acute DS: Summary Hospital Course Hospital Course: History and physical as per admitting provider. 63-year-old female with history of [id number] type 2 diabetes, hypertension, history of subarachnoid hemorrhage, history brain aneurysm s/p coil, asthma, peripheral vascular disease, history of left-sided breast cancer treated with radiation and lumpectomy, former smoker presents to the ED earlier today with her sister, Maria R, for evaluation of headache and right-sided weakness. She states yesterday around 09:00 developed an occipital headache described as a pulsing sensation. Yesterday evening, developed photophobia and blurred vision the eyes bilaterally but denies any vision loss. Around 04:00 she woke up and reports is peering Tripp a cramping sensation and paresthesias in the right hand which progressed to the elbow and then her shoulder. She states that the same time had similar symptoms in the right lower extremity with associated weakness. She denies any slurred speech, facial droop, left-sided weakness/paresthesias. Symptoms persist. She also endorses neck pain. On arrival, vital stable. Hematology studies unremarkable. Renal function normal, electrolyte levels normal except for a mild hypokalemia of 3.1. Troponin 3.1. Lipid panel pending. Head CT is negative for any acute intracranial pathology. CTA of the head/neck is negative for any large vessel occlusion or flow-limiting stenosis. There is sequelae of coil embolization of the MILADIS and right M1 M2 junction. EKG shows NSR, rate 71, no st/t wave abnormality. 63-year-old woman treated for acute migraine headache. She initially had presented with occipital headache and a pulsing sensation with photophobia and blurred vision bilaterally. Initially due to her history of subarachnoid hemorrhage there was a thought that she may have symptoms of a stroke but head CTA was negative for hemorrhagic stroke or acute stenosis, MRI did not show any acute abnormalities. She was seen and evaluated by Neurology who thought this was related to a migraine headache. She has remained hemodynamically stable during admission. She will be discharged with 5 doses of sumatriptan to be used as needed for migraine headache. She had an episode of hypokalemia during hospitalization but was repleted with potassium and resolved. Hypertension. Blood pressure remained controlled during hospitalization. Continue carvedilol and hydrochlorothiazide Diabetes mellitus type 2. Continue home medications Mild persistent asthma. No exacerbation during hospitalization. Continue home inhalers GERD. Continue PPI Unspecified neuropathy. Continue gabapentin Time Attestation Discharge coordination time: Greater than 30 minutes Quality: Safe Use of Opioids Does Pt have an Active Cancer Diagnosis on the Problem List?: No Quality: Stroke Does the patient have a stroke diagnosis?: No Physical Exam Vital Signs: Vital Signs: Last Vital Signs Temp 97.8 F 05/26/23 07:28 Pulse 65 05/26/23 07:28 Resp 20 05/26/23 07:28 BP 124/63 05/26/23 07:28 Pulse Ox 97 05/26/23 07:28 O2 Del Method Room Air 05/26/23 07:28 BMI result Body Mass Index 34.3 Appearing in no acute distress head is normocephalic atraumatic eyes pupils are PERRLA sclera is anicteric mouth throat mucous membranes are intact and moist neck is supple no lymphadenopathy, no JVD noted lung sounds are clear to auscultation heart regular rate rhythm, clear S1, S2 positive bowel sounds, abdomen is soft, nontender neuro patient is alert x3, no focal deficits DS: Data Data Completed and Pending Labs on day of discharge: Laboratory Results - last 24 hr 05/25/23 05/25/23 05/25/23 13:04 15:36 20:13 Hold Purple Top Sodium Potassium Chloride Carbon Dioxide Anion Gap BUN Creatinine Estim Creat Clear Calc Estimated GFR POC Glucose 172 H 103 94 Random Glucose Calcium 05/26/23 05/26/23 05:49 07:30 Hold Purple Top SEE NOTE Sodium 142 Potassium 4.1 Chloride 106 Carbon Dioxide 29 Anion Gap 11 L BUN 12 Creatinine 0.75 Estim Creat Clear Calc 92.1 Estimated GFR > 60 POC Glucose 118 H Random Glucose 114 Calcium 9.3 Discharge Plan Discharge Anticipated Discharge Date/Time: 05/26/23 10:09 Patient Disposition: Home, Self-Care Discharge Diagnosis: Migraine headache Referrals: Maya Brannon MD [Primary Care Provider] - 1 Week Discharge Medications: New sumatriptan succinate 50 mg tablet 50 mg PO DAILY PRN (Reason: migraine headache) Qty: 5 0RF Rx Instructions: do not exceed 4 doses per 24 hrs Continued Balanced B-100 Complex 100 mg tablet extended release 1 tab PO DAILY Qty: 30 4RF vitamin A palmitate 3,000 mcg (10,000 unit) capsule 3,000 mcg PO DAILY 21 Days Qty: 21 0RF Vitron-C 65 mg iron- 125 mg tablet,delayed release (DR/EC) 1 tab PO BEDTIME Qty: 30 4RF albuterol sulfate [Ventolin HFA] 90 mcg/actuation HFA aerosol inhaler 2 puff inhalation Q4-6H PRN (Reason: shortness of breath or wheezing) Qty: 6.7 0RF atorvastatin 40 mg tablet 40 mg PO DAILY esomeprazole magnesium 20 mg capsule,delayed release(DR/EC) 20 mg PO DAILY carvedilol 6.25 mg tablet 6.25 mg PO BIDWM amlodipine 10 mg tablet 10 mg PO DAILY cholecalciferol (vitamin D3) [Vitamin D3] 25 mcg (1,000 unit) capsule 25 mcg PO QAM duloxetine 30 mg capsule,delayed release(DR/EC) 30 mg PO DAILY fluticasone propionate 110 mcg/actuation HFA aerosol inhaler 2 puff PO BID hydrochlorothiazide 25 mg tablet 25 mg PO DAILY montelukast 10 mg tablet 10 mg PO BEDTIME aspirin 81 mg tablet,delayed release (DR/EC) 81 mg PO DAILY meloxicam 15 mg tablet 15 mg PO DAILY pregabalin 300 mg capsule 300 mg PO BID metformin 500 mg tablet 500 mg PO DAILY Discharge Orders: Discharge Order (Routine); Ordered 05/26/23 Ordered By: Maria R Hickman Diet: Advance to usual diet Activity on Discharge: As tolerated Stand Alone Forms: Patient Portal Discharge page Care Plan Goals: you will be given 5 doses of a medication for migraine headaches, you may use as needed daily Health Concerns: Migraine headache Plan of Treatment: Follow-up with primary care provider as needed Take all medications as prescribed Assessment: See discharge summary
--- NOTE | 2023-05-26 10:48 | MHC.CM.PN ---
order for home, self-care. CM acknowledge.
[2023-05-27 08:45] LABS: Prothrombin Time Whole Bld POC 12.4 sec (11.1-13.5)
== END 2023-05-26 11:20 | disposition home or self-care (01) | DRG 103 ==
LOC: HO.ED 20:51 → HO.EDOVER 21:42 → HO.IMC 05-25 13:15
PROVIDERS: Admitting Provider Physician Assistant; Emergency Provider Emergency Medicine Emergency Medical Services; PCP Internal Medicine; Visit Provider Nurse Practitioner Acute Care
DX: G43.909 Migraine, unspecified, not intractable, without status migrainosus (principal); E87.6 Hypokalemia; E11.40 Type 2 diabetes mellitus with diabetic neuropathy, unspecified; J45.30 Mild persistent asthma, uncomplicated; I10 Essential (primary) hypertension; Z87.891 Personal history of nicotine dependence; Z91.041 Radiographic dye allergy status; Z79.51 Long term (current) use of inhaled steroids; Z79.82 Long term (current) use of aspirin; Z79.84 Long term (current) use of oral hypoglycemic drugs; Z79.899 Other long term (current) drug therapy
CPT/HCPCS: 36415; 70450; 70496; 70498; 70551; 80048; 80053; 80061; 82947; 84484; 85025; 85610; 85730; 93005; 97161; 99285; J1200; J1650; J2270; J2765; Q9967

== ENCOUNTER → 2023-05-24 21:31 | Outpatient (BNV) | payer OTHER, SELFPAY | PROVIDERS: Admitting Provider Physician Assistant; Emergency Provider Emergency Medicine Emergency Medical Services; PCP Internal Medicine; Visit Provider Physician Assistant | DX: R51.9 Headache, unspecified (principal) | CPT/HCPCS: 99223; 99232; 99239 ==

== ENCOUNTER 2023-05-27 08:35 | Outpatient (AMB) | payer OTHER, SELFPAY ==
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
== END 2023-05-27 10:00 | disposition home or self-care (01) ==
PROVIDERS: PCP Internal Medicine; Visit Provider Counselor Mental Health
DX: F43.20 Adjustment disorder, unspecified (principal)
CPT/HCPCS: 90791

== ENCOUNTER → 2023-05-27 08:35 | Outpatient (BNVA) | payer OTHER, SELFPAY | PROVIDERS: PCP Internal Medicine; Visit Provider Counselor Mental Health ==

== ENCOUNTER 2023-06-12 10:41 | Outpatient (REF) | payer OTHER, SELFPAY ==
--- NOTE | ~2023-06-12 | XR_ITS ---
EXAMINATION: XR CHEST CLINICAL INFORMATION: RSV. Has bronchitis, rule out pneumonia. COMPARISON: 04/12/2023 TECHNIQUE: 2 views of the chest were obtained. FINDINGS: There is no gross pneumothorax. The heart size is normal. No pleural effusion. Bilateral peribronchial thickening with mild stranding opacities in the bilateral perihilar regions. Moderate degenerative changes in the lower thoracic spine. XR/XR chest 2V IMPRESSION: Bilateral peribronchial thickening with mild stranding opacities in the bilateral perihilar regions. This may represent viral pneumonia.
[2023-06-12 12:48] LABS: Anion Gap 17 (12-20); Blood Urea Nitrogen 13 mg/dL (9-16); Calcium 9.8 mg/dL (8.4-10.2); Carbon Dioxide 28 mmol/L (22-29); Chloride 102 mmol/L (96-108); Estimated Glomerular Filt Rate > 60; Glucose Random 125 mg/dL (60-115); Potassium 3.9 mmol/L (3.3-5.1); Sodium 143 mmol/L (135-145)
== END 2023-06-12 10:42 | disposition home or self-care (01) ==
LOC: HO.HHCL 10:41
PROVIDERS: Visit Provider Internal Medicine
DX: J20.5 Acute bronchitis due to respiratory syncytial virus (principal); G43.509 Persistent migraine aura without cerebral infarction, not intractable, without status migrainosus
CPT/HCPCS: 36415; 71046; 80048

== ENCOUNTER 2023-06-20 07:54 | Outpatient (REF) | payer OTHER, SELFPAY ==
--- NOTE | ~2023-06-20 | XR_ITS ---
EXAMINATION: XR CHEST CLINICAL INFORMATION: Bronchitis, pneumonia AP COMPARISON: 06/12/2023. TECHNIQUE: 2 views of the chest were obtained. FINDINGS: No significant abnormality is noted involving the heart, lungs, mediastinum, bony thorax or soft tissues. XR/XR chest 2V IMPRESSION: Unremarkable examination.
--- NOTE | ~2023-06-20 | FL_ITS ---
EXAMINATION: XR FLUOROSCOPY UPPER GI WITH AIR CLINICAL INFORMATION: Patient enrolled in weight loss program. History of gastric bypass greater than 10 years ago. COMPARISON: None TECHNIQUE: Fluoroscopic air contrast upper GI examination was performed utilizing standard techniques with thin and thick barium and effervescent granules. Numerous spot images were obtained. FINDINGS: Dual and single contrast images of the esophagus demonstrate a small Zenker's diverticulum. A corkscrew appearance of the esophagus is noted above the hiatal hernia. Mucosal pattern is normal without evidence of stricture, mass, or ulcerations identified. There is to and fro motion of the barium column associated nonpropulsive tertiary contractions. There is a nonobstructing Schatzki's ring present. A moderate size hiatal hernia is present. Gastroesophageal reflux is seen up to the thoracic inlet. Dual contrast and single contrast images of the stomach demonstrated postsurgical changes consistent with prior Rocco-en-Y gastric bypass. The gastric pouch appears dilated. A small blind limb of the Rocco limb adjacent to the gastrojejunostomy anastomosis is present. Mucosal pattern are normal and with no evidence of mass, ulceration, or other abnormality. Contrast freely passed the pouch and into the Rocco limb. The imaged jejunum of the Rocco limb has a normal fold pattern and caliber. FLUOROSCOPY TIME: 5 minutes 17 seconds Number of Spot Images: 17 Number of Cine: 8 DOSE AREA PRODUCT: 2675 uGy-m2 (microgray-meter squared) FL/FL upper GI w air IMPRESSION: 1. Small Zenker diverticulum 2. Corkscrew appearance of the esophagus (possibly intermittent spasm) 3. Esophageal dysmotility 4. Non-obstructing Schatzki's ring 5. Moderate hiatal hernia with gastroesophageal reflux 6. Status post Rocco-en-Y gastric bypass. The pouch appears dilated. There is a small blind pouch of the Rocco limb adjacent to the gastrojejunostomy anastomosis. This procedure was performed by Narciso Short PA-C, and supervised by Dr. Tomlinson
== END 2023-06-20 07:55 | disposition home or self-care (01) ==
LOC: HO.XRAY 07:54
PROVIDERS: PCP Internal Medicine; Visit Provider Orthopaedic Surgery
DX: J20.5 Acute bronchitis due to respiratory syncytial virus (principal); E66.9 Obesity, unspecified; Z98.84 Bariatric surgery status; R20.0 Anesthesia of skin; R20.2 Paresthesia of skin
CPT/HCPCS: 71046; 74246

== ENCOUNTER → 2023-06-20 07:55 | Outpatient (BNV) | payer OTHER, SELFPAY | PROVIDERS: PCP Internal Medicine; Visit Provider Radiology Diagnostic Radiology | DX: Z98.84 Bariatric surgery status (principal) | CPT/HCPCS: 74246 ==

== ENCOUNTER 2023-07-02 10:05 | Outpatient (REF) | payer OTHER, SELFPAY | END 2023-07-02 10:06 | disposition home or self-care (01) | LOC: HO.HHCLNP 10:05 | PROVIDERS: Visit Provider Internal Medicine | DX: Z12.4 Encounter for screening for malignant neoplasm of cervix (principal); Z11.51 Encounter for screening for human papillomavirus (HPV) | CPT/HCPCS: 36415; 87491; 87591; 87624; 87661; 88142 ==

== ENCOUNTER → 2023-07-03 10:12 | Outpatient (BNVA) | payer OTHER, SELFPAY | PROVIDERS: PCP Internal Medicine; Visit Provider Counselor Mental Health ==

== ENCOUNTER 2023-07-29 16:00 | Outpatient (AMB) | payer OTHER, SELFPAY ==
--- NOTE | 2023-07-29 15:57 | A.OFFVIS_ITS ---
Intake VS Expanded 07/29/23 16:16 Height 5 ft 6 in Weight 193 lb BMI 31.1 Intake Visit Reasons: VIDEO F/U SWL Allergies Iodinated Contrast Media [IV CONTRAST] Allergy (Unknown, Verified 05/24/23 16:57) ITCHING nut - unspecified [NUT - UNSPECIFIED] Allergy (Unknown, Verified 05/24/23 16:57) THROAT SWELLING penicillin G Allergy (Unknown, Verified 05/24/23 16:57) hives Penicillins [PENICILLINS] Allergy (Unknown, Verified 05/24/23 16:57) HIVES HPI HPI Comments History of Present Illness Details This is the patients third appt for SWL. Starting weight was 208.8lbs on 04/03/23, she had another visit in May but had not staarted meal or exercise plans at that time and had gained 4 lbs. I told her to text me weekly and let me know when she started the plans - I have not heard back from her since then, office staff scheduled appt with me. 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 Hospitalized for acute migraine at [facility] [place] in [place]. Exercise - started in May Gym - M,W,F, S - treadmill - speed 2.5, incline - 1 for 30 minutes 169 calories. Weights Meal plan: started in May 6 am - coffee plain 8am - Muscle way - 30 grams UAM or water 12 pm - chicken or fish 4 oz with 4 3- 4 oz vegetables 3pm - 1 TBL PB 6 -7 pm - Oikos triple zero yogurt 8pm - another protein shake My note from 05/02/23--63 yo woman s/p GBP with history of CVA/aneurysm has not started the meal or exercise plans that we created on 04/03. She has no explanation about why she did not start. Can not tell me why it is important. She bought a scale but has not weighed herslef or sent me information - she was surprised she had gained 4 lbs. I told her that to stay in our program she will need to adhere to the meal and exercise that we have given her. She has othr options for SWL program in our area. I told her that she will need to send me her weights weekly and her meal and exercise plans via text for now - if she has progress we will continue with appointments. No appts in the office scheduled now. UGI: 1. Small Zenker diverticulum 2. Corkscrew appearance of the esophagus (possibly intermittent spasm) 3. Esophageal dysmotility 4. Non-obstructing Schatzki's ring 5. Moderate hiatal hernia with gastroeso phageal reflux 6. Status post Rocco-en-Y gastric bypass. The pouch appears dilated. There is a small blind pouch of the Rocco limb adjacent to the gastrojejunostomy anastomosis. PFSH Medical History (Updated 06/03/23 @ 00:01 by Background Daemon) Diabetes mellitus Hypertension Subarachnoid hemorrhage Mild persistent asthma Tobacco abuse PVD (peripheral vascular disease) Brain aneurysm Carpal tunnel syndrome, right Surgical History (Updated 06/03/23 @ 00:01 by Background Daemon) Status post coil embolization of cerebral aneurysm Hx of section H/O left breast biopsy Total knee replacement status Hx of laparoscopic gastric banding History of cholecystectomy History of appendectomy Family History Father CVA (cerebral vascular accident) CVD (cardiovascular disease) Mother CVD (cardiovascular disease) Uterus cancer Heart attack Social History Household Members: Family Household Members Other:: 3 Housing: Apartment Do you presently have visiting nurse or other home services: Yes Unable to assess alcohol history related to: Unable to respond Alcohol intake: never Patient Tobacco Use Status: Former Tobacco user Tobacco use type: Cigarette service: No Current occupational 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 She states watched all SWL classes - schedule with Razia, follow up Esther. H pylori, and ULS still needed. UGI - needs to be reviewed and evaluated by Dr Vanessa copeland patient shows that she can adhere to our plans. Meal plan changes - 8am -shake 12pm - meal 3pm - yogurt 7 pm - shake Exercise - treadmill - 2.5 speed, incline 2 -7- (every 3 minutes) - 300 calories. 4 d/ week. Water exercise - once per day. MUST text me weekly with weights If able to do so will schedule with me in 3 weeks. Needs to be evaluated if she is a proper candidiate - MWL may be enough for her. Patient is still obese and is not considered stable at this time. I spent 30 minutes in total speaking with the patient via video conference counseling , reviewing records and charting in patients chart. . (2) S/P gastric bypass: Code(s): Z98.84 - Bariatric surgery status (3) Diabetes mellitus: Code(s): E11.9 - Type 2 diabetes mellitus without complications (4) Hypertension: Code(s): I10 - Essential (primary) hypertension Plan see above Telehealth Telehealth Location of provider rendering services: practice address Location of patient: address on file Patient Identification confirmed using: Name, : Yes Telehealth method: video Patient verbally consented to treatment: Yes Patient verbally consented to billing insurance company: Yes Patient informed of any privacy concerns related to visit: Yes Coding Level of Care Code Est Pt Level 4 (32450) Diagnoses Obesity E66.9 S/P gastric bypass Z98.84 Diabetes mellitus E11.9 Hypertension I10
[2023-07-29 16:16] VITALS: BMI 31.1
== END 2023-07-29 16:31 | disposition home or self-care (01) ==
LOC: HO.HBS 16:19
PROVIDERS: PCP Internal Medicine; Visit Provider Physician Assistant
DX: E66.9 Obesity, unspecified (principal); Z98.84 Bariatric surgery status; E11.9 Type 2 diabetes mellitus without complications; I10 Essential (primary) hypertension
CPT/HCPCS: 99214

== ENCOUNTER → 2023-07-29 16:00 | Outpatient (BNVA) | payer OTHER, SELFPAY | PROVIDERS: PCP Internal Medicine; Visit Provider Physician Assistant | DX: E66.9 Obesity, unspecified (principal); E11.9 Type 2 diabetes mellitus without complications; I10 Essential (primary) hypertension; Z98.84 Bariatric surgery status; Z68.31 Body mass index [BMI] 31.0-31.9, adult | CPT/HCPCS: 99212 ==

== ENCOUNTER 2023-08-07 10:14 | Outpatient (AMB) | payer OTHER, SELFPAY ==
--- NOTE | 2023-08-07 10:14 | MHC.WMTHER ---
Intake Intake Visit Reasons: VIDEO BH F/U Allergies Iodinated Contrast Media [IV CONTRAST] Allergy (Unknown, Verified 05/24/23 16:57) ITCHING nut - unspecified [NUT - UNSPECIFIED] Allergy (Unknown, Verified 05/24/23 16:57) THROAT SWELLING penicillin G Allergy (Unknown, Verified 05/24/23 16:57) hives Penicillins [PENICILLINS] Allergy (Unknown, Verified 05/24/23 16:57) HIVES PFSH Medical History (Updated 06/03/23 @ 00:01 by Background Daemon) Diabetes mellitus Hypertension Subarachnoid hemorrhage Mild persistent asthma Tobacco abuse PVD (peripheral vascular disease) Brain aneurysm Carpal tunnel syndrome, right Surgical History (Updated 06/03/23 @ 00:01 by Background Daemon) Status post coil embolization of cerebral aneurysm Hx of section H/O left breast biopsy Total knee replacement status Hx of laparoscopic gastric banding History of cholecystectomy History of appendectomy Family History Father CVA (cerebral vascular accident) CVD (cardiovascular disease) Mother CVD (cardiovascular disease) Uterus cancer Heart attack Social History Household Members: Family Household Members Other:: 3 Housing: Apartment Do you presently have visiting nurse or other home services: Yes Unable to assess alcohol history related to: Unable to respond Alcohol intake: never Patient Tobacco Use Status: Former Tobacco user Tobacco use type: Cigarette service: No Current occupational 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 She reports after having tl with ED is feeling better and she was able to get clarification, now she feels we all are on same page . INTERVENTIONS: Supportive listening, processed sources of stress and factor associated to challenges with weight. Used cognitive challenging and cognitive processing therapy. Provided with behavioral activation technique to structure her days and remain active/consistent with steps to achieve her weight-loss goals. Assisted client scheduling f/up visit with PA (scheduled for 08/15 @3pm-Telehealth) and with mononitrotoluene operator (scheduled for tomorrow / Reminded her of importance to m at 9am, video) and maintain communication with office, if the provider tell her she needs a f/up but don't give her another tl by the end of session, then encourage client to call the office. RESPONSE: Pt was open and active in session. She responded well to interventions. PLAN: Pt don't need more sessions with me. She has been advised to keep tl with providers and take initiative at reaching office if has not heard from us to set up follow up appointments. Assessment & Plan Assessment & Plan (1) Adjustment disorder: Code(s): F43.20 - Adjustment disorder, unspecified Plan: PT has been cleared already. She doesn't need more appointments with me before surgery unless she feels in need. Today I did not provided her with a follow up but she has been instructed to call the office and request a f/up if she needs one. Advised to keep upcoming visits. Tomorrow 08/08 at 10am with mononitrotoluene operator and next week, 08/13 at 3pm with PA. Both sessions via telehealth. Pt will be seen by me again 2-6 weeks post-op. Telehealth Telehealth Location of provider rendering services: other Location of patient: address on file Patient Identification confirmed using: Name, : Yes Telehealth method: voice only Patient verbally consented to treatment: Yes Patient verbally consented to billing insurance company: Yes Patient informed of any privacy concerns related to visit: No Minutes spent on Phone/Video with Pt.: 45 Coding Level of Care Code Established Pt Tele Psytx 45 mins (07606) Patient Type Established Diagnoses Adjustment disorder F43.20 Time Spent (min) 45
== END 2023-08-07 10:41 | disposition home or self-care (01) ==
LOC: HO.HBST 10:14
PROVIDERS: PCP Internal Medicine; Visit Provider Counselor Mental Health
DX: F43.20 Adjustment disorder, unspecified (principal)
CPT/HCPCS: 90834

== ENCOUNTER → 2023-08-07 10:14 | Outpatient (BNVA) | payer OTHER, SELFPAY | PROVIDERS: PCP Internal Medicine; Visit Provider Counselor Mental Health ==

== ENCOUNTER 2023-08-08 10:16 | Outpatient (AMB) | payer OTHER, SELFPAY ==
--- NOTE | 2023-08-08 10:02 | A.OFFVIS_ITS ---
Intake Intake Visit Reasons: VIDEO F/U SWL Allergies Iodinated Contrast Media [IV CONTRAST] Allergy (Unknown, Verified 05/24/23 16:57) ITCHING nut - unspecified [NUT - UNSPECIFIED] Allergy (Unknown, Verified 05/24/23 16:57) THROAT SWELLING penicillin G Allergy (Unknown, Verified 05/24/23 16:57) hives Penicillins [PENICILLINS] Allergy (Unknown, Verified 05/24/23 16:57) HIVES HPI Nutrition Presentation Details Pt had GBP at [facility] [place] in 2009, pre op weight was 269 lbs and lowest weight ws 133 lbs. She gained weight after diagnosis of CVA and brain aneurysm in 2019. Reason for consult elevated BMI Diet Assmnt Details Writes everything she eats in a journal. This was yesterday. 6:45am coffee 7am gym 30 minutes shake another gym 8:45am another shake 12pm salad with chicken 2pm 4oz protein 3pm vegetables - broccoli and celery 8oz 6pm-6:30 yogurt 6:30pm fish and carrots 7am protein shake Seems to struggle with connect her intake yesterday with the plan she was initially provided. Walked pt through her plan again and explained what she is trying to do now lacks structure and will not be doable post op. Dietary counseling reduction Diagnosis Nutrition problem #1 overweight/obesity As related to (etiology) #1 excess energy intake and physical inactivity As evidenced by (sign/symptom) #1 high BMI Monitoring/Goals Nutrition problem monitoring total energy intake, level of knowledge/skill, total PRO intake, total CHO intake, weight and oral fluids Learning/Education Readiness to learn fair Most Recent Diabetes Results: Creatinine 0.81 mg/dL (0.5-1.4) 06/12/23 Blood Urea Nitrogen 13 mg/dL (9-16) 06/12/23 Sodium 143 mmol/L (135-145) 06/12/23 Potassium 3.9 mmol/L (3.3-5.1) 06/12/23 Chloride 102 mmol/L (96-108) 06/12/23 Carbon Dioxide 28 mmol/L (22-29) 06/12/23 Calcium 9.8 mg/dL (8.4-10.2) 06/12/23 [facility] Medical History (Updated 06/03/23 @ 00:01 by Background Daemon) Diabetes mellitus Hypertension Subarachnoid hemorrhage Mild persistent asthma Tobacco abuse PVD (peripheral vascular disease) Brain aneurysm Carpal tunnel syndrome, right Surgical History (Updated 06/03/23 @ 00:01 by Background Daemon) Status post coil embolization of cerebral aneurysm Hx of section H/O left breast biopsy Total knee replacement status Hx of laparoscopic gastric banding History of cholecystectomy History of appendectomy Family History Father CVA (cerebral vascular accident) CVD (cardiovascular disease) Mother CVD (cardiovascular disease) Uterus cancer Heart attack Social History Household Members: Family Household Members Other:: 3 Housing: Apartment Do you presently have visiting nurse or other home services: Yes Unable to assess alcohol history related to: Unable to respond Alcohol intake: never Patient Tobacco Use Status: Former Tobacco user Tobacco use type: Cigarette service: No Current occupational 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 May be a better fit for MWL or for general nutrition counseling Telehealth Telehealth Location of provider rendering services: other (home address, [facility]) Location of patient: address on file Patient Identification confirmed using: Name, : Yes Telehealth method: voice only Patient verbally consented to treatment: Yes Patient verbally consented to billing insurance company: Yes Patient informed of any privacy concerns related to visit: Yes Minutes spent on Phone/Video with Pt.: 15 Coding Level of Care Code Nutr Indiv Subseq (57555) Diagnoses Obesity (BMI 30-39.9) E66.9 Time Spent (min) 15
== END 2023-08-08 10:18 | disposition home or self-care (01) ==
LOC: HO.HBS 10:16
PROVIDERS: PCP Internal Medicine; Visit Provider Dietitian, Registered
DX: E66.9 Obesity, unspecified (principal)

== ENCOUNTER → 2023-08-08 10:16 | Outpatient (BNVA) | payer OTHER, SELFPAY | PROVIDERS: PCP Internal Medicine; Visit Provider Dietitian, Registered | DX: E66.9 Obesity, unspecified (principal) | CPT/HCPCS: 97803 ==

== ENCOUNTER 2023-08-15 14:40 | Outpatient (AMB) | payer OTHER, SELFPAY ==
--- NOTE | 2023-08-15 12:29 | MHC.OFFVISWM ---
Intake VS Expanded 08/15/23 14:42 Height 5 ft 6 in Weight 197 lb 9 oz BMI 31.9 Intake Visit Reasons: VIDEO F/U SWL Allergies Iodinated Contrast Media [IV CONTRAST] Allergy (Unknown, Verified 05/24/23 16:57) ITCHING nut - unspecified [NUT - UNSPECIFIED] Allergy (Unknown, Verified 05/24/23 16:57) THROAT SWELLING penicillin G Allergy (Unknown, Verified 05/24/23 16:57) hives Penicillins [PENICILLINS] Allergy (Unknown, Verified 05/24/23 16:57) HIVES HPI HPI Comments History of Present Illness Details Pt has lost 11lbs or 6%. She has gained 4 lbs since our last appt 1 month ago. SWL follow up for revision of GBP done in 2009. She states watched all SWL classes but did not score well and is not considered a good revisional candidate per Razia. Poor understanding and adherence. H pylori still needed. Meal plan - 7am - coffee black, no sugar 8am -Whey protein - 30 grams shake with water 12 pm - 4 forks of protein and vegetable 3pm - yogurt 7 pm - same shake Exercise - treadmill - 2.5 speed x 15 minutes then 2.8 for 25 minutes, incline 2 -3 - 217 calories. 3 d/ week. Water exercise - once per day. She was told she MUST text me weekly with weights - but she has NEVER done so. We just figured out she had my number incorrectly. Pre op work up completed as follows: SWL classes - 02/05 appts - cleared RD appts - not cleared, considered poor candidate H pylori - not done yet Labs - vitamin deficiencies CXR and ECG - both normal ULS -fatty liver, 3.6 x 0.8 well circumscribed mass - appears to be hemangioma smaller than on CT in 2012. UGI - 1. Small Zenker diverticulum 2. Corkscrew appearance of the esophagus (possibly intermittent spasm) 3. Esophageal dysmotility 4. Non-obstructing Schatzki's ring 5. Moderate hiatal hernia with gastroesophageal reflux 6. Status post Rocco-en-Y gastric bypass. The pouch appears dilated. There is a small blind pouch of the Rocco limb adjacent to the gastrojejunostomy anastomosis. Contraception- post menopausal [facility] Medical History (Updated 06/03/23 @ 00:01 by Background Daemon) Diabetes mellitus Hypertension Subarachnoid hemorrhage Mild persistent asthma Tobacco abuse PVD (peripheral vascular disease) Brain aneurysm Carpal tunnel syndrome, right Surgical History (Updated 06/03/23 @ 00:01 by Background Daemon) Status post coil embolization of cerebral aneurysm Hx of section H/O left breast biopsy Total knee replacement status Hx of laparoscopic gastric banding History of cholecystectomy History of appendectomy Family History Father CVA (cerebral vascular accident) CVD (cardiovascular disease) Mother CVD (cardiovascular disease) Uterus cancer Heart attack Social History Household Members: Family Household Members Other:: 3 Housing: Apartment Do you presently have visiting nurse or other home services: Yes Unable to assess alcohol history related to: Unable to respond Alcohol intake: never Patient Tobacco Use Status: Former Tobacco user Tobacco use type: Cigarette service: No Current occupational 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 Her weight loss has progressed to 6%, but still not adhering to all our requirements. S Exercise - treadmill 5 d/week - speed 2.8, incline 1 - 5 every (3 minutes) - 300 calories Meal plan -protein Zone bar instead of yogurt H pylori test to be scheduled today for 2 weeks from now. Needs to be evaluated if she is a proper candidate - MWL may be enough for her. Will try again to get her OR records from [facility] tasked with this. Then have Dr Vanessa verma. Next appt with me in 3 weeks, need weekly weights. Patient is still obese and is not considered stable at this time. I spent 30 minutes in total speaking with the patient via video conference counseling , reviewing records and charting in patients chart. . (2) S/P gastric bypass: Code(s): Z98.84 - Bariatric surgery status (3) Diabetes mellitus: Code(s): E11.9 - Type 2 diabetes mellitus without complications (4) Hypertension: Code(s): I10 - Essential (primary) hypertension Plan see above Telehealth Telehealth Location of provider rendering services: practice address Location of patient: address on file Patient Identification confirmed using: Name, : Yes Telehealth method: video Patient verbally consented to treatment: Yes Patient verbally consented to billing insurance company: Yes Patient informed of any privacy concerns related to visit: Yes Coding Level of Care Code Tele Est Pt Level 4 (43024) Diagnoses Obesity E66.9 S/P gastric bypass Z98.84 Diabetes mellitus E11.9 Hypertension I10
[2023-08-15 14:42] VITALS: BMI 31.9
== END 2023-08-15 15:13 | disposition home or self-care (01) ==
LOC: HO.HBS 14:40
PROVIDERS: PCP Internal Medicine; Visit Provider Physician Assistant
DX: E66.9 Obesity, unspecified (principal); Z68.31 Body mass index [BMI] 31.0-31.9, adult; Z98.84 Bariatric surgery status; I10 Essential (primary) hypertension
CPT/HCPCS: 99214

== ENCOUNTER → 2023-08-15 14:40 | Outpatient (BNVA) | payer OTHER, SELFPAY | PROVIDERS: PCP Internal Medicine; Visit Provider Physician Assistant ==

== ENCOUNTER 2023-09-18 10:00 | Outpatient (AMB) | payer OTHER, SELFPAY ==
--- NOTE | 2023-09-18 09:59 | A.OFFVIS_ITS ---
Intake VS Expanded 09/18/23 10:08 Height 5 ft 6 in Weight 193 lb 7 oz BMI 31.2 Intake Visit Reasons: VIDEO F/U SWL Allergies Iodinated Contrast Media [IV CONTRAST] Allergy (Unknown, Verified 05/24/23 16:57) ITCHING nut - unspecified [NUT - UNSPECIFIED] Allergy (Unknown, Verified 05/24/23 16:57) THROAT SWELLING penicillin G Allergy (Unknown, Verified 05/24/23 16:57) hives Penicillins [PENICILLINS] Allergy (Unknown, Verified 05/24/23 16:57) HIVES HPI HPI Comments History of Present Illness Details Presently has flu with ear infection - under PCP care SWL follow up for revision of GBP done in 2009. [employer] weight 208.8 lbs, TBWL is 15.1 lbs or 7.2%. She states watched all SWL classes but did not score well and is not considered a good revisional candidate per Razia. Poor understanding and adherence. H pylori still not done despite multiple attempts to get her scheduled for the test. Meal plan - 7am - coffee black, no sugar 8am -Whey protein - 30 grams shake with water 12 pm - measures with her hand still, pr otein and vegetables 3 pm - shake (never started bar as we sp romel about) 7 pm - same shake Exercise - none while she is sick. gym 4 days/wk - treadmill - 2.5 speed x 15 minutes then 3.0 for 25 minutes, incline 2 -> 0.5, 325 calories over 2 hours. (Did not follow my instructions for how to change this) She was told she MUST text me weekly with weights, she started last month but is still sending weight only NOT on electronic scale despite multiple attempts by me and office staff to get her to do so. Pre op work up completed as follows: SWL classes - 02/05 appts - cleared RD appts - not cleared, considered poor candidate H pylori - not done yet Labs - vitamin deficiencies CXR and ECG - both normal ULS -fatty liver, 3.6 x 0.8 well circumscribed mass - appears to be hemangioma smaller than on CT in 2012. UGI - 1. Small Zenker diverticulum 2. Corkscrew appearance of the esophagus (possibly intermittent spasm) 3. Esophageal dysmotility 4. Non-obstructing Schatzki's ring 5. Moderate hiatal hernia with gastroeso phageal reflux 6. Status post Rocco-en-Y gastric bypass. The pouch appears dilated.There is a small blind pouch of the Rocco limb adjacent to the gastrojejunostomy anastomosis. Contraception- post menopausal PFSH Medical History (Updated 06/03/23 @ 00:01 by Background Daemon) Diabetes mellitus Hypertension Subarachnoid hemorrhage Mild persistent asthma Tobacco abuse PVD (peripheral vascular disease) Brain aneurysm Carpal tunnel syndrome, right Surgical History (Updated 06/03/23 @ 00:01 by Background Daemon) Status post coil embolization of cerebral aneurysm Hx of section H/O left breast biopsy Total knee replacement status Hx of laparoscopic gastric banding History of cholecystectomy History of appendectomy Family History Father CVA (cerebral vascular accident) CVD (cardiovascular disease) Mother CVD (cardiovascular disease) Uterus cancer Heart attack Social History Household Members: Family Household Members Other:: 3 Housing: Apartment Do you presently have visiting nurse or other home services: Yes Unable to assess alcohol history related to: Unable to respond Alcohol intake: never Patient Tobacco Use Status: Former Tobacco user Tobacco use type: Cigarette service: No Current occupational 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 7am - coffee, need 85 grams protein per day 8am - shake 12 pm - yogurt 3-4 pm -half shake 6 - 7pm - 8 forks each of protein and vegetable exercise - when no longer sick restart treadmill - goal 2,000 per week, she will decide how she will do this. Will schedule her for MWL now with a PA. Patient is still obese and is not considered stable at this time. I spent 30 minutes in total speaking with the patient via video conference counseling , reviewing records and charting in patients chart. . (2) S/P gastric bypass: Code(s): Z98.84 - Bariatric surgery status Plan: asymptomatic, see above Coding Level of Care Code Tele Est Pt Level 4 (75119) Diagnoses Obesity E66.9 S/P gastric bypass Z98.84
[2023-09-18 10:08] VITALS: BMI 31.2
== END 2023-09-18 11:00 | disposition home or self-care (01) ==
LOC: HO.HBS 10:05
PROVIDERS: PCP Internal Medicine; Visit Provider Physician Assistant
DX: E66.9 Obesity, unspecified (principal); Z68.31 Body mass index [BMI] 31.0-31.9, adult; Z98.84 Bariatric surgery status
CPT/HCPCS: 99214

== ENCOUNTER → 2023-09-18 10:00 | Outpatient (BNVA) | payer OTHER, SELFPAY | PROVIDERS: PCP Internal Medicine; Visit Provider Physician Assistant ==

== ENCOUNTER 2023-11-16 21:47 | Emergency (ER) | payer OTHER, SELFPAY ==
[2023-11-16 21:49] VITALS: BP 110/73; PULSE 78; RESP 16; TEMP 36.5; O2SAT 97; BMI 32.3
[2023-11-16] MEDS: diphenhydrAMINE HCL 50 MG/ML VIAL IVPUSH (23:37)
[2023-11-16] MEDS: methylPREDNISolone Sod Succ 125 MG/2 ML VIAL IVPUSH (23:37)
[2023-11-16] MEDS: Famotidine/PF 20 MG/2 ML VIAL IVPUSH (23:37)
--- NOTE | 2023-11-16 23:37 | ED.GENADULT ---
HPI - General Adult General Chief complaint: Allergic Reaction Stated complaint: Allergic reaction Time Seen by Provider: 11/16/23 23:23 Source: patient, RN notes reviewed and old records reviewed Mode of arrival: ambulatory Limitations: no limitations History of Present Illness HPI narrative: 63-year-old female presents for evaluation of an allergic reaction. Patient reports eating strawberries about 30 minutes prior to arrival She reports right before arrival she developed swelling in her eyes and itching to her hands and feet She has a known allergy to nuts, penicillin and IV contrast She did not eat anything other than the strawberries She denies any difficulty swallowing but does endorse some shortness of breath She reports that her EpiPen a few months ago and therefore she did not use it Related Data Home Medications ?Medication ?Instructions ?Recorded ?Confirmed aspirin 81 mg tablet,delayed 81 mg PO DAILY 05/12/20 10/24/23 release duloxetine 30 mg capsule,delayed 30 mg PO DAILY 05/12/20 10/24/23 release fluticasone propionate 110 2 puff PO BID 05/12/20 10/24/23 mcg/actuation HFA aerosol inhaler hydrochlorothiazide 25 mg tablet 25 mg PO DAILY 05/12/20 10/24/23 meloxicam 15 mg tablet 15 mg PO DAILY 05/12/20 10/24/23 montelukast 10 mg tablet 10 mg PO BEDTIME 05/12/20 10/24/23 pregabalin 300 mg capsule 300 mg PO BID 05/12/20 10/24/23 metformin 500 mg tablet 500 mg PO DAILY 05/04/21 10/24/23 amlodipine 10 mg tablet 10 mg PO DAILY 05/24/23 10/24/23 atorvastatin 40 mg tablet 40 mg PO DAILY 05/24/23 10/24/23 carvedilol 6.25 mg tablet 6.25 mg PO BIDWM 05/24/23 10/24/23 cholecalciferol (vitamin D3) 25 25 mcg PO QAM 05/24/23 10/24/23 mcg (1,000 unit) capsule (Vitamin D3) esomeprazole magnesium 20 mg 20 mg PO DAILY 05/24/23 10/24/23 capsule,delayed release Previous Rx's ?Medication ?Instructions ?Recorded albuterol sulfate 90 mcg/actuation 2 puff inhalation Q4-6H PRN 09/13/21 aerosol inhaler (Ventolin HFA) shortness of breath or wheezing #6.7 grams vitamin A palmitate 3,000 mcg 3,000 mcg PO DAILY 3 weeks #21 caps 04/22/23 (10,000 unit) capsule sumatriptan succinate 50 mg tablet 50 mg PO DAILY PRN migraine 05/26/23 headache #5 tabs iron,carbonyl 65 mg-vitamin C 125 1 tab PO BEDTIME #30 tabs 09/27/23 mg tablet,delayed release (Vitron-C) vit B complex 100 combo no.2 100 1 tab PO DAILY #30 tabs 09/27/23 mg tablet,extended release (Balanced B-100 Complex) epinephrine 0.3 mg/0.3 mL 0.3 mg (0.3 mL) IM Q4H PRN 11/17/23 injection, auto-injector (EpiPen anaphylaxis #2 ea 2-Anurag) prednisone 20 mg tablet 40 mg (2 x 20 mg) PO DAILY #6 tabs 11/17/23 Allergies Allergy/AdvReac Type Severity Reaction Status Date / Time Iodinated Contrast Media Allergy Unknown ITCHING Verified 11/16/23 21:50 [IV CONTRAST] nut - unspecified Allergy Unknown THROAT Verified 11/16/23 21:50 [NUT - UNSPECIFIED] SWELLING penicillin G Allergy Unknown hives Verified 11/16/23 21:50 Penicillins [PENICILLINS] Allergy Unknown HIVES Verified 11/16/23 21:50 Review of Systems Constitutional: Constitutional: Denies body ache(s), Denies chills, Denies fever(s) and Denies headache(s) Eyes: Eyes: Reports itchy eyes Comments: Swelling around the eyes ENT: Denies headache(s), Denies sore throat and Denies throat swelling Cardiovascular: Cardiovascular: Denies chest pain and Reports dyspnea Respiratory: Respiratory: Reports dyspnea Gastrointestinal: Gastrointestinal: Denies abdominal pain, Denies nausea and Denies vomiting Integumentary/Breasts: Skin/Breast: Denies rash Neurologic: Denies headache(s) Allergic/Immunologic: Allergic/Immunologic: Reports itchy eyes and Denies throat swelling PMFSH Past Medical History Medical History (Updated 11/17/23 @ 01:45 by Narciso Brown) Diabetes mellitus Hypertension Subarachnoid hemorrhage Mild persistent asthma Tobacco abuse PVD (peripheral vascular disease) Brain aneurysm Carpal tunnel syndrome, right Surgical History (Updated 06/03/23 @ 00:01 by Denae Llanos) Status post coil embolization of cerebral aneurysm Hx of section H/O left breast biopsy Total knee replacement status Hx of laparoscopic gastric banding History of cholecystectomy History of appendectomy Family History Family History Father CVA (cerebral vascular accident) CVD (cardiovascular disease) Mother CVD (cardiovascular disease) Uterus cancer Heart attack Social History Social History Household Members: Family Household Members Other:: 3 Housing: Apartment Do you presently have visiting nurse or other home services: Yes Unable to assess alcohol history related to: Unable to respond Alcohol intake: never Patient Tobacco Use Status: Former Tobacco user Tobacco use type: Cigarette Advance Directives: No Advance Directives Information Provided: No Do you have a plan to hurt others: No Plan service: No Current occupational 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 Physical Exam ED Vital Signs: Vital Signs - 24 hr 11/16/23 21:49 11/16/23 23:43 11/16/23 23:46 Temperature 97.7 F Pulse Rate 78 66 66 Respiratory Rate 16 19 Blood Pressure 110/73 145/75 H 145/75 H Pulse Oximetry 97 99 Oxygen Delivery Method Room Air Room Air 11/17/23 00:29 Temperature 97 F Pulse Rate 78 Respiratory Rate 18 Blood Pressure 141/78 H Pulse Oximetry 99 Oxygen Delivery Method Room Air BMI result Body Mass Index 32.3 Const General: healthy appearing, comfortable, no acute distress, alert and awake Nutritional Appearance: well nourished Orientation/consciousness: patient oriented x3 HENMT Head: Yes normocephalic and Yes atraumatic Throat: Yes posterior oropharynx normal Eyes Eyelids: Yes eyelids normal Conjunctivae: conjunctivae normal Sclerae: sclerae normal Corneas: corneas normal Pupils: Equal, round and reactive pupils present EOM: EOMs intact bilaterally Neck Neck: Yes full ROM Resp Effort & Inspection: normal respiratory effort, able to speak in complete sentences, no audible wheezes and not labored Auscultation: clear to auscultation bilaterally Cardio Rate: regular rate Rhythm: regular rhythm Skin General skin exam: no rashes or lesions noted and elasticity normal Neuro General: patient oriented x3 Cranial nerves: Yes Equal, round and reactive pupils present and Yes Bilaterally intact EOM present Cognition (Neuro): normal cognition Extrem Other: Moving all extremities well without any obvious deformities Course Reevaluation(s) Reevaluation #1: Patient was brought back to room 19, I immediately evaluated her upon arriving in the room. She has significant periorbital edema. There is no significant oral or perioral retropharyngeal edema. The patient does have audible wheezing while talking to her. There is no stridor or wheezing on auscultation. No significant urticaria. I ordered an EpiPen, Solu-Medrol, Benadryl, Pepcid. She was in the color television console monitor, will follow closely Time: 23:37 Reevaluation #2: Patient re-evaluated, she reports feeling much better, the facial edema has improved greatly. Plan to continue observation Time: 00:28 Reevaluation #3: Patient has now been in the ED for approximately 4 hours. Her facial edema has almost completely resolved. She reports feeling much better, she denies any symptoms at this time. She is stable for discharge. Will discharge her with 3 days of prednisone, Benadryl to be used through today and for any further itching or rash and refill her EpiPen Time: 01:43 Medications Administered Discontinued Medications Generic Name Dose Route Start Last Admin Trade Name Paolo PRN Reason Stop Dose Admin Diphenhydramine HCl 50 mg 11/16/23 23:30 11/16/23 23:37 Diphenhydramine Hcl 50 Mg/Ml Vial IVPUSH 11/16/23 23:31 50 mg ONCE ONE Administration Epinephrine 0.3 mg 11/16/23 23:35 11/16/23 23:43 Epinephrine 1 Mg/Ml Vial IM 11/16/23 23:36 0.3 mg STAT STA Administration Famotidine 20 mg 11/16/23 23:30 11/16/23 23:37 Famotidine/Pf 20 Mg/2 Ml Vial IVPUSH 11/16/23 23:31 20 mg ONCE ONE Administration Methylprednisolone Sodium Succinate 125 mg 11/16/23 23:30 11/16/23 23:37 Methylprednisolone Sod Succ 125 Mg/2 Ml Vial IVPUSH 11/16/23 23:31 125 mg ONCE ONE Administration Medical Decision Making Medical Decision Making MDM Narrative: 63-year-old female presents for evaluation of an allergic reaction. She has periorbital edema but no perioral, oral or retropharyngeal edema. There is no stridor or crackles on exam. Her vital signs are stable. However given the facial edema we will treat with EpiPen in addition to the Benadryl, Pepcid and Solu-Medrol. Patient will require close monitoring Differential Diagnosis Differential Diagnoses: The differential diagnosis associated with the presentation includes Anaphylaxis Allergic reaction Dermatitis Angioedema Admission/Observation Consideration of admission/observation: Escalation of care including admission/observation considered Consider admission due to facial swelling and concern for anaphylaxis but the patient had significant improvement and was ultimately stable for discharge Critical Care Time Critical Care Time Critical Care Time: Yes Total Critical Care Time: 35 Attestation: 63-year-old female presents for evaluation of allergic reaction. She require close observation, multiple medications, cardiac monitoring and multiple re-evaluations. Discharge Plan Discharge Clinical Impression: Allergic reaction Patient Disposition: Home, Self-Care Instructions: General Allergic Reaction (ED) Additional Instructions: You had an allergic reaction likely to something You ingested shortly before arrival. You were treated with epinephrine/EpiPen, Benadryl, Pepcid, and Solu-Medrol which is a steroid Take Benadryl every 4 hours for the rest of the day today Continue using it tomorrow if you have any itching or rash Take prednisone 40 mg daily for the next 3 days I refilled a prescription for your EpiPen Do not use this unless you have any facial swelling, difficulty breathing or swallowing And you must call 911 or present to the ER immediately after using an EpiPen Prescriptions: New epinephrine [EpiPen 2-Anurag] 0.3 mg/0.3 mL auto-injector 0.3 mg IM Q4H PRN (Reason: anaphylaxis) Qty: 2 0RF prednisone 20 mg tablet 40 mg PO DAILY Qty: 6 0RF No Action vitamin A palmitate 3,000 mcg (10,000 unit) capsule 3,000 mcg PO DAILY 21 Days Qty: 21 0RF Vitron-C 65 mg iron- 125 mg tablet,delayed release (DR/EC) 1 tab PO BEDTIME Qty: 30 4RF Balanced B-100 Complex 100 mg tablet extended release 1 tab PO DAILY Qty: 30 4RF albuterol sulfate [Ventolin HFA] 90 mcg/actuation HFA aerosol inhaler 2 puff inhalation Q4-6H PRN (Reason: shortness of breath or wheezing) Qty: 6.7 0RF atorvastatin 40 mg tablet 40 mg PO DAILY esomeprazole magnesium 20 mg capsule,delayed release(DR/EC) 20 mg PO DAILY carvedilol 6.25 mg tablet 6.25 mg PO BIDWM amlodipine 10 mg tablet 10 mg PO DAILY cholecalciferol (vitamin D3) [Vitamin D3] 25 mcg (1,000 unit) capsule 25 mcg PO QAM sumatriptan succinate 50 mg tablet 50 mg PO DAILY PRN (Reason: migraine headache) Qty: 5 0RF Rx Instructions: do not exceed 4 doses per 24 hrs duloxetine 30 mg capsule,delayed release(DR/EC) 30 mg PO DAILY fluticasone propionate 110 mcg/actuation HFA aerosol inhaler 2 puff PO BID hydrochlorothiazide 25 mg tablet 25 mg PO DAILY montelukast 10 mg tablet 10 mg PO BEDTIME aspirin 81 mg tablet,delayed release (DR/EC) 81 mg PO DAILY meloxicam 15 mg tablet 15 mg PO DAILY pregabalin 300 mg capsule 300 mg PO BID metformin 500 mg tablet 500 mg PO DAILY Print Language: Singaporean
[2023-11-16 23:43] VITALS: BP 145/75; PULSE 66
[2023-11-16] MEDS: EPINEPHrine 1 MG/ML VIAL 0.3 MG IM (23:43)
[2023-11-16 23:46] VITALS: BP 145/75; PULSE 66; RESP 19; O2SAT 99
[2023-11-17 00:29] VITALS: BP 141/78; PULSE 78; RESP 18; TEMP 36.1; O2SAT 99
[2023-11-17 01:59] VITALS: BP 147/78; PULSE 78; RESP 18; TEMP 36.1; O2SAT 99
== END 2023-11-17 02:12 | disposition home or self-care (01) ==
PROVIDERS: Emergency Provider Emergency Medicine Emergency Medical Services; PCP Internal Medicine
DX: L27.2 Dermatitis due to ingested food (principal); L29.9 Pruritus, unspecified; I10 Essential (primary) hypertension; E11.9 Type 2 diabetes mellitus without complications
CPT/HCPCS: 96372; 96374; 96375; 99284; J0171; J1200; J2919

== ENCOUNTER 2023-11-19 10:45 | Outpatient (REF) | payer OTHER, SELFPAY ==
--- NOTE | ~2023-11-19 | MM_ITS ---
EXAMINATION: MM SCREENING DIGITAL BREAST TOMOSYNTHESIS, BILATERAL CLINICAL INFORMATION: Screening. Asymptomatic. COMPARISON: Mammography: This study is compared with prior exams dating back to TECHNIQUE: Digital breast tomosynthesis is performed in both the craniocaudal and mediolateral oblique views along with computer-aided detection (CAD). Synthesized 2D images are generated from the tomosynthesis. FINDINGS: There are scattered areas of fibroglandular density (ACR BI-RADS breast composition Category b). There are no significant masses, abnormal calcifications, or other abnormalities. There is tissue marker present in the left breast from prior benign percutaneous biopsy. MM/MM tomosynthesis screening BI IMPRESSION: No mammographic evidence of malignancy. ASSESSMENT: BI-RADS BI-RADS 1 - Negative RECOMMENDATION: Routine annual mammography screening. 1 year F/U This examination should not preclude the clinical evaluation of a suspicious palpable abnormality. This patient's information was entered into a reminder system with a target due date for their next mammogram.
== END 2023-11-19 10:46 | disposition home or self-care (01) ==
LOC: HO.MAMMO 10:45
PROVIDERS: PCP Internal Medicine; Visit Provider Internal Medicine
DX: Z12.31 Encounter for screening mammogram for malignant neoplasm of breast (principal)
CPT/HCPCS: 77063; 77067; 99212

== ENCOUNTER → 2023-11-19 11:45 | Outpatient (BNV) | payer OTHER, SELFPAY | PROVIDERS: PCP Internal Medicine; Visit Provider Radiology Diagnostic Radiology | DX: Z12.31 Encounter for screening mammogram for malignant neoplasm of breast (principal) | CPT/HCPCS: 77063; 77067 ==

== ENCOUNTER 2023-11-19 14:48 | Outpatient (AMB) | payer OTHER, SELFPAY ==
[2023-11-19 15:01] VITALS: BP 140/78; PULSE 87; BMI 33.4
--- NOTE | 2023-11-19 15:01 | MHC.OFFVIS ---
Vital Signs 11/19/23 15:01 11/19/23 15:19 Height 5 ft 6 in Weight 207 lb 3.752 oz BMI 33.4 BP 140/78 H 130/76 Blood Pressure Location Lt brachial Lt brachial Position Sitting Sitting Pulse 87 Pulse Source Pulse Oximeter Intake Visit Reasons: missed ov with MK Emergency Services Director Required: Yes Emergency Services Director Name: janki daughter Allergies Iodinated Contrast Media [IV CONTRAST] Allergy (Unknown, Verified 11/16/23 21:50) ITCHING nut - unspecified [NUT - UNSPECIFIED] Allergy (Unknown, Verified 11/16/23 21:50) THROAT SWELLING penicillin G Allergy (Unknown, Verified 11/16/23 21:50) hives Penicillins [PENICILLINS] Allergy (Unknown, Verified 11/16/23 21:50) HIVES gregorio Allergy (Verified 11/19/23 15:15) Anaphylaxis Medication List - Last Reconciled 11/19/23 by Jessica Tomlinson NP albuterol sulfate 90 mcg/actuation (Ventolin HFA) 2 puffs inhalation Q4-6H PRN amlodipine 10 mg PO DAILY aspirin 81 mg PO DAILY atorvastatin 40 mg PO DAILY carvedilol 6.25 mg PO BIDWM cholecalciferol (vitamin D3) (Vitamin D3) 25 mcg PO QAM epinephrine (EpiPen 2-Anurag) 0.3 mg (0.3 mL) IM Q4H PRN esomeprazole magnesium 20 mg PO DAILY fluticasone propionate 110 mcg/actuation 2 puffs PO BID hydrochlorothiazide 25 mg PO DAILY iron,carbonyl-vitamin C 65 mg iron- 125 mg (Vitron-C) 1 tab PO BEDTIME meloxicam 15 mg PO DAILY metformin 500 mg PO DAILY montelukast 10 mg PO BEDTIME prednisone 40 mg (2 x 20 mg) PO DAILY pregabalin 300 mg PO BID vit B complex 100 combo no.2 ER (Balanced B-100 Complex) 1 tab PO DAILY vitamin A palmitate 3,000 mcg PO DAILY 3 weeks HPI Comments Details: 63-year-old female presents today for a follow-up. She reports she has been doing well since the last visit. She denies any chest pains, shortness of breath, dizziness, or orthopnea. She reports an occasional palpitation mostly at night. But they have recently improved. Her blood pressures at home she reports are good. Mostly 130s/70s. She does not smoke and is pretty sedentary at home. She had recently had a allergic reaction to cherries and had to go to the emergency department for care. [facility] Medical History (Updated 11/19/23 @ 15:25 by Jessica Tomlinson NP) Murmur, cardiac Diabetes mellitus Hypertension Subarachnoid hemorrhage Mild persistent asthma Tobacco abuse PVD (peripheral vascular disease) Brain aneurysm Carpal tunnel syndrome, right Surgical History Status post coil embolization of cerebral aneurysm Hx of section H/O left breast biopsy Total knee replacement status Hx of laparoscopic gastric banding History of cholecystectomy History of appendectomy Family History Father CVA (cerebral vascular accident) CVD (cardiovascular disease) Mother CVD (cardiovascular disease) Uterus cancer Heart attack Social History Household Members: Family Household Members Other:: 3 Housing: Apartment Do you presently have visiting nurse or other home services: Yes Unable to assess alcohol history related to: Unable to respond Alcohol intake: never Patient Tobacco Use Status: Former Tobacco user Tobacco use type: Cigarette service: No Current occupational 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 Review of Systems Const Denies weakness ENT Denies dizziness Card Denies chest pain, Denies chest pain with activity, Denies syncope, Denies rapid heart rate, Denies pedal edema, Denies edema, Denies leg edema, Denies lightheadedness, Denies palpitations, Denies dyspnea, Denies dyspnea on exertion and Denies orthopnea Resp Denies cough, Denies dyspnea and Denies dyspnea on exertion GI Denies hematochezia and Denies change in stool character Musc Denies abnormal gait, Denies muscle cramps, Denies muscle weakness, Denies numbness, Denies radiating pain into limb and Denies tingling Neuro Denies abnormal gait, Denies dizziness, Denies syncope, Denies numbness, Denies tingling and Denies weakness Endo Denies palpitations Physical Exam Vital Signs: Last Vital Signs Pulse 87 11/19/23 15:01 BP 130/76 11/19/23 15:19 BMI result Body Mass Index 33.4 Const General: healthy appearing and no acute distress Orientation/consciousness: patient oriented x3 HEENT Head: Yes normal to inspection Eyes General: appearance normal, both eyes and all related structures Neck Neck: Yes normal visual inspection Chest Chest palpation & inspection: normal inspection of the chest Resp Effort & Inspection: normal respiratory effort Auscultation: clear to auscultation bilaterally Cardio Jugular venous distension: no JVD Palpation: normal PMI Rate: regular rate Rhythm: regular rhythm Heart sounds: S1 normal heart sound present, S2 normal heart sound present, no click, no gallops, Murmur heart sound present systolic and no rubs GI Inspection: Yes normal to inspection Palpation (GI): Soft to palpation Skin General skin exam: no rashes or lesions noted Neuro General: patient oriented x3 Extrem General: Yes normal to inspection Psych Appearance: grossly normal Assessment & Plan Assessment & Plan (1) Hypertension: Code(s): I10 - Essential (primary) hypertension Category: Medical Plan: Blood pressure high on intial check. Rechecked by me - improved. She is on hydrochlorothiazide and carvedilol. Labs followed by PCP (2) Murmur, cardiac: Code(s): R01.1 - Cardiac murmur, unspecified Category: Medical Plan: Systolic murmur heard on auscultation. Will order echo to evaluate. (3) CVA (cerebral vascular accident): Code(s): I63.9 - Cerebral infarction, unspecified Category: Medical Plan: CVA back in 03/2020. 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 Sedentary lifestyle. Doesn't use assistive devices for ambulation. Orders: Orders CA echo transthoracic complete 5 Months I10 - Essential (primary) hypertension, R01.1 - Cardiac murmur, unspecified Coding Level of Care Code Est Pt Level 3 (79617) Diagnoses Hypertension I10 Murmur, cardiac R01.1 CVA (cerebral vascular accident) I63.9
[2023-11-19 15:19] VITALS: BP 130/76
== END 2023-11-19 15:27 | disposition home or self-care (01) ==
PROVIDERS: PCP Internal Medicine; Visit Provider Nurse Practitioner
DX: I10 Essential (primary) hypertension (principal); R01.1 Cardiac murmur, unspecified; I63.9 Cerebral infarction, unspecified
CPT/HCPCS: 99213

== ENCOUNTER 2024-02-13 12:56 | Outpatient (REF) | payer OTHER, SELFPAY ==
--- NOTE | ~2024-02-13 | US_ITS ---
EXAMINATION: US PELVIS CLINICAL INFORMATION: Left lower pelvic pain. COMPARISON: Pelvic ultrasound 12/30/2015. TECHNIQUE: Ultrasound of the pelvis is performed using both transabdominal and transvaginal transducers along with Doppler. Transvaginal imaging is performed due to inadequate visualization transabdominally. FINDINGS: UTERUS: The uterus is anteverted and measures 7.0 x 3.3 x 4.6 cm. The double wall endometrial thickness is 3 mm. The uterus is smooth in contour and has normal myometrial echogenicity. The two small uterine fibroids seen in 2016 are not seen and on the current study there is no visible fibroid. ADNEXA: Both ovaries are visualized. There is normal color flow to the adnexa. There is no ovarian torsion. There is no pelvic ascites or fluid collection. Right ovary measures 1.8 x 1.8 x 2.3 cm. Left ovary measures 2.1 x 1.8 x 1.5 cm. US/US pelvic and transvaginal IMPRESSION: Normal pelvic ultrasound. Electronically signed by: Mac Asencio MD 03/03/2024 04:02 PM EDT
== END 2024-02-13 12:57 | disposition home or self-care (01) ==
LOC: HO.US 12:56
PROVIDERS: PCP Internal Medicine; Visit Provider Internal Medicine
DX: R10.2 Pelvic and perineal pain (principal)
CPT/HCPCS: 76830; 76856

== ENCOUNTER → 2024-04-09 10:07 | Outpatient (BNVA) | payer OTHER, SELFPAY | PROVIDERS: PCP Internal Medicine; Visit Provider Surgery ==

== ENCOUNTER 2024-05-11 07:58 | Outpatient (AMB) | payer OTHER, SELFPAY ==
--- NOTE | 2024-05-11 11:40 | MHC.OFFVISWM ---
Intake Visit Reasons: TV Re-Est SWL BMI 33.4 *BIG DATA PLATFORM ARCHITECT* Timers Inspector Required: Yes Timers Inspector Services: Timers Inspector Present Information Interpreted: clinical only Allergies Iodinated Contrast Media [IV CONTRAST] Allergy (Unknown, Verified 05/11/24 11:41) ITCHING nut - unspecified [NUT - UNSPECIFIED] Allergy (Unknown, Verified 05/11/24 11:41) THROAT SWELLING penicillin G Allergy (Unknown, Verified 05/11/24 11:41) hives Penicillins [PENICILLINS] Allergy (Unknown, Verified 05/11/24 11:41) HIVES gregorio Allergy (Verified 05/11/24 11:41) Anaphylaxis Medication List - Last Reconciled 05/11/24 by Isaak Rolle MD albuterol sulfate 90 mcg/actuation (Ventolin HFA) 2 puffs inhalation Q4-6H PRN amlodipine 10 mg PO DAILY aspirin 81 mg PO DAILY atorvastatin 40 mg PO DAILY carvedilol 6.25 mg PO BIDWM cholecalciferol (vitamin D3) (Vitamin D3) 25 mcg PO QAM epinephrine (EpiPen 2-Anurag) 0.3 mg (0.3 mL) IM Q4H PRN esomeprazole magnesium 20 mg PO DAILY fluticasone propionate 110 mcg/actuation 2 puffs PO BID hydrochlorothiazide 25 mg PO DAILY iron,carbonyl-vitamin C 65 mg iron- 125 mg (Vitron-C) 1 tab PO BEDTIME meloxicam 15 mg PO DAILY metformin 500 mg PO DAILY montelukast 10 mg PO BEDTIME prednisone 40 mg (2 x 20 mg) PO DAILY pregabalin 300 mg PO BID vit B complex 100 combo no.2 ER (Balanced B-100 Complex) 1 tab PO DAILY vitamin A palmitate 3,000 mcg PO DAILY 3 weeks HPI HPI TV Re-Est SWL BMI 33.4 *BIG DATA PLATFORM ARCHITECT*: Details: Start time: 11.300am, End time: 12.15pm ?I spent 40 minutes speaking with the patient on the phone plus an additional 5 minutes reviewing and updating records for a total of 45 minutes HPI Comments Details: Previous weight loss efforts: Gastric bypass, [facility] program last year Wakes up: 6-7am, Sleeps: 7-8am Breakfast: 8.30-9am (banana, oatmeal) Lunch: 12pm (soup) Dinner: 7pm (peanut butter sandwich Snacks: cheese with crackers at 3pm Exercise: none Fluids: Coffee: 3 cups/day (cream), Milk 1%: a lot daily, soda: none, juice: none, ETOH: none PFSH Medical History (Updated 05/11/24 @ 12:17 by Isaak Rolle MD) Murmur, cardiac Diabetes mellitus Hypertension Subarachnoid hemorrhage Mild persistent asthma Tobacco abuse PVD (peripheral vascular disease) Brain aneurysm Carpal tunnel syndrome, right Surgical History (Updated 05/11/24 @ 11:48 by Isaak Rolle MD) History of gastric bypass Status post coil embolization of cerebral aneurysm Hx of section H/O left breast biopsy Total knee replacement status History of cholecystectomy History of appendectomy Family History Father CVA (cerebral vascular accident) CVD (cardiovascular disease) Mother CVD (cardiovascular disease) Uterus cancer Heart attack Social History Household Members: Family Household Members Other:: 3 Housing: Apartment Do you presently have visiting nurse or other home services: Yes Unable to assess alcohol history related to: Unable to respond Alcohol intake: never Patient Tobacco Use Status: Former Tobacco user Tobacco use type: Cigarette service: No 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 occupational 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 Telehealth Telehealth Telehealth Platform: Telephone Location of provider rendering services: practice address Location of patient: address on file Patient Identification confirmed using: Name, : Yes Telehealth method: voice only Patient verbally consented to treatment: Yes Patient verbally consented to billing insurance company: Yes Patient informed of any privacy concerns related to visit: Yes Minutes spent on Phone/Video with Pt.: 45 Assessment & Plan Assessment & Plan (1) Obesity: Code(s): E66.9 - Obesity, unspecified Category: Medical Qualifiers: Obesity type: due to excess calories Obesity classification: adult class 1 (BMI 30 - 34.9) Serious obesity comorbidity presence: with serious comorbidity Body mass index: BMI 33.0-33.9 Qualified Code(s): E66.811 - Obesity, class 1; E66.09 - Other obesity due to excess calories; Z68.33 - Body mass index [BMI] 33.0-33.9, adult Plan: I asked the patient to send me a body composition measurements tomorrow so we can create a new meal plan. A new therapist appointment will be required. 2. To be scheduled for EGD due to history of GERD. The possibility of biopsies was discussed. Patient needs to avoid use of NSAIDs and aspirin for 1 week prior to EGD. Risks of perforation and bleeding was discussed with the patient. This will be an outpatient procedure with IV sedation.
== END 2024-05-11 12:20 | disposition home or self-care (01) ==
LOC: HO.HBS 07:58
PROVIDERS: PCP Internal Medicine; Visit Provider Surgery
DX: E66.811 Obesity, class 1 (principal); Z68.33 Body mass index [BMI] 33.0-33.9, adult
CPT/HCPCS: 99443

== ENCOUNTER → 2024-05-11 07:58 | Outpatient (BNVA) | payer OTHER, SELFPAY | PROVIDERS: PCP Internal Medicine; Visit Provider Surgery ==

== ENCOUNTER → 2024-05-19 10:30 | Outpatient (REF) | payer OTHER, SELFPAY ==
--- NOTE | 2024-05-19 10:59 | ECG_ITS ---
Test Reason : OBESITY Blood Pressure : / mmHG Vent. Rate : 073 BPM Atrial Rate : 073 BPM P-R Int : 160 ms QRS Dur : 078 ms QT Int : 358 ms P-R-T Axes : 056 041 028 degrees QTc Int : 394 ms Normal sinus rhythm Normal ECG When compared with ECG of 24-MAY-2023 17:30, No significant change was found Referred By: Isaak Rolle Electronically Signed By:NAHOMI MELENDEZ MD
[2024-05-19 11:43] LABS: Anion Gap 14 (12-20); Blood Urea Nitrogen 20 mg/dL (9-16); Carbon Dioxide 26 mmol/L (22-29); Chloride 106 mmol/L (96-108); Estimated Glomerular Filt Rate > 60; Glucose Random 89 mg/dL (60-115); Sodium 142 mmol/L (135-145)
== END ==
LOC: HO.CARD 10:30
PROVIDERS: Internal Medicine; PCP Internal Medicine; Visit Provider Surgery
DX: G43.509 Persistent migraine aura without cerebral infarction, not intractable, without status migrainosus (principal); E66.811 Obesity, class 1; Z68.33 Body mass index [BMI] 33.0-33.9, adult; E11.9 Type 2 diabetes mellitus without complications; I10 Essential (primary) hypertension
CPT/HCPCS: 36415; 80048; 93005

== ENCOUNTER → 2024-05-19 10:59 | Outpatient (BNV) | payer OTHER, SELFPAY | PROVIDERS: PCP Internal Medicine; Visit Provider Internal Medicine Cardiovascular Disease | DX: E66.9 Obesity, unspecified (principal) | CPT/HCPCS: 93010 ==

== ENCOUNTER 2024-06-09 08:26 | Day surgery (SDC) | payer OTHER, SELFPAY ==
--- NOTE | 2024-06-08 13:29 | P.CONAN_ITS ---
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 Redsidual right sided weakness PMFSH Active Problems Active Problems: All Active Problems Murmur, cardiac (Acute) Tobacco abuse (Acute) Mild persistent asthma (Acute) PVD (peripheral vascular disease) (Acute) Hypertension (Acute) Diabetes mellitus (Acute) Numbness and tingling in both hands (Acute) Trigger finger of right thumb (Acute) S/P gastric bypass (Acute) Hx of laparoscopic gastric banding (Acute) Pre-op evaluation (Acute) Obesity (Acute) Palpitations (Acute) Fatigue (Acute) ANTON (dyspnea on exertion) (Acute) CVA (cerebral vascular accident) (Acute) Environmental allergies (Acute) Past Medical History Medical History Murmur, cardiac Diabetes mellitus Hypertension Brain aneurysm Subarachnoid hemorrhage Mild persistent asthma Tobacco abuse PVD (peripheral vascular disease) Carpal tunnel syndrome, right Family History Family History Father CVA (cerebral vascular accident) CVD (cardiovascular disease) Mother CVD (cardiovascular disease) Uterus cancer Heart attack Surgical History Surgical History (Updated 06/09/24 @ 09:14 by Razia Blunt RN) History of gastric bypass Status post coil embolization of cerebral aneurysm Hx of section H/O left breast biopsy Total knee replacement status History of cholecystectomy History of appendectomy Social History Social History Household Members: Family Household Members Other:: 3 Housing: Apartment Do you presently have visiting nurse or other home services: Yes Unable to assess alcohol history related to: Unable to respond Alcohol intake: never Patient Tobacco Use Status: Former Tobacco user Tobacco use type: Cigarette Use of substances other than those prescribed or required for medical reasons: No Are you DNR?: No Advance Directives: No Advance Directives Information Provided: Yes service: No Current occupational 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 Meds Allergies Allergy/AdvReac Type Severity Reaction Status Date / Time Iodinated Contrast Media Allergy Unknown ITCHING Verified 06/09/24 09:58 [IV CONTRAST] nut - unspecified Allergy Unknown THROAT Verified 06/09/24 09:58 [NUT - UNSPECIFIED] SWELLING penicillin G Allergy Unknown hives Verified 06/09/24 09:58 Penicillins [PENICILLINS] Allergy Unknown HIVES Verified 06/09/24 09:58 gregorio Allergy Anaphylaxis Verified 06/09/24 09:58 Home Medications ?Medication ?Instructions ?Recorded ?Confirmed ?Last Taken ?Type aspirin 81 mg tablet,delayed 81 mg PO DAILY 05/12/20 06/09/24 06/07/24 History release fluticasone propionate 110 2 puff PO BID 05/12/20 06/09/24 05/24/23 History mcg/actuation HFA aerosol inhaler hydrochlorothiazide 25 mg tablet 25 mg PO DAILY 05/12/20 06/09/24 05/24/23 History meloxicam 15 mg tablet 15 mg PO DAILY 05/12/20 06/09/24 06/07/24 History montelukast 10 mg tablet 10 mg PO BEDTIME 05/12/20 06/09/24 05/23/23 History pregabalin 300 mg capsule 300 mg PO BID 05/12/20 06/09/24 05/24/23 History metformin 500 mg tablet 500 mg PO DAILY 05/04/21 06/09/24 05/24/23 History amlodipine 10 mg tablet 10 mg PO DAILY 05/24/23 06/09/24 05/24/23 History atorvastatin 40 mg tablet 40 mg PO DAILY 05/24/23 06/09/24 05/24/23 History carvedilol 6.25 mg tablet 6.25 mg PO BIDWM 05/24/23 06/09/24 05/24/23 History cholecalciferol (vitamin D3) 25 25 mcg PO QAM 05/24/23 06/09/24 05/24/23 History mcg (1,000 unit) capsule (Vitamin D3) esomeprazole magnesium 20 mg 20 mg PO DAILY 05/24/23 06/09/24 05/24/23 History capsule,delayed release Exam Narrative Narrative: EKG 05/2024 Vent. Rate : 073 BPM Atrial Rate : 073 BPM P-R Int : 160 ms QRS Dur : 078 ms QT Int : 358 ms P-R-T Axes : 056 041 028 degrees QTc Int : 394 ms Normal sinus rhythm Normal ECG When compared with ECG of 24-MAY-2023 17:30, No significant change was found Assessment and Plan Assessment Anesthesia Assessment: Chart Reviewed Documented by User: Lamberto Arreola MD 06/09/24 10:03 [facility] Past Medical History Medical History Murmur, cardiac Diabetes mellitus Hypertension Brain aneurysm Subarachnoid hemorrhage Mild persistent asthma Tobacco abuse PVD (peripheral vascular disease) Carpal tunnel syndrome, right Family History Family History Father CVA (cerebral vascular accident) CVD (cardiovascular disease) Mother CVD (cardiovascular disease) Uterus cancer Heart attack Family history of problems with anesthesia: No Surgical History Surgical History (Updated 06/09/24 @ 09:14 by Razia Blunt, RN) History of gastric bypass Status post coil embolization of cerebral aneurysm Hx of section H/O left breast biopsy Total knee replacement status History of cholecystectomy History of appendectomy History of Problems with Anesthesia: No Social History Social History Household Members: Family Household Members Other:: 3 Housing: Apartment Do you presently have visiting nurse or other home services: Yes Unable to assess alcohol history related to: Unable to respond Alcohol intake: never Patient Tobacco Use Status: Former Tobacco user Tobacco use type: Cigarette Use of substances other than those prescribed or required for medical reasons: No Are you DNR?: No Advance Directives: No Advance Directives Information Provided: Yes service: No Current occupational 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 Meds Allergies Allergy/AdvReac Type Severity Reaction Status Date / Time Iodinated Contrast Media Allergy Unknown ITCHING Verified 06/09/24 09:58 [IV CONTRAST] nut - unspecified Allergy Unknown THROAT Verified 06/09/24 09:58 [NUT - UNSPECIFIED] SWELLING penicillin G Allergy Unknown hives Verified 06/09/24 09:58 Penicillins [PENICILLINS] Allergy Unknown HIVES Verified 06/09/24 09:58 gregorio Allergy Anaphylaxis Verified 06/09/24 09:58 Home Medications ?Medication ?Instructions ?Recorded ?Confirmed ?Last Taken ?Type aspirin 81 mg tablet,delayed 81 mg PO DAILY 05/12/20 06/09/24 06/07/24 History release fluticasone propionate 110 2 puff PO BID 05/12/20 06/09/24 05/24/23 History mcg/actuation HFA aerosol inhaler hydrochlorothiazide 25 mg tablet 25 mg PO DAILY 05/12/20 06/09/24 05/24/23 History meloxicam 15 mg tablet 15 mg PO DAILY 05/12/20 06/09/24 06/07/24 History montelukast 10 mg tablet 10 mg PO BEDTIME 05/12/20 06/09/24 05/23/23 History pregabalin 300 mg capsule 300 mg PO BID 05/12/20 06/09/24 05/24/23 History metformin 500 mg tablet 500 mg PO DAILY 05/04/21 06/09/24 05/24/23 History amlodipine 10 mg tablet 10 mg PO DAILY 05/24/23 06/09/24 05/24/23 History atorvastatin 40 mg tablet 40 mg PO DAILY 05/24/23 06/09/24 05/24/23 History carvedilol 6.25 mg tablet 6.25 mg PO BIDWM 05/24/23 06/09/24 05/24/23 History cholecalciferol (vitamin D3) 25 25 mcg PO QAM 05/24/23 06/09/24 05/24/23 History mcg (1,000 unit) capsule (Vitamin D3) esomeprazole magnesium 20 mg 20 mg PO DAILY 05/24/23 06/09/24 05/24/23 History capsule,delayed release Exam Airway Mallampati Class: II TM Dist: >3cm Neck ROM: Full Partial: Upper and Lower Assessment and Plan Assessment Anesthesia Assessment: Anesthesia Plan Discussed Final Anesthetic Review Family History of Problems with Anesthesia: No History of Problems with Anesthesia: No NPO: Yes ASA Class: III Final Preanesthetic Review: No Changes in Pt Med Stat, Meds/Allgs Chart Reviewed, Consent Obtained/Reviewed and Anes Risks/Benef Reviewed Patient Risk: Intermediate Procedure Risk: Low Anesthetic Plan Anesthetic Plan: TIVA Disposition: Standard PACU
[2024-06-09 09:06] VITALS: BP 139/75; PULSE 79; RESP 15; TEMP 36.6; O2SAT 98; BMI 32.4
[2024-06-09 09:20] LABS: Glucose, Whole Blood 125 mg/dL (60-115)
[2024-06-09] MEDS: Lactated Ringers 1,000 ML 80 ML IVCONT (09:28)
--- NOTE | 2024-06-09 10:54 | MHC.SHP ---
Pre-Procedural Eval Section A - 24 Hr Update-Section A only Date of Service: 06/09/24 The patient is an INPATIENT: No The patient has been examined within 24 hours of the surgical procedure. The History & Physical has been completed within 30 days and I have reviewed it.: Yes Section B - Complete if H&P > 30 days Chief Complaint: Morbid (severe) obesity due to excess calories Details of Present Illness: s/p gastric bypass Relevant Family History (Specify if Yes): No Relevant Social History: None Present Medications: None Medical History: No relevant PMH History of Previous Operations: Relevant previous surgery/procedure and date(s) (laparoscopic gastric bypass) Allergies: Allergies Allergy/AdvReac Type Severity Reaction Status Date / Time Iodinated Contrast Media Allergy Unknown ITCHING Verified 06/09/24 09:58 [IV CONTRAST] nut - unspecified Allergy Unknown THROAT Verified 06/09/24 09:58 [NUT - UNSPECIFIED] SWELLING penicillin G Allergy Unknown hives Verified 06/09/24 09:58 Penicillins [PENICILLINS] Allergy Unknown HIVES Verified 06/09/24 09:58 gregorio Allergy Anaphylaxis Verified 06/09/24 09:58 Review of Systems Sugical H&P ROS: Negative: Constitution, Cardiovascular, Respiratory, Neurological, Psychiatric, Hem-Onc, Allergic/Immunologic, Gastrointestinal, Genitourinary, Musculoskeletal, Integumentary, Endocrine and Eyes/Ears/Nose/Throat Exam Surgical H&P Exam: Normal: HEENT, Normal: Heart, Normal: Lungs, Normal: Extremities, Normal: Abdomen, Normal: Skin and Normal: Neurological Plan Diagnosis/Plan: Unchanged (EGD to assess the gastric bypass anatomy. Risks of bleeding and perforation were discussed with the patient and she is in agreement with the plan.) I have reviewed the history and physical and performed a pertinent physical examination on my patient. No changes have occurred unless specified. Time Spent With Patient Time: Total time managing care of this patient today ____ minutes.
--- NOTE | 2024-06-09 10:57 | P.BOP_ITS ---
Brief Operative Note Date of Service: 06/09/24 Pre-op diagnosis: s/p gastric bypass, weight gain Post-op diagnosis: same (1) Fixed diaphragmatic hernia, 2) redundant gastric pouch) Procedure: PROCEDURE DATE: ?06/09/2024 PREOPERATIVE DIAGNOSIS: Weight gain, s/p gastric bypass POSTOPERATIVE DIAGNOSIS: ?Same as above. 1) Redundant gastric pouch, 2) Fixed diaphragmatic hernia PROCEDURE: [id number] with biopsies Surgeon: ?Niko Rolle M.D.. Ph.D. Chemical Project Engineer: ?None ? Anesthesia: IV sedation Estimated blood loss: ?Minimal FINDINGS AND PROCEDURE: ? OPERATIVE INDICATIONS: ?The patient is a 64 year old female known to me who underwent a laparoscopic gastric bypass by Dr. Lake. The patient had inadequate weight loss so far.? Based on this information I recommended an upper endoscopy to evaluate the bypass's anatomy.? Risks and complications of the surgery were discussed with the patient in advance particularly the possibility of perforation or bleeding that may require surgical intervention. The patient understood the risks and was in agreement with the plan. ? PROCEDURE: After informed consent was obtained by the patient, the patient was ?transferred to the Operating Room and was placed in the supine position.? After successful induction of IV sedation, a mouth block was placed and the patient was placed in the left lateral decubitus position. An upper endoscopy was performed next, the oropharynx and esophagus appeared within the normal limits. There was a 3-4cm fixed diaphragmatic hernia.? The z- line was smooth. Two biopsies were obtained from the distal esophagus 2-3 cm proximal to the GE junction and two biopsies from the GE junction. The gastric pouch was entered, appeared to be of normal length. There was redundancy of the proximal pouch which was herniated into the mediastinum.There was no gastritis and the gastrojejunostomy was patent. A biopsy was obtained from the gastric pouch. No significant bleeding was noted from any of the biopsy sites. There was no anastomotic ulcer.? Retroflexion of the scope was not performed because of the gastric bypass anatomy. At that point the scope was advanced into the proximal small intestine (proximal Rocco limb) which appeared to be normal as well. The Rocco limb and the pouch were decompressed and the scope was withdrawn from the patient's mouth. The patient was awaken and was transferred in stable condition to the Recovery Room for further care. I was present and performed all steps of the procedure. There were no residents to assist with this case. Niko Rolle M.D., Ph.D. Surgeon: Isaak Rolle MD Anesthesia: MAC Was an Chemical Project Engineer used for this Procedure?: No Estimated blood loss (mL): 0 IV fluids (mL): 400 Urine output (mL): 0 (No Breen to record output) Pathology: other (1) gastric pouch x1, 2) GE junction x2, 3) distal esophagus x2 ) Condition: stable Disposition: PACU
[2024-06-09 11:26] VITALS: BP 155/76; PULSE 81; RESP 16; TEMP 36.6; O2SAT 96
[2024-06-09 11:41] VITALS: BP 130/83; PULSE 76; RESP 18; TEMP 36.9; O2SAT 99
== END 2024-06-09 12:10 | disposition home or self-care (01) ==
PROVIDERS: PCP Internal Medicine; Visit Provider Surgery
PROC: 0DJ08ZZ Inspection of Upper Intestinal Tract, Via Natural or Artificial Opening Endoscopic (ICD-10-PCS; CPT 43235; principal; 2024-06-09 10:20)
DX: E66.09 Other obesity due to excess calories (principal); Z68.33 Body mass index [BMI] 33.0-33.9, adult; Z98.84 Bariatric surgery status; K91.850 Pouchitis; B96.81 Helicobacter pylori [H. pylori] as the cause of diseases classified elsewhere; K44.9 Diaphragmatic hernia without obstruction or gangrene; K21.9 Gastro-esophageal reflux disease without esophagitis; I10 Essential (primary) hypertension; J45.30 Mild persistent asthma, uncomplicated; E11.9 Type 2 diabetes mellitus without complications; I73.9 Peripheral vascular disease, unspecified; Z86.69 Personal history of other diseases of the nervous system and sense organs; Z79.51 Long term (current) use of inhaled steroids; Z79.52 Long term (current) use of systemic steroids; Z79.82 Long term (current) use of aspirin; Z79.84 Long term (current) use of oral hypoglycemic drugs; Z79.899 Other long term (current) drug therapy; Z91.018 Allergy to other foods; Z88.0 Allergy status to penicillin; Z91.040 Latex allergy status; Z87.891 Personal history of nicotine dependence; Z98.890 Other specified postprocedural states
CPT/HCPCS: 43239; 82947; 88305; 88313; 88342; J2003; J2250; J2704

== ENCOUNTER → 2024-06-09 08:26 | Outpatient (BNV) | payer OTHER, SELFPAY | PROVIDERS: PCP Internal Medicine; Visit Provider Surgery | DX: K44.0 Diaphragmatic hernia with obstruction, without gangrene (principal); K95.89 Other complications of other bariatric procedure | CPT/HCPCS: 43239 ==

== ENCOUNTER 2024-06-29 13:27 | Outpatient (AMB) | payer OTHER, SELFPAY ==
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
== END 2024-06-29 14:10 | disposition home or self-care (01) ==
LOC: HO.HBST 13:27
PROVIDERS: PCP Internal Medicine; Visit Provider Counselor Mental Health
DX: F43.20 Adjustment disorder, unspecified (principal)
CPT/HCPCS: 90791

== ENCOUNTER → 2024-09-30 09:01 | Outpatient (REF) | payer OTHER, SELFPAY ==
--- NOTE | 2024-09-30 09:04 | CA_ITS ---
Transthoracic Echocardiogram Patient (Last, First, Middle): Ewa Kuhn, Gender: Female Date of : 1960 Age: 64 Procedure Date: 09/30/2024 Procedure Type: Transthoracic Echocardiogram Location: OP Height: 167.64 cm Weight: 99.34 kg BSA: 2.08 m2 Heart Rate: bpm BP: 148 / 82 mmHg Vice President And Portfolio Manager: TO Referring MD: Silvia Garvey MANAGER [address] Symptoms: I10 - Essential (primary) hypertension Study Quality: Adequate ECG Rhythm: Sinus Conclusions: - The left ventricular systolic function is normal. The calculated ejection fraction is 63% by biplane method. - No obvious valvular pathology seen on this study. Findings Left Ventricle Normal left ventricular cavity size. The left ventricular systolic function is normal. The calculated ejection fraction is 63% by biplane method. There is no evidence of regional wall motion abnormalities. Diastolic function is normal for age. Focal hypertrophy of the basal septum. Right Ventricle Normal right ventricular cavity size and systolic function. Atria Both atria are normal in size. Aortic Valve There is a normal trileaflet aortic valve. There is no aortic valve stenosis. There is no aortic valve regurgitation. Mitral Valve There is mild mitral annular calcification. There is trace mitral valve regurgitation. There is no mitral valve stenosis. Pulmonic Valve The pulmonic valve is likely normal. Tricuspid Valve There is trace tricuspid valve regurgitation. There is no evidence of pulmonary hypertension. Great Vessels The asc aorta is normal in size. Venous The inferior vena cava is normal in size and collapses greater than 50% with inspiration. Pericardium/Pleural There is no evidence of pericardial effusion. Prior Study Comparison No significant change compared to prior study dated: 10/15/2018. Recommendations, Care & Conclusions No obvious valvular pathology seen on this study. Measurements 2D Linear Measurements IVSd: 0.82 0.6-0.9/0.6-1.0 cm LVIDd: 4.57 3.9-5.3/4.2-5.9 cm LVIDd Index: 2.20 2.4-3.2/2.2-3.1 cm/m2 LVIDs: 3.09 2.0-3.6 cm LVPWd: 0.70 0.7-1.1 cm LA Diam: 3.80 2.7-3.8/3.0-4.0 cm LAIDs Index: 1.83 1.5-2.3 cm/m2 LV Mass: 135.64 67-162/88-224 g LV Mass Index: 65.21 43-95/49-115 g/m2 LVOT Diam: 2.00 3.0+(-)1.3 cm 2D Systolic Function EF 4C: 58.70 >55% EF 2C: 65.50 >55% EF BiP: 63.40 >55% Mitral Valve MV Pk E: 0.58 MV PK A: 0.84 MV Decel Time: 169.00 E/A: 0.70 E'Lateral: 11.00 E'Medial: 7.18 E/E' Med: 8.10 E/E' Lat: 5.30 PHT: 50.00 MVA PHT: 4.40 Decel [place]: 3.42 Aortic Valve AoV Pk Christopher: 1.72 AoV Mn Christopher: 1.22 AoV VTI: 0.40 AoV Pk Grad: 12.00 Aov Mn Grad: 6.00 ANABEL Cont.VTI: 1.76 LVOT LVOT Pk Christopher: 1.00 LVOT Mn Christopher: 0.73 LVOT VTI: 0.23 LVOT Pk Grad: 4.00 LVOT Mn Grad: 2.00 LVOT Diam: 2.00 LVOT Area: 3.14 Diastolic Function MV Pk E: 0.58 MV Pk A: 0.84 E/A: 0.70 E'Medial: 7.18 E/E' Med: 8.10 E' Laterial: 11.00 E/E' Lat: 5.30 Right Ventricle TAPSE (mm): 23.60 TVS' Christopher: 12.20 Tricuspid Valve TR Pk Christopher: 1.76 TR Pk Grad: 12.00 RA Press: 3.00 RVSP: 15.00 Great Vessels Aorta Sinus of Valsalva: 2.74 2.0-3.5 cm Ao Asc: 3.20 2.1-3.4 cm Ao Arch: 2.80 Updated in Other Vendor System with Status of Final Wei Kuhn MD electronically signed on 10/02/2024 11:50:35 AM with status of Final
--- OUTSIDE RECORDS SUMMARY | 2024-09-30 09:48 | XMS_ITS | Encounter Summary ---
Author Organization [employer] Address [address] [place] [address] [address] [place] [address] Care Team Providers Care Broadloom Weaver Name Role Phone Maya Brannon MD Primary Care Provide r Reason for Visit * Reason Comments Med Refill Encounter Details Date Type Department Care Team ([facility] Contact Info) Description 03/31/2023 Refill [facility] MED & PEDS [address] [place] [address] Yoli Lockwood FNP [address] [place] [address] Dept [place] [address] RUQ pain Social History Tobacco Use Types Packs/Day Years Used Date Smoking Tobacco: Former Cigarettes Passive Smoke Exposure: Current Smokeless Tobacco: Never Alcohol Use Standard Drinks/Week Comments Never 0 (1 standard drink = 0.6 oz pur e alcohol) Comments Unknown Sex and Gender Information Value Date Recorded Sex Assigned at Female 04/30/2022 10:25 AM EDT Legal Sex Female 10:25 AM EDT Gender Identity Female 04/30/2022 10:25 AM EDT Sexual Orientation Choose not to disclose 2021 10:25 AM EDT documented as of this encounter Plan of Treatment Upcoming Encounters Date Type Department Care Team ([facility] Contact Info) Description 10/01/2024 1:15 PM EDT Office Visit [facility] MEDICINE [address] [place], [place] [phone] Maya Brannon MD [address] [place], [place] [id number] 10/08/2024 2:00 PM EDT Office Visit [facility] OPTOMETRY [address] [place] [address] Mona Cantrell, OD [address] [place] [address] 02/12/2025 8:00 AM EDT Office Visit [facility] ADULT DENTAL [address] [place] [address] Joshua Grecoaris [address] [place] [address] documented as of this encounter Visit Diagnoses Diagnosis RUQ pain Abdominal pain, right upper quadrant documented in this encounter Care Teams Broadloom Weaver Relationship Specialty Start Date End Date Maya Brannon MD [address] [place] [address] PCP - General Family Medicine 03/12/18 documented as of this encounter
--- OUTSIDE RECORDS SUMMARY | 2024-09-30 09:48 | XMS_ITS | Encounter Summary ---
Author Organization [employer] Address [address] [place] [address] Care Team Providers Care Adjunct Political Science Instructor Name Role Phone Maay Brannon MD Primary Care Provide r Encounter Details Date Type Department Care Team (Late st Contact Info) Description 05/15/2023 Abstract [facility] ADULT DENTAL [address] [place] [address] Salma Hayden, LETYS [address] [place] [address] Social History Tobacco Use Types Packs/Day Years Used Date Smoking Tobacco: Former Cigarettes Passive Smoke Exposure: Current Smokeless Tobacco: Never Alcohol Use Standard Drinks/Week Comments Never 0 (1 standard drink = 0.6 oz pur e alcohol) Alcohol Answer Date Recorded Frequency of Alcohol Consumption Not on file 04/24/2023 Average Number of Drinks Not on file 023 Frequency of Binge Drinking Not on file 04/01 Score 0 04/24/2023 Depression Answer Date Recorded Patient Health Questionnaire-9 Score 0 04/24/2023 Patient Health Questionnaire-9 Score 0 04/24/2023 Last PHQ-9: Questionnaire Data Not on file 1 Housing Stability Answer Date Recorded What is your housing situation today? I have sabrina england 04/24/[address] you li ve. Do you have problems with any of the following? None of the above 04/24/2023 Food Insecurity Answer Date Recorded Within the past 12 months, y ou worried that your food would run out before you got money to buy more: Never True 04/24/2023 Within the past 12 months,th e food you bought just didn't last and you didn't have enough money to get more: Never True Transportation Answer Date Recorded In the past 12 months, has l ack of transportation kept you from medical appts, meetings, work or from getting things needed for daily living? No 04/24/2023 Utilities Answer Date Recorded In the past 12 months, has t he electric, gas, oil or water company threatened to shut off services in your home? No 04/24/2023 Depression Answer Date Recorded Patient Health Questionnaire-2 Score 0 04/24/2023 Comments Unknown Sex and Gender Information Value Date Recorded Sex Assigned at Female 04/30/2022 10:25 AM EDT Legal Sex Female 10:25 AM EDT Gender Identity Female 04/30/2022 10:25 AM EDT Sexual Orientation Choose not to disclose 2021 10:25 AM EDT documented as of this encounter Plan of Treatment Upcoming Encounters Date Type Department Care Team (Late st Contact Info) Description 10/01/2024 1:15 PM EDT Office Visit [facility] MEDICINE [address] [place] [address] Maya Brannon MD [address] [place] [address] 10/08/2024 2:00 PM EDT Office Visit [facility] OPTOMETRY [address] [place] [address] Mona Cantrell, CANDACE [address] [place] [address] 02/12/2025 8:00 AM EDT Office Visit [facility] ADULT DENTAL [address] [place] [address] Marina Greco [address] [place] [address] documented as of this encounter Visit Diagnoses Not on filedocumented in this encounter Additional Health Concerns Assessment Noted Time PHQ-9 Depression Total Score: 0 04/24/20 23 9:34 AM EDT documented as of this encounter Care Teams Adjunct Political Science Instructor Relationship Specialty Start Date End Date Maya Brannon MD [address] [place] [address] PCP - General Family Medicine 03/12/18 documented as of this encounter
--- OUTSIDE RECORDS SUMMARY | 2024-09-30 09:48 | XMS_ITS | Encounter Summary ---
Author Organization [facility] Address [address] [facility] [address] [place] [address] Care Team Providers Care Paint Roller Covers Supervisor Name Role Phone Maya Brannon MD Primary Care Provide r Encounter Details Date Type Department Care Team (Late Contact Info) Description 04/10/2023 Abstract [facility] MEDICINE [address] [place], [place] [phone] Maya Brannon MD 230 [place], [place] [phone] Social History Tobacco Use Types Packs/Day Years [...] Encounters Date Type Department Care Team (Late Contact Info) Description 10/01/2024 1:15 PM EDT Office Visit [facility] MEDICINE [address] [place], [place] [phone] Maya Brannon MD [address] [place], [place] [phone] 10/08/2024 2:00 PM EDT Office Visit [facility] OPTOMETRY [address] [place] [address] Mona Cantrell, OD [address] [place] [address] 02/12/2025 8:00 AM EDT Office Visit [facility] ADULT DENTAL [address] [place] [address] Marina Greco [address] [place] [address] documented as of this encounter Visit Diagnoses Not on filedocumented in this encounter Care Teams Paint Roller Covers Supervisor Relationship Specialty Start Date End Date Maya Brannon MD [address] [place] [address] PCP - General Family Medicine 03/12/18 documented as of this encounter
--- OUTSIDE RECORDS SUMMARY | 2024-09-30 09:48 | XMS_ITS | Encounter Summary ---
Author Organization [email or web address] Address [address] [facility] [address] [place] [address] Care Team Providers Care Partition Notcher Name Role Phone Maya Brannon MD Primary Care Provide r Encounter Details Date Type Department Care Team (Late st Contact Info) Description 05/15/2023 Abstract [facility] ADULT DENTAL [address] [place] [address] Salma Hayden, LETYS [address] [place] [address] Social History Tobacco Use Types Packs/Day Years [...] Description 10/01/2024 1:15 PM EDT Office Visit [facility] MEDICINE [address] [place] [address] Maya Brannon MD 230 [place] [address] 10/08/2024 2:00 PM EDT Office Visit [facility] OPTOMETRY [address] [place] [address] Mona Cantrell, CANDACE [address] [place] [address] 02/12/2025 8:00 AM EDT Office Visit [facility] ADULT DENTAL 230 [place] [address] Marina Greco [address] [place] [address] documented as of this encounter Visit Diagnoses Not on filedocumented in this encounter Additional Health Concerns Assessment Noted Time PHQ-9 Depression Total Score: 0 04/24/20 23 9:34 AM EDT documented as of this encounter Care Teams Partition Notcher Relationship Specialty Start Date End Date Maya Brannon MD 230 [place] [address] PCP - General Family Medicine 03/12/18 documented as of this encounter
--- OUTSIDE RECORDS SUMMARY | 2024-09-30 09:49 | XMS_ITS | Encounter Summary ---
Author Organization [employer] Address [address] [facility] [address] [place] [address] Care Team Providers Care Engineering Test Specialist Name Role Phone Maya Brannon MD Primary Care Provide r Encounter Details Date Type Department Care Team ([facility] Contact Info) Description 12/11/2022 Orders Only [facility] CHC MED & PEDS [address] [place], [place] [phone] Karena Bates LPN Social History Tobacco Use Types Packs/Day Years Used Date Smoking Tobacco: Former Cigarettes Smokeless Tobacco: Never Alcohol Use Standard Drinks/Week [...] Upcoming Encounters Date Type Department Care Team ([facility] Contact Info) Description 10/01/2024 1:15 PM EDT Office Visit [facility] MEDICINE [address] [place], [place] [phone] Maya Brannon MD [address] [place], [place] [phone] 10/08/2024 2:00 PM EDT Office Visit [facility] OPTOMETRY [address] [place], [place] [phone] Mona Cantrell, CANDACE [address] [place] [address] 02/12/2025 8:00 AM EDT Office Visit [facility] ADULT DENTAL [address] [place], [place] [phone] Joshua Grecoaris [address] [place] [address] documented as of this encounter Visit Diagnoses Not on filedocumented in this encounter Care Teams Engineering Test Specialist Relationship Specialty Start Date End Date Maya Brannon MD [address] [place] [address] PCP - General Family Medicine 03/12/18 documented as of this encounter
--- OUTSIDE RECORDS SUMMARY | 2024-09-30 09:49 | XMS_ITS | Encounter Summary ---
Author Organization [employer] [facility] Address [address] [place] [address] Care Team Providers Care Chart Collector Name Role Phone Maya Brannon MD Primary Care Provide r Encounter Details Date Type Department Care Team ([facility] Contact Info) Description 11/27/2022 Abstract [facility] ADULT DENTAL [address] [place] [address] Salma Hayden DDS [address] [place] [address] Social History Tobacco Use Types Packs/Day Years [...] not to disclose 2021 10:25 AM EDT COVID-19 Exposure Response Date Recorded In the last 10 days, have yo u been in contact with someone who was confirmed or suspected to have Coronavirus/COVID-19? No / Unsure 11/02/2022 1:26 PM EDT documented as of this encounter Plan of Treatment Upcoming Encounters Date Type Department Care Team ([facility] Contact Info) Description 10/01/2024 1:15 PM EDT Office Visit [facility] MEDICINE [address] [place] [address] Maya Brannon MD [address] [place] [address] 10/08/2024 2:00 PM EDT Office Visit [facility] OPTOMETRY [address] [place] [address] Mona Cantrell, OD [address] [place] [address] 02/12/2025 8:00 AM EDT Office Visit [facility] ADULT DENTAL [address] [place] [address] Angus, Marina [address] [place] [address] documented as of this encounter Visit Diagnoses Not on filedocumented in this encounter Care Teams Chart Collector Relationship Specialty Start Date End Date Maya Brannon MD [address] [place] [address] PCP - General Family Medicine 03/12/18 documented as of this encounter
--- OUTSIDE RECORDS SUMMARY | 2024-09-30 09:49 | XMS_ITS | Encounter Summary ---
Author Organization [employer] [facility] Address [address] 7[address] [place] [address] Care Team Providers Care Cook House Supervisor Name Role Phone Maya Brannon MD Primary Care Provide r Encounter Details Date Type Department Care Team ([facility] Contact Info) Description 11/02/2022 Abstract [facility] ADULT DENTAL [address] [place] [address] Salma Hayden DDS [address] [place] [address] Social History Tobacco Use Types Packs/Day Years [...] Upcoming Encounters Date Type Department Care Team ([facility] Contact Info) Description 10/01/2024 1:15 PM EDT Office Visit [facility] MEDICINE [address] [place] [address] Maya Brannon MD [address] [place] [address] 10/08/2024 2:00 PM EDT Office Visit [facility] OPTOMETRY [address] [place] [address] Mona Cantrell, OD [address] [place] [address] 02/12/2025 8:00 AM EDT Office Visit [facility] ADULT DENTAL [address] [place] [address] Angus, Marina [address] [place] [address] documented as of this encounter Visit Diagnoses Not on filedocumented in this encounter Care Teams Cook House Supervisor Relationship Specialty Start Date End Date Maya Brannon MD [address] [place] [address] PCP - General Family Medicine 03/12/18 documented as of this encounter
--- OUTSIDE RECORDS SUMMARY | 2024-09-30 09:49 | XMS_ITS | Encounter Summary ---
Author Organization [employer] [facility] Address [address] [facility] 7t [place] [address] Care Team Providers Care Administrative Asst Name Role Phone Maya Brannon MD Primary Care Provide r Encounter Details Date Type Department Care Team (Latest Contact Info) Description 07/08/2019 Abstract [facility] CONVERSIONS Dental, Provider, DDS Social History Tobacco Use Types Packs/Day Years Used Date Smoking Tobacco: Never Assessed Comments Unknown Sex and Gender Information Value [...] Description 10/01/2024 1:15 PM EDT Office Visit [facility] MEDICINE 230 [place] [address] Maya Brannon MD [address] [place] [address] 10/08/2024 2:00 PM EDT Office Visit [facility] OPTOMETRY [address] [place] [address] Mona Cantrell, OD [address] [place] [address] 02/12/2025 8:00 AM EDT Office Visit [facility] ADULT DENTAL [address] [place] [address] Marina Greco 230 [place] [address] documented as of this encounter Visit Diagnoses Not on filedocumented in this encounter Care Teams Administrative Asst Relationship Specialty Start Date End Date Maya Brannon MD [address] [place] [address] PCP - General Family Medicine 03/12/18 documented as of this encounter
--- OUTSIDE RECORDS SUMMARY | 2024-09-30 09:49 | XMS_ITS | Encounter Summary ---
Author Organization [employer] Address [address] [place] [address] Care Team Providers Care Drafter Mechanical Name Role Phone Maya Brannon MD Primary Care Provide r Encounter Details Date Type Department Care Team ([facility] Contact Info) Description 11/14/2022 Orders Only [facility] CHC MED & PEDS [address] [place], [place] [phone] Karena Bates LPN Social History Tobacco Use [...] Upcoming Encounters Date Type Department Care Team ([facility] Contact Info) Description 10/01/2024 1:15 PM EDT Office Visit [facility] MEDICINE [address] [place], [place] [phone] Maya Brannon MD 230 [place], [place] [phone] 10/08/2024 2:00 PM EDT Office Visit [facility] OPTOMETRY [address] [place] [address] Mona Cantrell OD [address] [place] [address] 02/12/2025 8:00 AM EDT Office Visit [facility] ADULT DENTAL [address] [place] [address] Angus Marina 230 [place] [address] documented as of this encounter Visit Diagnoses Not on filedocumented in this encounter Care Teams Drafter Mechanical Relationship Specialty Start Date End Date Maya Brannon MD [address] [place] [address] PCP - General Family Medicine 03/12/18 documented as of this encounter
--- OUTSIDE RECORDS SUMMARY | 2024-09-30 09:49 | XMS_ITS | Encounter Summary ---
Author Organization [employer] [facility] Address [address] [place] [address] Care Team Providers Care [employer] Solutions Consultant Name Role Phone Maya Brannon MD Primary Care Provide r Encounter Details Date Type Department Care Team ([facility] Contact Info) Description 10/03/2022 Abstract [facility] ADULT DENTAL [address] [place] [address] Salma Hayden DDS [address] [place] [address] Social History Tobacco Use Types Packs/Day Years [...] suspected to have Coronavirus/COVID-19? No / Unsure 09/19/2022 2:56 PM EDT documented as of this encounter Plan of Treatment Upcoming Encounters Date Type Department Care Team ([facility] Contact Info) Description 10/01/2024 1:15 PM EDT Office Visit [facility] MEDICINE [address] [place] [address] Maya Brannon MD [address] [place] [address] 10/08/2024 2:00 PM EDT Office Visit [facility] OPTOMETRY [address] [place] [address] Mona Cantrell, OD [address] [place] [address] 02/12/2025 8:00 AM EDT Office Visit [facility] ADULT DENTAL [address] [place] [address] Angus, Marina [address] [place] [address] documented as of this encounter Visit Diagnoses Not on filedocumented in this encounter Care Teams [employer] Consultant Relationship Specialty Start Date End Date Maya Brannon MD [address] [place] [address] PCP - General Family Medicine 03/12/18 documented as of this encounter
--- OUTSIDE RECORDS SUMMARY | 2024-09-30 09:49 | XMS_ITS | Encounter Summary ---
Author Organization [employer] [facility] Address [address] [facility] [address]t [place] [address] Care Team Providers Care Insurance Biller Name Role Phone Maya Brannon MD Primary Care Provide r Reason for Visit * Reason Comments Med Refill Encounter Details Date Type Department Care Team ([facility] Contact Info) Description 01/30/2023 Refill [facility] DIABETES/NUTRITION [address] [place], [place] [phone] Maya Brannon MD [address] [place], [place] [phone] Social History Tobacco Use Types Packs/Day Years [...] Upcoming Encounters Date Type Department Care Team ([facility] Contact Info) Description 10/01/2024 1:15 PM EDT Office Visit [facility] MEDICINE [address] [place], [place] [phone] Maya Brannon MD [address] [place], [place] [phone] 10/08/2024 2:00 PM EDT Office Visit [facility] OPTOMETRY [address] [place] [address] Mona Cantrell, OD [address] [place] [address] 02/12/2025 8:00 AM EDT Office Visit [facility] ADULT DENTAL [address] [place] [address] Angus Marina [address] [place] [address] documented as of this encounter Visit Diagnoses Not on filedocumented in this encounter Care Teams Insurance Biller Relationship Specialty Start Date End Date Maya Brannon MD [address] [place] [address] PCP - General Family Medicine 03/12/18 documented as of this encounter
--- OUTSIDE RECORDS SUMMARY | 2024-09-30 09:49 | XMS_ITS | Encounter Summary ---
Author Organization [employer] Address [address] [facility] [address]t [place] [address] Care Team Providers Care Sweetbread Trimmer Name Role Phone Maya Brannon MD Primary Care Provide r Reason for Visit * Reason Onset Date Comments loose crown 12/03/2023 Encounter Details Date Type Department Care Team ([facility] Contact Info) Description 12/03/2023 Telephone [facility] ADULT DENTAL [address] [place] [address] Salma Hayden, DDS [address] [place] [address] loose crown Social History Tobacco Use Types Packs/Day Years Used Date Smoking Tobacco: Former Cigarettes Passive Smoke Exposure: Past Smokeless Tobacco: Never Alcohol Use Standard Drinks/Week [...] AM EDT documented as of this encounter Miscellaneous Notes * Telephone Encounter - Susan Hernandez - 12/03/2023 12:43 PM EDT Patient has a loose crown and looking for evaluation. Pls reach out to patient DR documented in this encounter Plan of Treatment Upcoming Encounters Date Type Department Care Team (Late st Contact Info) Description 10/01/2024 1:15 PM EDT Office Visit [facility] MEDICINE [address] [place] [address] Maya Brannon MD [address] [place] [address] 10/08/2024 2:00 PM EDT Office Visit [facility] OPTOMETRY [address] [place] [address] Mona Cantrell OD [address] [place] [address] 02/12/2025 8:00 AM EDT Office Visit [facility] ADULT DENTAL [address] [place] [address] Marina Greco [address] [place], [place] [phone] documented as of this encounter Visit Diagnoses Not on filedocumented in this encounter Additional Health Concerns Assessment Noted Time PHQ-9 Depression Total Score: 0 04/24/20 23 9:34 AM EDT documented as of this encounter Care Teams Sweetbread Trimmer Relationship Specialty Start Date End Date Maya Brannon MD [address] [place] [address] PCP - General Family Medicine 03/12/18 documented as of this encounter
--- OUTSIDE RECORDS SUMMARY | 2024-09-30 09:49 | XMS_ITS | Clinical Summary ---
Author Organization [employer] Address [address] [place] [address] Care Team Providers Care Receiving Associate Store Name Role Phone Maya Brannon MD Primary Care Provide r Allergies Active Allergy Reactions Criticality Noted Date Comments Penicillins Rash Low 06/28/2016 Medications albuterol (2.5 MG/3ML) 0.083% nebulizer solution inhale 3 milliliter by nebulization route 3 times every day as needed 03/20/20 21 Active pregabalin (Lyrica) 300 MG capsule Take 1 capsule by mouth every 12 (twelve) hours. Active loratadine (Claritin) 10 MG tabletIndicatio ns:Rash Take 1 tablet as needed by mouth once daily 90 tablet 01/25/20 23 Active azithromycin (Zithromax Z-Anurag) 250 MG tablet Take 2 tabs day 1 and then 1 tab daily to finish 6 tablet 06/03/20 23 Active SUMAtriptan (Imitrex) 50 MG tablet TAKE 1 TABLET BY MOUTH NEEDED FOR MIGRAINE HEADACHE, DO NOT EXCEED 4 DOSES PER 24 HOURS 05/27/20 23 Active Vitamins-Lipotr opics (Complex H-324-[id number]) tablet controlled-rele ase TAKE 1 TABLET BY MOUTH EVERY DAY 04/22/20 23 Active Vitron-C 65-125 MG tablet TAKE 1 TABLET BY MOUTH AT BEDTIME 04/22/20 23 Active fluticasone (Flovent HFA) 110 MCG/ACT inhalerIndicati ons:RSV bronchitis INHALE 2 PUFFS BY MOUTH TWICE DAILY. USE WITH SPACER. RINSE MOUTH AFTER USING. 12 g 6 06/12/20 23 Active Blood Pressure Monitor kitIndications: Essential hypertension Use as directed 3x/week 1 kit 06/12/20 23 Active Dextromethorpha n-guaiFENesin (Mucinex DM) 30-600 MG tablet sustained-relea se 12 hour Take 1 tablet by mouth 2 times daily. 28 tablet 06/19/20 23 Active esomeprazole (NexIUM) [address] capsuleIndicati ons:Gastroesoph ageal reflux disease, unspecified whether esophagitis present TAKE 1 CAPSULE BY MOUTH EVERY MORNING BEFORE BREAKFAST 28 capsule 5 08/23/19 24 Active Easy Touch Lancets 33G/Twist miscIndications :Type 2 diabetes mellitus with hyperglycemia, unspecified whether meterman insulin use ([facility]) TEST BLOOD SUGAR TWICE DAILY 100 each 11 10/16/19 24 Active metFORMIN (Glucophage) 500 MG tabletIndicatio ns:Type 2 diabetes mellitus with hyperglycemia, without long-term current use of insulin ([facility]) Take 1 tablet (500 mg) by mouth with breakfast and with evening meal. 180 tablet 3 11/15/19 24 Active triamcinolone (Kenalog) 0.1 % creamIndication s:Rash Apply topically if needed in the morning and at bedtime for rash. 80 g 02/17/20 24 Active hydroCHLOROthia zide (HYDRODiuril) 25 MG tablet TAKE 1 TABLET BY MOUTH EVERY MORNING 90 tablet 3 02/20/20 24 Active amLODIPine (Norvasc) 10 MG tabletIndicatio ns:Elevated blood pressure reading TAKE 1 TABLET BY MOUTH EVERY MORNING 90 tablet 1 03/17/20 24 Active Aspirin Low Dose 81 MG EC tablet TAKE 1 TABLET BY MOUTH EVERY MORNING 90 tablet 1 03/17/20 24 Active atorvastatin (Lipitor) 40 MG tabletIndicatio ns:RUQ pain TAKE 1 TABLET BY MOUTH EVERY MORNING 90 tablet 1 03/17/20 24 Active carvedilol (Coreg) 6.25 MG tabletIndicatio ns:Primary hypertension TAKE 1 TABLET BY MOUTH TWICE DAILY IN THE MORNING AND IN THE EVENING WITH FOOD 180 tablet 1 03/17/20 24 Active D3-1000 25 MCG (1000 UT) capsuleIndicati ons:Depression, unspecified depression type TAKE 1 CAPSULE BY MOUTH EVERY MORNING 90 capsule 1 03/17/20 24 Active permethrin (Elimite) 5 % creamIndication s:Scabies apply to skin from hairline to toes and wash off 8-10 hours later 120 g 1 04/06/20 24 Active glucose blood (FREESTYLE LITE) test stripIndication s:Type 2 diabetes mellitus with hyperglycemia, without long-term current use of insulin ([facility]) TEST BLOOD SUGAR TWICE DAILY 50 strip 11 04/16/20 24 Active albuterol (Ventolin HFA) 108 (90 Base) MCG/ACT inhalerIndicati ons:Bronchitis Inhale 2 puffs every 6 (six) hours if needed for wheezing. 18 g 2 05/18/20 24 Active azithromycin (Zithromax) 250 MG tabletIndicatio ns:Bronchitis Take 2 tabs PO daily x 1d then 1 tab PO daily on D2 to D5 6 tablet 05/18/20 24 Active albuterol (2.5 MG/3ML) 0.083% nebulizer solutionIndicat ions:Moderate persistent asthma, unspecified whether complicated Take 3 mL (2.5 mg) by nebulization every 4 (four) hours if needed for wheezing. 75 mL 3 05/18/20 24 2024 Active Asmanex HFA 200 MCG/ACT aerosolIndicati ons:Moderate persistent asthma, unspecified whether complicated INHALE 1 PUFF BY MOUTH TWICE DAILY 13 g 2 05/19/20 24 Active montelukast (Singulair) 10 MG tabletIndicatio ns:Moderate persistent asthma without complication TAKE 1 TABLET BY MOUTH EVERY EVENING 90 tablet 1 06/29/20 24 Active meloxicam (Mobic) 15 MG tablet TAKE 1 TABLET BY MOUTH EVERY MORNING 30 tablet 08/20/19 25 Active DULoxetine (Cymbalta) [address] capsuleIndicati ons:Depression, unspecified depression type TAKE 1 CAPSULE BY MOUTH EVERY MORNING 30 capsule 3 09/15/19 25 Active DULoxetine (Cymbalta) [address] capsuleIndicati ons:Depression, unspecified depression type TAKE 1 CAPSULE BY MOUTH EVERY MORNING 30 capsule 3 04/01/20 24 2024 Discontinued Active Problems Problem Noted Date Diagnosed Date Bronchitis 05/18/2024 Assessment & Plan (05/18/2024 4:10 PM EST): Zpack and prednisone for 5 days Albuterol inhaler refilled I will generate prescription for nebulizer, instructions on how to use it provided ED precautions reviewed Scabies 04/06/2024 Open fracture of tooth 03/09/2024 Vaginal itching 02/17/2024 Encounter for Papanicolaou s mear for cervical cancer screening 07/02/2023 Assessment & Plan (07/02/2023 10:07 AM EST): PAP and pelvic exam done during visit, patient will be contacted with results Pelvic pain 07/02/2023 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, not intractable 06/12/2023 Assessment & Plan (06/12/2023 11:22 AM EST): Significantly improved with Imitrex, no residual deficits Pediatric Physician to take Tylenol ASA Take Imitrex if symptoms not improved within one hour F/u with PCP Hypokalemia 06/12/2023 Assessment & Plan (06/12/2023 11:22 AM EST): Repeat BMP RSV bronchitis 06/12/2023 Assessment & Plan (06/12/2023 11:26 AM EST): Seems to have progressed to bronchitis SP BMD DC Tylenol Flu Start Tylenol Q6H New prescription for albuterol inhaler + Flovent Rest at home, increase PO fluid intake F/u on symptoms Order chest x-ray to rule out pneumonia Laceration of right ear lobe 06/12/2023 Assessment & Plan (06/12/2023 12:56 PM EST): Pediatric Physician to avoid picking on the ear with q tips Use Cortisporin with otex solution Colon cancer screening 04/24/2023 Bilateral plantar fasciitis 04/24/2023 Assessment & Plan (04/24/2023 10:10 AM EDT): Patient information for home exercises provided today Trigger finger of right thumb 01/30/2023 Trigger index finger of right hand 01/30/2023 Class 2 severe obesity due t o excess calories with serious comorbidity and body mass index (BMI) of 36.0 to 36.9 in adult 01/30/2023 Unstable gait 01/30/2023 Gastroesophageal reflux disease 09/19/2022 Assessment & Plan (09/19/2022 4:13 PM EDT): Patient educated to avoid triggers (spicy food, coffee, critics), no smoking, avoid NSAID's, elevate head of the bed Esomeprazole 20mg daily prescribed Pain of left heel 09/19/2022 Assessment & Plan (09/19/2022 4:08 PM EDT): Likely plantar fascitis Ibuprofen prescribed today and patient information provided with exercises Essential hypertension 09/18/2022 Assessment & Plan (05/18/2024 4:10 PM EST): I advise: - Aerobic exercise to reduce BP. Initial goal of 30 min walk 3-5x/week. Increase as tolerated. - low-sodium diet (goal: <2g/day) and heart healthy diet such as DASH to reduce BP and prevent ASCVD. - Home BP monitoring 1-2 x day with goal of <140/90. - Seek immediate medical attention for chest pain, palpitations, SOB, syncope, or sudden changes in mental status. - Do not change or discontinue current prescriptions without first consulting health care provider Assessment & Plan (02/18/2024 4:25 PM EDT): Maintenance: BMP: up to date Lipid Panel: up to date ASCVD Risk:high risk she is on ASA 81mg and atorvastatin 40mg daily - Aerobic exercise to reduce BP. Initial goal of 30 min walk 3-5x/week. Increase as tolerated. - low-sodium diet (goal: <2g/day) and heart healthy diet such as DASH to reduce BP and prevent ASCVD. - Home BP monitoring 1-2 x day with goal of <140/90. - Seek immediate medical attention for chest pain, palpitations, SOB, syncope, or sudden changes in mental status. - Do not change or discontinue current prescriptions without first consulting health care provider Assessment & Plan (11/15/2023 12:06 PM EDT): -Today is a little high, I think is because she is upset, I advise: - Aerobic exercise to reduce BP. Initial goal of 30 min walk 3-5x/week. Increase as tolerated. - low-sodium diet (goal: <2g/day) and heart healthy diet such as DASH to reduce BP and prevent ASCVD. - Home BP monitoring 1-2 x day with goal of <140/90. - Seek immediate medical attention for chest pain, palpitations, SOB, syncope, or sudden changes in mental status. - Do not change or discontinue current prescriptions without first consulting health care provider Assessment & Plan (06/12/2023 10:39 AM EST): Uncontrolled due to acute respiratory infection and using OTC meds Repeated is 150/85, anger control counselor to check BP at home No change in medications Treat URI/RSV bronchitis Assessment & Plan (04/24/2023 10:09 AM EDT): - Aerobic exercise to reduce BP. Initial goal of 30 min walk 3-5x/week. Increase as tolerated. - low-sodium diet (goal: <2g/day) and heart healthy diet such as DASH to reduce BP and prevent ASCVD. - Home BP monitoring 1-2 x day with goal of <140/90. - Seek immediate medical attention for chest pain, palpitations, SOB, syncope, or sudden changes in mental status. - Do not change or discontinue current prescriptions without first consulting health care provider Assessment & Plan (01/30/2023 9:30 AM EDT): Blood pressure is at goal we will continue with same medication regimen and continue with low Na diet Assessment & Plan (09/19/2022 4:21 PM EDT): BP 136/74 (BP Location: Left arm, Patient Position: Sitting, BP Cuff Size: Adult) Pulse 77 Temp 97.2 ??F (36.2 ??C) (Oral) Resp 18 Wt 220 lb 6.4 oz (100 kg) SpO2 99% BMI 36.68 kg/m?? - Aerobic exercise to reduce BP. Initial goal of 30 min walk 3-5x/week. Increase as tolerated. - low-sodium diet (goal: <2g/day) and heart healthy diet such as DASH to reduce BP and prevent ASCVD. - Home BP monitoring 1-2 x day with goal of <140/90. - Seek immediate medical attention for chest pain, palpitations, SOB, syncope, or sudden changes in mental status. - Do not change or discontinue current prescriptions without first consulting health care provider -c/w same medication Fibromyalgia 09/18/2022 Intracranial aneurysm 09/18/2022 Major depressive disorder 09/18/2022 Moderate persistent asthma 09/18/2022 Type 2 diabetes mellitus with hyperglycemia 08/30 Assessment & Plan (05/18/2024 4:11 PM EST): Diabetes is: controlled - Lab Results Component Value Date HGBA1C 6.6 (A) 02/17/2024 HGBA1C 6.9 (A) 11/15/2023 HGBA1C 6.6 (H) 04/10/2023 - Lab Results Component Value Date MICROALBUR 0.7 12/02/2020 CREATININE 0.81 06/12/2023 -Changes: none - Diabetic eye exam:up to date - Diabetic foot exam:pending - Continue lifestyle modifications - Continue current medications - Follow up: 3 months Assessment & Plan (02/18/2024 4:26 PM EDT): Diabetes is: controlled - Lab Results Component Value Date HGBA1C 6.6 (A) 02/17/2024 HGBA1C 6.9 (A) 11/15/2023 HGBA1C 6.6 (H) 04/10/2023 - Lab Results Component Value Date MICROALBUR 0.7 12/02/2020 CREATININE 0.81 06/12/2023 -Changes: none - Diabetic eye exam:up to date - Diabetic foot exam:pending - Continue lifestyle modifications - Continue current medications - Follow up: 3 months Assessment & Plan (11/15/2023 12:07 PM EDT): Diabetes is: controlled - Lab Results Component Value Date HGBA1C 6.9 (A) 11/15/2023 HGBA1C 6.6 (H) 04/10/2023 HGBA1C 6.6 (A) 09/19/2022 - Lab Results Component Value Date MICROALBUR 0.7 12/02/2020 CREATININE 0.81 06/12/2023 -Changes: Today I increase her metformin to 500mg BID - Diabetic eye exam:up to date - Diabetic foot exam:pending - Continue lifestyle modifications - Follow up: 3 months Assessment & Plan (04/24/2023 10:11 AM EDT): - Lab Results Component Value Date HGBA1C 6.6 (H) 04/10/2023 HGBA1C 6.6 (A) 09/19/2022 HGBA1C 6.2 (H) 12/01/2020 - Lab Results Component Value Date MICROALBUR 0.7 12/02/2020 CREATININE 0.78 02/01/2023 - Diabetic eye exam:up to date - Diabetic foot exam:up to date - Continue lifestyle modifications Assessment & Plan (01/30/2023 9:36 AM EDT): - Lab Results Component Value Date HGBA1C 6.6 (A) 09/19/2022 HGBA1C 6.2 (H) 12/01/2020 HGBA1C 5.9 (H) 01/06/2020 HGBA1C 5.9 (H) 01/06/2020 - Lab Results Component Value Date MICROALBUR 0.7 12/02/2020 CREATININE 0.68 06/01/2022 - Diabetic eye exam: up to date - Diabetic foot exam: pending - Continue lifestyle modifications - Continue current medications Assessment & Plan (09/19/2022 4:22 PM EDT): - Lab Results Component Value Date HGBA1C 6.2 (H) 12/01/2020 HGBA1C 5.9 (H) 01/06/2020 HGBA1C 5.9 (H) 01/06/2020 - Lab Results Component Value Date CREATININE 0.68 06/01/2022 - Diabetic eye exam: referral done today - Diabetic foot exam: exam doen today - Continue lifestyle modifications - Continue current medications Encounters Date Type Department Care Team Description 09/22/2024 Patient Outreach [facility] MEDICINE [address] [place] [address] Maya Brannon MD Pre-visit Planning (SDOH screening completed on 08/18/2024) 09/12/2024 Refill [facility] MED & PEDS [address] [place] [address] Maya Brannon MD Depression, unspecified depression type 08/20/2024 Refill [facility] MEDICINE [address] [place] [address] Maya Brannon MD 08/18/2024 Patient Outreach [facility] MEDICINE [address], [place] [phone] Maya Brannon MD Pre-visit Planning (SDOH screening negative and tobacco screening negative) from Last 3 Months Immunizations Name Administration Dates Next Due Influenza injectable quadriv alent IIV4 with preservative 04/04/2018 Influenza injectable quadriv alent preservative free 04/24/2023,05/15/2021,02/23/2019,06/27,05/10/2015 Moderna Covid-19 Vaccine 6+ Bivalent 08/13/2022 Pfizer Covid-19 Vaccine 12+ 04/24/2023 Pneumococcal Conjugate PCV 20 02/17/2024 Pneumococcal Polysaccharide PPSV23 12/25/2013 RSV Bivalent 07/03/2023 Tdap 01/11/2016 Social History Tobacco Use Types Packs/Day Years Used Date Smoking Tobacco: Former Cigarettes Passive Smoke Exposure: Past Smokeless Tobacco: Never Tobacco Cessation:Counseling Given: Not Answered Alcohol Use Standard Drinks/Week Comments Never 0 [...] housing situation today? I have sabrina england 08/18/[address] you li ve. Do you have problems with any of the following? None of the above 08/18/2024 Food Insecurity Answer Date Recorded Within the past 12 months, y ou worried that your food would run out before you got money to buy more: Never True 08/18/2024 Within the past 12 months,th e food you bought just didn't last and you didn't have enough money to get more: Never True Transportation Answer Date Recorded In the past 12 months, has l ack of transportation kept you from medical appts, meetings, work or from getting things needed for daily living? No 08/18/2024 Utilities Answer Date Recorded In the past 12 months, has t he electric, gas, oil or water company threatened to shut off services in your home? No 08/18/2024 Depression Answer Date Recorded Patient Health Questionnaire-2 Score 0 04/24/2023 Internet Access Answer Date Recorded Internet Access Q1 Yes 08/18/2024 Internet Access Q2 Not on file 08/18/2024 Comments Unknown Sex and Gender Information Value Date Recorded Sex Assigned at Female 04/30/2022 10:25 AM EDT Legal Sex Female 10:25 AM EDT Gender Identity Female 04/30/2022 10:25 AM EDT Sexual Orientation Choose not to disclose 2021 10:25 AM EDT Last Filed Vital Signs Vital Sign Reading Time Taken Comments Blood Pressure 124/84 05/18/2024 10:45 AM EST Pulse 76 05/18/2024 10:45 AM EST Temperature 36.3 ??C (97.3 ??F) 05/18/2024 10:[address] Respiratory Rate 16 05/18/2024 10:45 AM EST Oxygen Saturation 98% 04/06/2024 11:03 AM EDT Inhaled Oxygen Concentration - - Weight 94.2 kg (207 lb 9.6 oz) 05/18/2024 10:45 AM EST Height 162.6 cm (5' 4 ) 05/18/2024 10:45 AM EST Body Mass Index 35.63 05/18/2024 10:45 AM EST Plan of Treatment Upcoming Encounters Date Type Department Care Team (Late st Contact Info) Description 10/01/2024 1:15 PM EDT Office Visit [facility] MEDICINE [address] [place] [address] Maya Brannon MD [address] [place] [address] 10/08/2024 2:00 PM EDT Office Visit [facility] OPTOMETRY [address] [place] [address] Mona Cantrell, OD [address] [place] [address] 02/12/2025 8:00 AM EDT Office Visit [facility] ADULT DENTAL [address] [place] [address] Angus, Marina [address] [place] [address] Health Maintenance Due Date Last Done Comments CT Colonography 1960 Colonoscopy 1960 Dental X-Ray: Full Mouth 1962 FIT 1960 HIV Screening 1960 Sigmoidoscopy 1960 Alcohol/Substance Use Screening 1974 Hepatitis C Screening 01/27/1980 Zoster Vaccines (1 of 2) 01/27/2012 Diabetes: Urine Protein Screening 12/02/2021 12/02/2020 Diabetes: Foot Exam 09/20/2023 09/19/2022, 09/19/2022, 09/19/2022, Additional history exists Dental Oral Exam 10/16/2023 04/15/2023 Dental Prophylaxis 11/06/2023 05/07/2023, 08/15/2022 COVID-19 Vaccine ( season) 2024 04/24/2023, 08/13/2022, 08/09/2021, Additional history exists Influenza Vaccine (#1) 2024 , 05/15/2021, 02/23/2019, Additional history exists Lipid Panel 04/10/2024 04/10/2023, 08/0 09/2022, 10/13/2021, Additional history exists Dental X-Ray: Bitewings 04/16/2024 04/15/2023 Depression Screening 04/24/2024 04/24/2023, 04/24/20 23 FOBT 05/02/2024 05/02/2023 Diabetes: Hemoglobin A1C 08/19/2024 024, 11/15/2023, 04/10/2023, Additional history exists Eye Exam 10/22/2024 10/22/2022, 2 09/2022, 10/22/2022, Additional history exists Mammogram 11/18/2024 11/19/2023, 030 12/2022, 09/04/2022, Additional history exists Tobacco Screening 04/08/2025 04/08/2024 SDOH Screening 08/18/2025 08/18/2024 DTaP/Tdap/Td Vaccines (2 - Td or Tdap) 01/10/2026 01/11/2016 Colorectal Cancer Screening 05/02/2026 FIT DNA/Cologuard 05/02/2026 05/02/2023, 05/02/2023 Cervical Cancer Screening 07/02/2028 HPV/Cotest 07/02/2028 07/02/2023 Pap Smear 07/02/2028 07/02/2023, 07/02/2023 RSV Patients and Patients Aged 60 years or older Completed 07/03/2023 Pneumococcal Vaccine: 50+ Years Completed 02/17/2024, 12/25/2013 HIB Vaccines Aged Out No longer eligi ble based on patient's age to complete this topic HPV Vaccines Aged Out No longer eligi ble based on patient's age to complete this topic Hepatitis A Vaccines Aged Out No long er eligible based on patient's age to complete this topic Hepatitis B Vaccines Aged Out No long er eligible based on patient's age to complete this topic IPV Vaccines Aged Out No longer eligi ble based on patient's age to complete this topic Meningococcal Vaccine Aged Out No arvind luba eligible based on patient's age to complete this topic RSV under 20 months Aged Out No longe r eligible based on patient's age to complete this topic Rotavirus Vaccines Aged Out No longer eligible based on patient's age to complete this topic Procedures Procedure Name Priority Date/Time Associated Diagnosis Comments POCT GLYCATED HEMOGLOBIN, TOTAL Routine 02/17/2024 10:52 AM EDT Type 2 diabetes mellitus with hyperglycemia, without long-term current use of insulin ([facility]) BI MAMMOGRAM SCREENING TOMOSYNTHESIS BILATERAL Routine 11/19/2023 11:05 AM EDT HPV MRNA E6/E7 REFLEX TO HPV 16, 18/45 Routine 07/02/2023 10:05 AM EST IMAGE-GUIDED PAP W/AGE BASED SCR,W/CT/NG/TRICH Routine 07/02/2023 10:05 AM EST Encounter for Papanicolaou smear for cervical cancer screening PROPHYLAXIS - ADULT Routine 05/07/2023 1 0:00 AM EST Missing teeth, acquired LAB COLOGUARD?? COLON CANCER SCREEN Routine 05/02/2023 6:30 AM EDT Colon cancer screening HM FIT DNA/COLOGUARD CANCER SCREENING Routine 05/02/2023 BITEWINGS - 4 RADIOGRAPHIC IMAGES Routine 04/15/2023 1:30 PM EDT PERIODIC ORAL EVALUATION - ESTABLISHED PATIENT Routine 04/15/2023 1:30 PM EDT LIPID PANEL, STANDARD Routine 04/10/2023 10:23 AM EDT ALBUMIN, RANDOM URINE W/CREATININE Routine 12/02/2020 2:33 PM EDT from Last 3 Months or Most Recently Relevant to Health Maintenance Results * (ABNORMAL) POCT HGB A1C (02/17/2024 10:52 AM EDT) Hemoglobin A1C 6.6(A) 4.0 - 6.0 % QC Media Lot # [id number] Lot# Expiration Date [id number] Blood 02/17/2024 10:5 2 AM EDT Maya Hernandez MD POINT OF CARE TEST EN TER/EDIT ORDERABLES Final Result * BI Mammogram Screening Tomosynthesis Bilateral (11/19/2023 11:05 AM EDT) Anatomical Region Laterality Modality Breast Bilateral Mammography 11/19/2023 11:0 5 AM EDT Narrative 12/20/2023 7:12 AM EDT ? [facility] ? [address] ?[place] [address] ? Mammography Report ? Signed ? Patient: Bam,Ewa ?MR#: [id number] ?? 59 ? : 1960 ?Acct:[id number] ? Age/Sex: 63 / F ?ADM Date: 11/19/23 ? Loc: HO.MAMMO ? Attending Dr: Maya Hernandez MD ? Ordering Physician: Maya Brannon MD ?Results: ?? 1Negative ? Date of Service: 11/19/23 ?Follow Up: 1 Year From Orig ?? inal Mammogram ? Procedure(s): MM tomosynthesis screening BI ?? Accession Number(s): [id number] ? cc: aMya Brannon MD ? EXAMINATION: ?? MM SCREENING DIGITAL BREAST TOMOSYNTHESIS, BILATERAL ? CLINICAL INFORMATION: ? Screening. Asymptomatic. ? COMPARISON: ?? Mammography: This study is compared with prior exams dating back to ? TECHNIQUE: ?? Digital breast tomosynthesis is performed in both the craniocaudal and ?? mediolateral oblique views along with computer-aided detection (CAD). ?? Synthesized 2D images are generated from the tomosynthesis. ? FINDINGS: ?? There are scattered areas of fibroglandular density (ACR BI-RADS breast ?? composition Category b). ? There are no significant masses, abnormal calcifications, or other ?? abnormalities. ? There is tissue marker present in the left breast from prior benign ?? percutaneous biopsy. ? MM/MM tomosynthesis screening BI ?? IMPRESSION: ?? No mammographic evidence of malignancy. ? ASSESSMENT: ? BI-RADS BI-RADS 1 - Negative ? RECOMMENDATION: ?? Routine annual mammography screening. ? 1 year F/U ? This examination should not preclude the clinical evaluation of a ?? suspicious palpable abnormality. ? This patient's information was entered into a reminder system with a ?? target due date for their next mammogram. ? Dictated By: ?Radha Summers MD ? Signed By: ?<Electronically signed by Radha Summers MD in OV> ? 12/20/23 0708 ? DD/ 1105 ? TD/TT: ? Staff Respiratory Therapist: ? Procedure Note [email or web address], Image - 12/20/2023 [facility] [address] [place] [address] Mammography Report Signed Patient: Howard Kuhn#: [id number] 59 : 2Acct:[id number] Age/Sex: 63 / FADM Date: 11/19/23 Loc: HO.MAMMO Attending Dr: Maya Hernandez MD Ordering Physician: Maya Brannon MDResults: 1Negative Date of Service: 11/19/23Follow Up: 1 Year From [facility] Mammogram Procedure(s): MM tomosynthesis screening BI Accession Number(s): [id number] cc: Maya Brannon MD EXAMINATION: MM SCREENING DIGITAL BREAST TOMOSYNTHESIS, BILATERAL CLINICAL INFORMATION: Screening. Asymptomatic. COMPARISON: Mammography: This study is compared with prior exams dating back to TECHNIQUE: Digital breast tomosynthesis is performed in both the craniocaudal and mediolateral oblique views along with computer-aided detection (CAD). Synthesized 2D images are generated from the tomosynthesis. FINDINGS: There are scattered areas of fibroglandular density (ACR BI-RADS breast composition Category b). There are no significant masses, abnormal calcifications, or other abnormalities. There is tissue marker present in the left breast from prior benign percutaneous biopsy. MM/MM tomosynthesis screening BI IMPRESSION: No mammographic evidence of malignancy. ASSESSMENT: BI-RADS BI-RADS 1 - Negative RECOMMENDATION: Routine annual mammography screening. 1 year F/U This examination should not preclude the clinical evaluation of a suspicious palpable abnormality. This patient's information was entered into a reminder system with a target due date for their next mammogram. Dictated By: Radha Summers MD Signed By: <Electronically signed by Radha Summers MD in OV> 12/20/23 0708 DD/ 1105 TD/TT: Staff Respiratory Therapist: us Maya Hernandez MD IMG BI PROCEDURES Fin al Result * Image-Guided Pap with Age-Based Screening??with CT/NG,??Trichomonas (07/02/2023 10:05 AM EST) Trichomonas (NAAT) NOT DETECTED NOT DETECTED [facility] Comment:The analytical perfo rmance characteristics of thisassay have been determined by [employer]. Themodifications have not been cleared or approved bythe FDA. This assay has been validated pursuant to theCLIA regulations and is used for clinical purposes.For additional information, please refer tohttp://education.Sinch/faq/Trichomonastma(This link is being provided for information/educational purposes only.)THIS TEST WAS PERFORMED AT:[employer] [place] [id number] CASTRO MD CTNG Ref Lab NOT DETECTED NOT DETECTED [facility] NG Ref Lab NOT DETECTED NOT DETECTED [facility] 07/02/2023 10:0 5 AM EST 07/03/2023 12:15 PM EST us Maya Hernandez MD LAB CYTOLOGY ORDERABL ES Final Result [facility] [address] [place] [phone] * HPV mRNA E6/E7 w/Reflex to HPV Genotypes 16, 18/45 (07/02/2023 10:05 AM EST) HPV nRNA E6/E7 Not Detected Not Detected [facility] Comment:Methodology: Transcr iption-Mediated AmplificationThis assay detects E6/E7 viral messenger RNA (mRNA) from 14high-risk HPV types (16,18,31,33,35,39,45,51,52,56,58,59,66,68).Cervical sources are required for HPV testing.If a vaginal source from a patient who has had atotal hysterectomy with removal of cervix wassubmitted, please contact the testing laboratoryfor alternative testing options.For additional information, please refer tohttp://education.Sinch/faq/OPM156x2(This link if provided for information/educational purposes only.)THIS TEST WAS PERFORMED AT:[employer] [place] [id number] CASTRO MD HPV mRNA E6/E7 [facility] HPV 16 RNA [facility] HPV 18/45 RNA [facility] 07/02/2023 10:0 5 AM EST 07/03/2023 11:15 AM EST us Maya Hernandez MD LAB CYTOLOGY ORDERABL ES Final Result [facility] [address] [place] [phone] * Cologuard?? colon cancer screening (05/02/2023 6:30 AM EDT) Cologuard Result Negative Negative 05/14/20 10:05 PM EST [facility] (CLIA #:[id number]) Comment: NEGATIVE TEST RESULT. A negative Cologuard result indicates a low likelihood that a colorectal cancer (CRC) or advanced adenoma (adenomatous polyps with more advanced pre-malignant features) ??is present. The chance that a person with a negative Cologuard test has a colorectal cancer is less than 1 in 1500 (negative predictive value >99.9%) or has an ??advanced adenoma is less than ??5.3% (negative predictive value 94.7%). These data are based on a prospective cross-sectional study of 10,000 individuals at average risk for colorectal cancer who were screened with both Cologuard and colonoscopy. (Jc Blakely et al, N Engl J Med 2014;370(14):1286- 1297) The normal value (reference range) for this assay is negative. COLOGUARD RE-SCREENING RECOMMENDATION: Periodic colorectal cancer screening is an important part of preventive healthcare for asymptomatic individuals at average risk for colorectal cancer. ??Following a negative Cologuard result, the [place] [employer] and U.S. Multi-Society Task Force screening guidelines recommend a Cologuard re-screening interval of 3 years. References: [place] [employer] Guideline for Colorectal Cancer Screening: https://www.cancer.org/cancer/wwttd-zyfjhq-alimri/wcrygvrjj-tkifacgik-xonbnra/ac s-rec ommendations.html.; Stanley DK, Abhinav LOPEZ, Christiane FatimaK, Colorectal Cancer Screening: Recommendations for Physicians and Patients from the U.S. Multi-Society Task Force on Colorectal Cancer Screening , Am J Gastroenterology 2017; 112:1822-5178. TEST DESCRIPTION: Composite algorithmic analysis of stool DNA-biomarkers with hemoglobin immunoassay. ?? Quantitative values of individual biomarkers are not reportable and are not associated with individual biomarker result reference ranges. Cologuard is intended for colorectal cancer screening of adults of either sex, 45 years or older, who are at average-risk for colorectal cancer (CRC). Cologuard has been approved for use by the U.S. FDA. The performance of Cologuard was established in a cross sectional study of average-risk adults aged 50-84. Cologuard performance in patients ages 45 to 49 years was estimated by sub-group analysis of near-age groups. Colonoscopies performed for a positive result may find as the most clinically significant lesion: colorectal cancer [4.0%], advanced adenoma (including sessile serrated polyps greater than or equal to 1cm diameter) [20%] or non- advanced adenoma [31%]; or no colorectal neoplasia [45%]. These estimates are derived from a prospective cross-sectional screening study of 10,000 individuals at average risk for colorectal cancer who were screened with both Cologuard and colonoscopy. (Jc Mejía al, N Engl J Med 2014;370(14):2377-6098.) Cologuard may produce a false negative or false positive result (no colorectal cancer or precancerous polyp present at colonoscopy follow up). A negative Cologuard test result does not guarantee the absence of CRC or advanced adenoma (pre-cancer). The current Cologuard screening interval is every 3 years. ([place] [employer] Society and U.S. Multi-Society Task Force). Cologuard performance data in a 10,000 patient pivotal study using colonoscopy as the reference method can be accessed at the following location: www.Iterable.Invenra/results. Additional description of the Cologuard test process, warnings and precautions can be found at www.cologuard.com. Stool specimen (specimen) 05/02/2023 6:30 AM EDT 05/04/2023 7:17 PM EDT us Maya Hernandez MD LAB MOLECULAR DIAGNOS TICS ORDERABLES Final Result Performing Organization Address City/[facility]/ZIP Co de Phone Number [facility] (CLIA #:[id number]) [address] [place] [address], [place] [phone] * FIT DNA/Cologuard Cancer Screening (05/02/2023) Cologuard Cancer Screen Negative [facility] (CLIA #:[id number]) Stool us Maya Hernandez MD HEALTH MAINTENANCE Fi nal Result [facility] (CLIA #:[id number]) [address] [place] [address], [place] [phone] * Lipid Panel, Standard (04/10/2023 10:23 AM EDT) Pathologist [facility] Triglycerides 75 <150 mg/dL [facility] Comment:Desirable Triglyceri de: less than 150 mg/dLBorderline High Triglyceride 150-199 mg/dLHigh Triglyceride: 200-499 mg/dLVery High Triglyceride: greater than or equal to 5OO mg/dL Cholesterol 137 <200 mg/dL [facility] Comment:Desirable Cholestero l: less than 200 mg/dLBorderline High Cholesterol: 200-239 mg/dLHigh Cholesterol: greater than 239 mg/dL LDL Cholesterol Calculated 78 <100 mg/dL [facility] Comment:Desirable LDL: less than 100 mg/dLNear Optimal/Above Optimal LDL: 110- 129 mg/dLBorderline High LDL: 130-159 mg/dLHigh LDL: 160-189 mg/dLVery High LDL: greater than or equal to 190 mg/dL HDL Cholesterol 44 >40 mg/dL [facility] Comment:Desirable HDL: great er than 40 mg/dL Note: This HDL assay may give artificially low results in patients with liver disease. 04/10/2023 10:2 3 AM EDT 04/10/2023 10:23 AM EDT us Generic External Data Provider LAB BLOOD ORDERAB LES Final Result [facility] [address] [place] [phone] * ALBUMIN, RANDOM URINE W/CREATININE (12/02/2020 2:33 PM EDT) Microalbumin Urine 0.7 See Note: mg/dL [facility] Comment: Reference Range: ?? Reference Range Not established Microalb/Creat Ratio 7 <30 mcg/mg creat [facility] Comment: ?? The ADA defines abnormalities in albumin excretion as follows: ?? Category ? Result (mcg/mg creatinine) ?? Normal ?<30 Microalbuminuria ? 30-299 ?? Clinical albuminuria ?? > OR = 300 ?? The ADA recommends that at least two of three specimens collected within a 3-6 month period be abnormal before considering a patient to be within a diagnostic category. Creatinine, Urine 97 20 - 275 mg/dL [facility] 12/02/2020 2:33 PM EDT Maya Hernandez MD LAB URINE ORDERABLES Final Result [facility] [address] from Last 3 Months or Most Recently Relevant to Health Maintenance Insurance [facility] - [facility] Care Teams Receiving Associate Store Relationship Specialty Start Date End Date Maya Brannon MD [address] [place] [phone] PCP - General Family Medicine 03/12/18
--- OUTSIDE RECORDS SUMMARY | 2024-09-30 09:49 | XMS_ITS | Encounter Summary ---
Author Organization [employer] Address [address] [place] [address] Care Team Providers Care Director Housekeeping Name Role Phone Maya Brannon MD Primary Care Provide r Encounter Details Date Type Department Care Team (Late Contact Info) Description 07/04/2022 Orders Only [facility] CHC MED & PEDS [address] [place], [place] [phone] Karena Bates LPN Social History Tobacco Use Types Packs/Day Years Used Date Smoking Tobacco: Former Cigarettes Smokeless Tobacco: Never Comments Unknown Sex and Gender Information Value [...] Description 10/01/2024 1:15 PM EDT Office Visit [facility] MEDICINE [address] [place] [address] Maya Brannon MD [address] [place] [address] 10/08/2024 2:00 PM EDT Office Visit [facility] OPTOMETRY [address] [place] [address] Mona Cantrell, OD [address] [place] [address] 02/12/2025 8:00 AM EDT Office Visit [facility] ADULT DENTAL [address] [place], [place] [phone] Joshua Grecoaris [address] [place], [place] [phone] documented as of this encounter Visit Diagnoses Not on filedocumented in this encounter Care Teams Director Housekeeping Relationship Specialty Start Date End Date Maya Brannon MD [address] [place], [place] [phone] PCP - General Family Medicine 03/12/18 documented as of this encounter
--- OUTSIDE RECORDS SUMMARY | 2024-09-30 09:49 | XMS_ITS | Encounter Summary ---
Author Organization [employer] Address [address]t [place] [address] Care Team Providers Care Engineer Systems Name Role Phone Maya Brannon MD Primary Care Provide r Encounter Details Date Type Department Care Team ([facility] st Contact Info) Description 06/06/[address] [facility] MEDICINE [address] [place] [address] Donato Redd, PharmD [address] [place] [address] Social History Tobacco Use Types Packs/Day Years [...] Description 10/01/2024 1:15 PM EDT Office [facility] MEDICINE [address] [place] [address] Maya Brannon MD [address] [place] [address] 10/08/2024 2:00 PM EDT Office Visit [facility] OPTOMETRY [address] [place] [address] Mona Cantrell, OD [address] [place] [address] 02/12/2025 8:00 AM EDT Office Visit [facility] ADULT DENTAL [address] [place] [address] Marina Greco [address] [place] [address] documented as of this encounter Visit Diagnoses Not on filedocumented in this encounter Additional Health Concerns Assessment Noted Time PHQ-9 Depression Total Score: 0 04/24/20 23 9:34 AM EDT documented as of this encounter Care Teams Engineer Systems Relationship Specialty Start Date End Date Maya Brannon MD [address] [place] [address] PCP - General Family Medicine 03/12/18 documented as of this encounter
--- OUTSIDE RECORDS SUMMARY | 2024-09-30 09:49 | XMS_ITS | Encounter Summary ---
Author Organization [employer] Address [address]t [place] [address] Care Team Providers Care Vendor Management Specialist Name Role Phone Maya Brannon MD Primary Care Provide r Encounter Details Date Type Department Care Team (Late st Contact Info) Description 06/11/2023 Abstract [facility] ADULT DENTAL [address] [place] [address] Salma Hayden, LETYS [address] [place] [address] Social History Tobacco Use Types Packs/Day Years [...] 1:15 PM EDT Office Visit [facility] MEDICINE [address] [place] [address] Maya Brannon MD [address] [place] [address] 10/08/2024 2:00 PM EDT Office Visit [facility] OPTOMETRY [address] [place] [address] Mona Cantrell, CANDACE [address] [place] [address] 02/12/2025 8:00 AM EDT Office Visit [facility] ADULT DENTAL [address] [place] [address] Marina Greco [address] [place] [address] documented as of this encounter Visit Diagnoses Not on filedocumented in this encounter Additional Health Concerns Assessment Noted Time PHQ-9 Depression Total Score: 0 04/24/20 23 9:34 AM EDT documented as of this encounter Care Teams Vendor Management Specialist Relationship Specialty Start Date End Date Maya Brannon MD [address] [place] [address] PCP - General Family Medicine 03/12/18 documented as of this encounter
--- OUTSIDE RECORDS SUMMARY | 2024-09-30 09:49 | XMS_ITS | Encounter Summary ---
Author Organization [employer] Address [address] [facility] 7t [place] [address] Care Team Providers Care P 3 Armament/Ordnance Ima Technician Name Role Phone Maya Brannon MD Primary Care Provide r Encounter Details Date Type Department Care Team ([facility] Contact Info) Description 01/30/2023 Orders Only [facility] CHC MED & PEDS [address] [place], [place] [phone] Karena Bates LPN Social History Tobacco Use [...] Description 10/01/2024 1:15 PM EDT Office Visit [facility] MEDICINE [address] [place] [address] Maya Brannon MD [address] [place], [place] [phone] 10/08/2024 2:00 PM EDT Office Visit [facility] OPTOMETRY [address] [place], [place] [phone] Mona Cantrell OD [address] [place] [address] 02/12/2025 8:00 AM EDT Office Visit [facility] ADULT DENTAL [address] [place], [place] [phone] Marina Greco [address] [place] [address] documented as of this encounter Visit Diagnoses Not on filedocumented in this encounter Care Teams P 3 Armament/Ordnance Ima Technician Relationship Specialty Start Date End Date Maya Brannon MD [address] [place] [address] PCP - General Family Medicine 03/12/18 documented as of this encounter
--- OUTSIDE RECORDS SUMMARY | 2024-09-30 09:49 | XMS_ITS | Encounter Summary ---
Author Organization [employer] [facility] Address [address] [facility] 7t [place] [address] Care Team Providers Care Put In Beat Adjuster Name Role Phone Maya Brannon MD Primary Care Provide r Encounter Details Date Type Department Care Team (Latest Contact Info) Description 12/12/2021 Abstract [facility] CONVERSIONS Dental, Provider, DDS Social History Tobacco [...] Description 10/01/2024 1:15 PM EDT Office Visit [facility] MEDICINE [address] [place] [address] Maya Brannon MD [address] [place] [address] 10/08/2024 2:00 PM EDT Office Visit [facility] OPTOMETRY [address] [place] [address] Mona Cantrell, OD [address] [place] [address] 02/12/2025 8:00 AM EDT Office Visit [facility] ADULT DENTAL [address] [place], [place] [phone] Marina Greco [address] [place] [address] documented as of this encounter Visit Diagnoses Not on filedocumented in this encounter Care Teams Put In Beat Adjuster Relationship Specialty Start Date End Date Maya Brannon MD [address] [place] [address] PCP - General Family Medicine 03/12/18 documented as of this encounter
--- OUTSIDE RECORDS SUMMARY | 2024-09-30 09:49 | XMS_ITS | Encounter Summary ---
Author Organization [employer] [facility] Address [address] 7t [place] [address] Care Team Providers Care Marble Mason Name Role Phone Maya Brannon MD Primary Care Provide r Encounter Details Date Type Department Care Team ([facility] Contact Info) Description 11/07/2022 Abstract [facility] ADULT DENTAL [address] [place] [address] Salma Hayden DDS [address] [place] [address] Social History Tobacco Use Types Packs/Day Years [...] Upcoming Encounters Date Type Department Care Team ([facility] Contact Info) Description 10/01/2024 1:15 PM EDT Office Visit [facility] MEDICINE [address] [place] [address] Maya Brannon MD [address] [place] [address] 10/08/2024 2:00 PM EDT Office Visit [facility] OPTOMETRY [address] [place] [address] Mona Cantrell, OD [address] [place] [address] 02/12/2025 8:00 AM EDT Office Visit [facility] ADULT DENTAL [address] [place] [address] Angus, Marina [address] [place] [address] documented as of this encounter Visit Diagnoses Not on filedocumented in this encounter Care Teams Marble Mason Relationship Specialty Start Date End Date Maya Brannon MD [address] [place] [address] PCP - General Family Medicine 03/12/18 documented as of this encounter
== END ==
LOC: HO.CARD 09:01
PROVIDERS: PCP Internal Medicine; Visit Provider Nurse Practitioner Family
DX: I10 Essential (primary) hypertension (principal); R01.1 Cardiac murmur, unspecified; R00.2 Palpitations; E66.811 Obesity, class 1; E66.09 Other obesity due to excess calories; Z68.33 Body mass index [BMI] 33.0-33.9, adult
CPT/HCPCS: 93306

== ENCOUNTER → 2024-09-30 09:04 | Outpatient (BNV) | payer OTHER, SELFPAY | PROVIDERS: PCP Internal Medicine; Visit Provider Internal Medicine | DX: I42.2 Other hypertrophic cardiomyopathy (principal) | CPT/HCPCS: 93306 ==

== ENCOUNTER 2024-10-06 10:26 | Outpatient (REF) | payer OTHER, SELFPAY ==
--- NOTE | ~2024-10-06 | XR_ITS ---
CLINICAL HISTORY: pain Exam: AP, Grashey, and scapular Y-views of the left shoulder. Comparison: None. Findings: No fracture, dislocation, or separation. 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 Impression: Moderate DJD. This document has been electronically signed by: Chris Akins MD on 10/07/2024 10:06:25
[2024-10-06 12:15] LABS: Creatinine Urine 76.97 mg/dL; Microalbumin Urine < 5.0 mg/L
--- OUTSIDE RECORDS SUMMARY | 2024-10-06 12:29 | XMS_ITS | Encounter Summary ---
Author Organization [facility] Address [address] 7t [place] [address] Care Team Providers Care Splicer Helper Name Role Phone Maya Brannon MD Primary Care Provide r Encounter Details Date Type Department Care Team (Late Contact Info) Description 04/10/2023 Abstract [facility] MEDICINE [address] [place] [address] Maya Brannon MD [address] [place] [address] Social History Tobacco Use Types Packs/Day Years [...] Department Care Team (Late Contact Info) Description 10/08/2024 2:00 PM EDT Office Visit [facility] OPTOMETRY [address] [place] [address] Mona Cantrell OD [address] [place] [address] 02/12/2025 8:00 AM EDT Office Visit [facility] ADULT DENTAL [address] [place] [address] Marina Greco [address] [place], [place] [phone] documented as of this encounter Visit Diagnoses Not on filedocumented in this encounter Care Teams Splicer Helper Relationship Specialty Start Date End Date Maya Brannon MD [address] [place] [address] PCP - General Family Medicine 03/12/18 documented as of this encounter
--- OUTSIDE RECORDS SUMMARY | 2024-10-06 12:29 | XMS_ITS | Encounter Summary ---
Author Organization [employer] Address [address] [place] [address] 7t [place] [address] Care Team Providers Care Chief Communications Officer Name Role Phone Maya Brannon MD Primary Care Provide r Reason for Visit * Reason Comments Med Refill Encounter Details Date Type Department Care Team ([facility] Contact Info) Description 03/31/2023 Refill [facility] CHC MED & PEDS [address] [place] [address] Yoli Lockwood, MICHAEL [address] [place] [address] Dept [place] [address] RUQ pain Social History Tobacco Use Types [...] Upcoming Encounters Date Type Department Care Team ([facility] Contact Info) Description 10/08/2024 2:00 PM EDT Office Visit [facility] OPTOMETRY [address] [place], [place] [phone] Mona Cantrell, OD [address] [place] [address] 02/12/2025 8:00 AM EDT Office Visit [facility] ADULT DENTAL [address] [place] [address] Marina Greco [address] [place], [place] [phone] documented as of this encounter Visit Diagnoses Diagnosis RUQ pain Abdominal pain, right upper quadrant documented in this encounter Care Teams Chief Communications Officer Relationship Specialty Start Date End Date Maya Brannon MD [address] [place], [place] [phone] PCP - General Family Medicine 03/12/18 documented as of this encounter
--- OUTSIDE RECORDS SUMMARY | 2024-10-06 12:30 | XMS_ITS | Encounter Summary ---
Author Organization [employer] Address [address] [facility] 7t [place] [address] Care Team Providers Care Digital Controls Technical Officer Name Role Phone Maya Brannon MD Primary Care Provide r Reason for Visit * Reason Onset Date Comments loose crown 12/03/2023 Encounter Details Date Type Department Care Team ([facility] Contact Info) Description 12/03/2023 Telephone [facility] ADULT DENTAL [address] [place] [address] Salma Hayden, DDS [address] [place] [address] loose crown Social History Tobacco Use Types [...] the past 12 months, has t he [employer], gas, oil or water company threatened to [...] Care Team (Late st Contact Info) Description 10/08/2024 2:00 PM EDT Office Visit [facility] OPTOMETRY [address] [place] [address] Mona Cantrell, CANDACE [address] [place] [address] 02/12/2025 8:00 AM EDT Office Visit [facility] ADULT DENTAL [address] [place] [address] Joshua Grecoaris [address] [place] [address] documented as of this encounter Visit Diagnoses Not on filedocumented in this encounter Additional Health Concerns Assessment Noted Time PHQ-9 Depression Total Score: 0 04/24/20 23 9:34 AM EDT documented as of this encounter Care Teams Digital Controls Technical Officer Relationship Specialty Start Date End Date Maya Brannon MD [address] [place] [address] PCP - General Family Medicine 03/12/18 documented as of this encounter
--- OUTSIDE RECORDS SUMMARY | 2024-10-06 12:30 | XMS_ITS | Encounter Summary ---
Author Organization [employer] [facility] Address [address] 7t [place] [address] Care Team Providers Care Automation Control Technician Name Role Phone Maya Brannon MD Primary Care Provide r Encounter Details Date Type Department Care Team ([facility] Contact Info) Description 11/27/2022 Abstract [facility] ADULT DENTAL [address] [place] [address] Salma Hayden, LETYS [address] [place] [address] Social History Tobacco Use Types Packs/Day Years [...] Upcoming Encounters Date Type Department Care Team ([facility] Contact Info) Description 10/08/2024 2:00 PM EDT Office Visit [facility] OPTOMETRY [address] [place] [address] Mona Cantrell, OD [address] [place] [address] 02/12/2025 8:00 AM EDT Office Visit [facility] ADULT DENTAL [address] [place], [place] [phone] Marina Greco [address] [place], [place] [phone] documented as of this encounter Visit Diagnoses Not on filedocumented in this encounter Care Teams Automation Control Technician Relationship Specialty Start Date End Date Maya Brannon MD [address] [place], [place] [phone] PCP - General Family Medicine 03/12/18 documented as of this encounter
--- OUTSIDE RECORDS SUMMARY | 2024-10-06 12:30 | XMS_ITS | Encounter Summary ---
Author Organization [employer] Address [address] 7[address] [place] [address] Care Team Providers Care Broadcast Transmitter Operator Name Role Phone Maya Brannon MD Primary Care Provide r Encounter Details Date Type Department Care Team (Late st Contact Info) Description 05/15/2023 Abstract [facility] [address] [place] [address] Salma Hayden, LETYS [address] [place] [address] Social History Tobacco Use Types Packs/Day Years [...] Description 10/08/2024 2:00 PM EDT Office Visit [facility] [address] [place] [address] Mona Cantrell, OD [address] [place] [address] 02/12/2025 8:00 AM EDT Office Visit [facility] [address] [place] [address] Angus, Marina [address] [place] [address] documented as of this encounter Visit Diagnoses Not on filedocumented in this encounter Additional Health Concerns Assessment Noted Time PHQ-9 Depression Total Score: 0 04/24/20 23 9:34 AM EDT documented as of this encounter Care Teams Broadcast Transmitter Operator Relationship Specialty Start Date End Date Maya Brannon MD [address] [place] [address] PCP - General Family Medicine 03/12/18 documented as of this encounter
--- OUTSIDE RECORDS SUMMARY | 2024-10-06 12:30 | XMS_ITS | Encounter Summary ---
Author Organization [facility] Address [address] 7t [place] [address] Care Team Providers Care Library Cataloging Technician Name Role Phone Maya Brannon MD Primary Care Provide r Reason for Referral * Consultation (Routine) - Pending Review Specialty Diagnoses / Procedures Referred By Tori tena Referred To Contact Podiatry Diagnoses Type 2 diabetes mellitus with hyperglycemia, without long-term current use of insulin (CMS/HCC) Maya Brannon MD [address] [place] [id number] Phone: tel: fax: Referral ID Status Reason Start Date Expiration Date Visits Requested Visits Authorized [id number] Pending Review Specialty Services Required 10/01/2024 10/01/2025 1 1 Reason for Visit * Reason Comments Diabetes Encounter Details Date Type Department Care Team (Late st Contact Info) Description 10/01/2024 1:15 PM EDT Office Visit [facility] [address] [place] [address] [phone] Maya Brannon MD [address] [place] [address] [phone] Essential hypertension (Primary Dx); Type 2 diabetes mellitus with hyperglycemia, without long-term current use of insulin (CMS/HCC); Encounter for preventive care; Class 2 severe obesity due to excess calories with serious comorbidity and body mass index (BMI) of 36.0 to 36.9 in adult (CMS/HCC); Dietary counseling; Exercise counseling; Acute pain of left shoulder Social History Tobacco Use Types Packs/Day Years [...] is your housing situation today? I have sabr[place] 08/18/[address] you [...] AM EDT documented as of this encounter Last Filed Vital Signs Vital Sign Reading Time Taken Comments Blood Pressure 138/72 10/01/2024 1:43 PM EDT Pulse 84 10/01/2024 1:24 PM EDT Temperature 35.8 ??C (96.5 ??F) 10/01/2024 1:24 PM ED T Respiratory Rate 17 10/01/2024 1:24 PM EDT Oxygen Saturation 98% 10/01/2024 1:24 PM EDT Inhaled Oxygen Concentration - - Weight 96.2 kg (212 lb) 10/01/2024 1:24 PM EDT Height 162.6 cm (5' 4 ) 10/01/2024 1:24 PM EDT Body Mass Index 36.39 10/01/2024 1:24 PM EDT documented in this encounter Progress Notes * Maya Hernandez MD - 10/01/2024 1:15 PM EDT SUBJECTIVE: Ewa Kuhn is a 64 y.o. year old female who presents for Physical . Occupation:retired Lives with:alone Social Hx: denies drinking EtOH, denies smoking cigarettes and denies recreational drug use. Diet:regular Exercise:sedentary Pap Smear:due on 07/02/2028 Colonoscopy:05/02/2026 Mammogram: due on 11/18/2024 Eye Care:has an upcoming appointment Dental Care:patient will set up her appointment PMHx:see below Immunizations: Reviewed with patient Acute Concerns: Patient reports she has been having pain on her left shoulder for the past few months she reports she had a fall few months ago and since then she has been having this pain Social History Social History Narrative Not on file Patient Active Problem List Diagnosis Essential hypertension Fibromyalgia Intracranial aneurysm Major depressive disorder Moderate persistent asthma Type 2 diabetes mellitus with hyperglycemia ([facility]/HCC) Gastroesophageal reflux disease Pain of left heel Trigger finger of right thumb Trigger index finger of right hand Class 2 severe obesity due to excess calories with serious comorbidity and body mass index (BMI) of36.0 to 36.9 in adult (CMS/HCC) Unstable gait Colon cancer screening Bilateral plantar fasciitis Persistent migraine aura without cerebral infarction and without status migrainosus, not intractable Hypokalemia RSV bronchitis Laceration of right ear lobe Encounter for Papanicolaou smear for cervical cancer screening Pelvic pain Vaginal itching Open fracture of tooth Scabies Bronchitis Encounter for preventive care Acute pain of left shoulder No family history on file. Review of Systems Constitutional: Negative. HENT: Negative. Respiratory: Negative. Cardiovascular: Negative. Musculoskeletal: Positive for arthralgias and myalgias. OBJECTIVE: Vitals: 10/01/24 1324 10/01/24 1343 BP: (!) 147/80 138/72 BP Location: Left arm Left arm Patient Position: Sitting BP Cuff Size: Adult Pulse: 84 Resp: 17 Temp: 96.5 ??F (35.8 ??C) TempSrc: Temporal SpO2: 98% Weight: 212 lb (96.2 kg) Height: 5' 4 (1.626 m) Physical Exam Constitutional: Appearance: Normal appearance. Cardiovascular: Rate and Rhythm: Normal rate and regular rhythm. Pulmonary: Effort: Pulmonary effort is normal. Breath sounds: Normal breath sounds. Abdominal: General: Abdomen is flat. Palpations: Abdomen is soft. Musculoskeletal: Right shoulder: Normal. Left shoulder: Tenderness present. Decreased range of motion. Neurological: Mental Status: She is alert. Follow Up: No follow-ups on file. Current Outpatient Medications on File Prior to Visit Medication Sig Dispense Refill albuterol (2.5 MG/3ML) 0.083% nebulizer solution inhale 3 milliliter by nebulization route 3 times every day as needed albuterol (2.5 MG/3ML) 0.083% nebulizer solution Take 3 mL (2.5 mg) by nebulization every 4 (four) hours if needed for wheezing. 75 mL 3 albuterol (Ventolin HFA) 108 (90 Base) MCG/ACT inhaler Inhale 2 puffs every 6 (six) hours if neededfor wheezing. 18 g 2 amLODIPine (Norvasc) 10 MG tablet TAKE 1 TABLET BY MOUTH EVERY MORNING 90 tablet 1 Asmanex HFA 200 MCG/ACT aerosol INHALE 1 PUFF BY MOUTH TWICE DAILY 13 g 2 Aspirin Low Dose 81 MG EC tablet TAKE 1 TABLET BY MOUTH EVERY MORNING 90 tablet 1 atorvastatin (Lipitor) 40 MG tablet TAKE 1 TABLET BY MOUTH EVERY MORNING 90 tablet 1 azithromycin (Zithromax Z-Anurag) 250 MG tablet Take 2 tabs day 1 and then 1 tab daily to finish 6 tablet 0 azithromycin (Zithromax) 250 MG tablet Take 2 tabs PO daily x 1d then 1 tab PO daily on D2 to D5 6 tablet 0 Blood Pressure Monitor kit Use as directed 3x/week 1 kit 0 carvedilol (Coreg) 6.25 MG tablet TAKE 1 TABLET BY MOUTH TWICE DAILY IN THE MORNING AND IN THE EVENING WITH FOOD 180 tablet 1 D3-1000 25 MCG (1000 UT) capsule TAKE 1 CAPSULE BY MOUTH EVERY MORNING 90 capsule 1 Dextromethorphan-guaiFENesin (Mucinex DM) 30-600 MG tablet sustained-release 12 hour Take 1 tablet by mouth 2 times daily. 28 tablet 0 DULoxetine (Cymbalta) [address] capsule TAKE 1 CAPSULE BY MOUTH EVERY MORNING 30 capsule 3 Easy Touch Lancets 33G/Twist misc TEST BLOOD SUGAR TWICE DAILY 100 each 11 esomeprazole (NexIUM) [address] capsule TAKE 1 CAPSULE BY MOUTH EVERY MORNING BEFORE BREAKFAST 28 capsule 5 fluticasone (Flovent HFA) 110 MCG/ACT inhaler INHALE 2 PUFFS BY MOUTH TWICE DAILY. USE WITH SPACER.RINSE MOUTH AFTER USING. 12 g 6 glucose blood (FREESTYLE LITE) test strip TEST BLOOD SUGAR TWICE DAILY 50 strip 11 hydroCHLOROthiazide (HYDRODiuril) 25 MG tablet TAKE 1 TABLET BY MOUTH EVERY MORNING 90 tablet 3 loratadine (Claritin) 10 MG tablet Take 1 tablet as needed by mouth once daily 90 tablet 0 meloxicam (Mobic) 15 MG tablet TAKE 1 TABLET BY MOUTH EVERY MORNING 30 tablet 0 metFORMIN (Glucophage) 500 MG tablet Take 1 tablet (500 mg) by mouth with breakfast and with evening meal. 180 tablet 3 montelukast (Singulair) 10 MG tablet TAKE 1 TABLET BY MOUTH EVERY EVENING 90 tablet 1 permethrin (Elimite) 5 % cream apply to skin from hairline to toes and wash off 8-10 hours later 120 g 1 pregabalin (Lyrica) 300 MG capsule Take 1 capsule by mouth every 12 (twelve) hours. SUMAtriptan (Imitrex) 50 MG tablet TAKE 1 TABLET BY MOUTH NEEDED FOR MIGRAINE HEADACHE, DO NOT EXCEED 4 DOSES PER 24 HOURS triamcinolone (Kenalog) 0.1 % cream Apply topically if needed in the morning and at bedtime for rash. 80 g 0 Vitamins-Lipotropics (Complex M-240-Htuxlpix) tablet controlled-release TAKE 1 TABLET BY MOUTH EVERY DAY Vitron-C 65-125 MG tablet TAKE 1 TABLET BY MOUTH AT BEDTIME No current facility-administered medications on file prior to visit. Problem List Items Addressed This Visit Type 2 diabetes mellitus with hyperglycemia ([facility]) Diabetes is: controlled - Lab Results Component Value Date HGBA1C 6.8 (A) 10/01/2024 HGBA1C 6.6 (A) 02/17/2024 HGBA1C 6.9 (A) 11/15/2023 - Lab Results Component Value Date MICROALBUR 0.7 12/02/2020 CREATININE 0.85 05/19/2024 -Changes: None - Diabetic eye exam: Patient has upcoming appointment - Diabetic foot exam: Referral done today - Continue lifestyle modifications - Continue current medications - Follow up: 3 months Relevant Orders POCT Glucose (Completed) POCT HGB A1C (Completed) Referral to Podiatry Lipid Panel, Standard Albumin, Random Urine W/Creatinine Comprehensive Metabolic Panel Essential hypertension - Primary I advised: - Aerobic exercise to reduce BP. Initial goal of 30 min walk 3-5x/week. Increase as tolerated. - low-sodium diet (goal: <2g/day) and heart healthy diet such as DASH to reduce BP and prevent ASCVD. - Home BP monitoring 1-2 x day with goal of <140/90. - Seek immediate medical attention for chest pain, palpitations, SOB, syncope, or sudden changes inmental status. - Do not change or discontinue current prescriptions without first consulting health care provider Encounter for preventive care See HPI Relevant Medications zoster vaccine-recombinant adjuvanted (Shingrix) 50 MCG/0.5ML vaccine Class 2 severe obesity due to excess calories with serious comorbidity and body mass index (BMI) of36.0 to 36.9 in adult ([facility]) Extensive counseling about healthy diet and exercise on today Acute pain of left shoulder X-ray ordered today patient will be contacted with results and plan Relevant Orders XR Shoulder 2+ Views Left Other Visit Diagnoses Dietary counseling Exercise counseling documented in this encounter Miscellaneous Notes * Assessment & Plan Note - Maya Hernandez MD - 10/01/2024 2:51 PM EDT Associated Problem(s): Encounter for preventive care See HPI * Assessment & Plan Note - Maya Hernandez MD - 10/01/2024 2:51 PM EDT Associated Problem(s): Type 2 diabetes mellitus with hyperglycemia ([facility]) Diabetes is: controlled - Lab Results Component Value Date HGBA1C 6.8 (A) 10/01/2024 HGBA1C 6.6 (A) 02/17/2024 HGBA1C 6.9 (A) 11/15/2023 - Lab Results Component Value Date MICROALBUR 0.7 12/02/2020 CREATININE 0.85 05/19/2024 -Changes: None - Diabetic eye exam: Patient has upcoming appointment - Diabetic foot exam: Referral done today - Continue lifestyle modifications - Continue current medications - Follow up: 3 months * Assessment & Plan Note - Maya Hernandez MD - 10/01/2024 2:50 PM EDT Associated Problem(s): Class 2 severe obesity due to excess calories with serious comorbidity and body mass index (BMI) of 36.0 to 36.9 in adult ([facility]) Extensive counseling about healthy diet and exercise on today * Assessment & Plan Note - Maya Hernandez MD - 10/01/2024 2:50 PM EDT Associated Problem(s): Acute pain of left shoulder X-ray ordered today patient will be contacted with results and plan * Assessment & Plan Note - Maya Hernandez MD - 10/01/2024 2:50 PM EDT Associated Problem(s): Essential hypertension I advised: - Aerobic exercise to reduce BP. Initial goal of 30 min walk 3-5x/week. Increase as tolerated. - low-sodium diet (goal: <2g/day) and heart healthy diet such as DASH to reduce BP and prevent ASCVD. - Home BP monitoring 1-2 x day with goal of <140/90. - Seek immediate medical attention for chest pain, palpitations, SOB, syncope, or sudden changes inmental status. - Do not change or discontinue current prescriptions without first consulting health care provider documented in this encounter Plan of Treatment Upcoming Encounters Date Type Department Care Team (Late st Contact Info) Description 10/08/2024 2:00 PM EDT Office Visit [facility] [address] [place] [address] Mona Cantrell OD [address] [place] [address] 02/12/2025 8:00 AM EDT Office Visit [facility] [address] [place] [address] Angus, Marina [address] [place] [address] Scheduled Orders Name Type Priority Associated Diagnoses Orde r Schedule Lipid Panel, Standard Lab Routine Type 2 diabetes mellitus with hyperglycemia, without long-term current use of insulin ([facility]) Expected: 10/01/2024 (Approximate), Expires: 10/01/2025 Comprehensive Metabolic Panel Lab Routine Type 2 diabetes mellitus with hyperglycemia, without long-term current use of insulin (CMS/HCC) Expected: 10/01/2024 (Approximate), Expires: 10/01/2025 XR Shoulder 2+ Views Left Imaging Routine Acute pain of left shoulder Expected: 10/01/2024, Expires: 10/01/2025 Scheduled Referrals Name Type Priority Associated Diagnoses Orde r Schedule Referral to Podiatry Outpatient Referral Routine Type 2 diabetes mellitus with hyperglycemia, without long-term current use of insulin (CMS/HCC) Expected: 10/01/2024 (Approximate), Expires: 10/01/2025 documented as of this encounter Procedures Procedure Name Priority Date/Time Associated Diagnosis Comments ALBUMIN, RANDOM URINE W/CREATININE Routine 10/06/2024 10:40 AM EDT Type 2 diabetes mellitus with hyperglycemia, without long-term current use of insulin ([facility]) POCT GLYCATED HEMOGLOBIN, TOTAL Routine 10/01/2024 1:25 PM EDT Type 2 diabetes mellitus with hyperglycemia, without long-term current use of insulin ([facility]) POCT GLUCOSE Routine 10/01/2024 1:25 PM EDT Type 2 diabetes mellitus with hyperglycemia, without long-term current use of insulin ([facility]) documented in this encounter Results * Albumin, Random Urine W/Creatinine (10/06/2024 10:40 AM EDT) Pathologist [facility] Creatinine, Urine 76.97 mg/dL [facility] Microalbumin Urine <5.0 mg/L [facility] Microalbum Creatinine Ratio Ur TNP <30 ug/mg cr [facility] Comment:Unable to calculate albumin/creatinine ratio due to lowmicroalbumin or creatinine result. Urine (Urine, Random) 10/06/2024 10:40 AM EDT 10/06/2024 11:29 AM EDT us Maya Hernandez MD LAB URINE ORDERABLES Final Result [facility] [address] [place] [phone] * (ABNORMAL) POCT HGB A1C (10/01/2024 1:25 PM EDT) Pathologist [facility] Hemoglobin A1C 6.8(A) 4.0 - 6.0 % QC Media Lot # [id number] Lot# Expiration Date Blood 10/01/2024 1:25 PM EDT us Maya Hernandez MD POINT OF CARE TEST EN TER/EDIT ORDERABLES Final Result * POCT Glucose (10/01/2024 1:25 PM EDT) Glucose Blood, POC 179 60 - 200 mg/dL QC Media Lot # [id number] Lot# Expiration Date Blood Capillary blood specimen / Unknown 10/01/2024 1:25 PM EDT Maya Hernandez MD POINT OF CARE TEST EN TER/EDIT ORDERABLES Final Result documented in this encounter Visit Diagnoses Diagnosis Essential hypertension- Primary Unspecified essential hypertension Type 2 diabetes mellitus with hyperglycemia, without long-term current use of insulin ([facility]) Encounter for preventive care Class 2 severe obesity due to excess calories with serious comorbidity and body mass index (BMI) of 36.0 to 36.9 in adult ([facility]) Dietary counseling Dietary surveillance and counseling Exercise counseling Acute pain of left shoulder documented in this encounter Additional Health Concerns Assessment Noted Time PHQ-9 Depression Total Score: 0 04/24/20 23 9:34 AM EDT documented as of this encounter Care Teams Library Cataloging Technician Relationship Specialty Start Date End Date Maya Brannon MD [address] [place] [phone] PCP - General Family Medicine 03/12/18 documented as of this encounter
--- OUTSIDE RECORDS SUMMARY | 2024-10-06 12:30 | XMS_ITS | Encounter Summary ---
Author Organization [employer] Address [address]t [place] [address] Care Team Providers Care Outdoor Studies Professor Name Role Phone Maya Brannon MD Primary Care Provide r Encounter Details Date Type Department Care Team (Late st Contact Info) Description 06/11/2023 Abstract [facility] D[facility] [address] [place] [address] Salma Hayden, LETYS [address] [place] [address] Social History Tobacco Use Types Packs/Day Years [...] Description 10/08/2024 2:00 PM EDT Office Visit [facility] OPT[facility] [address] [place] [address] Mona Cantrell, OD [address] [place] [address] 02/12/2025 8:00 AM EDT Office Visit [facility] [address] [place] [address] Angus, Marina [address] [place] [address] documented as of this encounter Visit Diagnoses Not on filedocumented in this encounter Additional Health Concerns Assessment Noted Time PHQ-9 Depression Total Score: 0 04/24/20 23 9:34 AM EDT documented as of this encounter Care Teams Outdoor Studies Professor Relationship Specialty Start Date End Date Maya Brannon MD [address] [place] [address] PCP - General Family Medicine 03/12/18 documented as of this encounter
--- OUTSIDE RECORDS SUMMARY | 2024-10-06 12:30 | XMS_ITS | Encounter Summary ---
Author Organization [employer] [facility] Address [address] [place] [address] Care Team Providers Care Revenue Field Agent Name Role Phone Maya Brannon MD Primary Care Provide r Encounter Details Date Type Department Care Team ([facility] Contact Info) Description 10/03/[address] [facility]ULT D[facility] [address] [place] [address] Salma Hayden, LETYS [address] [place] [address] Social History Tobacco Use Types Packs/Day Years [...] Upcoming Encounters Date Type Department Care Team ([facility] Contact Info) Description 10/08/2024 2:00 PM EDT Office Visit [facility] [address] [place] [address] Mona Cantrell, OD [address] [place] [address] 02/12/2025 8:00 AM EDT Office Visit [facility] [address] [place], [place] [phone] Marina Greco [address] [place], [place] [phone] documented as of this encounter Visit Diagnoses Not on filedocumented in this encounter Care Teams Revenue Field Agent Relationship Specialty Start Date End Date Maya Brannon MD [address] [place], [place] [phone] PCP - General Family Medicine 03/12/18 documented as of this encounter
--- OUTSIDE RECORDS SUMMARY | 2024-10-06 12:30 | XMS_ITS | Encounter Summary ---
Author Organization [employer] [facility] Address [address] 7t [place] [address] Care Team Providers Care Indexer Name Role Phone Maya Brannon MD Primary Care Provide r Encounter Details Date Type Department Care Team (Latest Contact Info) Description 07/08/2019 Abstract [facility] CONVERSIONS Dental, Provider, DDS Social History Tobacco [...] Description 10/08/2024 2:00 PM EDT Office Visit [facility] OPTOMETRY [address] [place] [address] Mona Cantrell OD [address] [place] [address] 02/12/2025 8:00 AM EDT Office Visit [facility] ADULT DENTAL [address] [place] [address] Angus, Marina [address] [place] [address] documented as of this encounter Visit Diagnoses Not on filedocumented in this encounter Care Teams Indexer Relationship Specialty Start Date End Date aMya Brannon MD [address] [place] [address] PCP - General Family Medicine 03/12/18 documented as of this encounter
--- OUTSIDE RECORDS SUMMARY | 2024-10-06 12:30 | XMS_ITS | Encounter Summary ---
Author Organization [employer] [facility] Address [address] 7t [place] [address] Care Team Providers Care Cultural Historian Name Role Phone Maya Brannon MD Primary Care Provide r Reason for Visit * Reason Comments Med Refill Encounter Details Date Type Department Care Team ([facility] Contact Info) Description 01/30/2023 Refill [facility] DIABETES/NUTRITION [address] [place] [address] Maya Brannon MD [address] [place] [address] Social History Tobacco Use Types Packs/Day Years [...] Upcoming Encounters Date Type Department Care Team ([facility] Contact Info) Description 10/08/2024 2:00 PM EDT Office Visit [facility] OPTOMETRY [address] [place] [address] Mona Cantrell, OD [address] [place] [address] 02/12/2025 8:00 AM EDT Office Visit [facility] ADULT DENTAL [address] [place] [address] Marina Greco [address] [place], [place] [phone] documented as of this encounter Visit Diagnoses Not on filedocumented in this encounter Care Teams Cultural Historian Relationship Specialty Start Date End Date Maya Brannon MD [address] [place] [address] PCP - General Family Medicine 03/12/18 documented as of this encounter
--- OUTSIDE RECORDS SUMMARY | 2024-10-06 12:30 | XMS_ITS | Encounter Summary ---
Author Organization [employer] Address [address] [place] [address] Care Team Providers Care Agile Developer Name Role Phone Maya Brannon MD Primary Care Provide r Reason for Visit * Reason Onset Date Comments Durable Medical Equipment 10/05/2024 Encounter Details Date Type Department Care Team ([facility] st Contact Info) Description 10/05/2024 Telephone [facility] [address] [place], [place] [phone] Maya Brannon MD [address] [place] [address] Durable Medical Equipment Social History Tobacco Use Types Packs/Day Years [...] encounter Miscellaneous Notes * Telephone Encounter - Ledy Post [place] - 10/05/2024 10:39 AM EDT DME for incontinence supplies from [employer] received and is being processed. Placed on provider's desk for signature. documented in this encounter Plan of Treatment Upcoming Encounters Date Type Department Care Team (Late st Contact Info) Description 10/08/2024 2:00 PM EDT Office Visit [facility] OPTOMETRY [address] [place] [address] Mona Cantrell, CANDACE [address] [place] [address] 02/12/2025 8:00 AM EDT Office Visit [facility] ADULT DENTAL [address] [place] [address] Marina Greco [address] [place] [address] documented as of this encounter Visit Diagnoses Not on filedocumented in this encounter Additional Health Concerns Assessment Noted Time PHQ-9 Depression Total Score: 0 04/24/20 23 9:34 AM EDT documented as of this encounter Care Teams Agile Developer Relationship Specialty Start Date End Date Maya Brannon MD [address] [place] [address] PCP - General Family Medicine 03/12/18 documented as of this encounter
--- OUTSIDE RECORDS SUMMARY | 2024-10-06 12:30 | XMS_ITS | Encounter Summary ---
Author Organization [employer] Address [address] [place] [address] Care Team Providers Care Elementary Spanish Teacher Name Role Phone Maya Brannon MD Primary Care Provide r Reason for Visit * Reason Comments Med Refill Encounter Details Date Type Department Care Team ([facility] Contact Info) Description 10/01/2024 Refill [facility] MEDICINE [address] [place] [address] Maya Brannon MD [address] [place] [address] Gastroesophageal reflux disease, unspecified whether esophagitis present Social History Tobacco Use Types Packs/Day Years [...] the past 12 months, has t he [employer], gas, oil or water company threatened to [...] 2:00 PM EDT Office Visit [facility] OPTOMETRY [address] [place] [address] Mona Cantrell, CANDACE [address] [place] [address] 02/12/2025 8:00 AM EDT Office Visit [facility] ADULT DENTAL [address] [place] [address] Angus, Marina [address] [place] [address] documented as of this encounter Visit Diagnoses Diagnosis Gastroesophageal reflux disease, unspecified whether esophagitis present documented in this encounter Additional Health Concerns Assessment Noted Time PHQ-9 Depression Total Score: 0 04/24/20 9:34 AM EDT documented as of this encounter Care Teams Elementary Spanish Teacher Relationship Specialty Start Date End Date Maya Brannon MD 230 [place] [address] PCP - General Family Medicine 03/12/18 documented as of this encounter
--- OUTSIDE RECORDS SUMMARY | 2024-10-06 12:30 | XMS_ITS | Encounter Summary ---
Author Organization [employer] Address [address] [place] [address] Care Team Providers Care Woods Overseer Name Role Phone Maya Brannon MD Primary Care Provide r Encounter Details Date Type Department Care Team (Late st Contact Info) Description 05/15/2023 Abstract [facility] ADULT DENTAL [address] [place] [address] Salma Hayden, LETYS [address] [place] [address] Social History Tobacco Use Types Packs/Day Years [...] Description 10/08/2024 2:00 PM EDT Office Visit [facility] OPTOMETRY [address] [place] [address] Mona Cantrell, OD [address] [place] [address] 02/12/2025 8:00 AM EDT Office Visit [facility] ADULT DENTAL [address] [place] [address] Angus, Marina [address] [place] [address] documented as of this encounter Visit Diagnoses Not on filedocumented in this encounter Additional Health Concerns Assessment Noted Time PHQ-9 Depression Total Score: 0 04/24/20 23 9:34 AM EDT documented as of this encounter Care Teams Woods Overseer Relationship Specialty Start Date End Date Maya Brannon MD [address] [place] [address] PCP - General Family Medicine 03/12/18 documented as of this encounter
--- OUTSIDE RECORDS SUMMARY | 2024-10-06 12:30 | XMS_ITS | Encounter Summary ---
Author Organization [employer] Address [address] 7[address] [place] [address] Care Team Providers Care Spooler Name Role Phone Maya Brannon MD Primary Care Provide r Encounter Details Date Type Department Care Team ([facility] Contact Info) Description 01/30/2023 Orders Only [facility] CHC MED & PEDS [address] [place], [place] [phone] Karena Bates LPN Social History Tobacco Use [...] Upcoming Encounters Date Type Department Care Team ([facility] Contact Info) Description 10/08/2024 2:00 PM EDT Office Visit [facility] OPTOMETRY [address] [place] [address] Mona Cantrell OD [address] [place] [address] 02/12/2025 8:00 AM EDT Office Visit [facility] ADULT DENTAL 230 [place], [place] [phone] Angus Marina 230 [place] [address] documented as of this encounter Visit Diagnoses Not on filedocumented in this encounter Care Teams Spooler Relationship Specialty Start Date End Date Maya Brannon MD [address] [place] [address] PCP - General Family Medicine 03/12/18 documented as of this encounter
--- OUTSIDE RECORDS SUMMARY | 2024-10-06 12:30 | XMS_ITS | Clinical Summary ---
Author Organization [employer] Address [address] [facility] 7t [place] [address] Care Team Providers Care Licensed Nuclear Control Room Operator Name Role Phone Maya Brannon MD [...] HOURS 05/27/20 23 Active Vitamins-Lipotr opics (Complex P-147-Eymtojgr) tablet controlled-rele ase TAKE 1 TABLET BY [...] times daily. 28 tablet 06/19/20 23 Active Easy Touch Lancets 33G/Twist miscIndications :Type 2 diabetes mellitus with hyperglycemia, unspecified whether intermediate insulin use ([facility]) TEST BLOOD SUGAR TWICE DAILY 100 each 11 10/16/19 24 Active metFORMIN (Glucophage) 500 MG tabletIndicatio ns:Type 2 diabetes mellitus with hyperglycemia, without long-term current use of insulin ([facility]) Take 1 tablet (500 mg) by mouth [...] hyperglycemia, without long-term current use of insulin ([facility]) TEST BLOOD SUGAR TWICE DAILY 50 strip [...] EVENING 90 tablet 1 06/29/20 24 Active DULoxetine (Cymbalta) [address] capsuleIndicati ons:Depression, unspecified depression type TAKE 1 CAPSULE BY MOUTH EVERY MORNING 30 capsule 3 09/15/19 25 Active meloxicam (Mobic) 15 MG tablet TAKE 1 TABLET BY MOUTH EVERY MORNING 30 tablet 3 10/02/19 25 Active esomeprazole (NexIUM) [address] capsuleIndicati ons:Gastroesoph ageal reflux disease, unspecified whether esophagitis present TAKE 1 CAPSULE BY MOUTH EVERY MORNING BEFORE BREAKFAST 28 capsule 3 10/02/19 25 Active esomeprazole (NexIUM) [address] capsuleIndicati ons:Gastroesoph ageal reflux disease, unspecified whether esophagitis present TAKE 1 CAPSULE BY MOUTH EVERY MORNING BEFORE BREAKFAST 28 capsule 5 08/23/19 24 2024 Discontinued DULoxetine (Cymbalta) [address] capsuleIndicati ons:Depression, unspecified depression type TAKE 1 CAPSULE BY MOUTH EVERY MORNING 30 capsule 3 04/01/20 24 2024 Discontinued meloxicam (Mobic) 15 MG tablet TAKE 1 TABLET BY MOUTH EVERY MORNING 30 tablet 08/20/19 25 2024 Discontinued zoster vaccine-recombi nant adjuvanted (Shingrix) 50 MCG/0.5ML vaccineIndicati ons:Encounter for preventive care Inject 0.5 mL (50 mcg) into the muscle 1 (one) time for 1 dose. 0.5 mL 10/02/19 25 2024 Active Problems Problem Noted Date Diagnosed Date Encounter for preventive care 10/01/2024 Assessment & Plan (10/01/2024 2:51 PM EDT): See HPI Acute pain of left shoulder 10/01/2024 Assessment & Plan (10/01/2024 2:50 PM EDT): X-ray ordered today patient will be contacted with results and plan Bronchitis 05/18/2024 Assessment & Plan (05/18/2024 4:10 PM EST): Zpack and prednisone for 5 days Albuterol inhaler refilled I will generate prescription for nebulizer, instructions on how to use it provided ED precautions reviewed Scabies 04/06/2024 Open fracture of tooth 03/09/2024 Vaginal itching 02/17/2024 Encounter for Papanicolajavier s [place] for cervical cancer screening 07/02/2023 Assessment & Plan (07/02/2023 10:07 AM EST): PAP and pelvic exam done during visit, patient will be contacted with results Pelvic pain 07/02/2023 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, not intractable 06/12/2023 Assessment & Plan (06/12/2023 11:22 AM EST): Significantly improved with Imitrex, no residual deficits Rn Care Manager to take Tylenol ASA Take Imitrex if [...] Assessment & Plan (06/12/2023 12:56 PM EST): Rn Care Manager to avoid picking on the ear with [...] of 36.0 to 36.9 in adult 01/30/2023 Assessment & Plan (10/01/2024 2:50 PM EDT): Extensive counseling about healthy diet and exercise on today Unstable gait 01/30/2023 Gastroesophageal reflux disease 09/19/2022 [...] exercises Essential hypertension 09/18/2022 Assessment & Plan (10/01/2024 2:50 PM EDT): I advised: - Aerobic exercise to reduce [...] consulting health care provider Assessment & Plan (05/18/2024 4:10 PM EST): [...] and using OTC meds Repeated is 150/85, camp head counselor to check BP at home No [...] mellitus with hyperglycemia 08/30 Assessment & Plan (10/01/2024 2:51 PM EDT): Diabetes is: controlled - Lab [...] Follow up: 3 months Assessment & Plan (05/18/2024 4:11 PM EST): [...] Encounters Date Type Department Care Team Description 10/05/2024 Telephone [facility] MED & PEDS [address] [place] [address] Maya Brannon MD Durable Medical Equipment 10/01/2024 1:15 PM EDT Office Visit [facility] MEDICINE [address] [place] [address] Maya Brannon MD Essential hypertension (Primary Dx); Type 2 diabetes mellitus with hyperglycemia, without long-term current use of insulin ([facility]); Encounter for preventive care; Class 2 severe obesity due to excess calories with serious comorbidity and body mass index (BMI) of 36.0 to 36.9 in adult ([facility]); Dietary counseling; Exercise counseling; Acute pain of left shoulder 10/01/2024 Travel 10/01/2024 Refill [facility] MEDICINE [address] [place] [address] Maya Brannon MD Gastroesophageal reflux disease, unspecified whether esophagitis present 09/22/2024 Patient Outreach [facility] MEDICINE [address] [place] [address] Maya Brannon MD Pre-visit Planning (SDOH screening completed on 08/18/2024) 09/12/2024 Refill [facility] MED & PEDS [address] [place] [address] Maya Brannon MD Depression, unspecified depression type 08/20/2024 Refill [facility] MEDICINE [address] [place] [address] Maya Brannon MD 08/18/2024 Patient Outreach [facility] MEDICINE [address] [place] [address] Maya Brannon MD Pre-visit Planning (SDOH screening [...] Mass Index 36.39 10/01/2024 1:24 PM EDT Plan of Treatment Upcoming Encounters Date Type Department Care Team (Late st Contact Info) Description 10/08/2024 2:00 PM EDT Office Visit [facility] OPTOMETRY [address] [place] [address] Mona Cantrell, OD [address] [place] [address] 02/12/2025 8:00 AM EDT Office Visit [facility] ADULT DENTAL [address] [place] [address] Angsu Marina [address] [place] [address] Health Maintenance Due Date Last Done Comments CT Colonography 1960 Colonoscopy 1962 Dental X-Ray: Full Mouth 1962 FIT 1960 HIV Screening 1960 Sigmoidoscopy 1962 Alcohol/Substance Use Screening 1974 Hepatitis C Screening 01/27/1980 Zoster Vaccines (1 of 2) 01/27/2012 Diabetes: Urine Protein Screening 12/02/2021 10/06/2024, 12/02/2020 Diabetes: Foot Exam 09/20/2023 09/19/2022, 09/19/2022, [...] 04/24/2024 04/24/2023, 04/24/20 23 FOBT 05/02/2024 05/02/2023 Eye Exam 10/22/2024 10/22/2022, 04/2 09/2022, 10/22/2022, Additional history exists Mammogram 11/18/2024 11/19/2023, 03/0 12/2022, 09/04/2022, Additional history exists Diabetes: Hemoglobin A1C 04/02/2025 025, 02/17/2024, 11/15/2023, Additional history exists SDOH Screening 08/18/2025 08/18/2024 Tobacco Screening 10/01/2025 10/01/2024 DTaP/Tdap/Td Vaccines (2 - Td or Tdap) [...] hyperglycemia, without long-term current use of insulin ([facility]) POCT GLYCATED HEMOGLOBIN, TOTAL Routine 10/01/2024 1:25 PM EDT Type 2 diabetes mellitus with hyperglycemia, without long-term current use of insulin ([facility]) POCT GLUCOSE Routine 10/01/2024 1:25 PM EDT Type 2 diabetes mellitus with hyperglycemia, without long-term current use of insulin ([facility]) BI MAMMOGRAM SCREENING TOMOSYNTHESIS BILATERAL Routine 11/19/2023 [...] PANEL, STANDARD Routine 04/10/2023 10:23 AM EDT from Last 3 Months or Most Recently Relevant to Health Maintenance Results * Albumin, Random Urine W/Creatinine (10/06/2024 10:40 AM EDT) Creatinine, Urine 76.97 mg/dL [facility] Microalbumin Urine <5.0 mg/L [facility] Microalbum Creatinine Ratio Ur TNP <30 ug/mg cr [facility] Comment:Unable to calculate albumin/creatinine ratio due to lowmicroalbumin or creatinine result. Urine (Urine, Random) 10/06/2024 10:40 AM EDT 10/06/2024 11:29 AM EDT us Maya Hernandez MD LAB URINE ORDERABLES Final Result [facility] [address] [place] [phone] * (ABNORMAL) POCT HGB A1C (10/01/2024 1:25 PM EDT) Hemoglobin A1C 6.8(A) 4.0 - 6.0 % [...] specimen / Unknown 10/01/2024 1:25 PM EDT us Maya Hernandez MD POINT OF CARE TEST EN TER/EDIT ORDERABLES Final Result * BI Mammogram Screening Tomosynthesis Bilateral (11/19/2023 11:05 AM EDT) Anatomical Region Laterality Modality Breast Bilateral Mammography 11/19/2023 11:0 5 AM EDT Narrative 12/20/2023 7:12 AM EDT ? [facility] ? [address] ?[place] [address] ? Mammography Report ? Signed ? Patient: Devang Kuhnfina ?MR#: [id number] ?? 59 ? : 1960 ?Acct:[id number] ? Age/Sex: 63 / F ?ADM Date: 11/19/23 ? Loc: HO.MAMMO ? Attending Dr: Maya Hernandez MD ? Ordering Physician: Maya Brannon MD ?Results: ?? 1Negative ? Date of Service: 11/19/23 ?Follow Up: 1 Year From Orig ?? inal Mammogram ? Procedure(s): MM tomosynthesis screening BI ?? Accession Number(s): [id number] ? cc: Maya Brannon MD ? EXAMINATION: ?? MM SCREENING [...] 0708 ? DD/ 1105 ? TD/TT: ? Advertising Rep: ? Procedure Note Sophia Hsu - 12/20/2023 [facility] [address] [place] [address] Dr. [place], [place] [address] Mammography Report Signed Patient: Howard Kuhn#: [id number] 59 : 2Acct:[id number] Age/Sex: 63 / FADM Date: 11/19/23 Loc: HO.MAMMO Attending Dr: Maya Hernandez MD Ordering Physician: Maya Brannonesults: 1Negative Date of Service: 11/19/23Follow Up: 1 Year From Orig inal Mammogram Procedure(s): MM tomosynthesis screening BI Accession Number(s): [id number] cc: Maya Brannon MD EXAMINATION: MM SCREENING [...] in OV> 12/20/23 0708 DD/ 1105 TD/TT: Advertising Rep: Maya Hernandez MD IMG BI PROCEDURES Fin al Result * Image-Guided Pap with Age-Based Screening??with CT/NG,??Trichomonas (07/02/2023 10:05 AM EST) Trichomonas (NAAT) NOT DETECTED NOT DETECTED [facility] Comment:The analytical perfo rmance characteristics of thisassay have been determined by [employer]. Themodifications have not been cleared or approved bythe FDA. This assay has been validated pursuant to theCLIA regulations and is used for clinical purposes.For additional information, please refer tohttp://education.[employer]/faq/Trichomonastma(This link is being provided for information/educational purposes only.)THIS TEST WAS PERFORMED AT:[facility] [place] [phone] CASTRO MD CTNG Ref Lab NOT DETECTED NOT DETECTED [facility] NG Ref Lab NOT DETECTED NOT DETECTED [facility] 07/02/2023 10:0 5 AM EST 07/03/2023 12:15 PM EST Maya Hernandez MD LAB CYTOLOGY ORDERABL ES Final Result Performing Organization Address [facility] de Phone Number [facility] [address] [place] [phone] * HPV mRNA E6/E7 w/Reflex to HPV Genotypes 16, 18/45 (07/02/2023 10:05 AM EST) HPV nRNA E6/E7 Not Detected Not Detected [facility] Comment:Methodology: Transcr iption-Mediated AmplificationThis assay detects E6/E7 viral messenger RNA (mRNA) from 14high-risk HPV types (16,18,31,33,35,39,45,51,52,56,58,59,66,68).Cervical sources are required for HPV testing.If a vaginal source from a patient who has had atotal hysterectomy with removal of cervix wassubmitted, please contact the testing laboratoryfor alternative testing options.For additional information, please refer tohttp://education.[employer]/faq/GMD590a3(This link if provided for information/educational purposes only.)THIS TEST WAS PERFORMED AT:[facility] [place] [phone] CASTRO MD HPV mRNA E6/E7 TNP [facility] HPV 16 RNA TNP [facility] HPV 18/45 RNA [facility] 07/02/2023 10:0 5 AM EST 07/03/2023 11:15 AM EST us Maya Hernandez MD LAB CYTOLOGY ORDERABL ES Final Result Performing Organization Address [facility] Co de Phone Number [facility] [address] [place] [phone] * Cologuard?? colon cancer screening (05/02/2023 6:30 AM EDT) Pathologist [facility] Cologuard Result Negative Negative 05/14/20 10:05 PM [facility] [employer] (CLIA #:[id number]) Comment: NEGATIVE TEST RESULT. A negative Cologuard [...] cancer. ??Following a negative Cologuard result, the [place] [employer] Society and U.S. Multi-Society Task Force screening guidelines recommend a Cologuard re-screening interval of 3 years. References: [place] [employer] Guideline for Colorectal Cancer Screening: https://www.cancer.org/cancer/guwwb-jyrile-yaamuu/wktkseeli-emhcgzrjt-rnplgzt/ac s-rec ommendations.html.; Stanley HOBBS, Abhinav CR, Christiane FatimaK, Colorectal Cancer Screening: Recommendations for Physicians and Patients from the U.S. Multi-Society Task Force on Colorectal Cancer Screening , Am J Gastroenterology 2017; 112:5043-2660. TEST DESCRIPTION: Composite algorithmic analysis of stool [...] (Jc Mejía al, N Engl J Med 2014;370(14):9785-5472.) Cologuard may produce a false negative or false positive result (no colorectal cancer or precancerous polyp present at colonoscopy follow up). A negative Cologuard test result does not guarantee the absence of CRC or advanced adenoma (pre-cancer). The current Cologuard screening interval is every 3 years. ([place] [employer] Society and U.S. Multi-Society Task Force). Cologuard performance data in a 10,000 patient pivotal study using colonoscopy as the reference method can be accessed at the following location: www.[employer]/results. Additional description of the Cologuard test process, warnings and precautions can be found at www.[employer] Networks[employer].com. Stool specimen (specimen) 05/02/2023 6:30 AM EDT 05/04/2023 7:17 PM EDT us Maya Hernandez MD LAB MOLECULAR DIAGNOS TICS ORDERABLES Final Result [employer] (CLIA #:[id number]) [address] [place], [place] [address], * FIT DNA/Cologuard Cancer Screening (05/02/2023) Cologuard Cancer Screen Negative [employer] (CLIA #:[id number]) Stool Maya Hernandez MD HEALTH MAINTENANCE Fi nal Result [employer] (CLIA #:[id number]) [place] [address], [place] [phone] * Lipid Panel, Standard (04/10/2023 10:23 AM EDT) Triglycerides 75 <150 mg/dL [facility] Comment:Desirable Triglyceri de: less than 150 mg/dLBorderline High Triglyceride 150-199 mg/dLHigh Triglyceride: 200-499 mg/dLVery High Triglyceride: greater than or equal to 5OO mg/dL Cholesterol 137 <200 mg/dL [facility] Comment:Desirable Cholestero l: less than 200 mg/dLBorderline High Cholesterol: 200-239 mg/dLHigh Cholesterol: greater than 239 mg/dL LDL Cholesterol Calculated 78 <100 mg/dL [facility] Comment:Desirable LDL: less than 100 mg/dLNear Optimal/Above Optimal LDL: 110- 129 mg/dLBorderline High LDL: 130-159 mg/dLHigh LDL: 160-189 mg/dLVery High LDL: greater than or equal to 190 mg/dL HDL Cholesterol 44 >40 mg/dL [facility] Comment:Desirable HDL: great er than 40 mg/dL Note: This HDL assay may give artificially low results in patients with liver disease. 04/10/2023 10:2 3 AM EDT 04/10/2023 10:23 AM EDT us Generic External Data Provider LAB BLOOD ORDERAB LES Final Result [facility] [address] [place] [phone] [phone] from Last 3 Months or Most Recently Relevant to Health Maintenance Insurance [facility] D[facility]AL - [facility] Care Teams Licensed Nuclear Control Room Operator Relationship Specialty Start Date End Date Maya Brannon MD [address] [place] [address] PCP - General Family Medicine 03/12/18
--- OUTSIDE RECORDS SUMMARY | 2024-10-06 12:30 | XMS_ITS | Encounter Summary ---
Author Organization [employer] Address [address] [place] [address] Care Team Providers Care Physicist Cryogenics Name Role Phone Maya Brannon MD Primary Care Provide r Encounter Details Date Type Department Care Team ([facility] st Contact Info) Description 06/06/2023 Orders Only [facility] MEDICINE [address] [place] [address] Donato Redd, PharmD [address] [place] [address] Social History Tobacco Use Types Packs/Day Years [...] EDT Office Visit [facility] OPTOMETRY [address] [place] [address] Mona Cantrell, OD [address] [place] [address] 02/12/2025 8:00 AM EDT Office Visit [facility] ADULT DENTAL [address] [place] [address] Angus, Marina [address] [place] [address] documented as of this encounter Visit Diagnoses Not on filedocumented in this encounter Additional Health Concerns Assessment Noted Time PHQ-9 Depression Total Score: 0 04/24/20 23 9:34 AM EDT documented as of this encounter Care Teams Physicist Cryogenics Relationship Specialty Start Date End Date Maya Brannon MD [address] [place] [address] PCP - General Family Medicine 03/12/18 documented as of this encounter
--- OUTSIDE RECORDS SUMMARY | 2024-10-06 12:30 | XMS_ITS | Encounter Summary ---
Author Organization [facility] Address [address] [place] [address] Care Team Providers Care Sales Ledger Clerk Name Role Phone Maya Brannon MD Primary Care Provide r Encounter Details Date Type Department Care Team ([facility] Contact Info) Description 11/07/2022 Abstract [facility] ADULT DENTAL [address] [place] [address] Salma Hayden, LETYS [address] [place] [address] Social History Tobacco Use Types Packs/Day Years [...] Upcoming Encounters Date Type Department Care Team ([facility] Contact Info) Description 10/08/2024 2:00 PM EDT Office Visit [facility] OPTOMETRY [address] [place] [address] Mona Cantrell, OD [address] [place] [address] 02/12/2025 8:00 AM EDT Office Visit [facility] ADULT DENTAL [address] [place], [place] [phone] Marina Greco [address] [place], [place] [phone] documented as of this encounter Visit Diagnoses Not on filedocumented in this encounter Care Teams Sales Ledger Clerk Relationship Specialty Start Date End Date Maya Brannon MD [address] [place], [place] [phone] PCP - General Family Medicine 03/12/18 documented as of this encounter
--- OUTSIDE RECORDS SUMMARY | 2024-10-06 12:30 | XMS_ITS | Encounter Summary ---
Author Organization [facility] [facility] Address [address] 7t [place] [address] Care Team Providers Care Professional Housing Consultant Name Role Phone Maya Brannon MD Primary Care Provide r Encounter Details Date Type Department Care Team (Latest Contact Info) Description 12/12/[address] [facility] CONVERSIONS Dental, Provider, DDS Social History Tobacco [...] Description 10/08/2024 2:00 PM EDT Office Visit [facility] OPTOMETRY [address] [place] [address] Mona Cantrell, CANDACE [address] [place] [address] 02/12/2025 8:00 AM EDT Office Visit [facility] ADULT DENTAL [address] [place] [address] Angus, Marina [address] [place] [address] documented as of this encounter Visit Diagnoses Not on filedocumented in this encounter Care Teams Professional Housing Consultant Relationship Specialty Start Date End Date Maya Brannon MD [address] [place] [address] PCP - General Family Medicine 03/12/18 documented as of this encounter
--- OUTSIDE RECORDS SUMMARY | 2024-10-06 12:30 | XMS_ITS | Encounter Summary ---
Author Organization [employer] [facility] Address [address] [place] [address] Care Team Providers Care Sex Therapist Name Role Phone Maya Brannon MD Primary Care Provide r Encounter Details Date Type Department Care Team (Late Contact Info) Description 07/04/2022 Orders Only [facility] CH[facility] MED & PEDS [address] [place], [place] [phone] Karena Bates LPN Social History Tobacco Use [...] Description 10/08/2024 2:00 PM EDT Office Visit [facility] OPTOMETRY [address] [place] [address] Mona Cantrell, CANDACE [address] [place] [address] 02/12/2025 8:00 AM EDT Office Visit [facility] ADULT DENTAL [address] [place] [address] Marina Greco [address] [place] [address] documented as of this encounter Visit Diagnoses Not on filedocumented in this encounter Care Teams Sex Therapist Relationship Specialty Start Date End Date Maya Brannon MD [address] [place] [address] PCP - General Family Medicine 03/12/18 documented as of this encounter
--- OUTSIDE RECORDS SUMMARY | 2024-10-06 12:30 | XMS_ITS | Encounter Summary ---
Author Organization [employer] Address [address] [place] [address] Care Team Providers Care Director Of Compensation Name Role Phone Maya Brannon MD Primary Care Provide r Encounter Details Date Type Department Care Team ([facility] Contact Info) Description 11/14/2022 Orders Only [facility] CHC MED & PEDS [address] [place], [place] [phone] Karena Bates LPN Social History Tobacco Use [...] Upcoming Encounters Date Type Department Care Team ([facility] Contact Info) Description 10/08/2024 2:00 PM EDT Office Visit [facility] OPTOMETRY [address], [place] [phone] Mona Cantrell, OD [address] [place] [address] 02/12/2025 8:00 AM EDT Office Visit [facility] ADULT DENTAL [address] [place] [address] Joshua Grecoaris [address] [place] [address] documented as of this encounter Visit Diagnoses Not on filedocumented in this encounter Care Teams Director Of Compensation Relationship Specialty Start Date End Date Maya Brannon MD [address] [place] [address] PCP - General Family Medicine 03/12/18 documented as of this encounter
--- OUTSIDE RECORDS SUMMARY | 2024-10-06 12:30 | XMS_ITS | Encounter Summary ---
Author Organization [employer] Address [address] [place] [address] Care Team Providers Care Inside Sales Coordinator Name Role Phone Maya Brannon MD Primary Care Provide r Encounter Details Date Type Department Care Team (Latest Contact Info) Description 10/01/2024 Travel Social History Tobacco Use Types Packs/Day Years [...] Description 10/08/2024 2:00 PM EDT Office Visit [facility] OPTOMETRY [address] [place] [address] Mona Cantrell OD [address] [place] [address] 02/12/2025 8:00 AM EDT Office Visit [facility] ADULT DENTAL [address] [place] [address] Angus, Marina [address] [place] [address] documented as of this encounter Visit Diagnoses Not on filedocumented in this encounter Additional Health Concerns Assessment Noted Time PHQ-9 Depression Total Score: 0 04/24/20 23 9:34 AM EDT documented as of this encounter Care Teams Inside Sales Coordinator Relationship Specialty Start Date End Date Maya Brannon MD [address] [place] [address] PCP - General Family Medicine 03/12/18 documented as of this encounter
--- OUTSIDE RECORDS SUMMARY | 2024-10-06 12:30 | XMS_ITS | Encounter Summary ---
Author Organization [employer] Address [address] [place] [address] Care Team Providers Care Rice Dryer Mechanic Name Role Phone Maya Brannon MD Primary Care Provide r Encounter Details Date Type Department Care Team ([facility] Contact Info) Description 12/11/2022 Orders Only [facility] CHC MED & PEDS [address] [place], [place] [phone] Karena Bates LPN Social History Tobacco Use [...] Upcoming Encounters Date Type Department Care Team ([facility] Contact Info) Description 10/08/2024 2:00 PM EDT Office Visit [facility] OPTOMETRY [address] [place] [address] Mona Cantrell OD [address] [place] [address] 02/12/2025 8:00 AM EDT Office Visit [facility] ADULT DENTAL [address] [place] [address] Marina Greco [address] [place] [address] documented as of this encounter Visit Diagnoses Not on filedocumented in this encounter Care Teams Rice Dryer Mechanic Relationship Specialty Start Date End Date Maya Brannon MD [address] [place] [address] PCP - General Family Medicine 03/12/18 documented as of this encounter
--- OUTSIDE RECORDS SUMMARY | 2024-10-06 12:30 | XMS_ITS | Encounter Summary ---
Author Organization [employer] [facility] Address [address] [place] [address] Care Team Providers Care Technical Data Analyst Name Role Phone Maya Brannon MD Primary Care Provide r Encounter Details Date Type Department Care Team ([facility] Contact Info) Description 11/02/2022 Abstract [facility] ADULT DENTAL [address] [place] [address] Salma Hayden, LETYS [address] [place] [address] Social History Tobacco Use Types Packs/Day Years [...] Upcoming Encounters Date Type Department Care Team ([facility] Contact Info) Description 10/08/2024 2:00 PM EDT Office Visit [facility] OPTOMETRY [address] [place] [address] Mona Cantrell, OD [address] [place] [address] 02/12/2025 8:00 AM EDT Office Visit [facility] ADULT DENTAL [address] [place], [place] [phone] Marina Greco [address] [place], [place] [phone] documented as of this encounter Visit Diagnoses Not on filedocumented in this encounter Care Teams Technical Data Analyst Relationship Specialty Start Date End Date Maya Brannon MD [address] [place], [place] [phone] PCP - General Family Medicine 03/12/18 documented as of this encounter
[2024-10-06 12:45] LABS: Alanine Aminotransferase 20 U/L (0-31); Albumin Level 4.2 g/dL (3.5-5.0); Alkaline Phosphatase 116 U/L (39-117); Anion Gap 9 (12-20); Aspartate Amino Transferase 25 U/L (5-31); Bilirubin Total 0.5 mg/dL (0.0-1.0); Blood Urea Nitrogen 21 mg/dL (9-16); Calcium 9.3 mg/dL (8.4-10.2); Carbon Dioxide 31 mmol/L (22-29); Chloride 105 mmol/L (96-108); Cholesterol 117 mg/dL (<200); Estimated Glomerular Filt Rate > 60; Glucose Random 151 mg/dL (60-115); HDL Cholesterol 49 mg/dL (>40); LDL Cholesterol Calculated 59 mg/dL (<100); Sodium 141 mmol/L (135-145); Total Protein 7.2 g/dL (6.5-8.0); Triglycerides 45 mg/dL (<150)
== END 2024-10-06 10:27 | disposition home or self-care (01) ==
LOC: HO.XRAY 10:26
PROVIDERS: PCP Internal Medicine; Visit Provider Internal Medicine
DX: E11.65 Type 2 diabetes mellitus with hyperglycemia (principal); M25.512 Pain in left shoulder
CPT/HCPCS: 36415; 73030; 80053; 80061; 82043; 82570

== ENCOUNTER → 2024-10-06 10:52 | Outpatient (BNV) | payer OTHER, SELFPAY | PROVIDERS: PCP Internal Medicine; Visit Provider Radiology Diagnostic Radiology | DX: M19.012 Primary osteoarthritis, left shoulder (principal) | CPT/HCPCS: 73030 ==

== ENCOUNTER 2024-10-23 09:02 | Outpatient (AMB) | payer OTHER, SELFPAY ==
--- OUTSIDE RECORDS SUMMARY | 2024-10-23 09:13 | XMS_ITS | Encounter Summary ---
Author Organization [employer] Address [address] [place] [address] Care Team Providers Care Hydraulic Press In Operator Name Role Phone Maya Brannon MD Primary Care Provide r Encounter Details Date Type Department Care Team ([facility] Contact Info) Description 04/10/2023 Abstract [facility] MEDICINE [address] [place] [address] Maya Brannon MD [address] [place] [address] Social History Tobacco Use Types Packs/Day Years [...] Department Care Team (Late Contact Info) Description 02/12/2025 8:00 AM EDT Office Visit [facility] ADULT DENTAL [address] [place] [address] Angus, Marina [address] [place] [address] documented as of this encounter Visit Diagnoses Not on filedocumented in this encounter Care Teams Hydraulic Press In Operator Relationship Specialty Start Date End Date Maya Brannon MD [address] [place] [address] PCP - General Family Medicine 03/12/18 documented as of this encounter
--- OUTSIDE RECORDS SUMMARY | 2024-10-23 09:13 | XMS_ITS | Encounter Summary ---
Author Organization [employer] Address [address] [place] [address] [address] [place] [address] Care Team Providers Care Livestock Farm Workers Name Role Phone Maya Brannon MD Primary Care Provide r Reason for Visit * Reason Comments Med Refill Encounter Details Date Type Department Care Team ([facility] Contact Info) Description 03/31/2023 Refill [facility] CHC MED & PEDS [address] [place] [address] Yoli Lockwood FNP [address] [place] [address] Dept [place] [address] RUQ pain Social History Tobacco Use Types [...] Upcoming Encounters Date Type Department Care Team ([facility] Contact Info) Description 02/12/2025 8:00 AM EDT Office Visit [facility] ADULT DENTAL [address] [place], [place] [phone] Angus, Marina [address] [place], [place] [phone] documented as of this encounter Visit Diagnoses Diagnosis RUQ pain Abdominal pain, right upper quadrant documented in this encounter Care Teams Livestock Farm Workers Relationship Specialty Start Date End Date Maya Brannon MD [address] [place] [address] PCP - General Family Medicine 03/12/18 documented as of this encounter
--- OUTSIDE RECORDS SUMMARY | 2024-10-23 09:13 | XMS_ITS | Encounter Summary ---
Author Organization [employer] Address [address] [place] [address] Care Team Providers Care Addiction Treatment Counselor Name Role Phone Maya Brannon MD Primary Care Provide r Encounter Details Date Type Department Care Team (Late st Contact Info) Description 05/15/[address] [facility] ADULT DENTAL [address] [place] [address] Salma Hayden, LETYS [address] [place] [address] Social History Tobacco Use Types Packs/Day Years [...] Care Team (Late st Contact Info) Description 02/12/2025 8:00 AM EDT Office Visit [facility] ADULT DENTAL [address] [place] [address] Angus, Marina [address] [place] [address] documented as of this encounter Visit Diagnoses Not on filedocumented in this encounter Additional Health Concerns Assessment Noted Time PHQ-9 Depression Total Score: 0 04/24/20 23 9:34 AM EDT documented as of this encounter Care Teams Addiction Treatment Counselor Relationship Specialty Start Date End Date Maya Brannon MD [address] [place] [address] PCP - General Family Medicine 03/12/18 documented as of this encounter
--- OUTSIDE RECORDS SUMMARY | 2024-10-23 09:13 | XMS_ITS | Encounter Summary ---
Author Organization [employer] Address [address] [place] [address] Care Team Providers Care County Engineer Name Role Phone Maya Brannon MD Primary Care Provide r Encounter Details Date Type Department Care Team (Late st Contact Info) Description 05/15/2023 Abstract [facility] ADULT DENTAL [address] [place] [address] Salma Hayden, LETYS [address] [place] [address] Social History Tobacco Use Types Packs/Day Years [...] Description 02/12/2025 8:00 AM EDT Office Visit [facility] ADULT DENTAL [address] [place] [address] Angus, Marina [address] [place] [address] documented as of this encounter Visit Diagnoses Not on filedocumented in this encounter Additional Health Concerns Assessment Noted Time PHQ-9 Depression Total Score: 0 04/24/20 23 9:34 AM EDT documented as of this encounter Care Teams County Engineer Relationship Specialty Start Date End Date Maya Brannon MD [address] [place] [address] PCP - General Family Medicine 03/12/18 documented as of this encounter
--- OUTSIDE RECORDS SUMMARY | 2024-10-23 09:14 | XMS_ITS | Clinical Summary ---
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 ([facility]) TEST BLOOD SUGAR TWICE DAILY 100 each 11 10/16/19 24 Active metFORMIN (Glucophage) 500 MG tabletIndicatio ns:Type 2 diabetes mellitus with hyperglycemia, without long-term current use of insulin ([facility]) Take 1 tablet (500 mg) by mouth [...] hyperglycemia, without long-term current use of insulin ([facility]) TEST BLOOD SUGAR TWICE DAILY 50 strip [...] 28 capsule 5 08/23/19 24 2024 Discontinued meloxicam (Mobic) 15 MG [...] Significantly improved with Imitrex, no residual deficits Transportation Broker to take Tylenol ASA Take Imitrex if [...] Assessment & Plan (06/12/2023 12:56 PM EST): Transportation Broker to avoid picking on the ear with [...] and using OTC meds Repeated is 150/85, credit support counselor to check BP at home No [...] Encounters Date Type Department Care Team Description 10/08/2024 2:00 PM EDT Office Visit [facility] [address] [place] [address] [phone] Mona Cantrell, OD Type 2 diabetes mellitus without ophthalmic manifestations ([facility]) (Primary Dx); Dry eyes; Cortical age-related cataract of both eyes; Hyperopia of both eyes with astigmatism and presbyopia 10/08/2024 Travel 10/05/2024 Telephone [facility] [address] [place] [address] Maya Brannon MD DME Incontinence Recertification 10/01/2024 1:15 PM EDT Office Visit [address] [address] Maya Brannon MD Essential hypertension (Primary Dx); Type 2 diabetes mellitus with hyperglycemia, without long-term current use of insulin ([facility]); Encounter for preventive care; Class 2 severe obesity due to excess calories with serious comorbidity and body mass index (BMI) of 36.0 to 36.9 in adult ([facility]); Dietary counseling; Exercise counseling; Acute pain of left shoulder 10/01/2024 Travel 10/01/[address] [address] Maya Brannon MD Gastroesophageal reflux disease, unspecified whether esophagitis present 09/22/2024 Patient Outreach [address] [address] Maya Brannon MD Pre-visit Planning (SDOH screening completed on 08/18/2024) 09/12/2024 Refill [facility] [address] [place], [place] [phone] Maya Brannon MD Depression, unspecified depression type 08/20/2024 Refill [facility] [address] [place] [address] [phone] Maya Brannon MD 08/18/2024 Patient Outreach [address] [phone] Maya Brannon MD Pre-visit Planning (SDOH screening [...] Description 02/12/2025 8:00 AM EDT Office Visit [facility] [address] [place] [address] Angus, Marina [address] [place] [address] Health Maintenance Due Date Last Done Comments CT Colonography 1960 Colonoscopy 1960 Dental X-Ray: Full Mouth 1962 FIT 1960 HIV Screening 1960 Sigmoidoscopy 1962 Alcohol/Substance Use Screening 1974 Hepatitis C Screening 01/27/1980 Zoster Vaccines (1 of 2) 01/27/2012 Diabetes: Foot Exam 09/20/2023 09/19/2022, 09/19/2022, 09/19/2022, Additional history exists Dental Oral Exam 10/16/2023 04/15/2023 Dental Prophylaxis 11/06/2023 05/07/2023, 08/15/2022 COVID-19 Vaccine ( season) 2024 04/24/2023, 08/13/2022, 08/09/2021, Additional history exists Influenza Vaccine (#1) 2024 , 05/15/2021, 02/23/2019, Additional history exists Dental X-Ray: Bitewings 04/16/2024 04/15/2023 Depression Screening 04/24/2024 04/24/2023, 04/24/20 23 FOBT 05/02/2024 05/02/2023 Mammogram 11/18/2024 11/19/2023, 03/0 12/2022, 09/04/2022, Additional history exists Diabetes: Hemoglobin A1C 04/02/2025 025, 02/17/2024, 11/15/2023, Additional history exists SDOH Screening 08/18/2025 08/18/2024 Diabetes: Urine Protein Screening 10/06/2025 10/06/2024, 12/02/2020 Lipid Panel 10/06/2025 10/06/2024, 03/31, 02/01/2023, Additional history exists Tobacco Screening 10/08/2025 10/08/2024 DTaP/Tdap/Td Vaccines (2 - Td or Tdap) 01/10/2026 01/11/2016 Colorectal Cancer Screening 05/02/2026 FIT DNA/Cologuard 05/02/2026 05/02/2023, 05/02/2023 Eye Exam 10/08/2026 10/08/2024, 09/29, 10/08/2024, Additional history exists Cervical Cancer Screening 07/02/2028 HPV/Cotest 07/02/2028 07/02/2023 [...] Procedure Name Priority Date/Time Associated Diagnosis Comments XR SHOULDER 2+ VIEWS LEFT Routine 10/07/2024 10:06 AM EDT Acute pain of left shoulder COMPREHENSIVE METABOLIC PANEL Routine 10/06/2024 10:44 AM EDT Type 2 diabetes mellitus with hyperglycemia, without long-term current use of insulin (CMS/HCC) LIPID PANEL, STANDARD Routine 10/06/2024 10:44 AM EDT Type 2 diabetes mellitus with hyperglycemia, without long-term current use of insulin (CMS/HCC) ALBUMIN, RANDOM URINE W/CREATININE Routine 10/06/2024 10:40 AM EDT Type 2 diabetes mellitus with hyperglycemia, without long-term current use of insulin (CMS/HCC) POCT GLYCATED HEMOGLOBIN, TOTAL Routine 10/01/2024 1:25 PM EDT Type 2 diabetes mellitus with hyperglycemia, without long-term current use of insulin (CMS/HCC) POCT GLUCOSE Routine 10/01/2024 1:25 PM EDT Type 2 diabetes mellitus with hyperglycemia, without long-term current use of insulin (CMS/HCC) BI MAMMOGRAM SCREENING TOMOSYNTHESIS BILATERAL Routine 11/19/2023 [...] ESTABLISHED PATIENT Routine 04/15/2023 1:30 PM EDT from Last 3 Months or Most Recently Relevant to Health Maintenance Results * XR Shoulder 2+ Views Left (10/07/2024 10:06 AM EDT) Anatomical Region Laterality Modality Upper Extremities, Shoulder Left Radi ographic Imaging 10/07/2024 10:0 6 AM EDT Narrative 10/07/2024 10:07 AM EDT ? [facility] ?[address] ?[place] [address] ?XRay Report ? Signed ? Patient: Ewa Kuhn ?MR#: [id number] ?? 59 ? : 1960 ?Acct:[id number] ? Age/Sex: 64 / F ?ADM Date: 10/06/24 ? Loc: HO.XRAY ? Attending Dr: Maya Hernandez MD ? Ordering Physician: Maya Brannon MD ?? Date of Service: 10/06/24 ?? Procedure(s): XR shoulder LT min 2V ?? Accession Number(s): [id number] ? cc: Maya Brannon MD ? CLINICAL HISTORY: pain ? Exam: AP, Grashey, and scapular Y-views of the left shoulder. ? Comparison: None. ? Findings: ? No fracture, dislocation, or separation. ?? 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 ? Impression: ? Moderate DJD. ? This document has been electronically signed by: Chris Akins MD on ?? 10/07/2024 10:06:25 ? Dictated By: ?Chris Akins MD ? Signed By: ?<Electronically signed by Chris Akins MD in OV> ? 10/07/24 1007 ? DD/ 1006 ? TD/TT: 10/07/24 1006 ? Supervisor Wrapping Room: ? Procedure Note Aracelis, Image - 10/07/[address] [address] XRay Report Signed Patient: Howard Kuhn#: [id number] 59 : 2Acct:[id number] Age/Sex: 64 / FADM Date: 10/06/24 Loc: HO.XRAY Attending Dr: Maya Hernandez MD Ordering Physician: Maya Brannon MD Date of Service: 10/06/24 Procedure(s): XR shoulder LT min 2V Accession Number(s): [id number] cc: Maya Brannon MD CLINICAL HISTORY: pain Exam: AP, Grashey, and scapular Y-views of the left shoulder. Comparison: None. Findings: No fracture, dislocation, or separation. 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 Impression: Moderate DJD. This document has been electronically signed by: Chris Akins MD on 10/07/2024 10:06:25 Dictated By: Chris Akins MD Signed By: <Electronically signed by Chris Akins MD in OV> 10/07/24 1007 DD/ 1006 TD/TT: 10/07/24 1006 Supervisor Wrapping Room: us Maya Hernandez MD IMG XR PROCEDURES Fin al Result * Lipid Panel, Standard (10/06/2024 10:44 AM EDT) Triglycerides 45 <150 mg/dL [facility] Comment:Desirable Triglyceri de: less than 150 mg/dLBorderline High Triglyceride 150-199 mg/dLHigh Triglyceride: 200-499 mg/dLVery High Triglyceride: greater than or equal to 5OO mg/dL Cholesterol 117 <200 mg/dL [facility] Comment:Desirable Cholestero l: less than 200 mg/dLBorderline High Cholesterol: 200-239 mg/dLHigh Cholesterol: greater than 239 mg/dL LDL Cholesterol Calculated 59 <100 mg/dL [facility] Comment:Desirable LDL: less than 100 mg/dLNear Optimal/Above Optimal LDL: 110- 129 mg/dLBorderline High LDL: 130-159 mg/dLHigh LDL: 160-189 mg/dLVery High LDL: greater than or equal to 190 mg/dL HDL Cholesterol 49 >40 mg/dL [facility] Comment:Desirable HDL: great er than 40 mg/dL Note: This HDL assay may give artificially low results in patients with liver disease. Blood Venous blood specimen / Unknown 10/06/2024 10:44 AM EDT 10/06/2024 10:44 AM EDT us Maya Hernandez MD LAB BLOOD ORDERABLES Final Result [facility] [address] [place] [phone] * (ABNORMAL) Comprehensive Metabolic Panel (10/06/2024 10:44 AM EDT) Sodium 141 135 - 145 mmol/L [facility] Potassium 4.0 3.3 - 5.1 mmol/L [facility] Chloride 105 96 - 108 mmol/L [facility] Carbon Dioxide 31(H) 22 - 29 mmol/L [facility] Anion Gap 9(L) 12 - 20 [facility] Urea Nitrogen (BUN) 21(H) 9 - 16 mg/dL [facility] Creatinine, Serum 0.78 0.5 - 1.4 mg/dL [facility] Estimated Glomerular Filt Rate >60 [facility] Comment:Chronic Kidney Disea se: Estimated GFR < 60 mL/min/1.80q6Lscbwd Kidney Disease: Estimated GFR < 15 mL/min/1.73m2 Glucose 151(H) 60 - 115 mg/dL [facility] Calcium 9.3 8.4 - 10.2 mg/dL [facility] Bilirubin, Total 0.5 0.0 - 1.0 mg/dL [facility] Aspartate Amino Transferase 25 5 - 31 U/L [facility] Alanine Aminotransferase 20 0 - 31 U/L [facility] Total Protein 7.2 6.5 - 8.0 g/dL [facility] Albumin Level 4.2 3.5 - 5.0 g/dL [facility] Alkaline Phosphatase 116 39 - 117 U/L [facility] Blood Venous blood specimen / Unknown 10/06/2024 10:44 AM EDT 10/06/2024 10:44 AM EDT Maya Hernandez MD LAB BLOOD ORDERABLES Final Result Performing Organization Address [facility] Co de Phone Number [facility] [address] [place] [phone] * Albumin, Random Urine W/Creatinine (10/06/2024 10:40 AM EDT) Creatinine, Urine 76.97 mg/dL [facility] Microalbumin Urine <5.0 mg/L [facility] Microalbum Creatinine Ratio Ur TNP <30 ug/mg cr [facility] Comment:Unable to calculate albumin/creatinine ratio due to lowmicroalbumin or creatinine result. Urine (Urine, Random) 10/06/2024 10:40 AM EDT 10/06/2024 11:29 AM EDT us Maya Hernandez MD LAB URINE ORDERABLES Final Result Performing Organization Address [facility]/ZIP Co de Phone Number [facility] [address] [place] [phone] * (ABNORMAL) POCT HGB A1C (10/01/2024 [...] EDT Narrative 12/20/2023 7:12 AM EDT ? [facility] ? [address] ?[place] [address] ? Mammography Report ? Signed ? Patient: Devang Kuhnfina ?MR#: [id number] ?? 59 ? : 1960 ?Acct:[id number] ? Age/Sex: 63 / F ?ADM Date: 05/21/24 ? Loc: HO.MAMMO ? Attending Dr: Maya Hernandez MD ? Ordering Physician: Maya Brannon MD ?Results: ?? 1Negative ? Date of Service: 11/19/23 ?Follow Up: 1 Year From Orig ?? inal Mammogram ? Procedure(s): MM tomosynthesis screening BI ?? Accession Number(s): [id number] ? cc: Maya Brannon MD ? EXAMINATION: [...] in OV> ? 12/20/23 0708 ? DD/ ? TD/TT: ? Supervisor Wrapping Room: ? Procedure Note Aracelis, Image - 12/20/2023 [facility] [address] [place] [address] [place] [address] Mammography Report Signed Patient: Howard Kuhn#: [id number] 59 : 2Acct:[id number] Age/Sex: 63 / FADM Date: 11/19/23 Loc: HO.MAMMO Attending Dr: Maya Hernandez MD Ordering Physician: Maya Brannon MDResults: 1Negative Date of Service: 11/19/23Follow Up: 1 Year From Orig ina Mammogram Procedure(s): MM tomosynthesis screening BI Accession Number(s): [id number] cc: Maya Brannon MD EXAMINATION: MM SCREENING [...] in OV> 12/20/23 0708 DD/ 1105 TD/TT: Supervisor Wrapping Room: us Maya Hernandez MD IMG BI PROCEDURES Fin al Result * Image-Guided Pap with Age-Based Screening??with CT/NG,??Trichomonas (07/02/2023 10:05 AM EST) Trichomonas (NAAT) NOT DETECTED NOT DETECTED [facility] Comment:The analytical perfo rmance characteristics of thisassay have been determined by [employer]. Themodifications have not been cleared or approved bythe FDA. This assay has been validated pursuant to theCLIA regulations and is used for clinical purposes.For additional information, please refer tohttp://[employer]faq/Trichomonastma(This link is being provided for information/educational purposes only.)THIS TEST WAS PERFORMED AT:[employer] [place] [phone] CASTRO MD CTNG Ref Lab NOT DETECTED NOT DETECTED [facility] NG Ref Lab NOT DETECTED NOT DETECTED [facility] 07/02/2023 10:0 5 AM EST 07/03/2023 12:15 PM EST Maya Hernandez MD LAB CYTOLOGY ORDERABL ES Final Result [facility] [address] [place] [phone] * HPV mRNA E6/E7 w/Reflex to HPV Genotypes 16, 18/45 (07/02/2023 10:05 AM EST) HPV nRNA E6/E7 Not Detected Not Detected [facility] Comment:Methodology: Transcr iption-Mediated AmplificationThis assay detects E6/E7 viral messenger RNA (mRNA) from 14high-risk HPV types (16,18,31,33,35,39,45,51,52,56,58,59,66,68).Cervical sources are required for HPV testing.If a vaginal source from a patient who has had atotal hysterectomy with removal of cervix wassubmitted, please contact the testing laboratoryfor alternative testing options.For additional information, please refer tohttp://education.[employer]faq/ZHR639n7(This link if provided for information/educational purposes only.)THIS TEST WAS PERFORMED AT:[employer] [place] [phone] CASTRO MD HPV mRNA E6/E7 TNP [facility] HPV 16 RNA TNP [facility] HPV 18/45 RNA [facility] 07/02/2023 10:0 5 AM EST 07/03/2023 11:15 AM EST Maya Hernandez MD LAB CYTOLOGY ORDERABL ES Final Result [facility] [address] [place] [phone] * Cologuard?? colon cancer screening (05/02/2023 6:30 AM EDT) Cologuard Result Negative Negative 05/14/20 10:05 PM EST [facility] (CLIA #:[id number]) Comment: NEGATIVE TEST RESULT. A negative Cologuard [...] screened with both Cologuard and colonoscopy. (Jc Reed. et al, N Engl J Med 2014;370(14):1286- 1297) The normal value (reference range) for this assay is negative. COLOGUARD RE-SCREENING RECOMMENDATION: Periodic colorectal cancer screening is an important part of preventive healthcare for asymptomatic individuals at average risk for colorectal cancer. ??Following a negative Cologuard result, the English Cancer Society and U.S. Multi-Society Task Force screening guidelines recommend a Cologuard re-screening interval of 3 years. References: English Cancer Society Guideline for Colorectal Cancer Screening: https://www.cancer.org/cancer/ydaog-jwnnsd-hkjxhy/qkumwyvcq-riejaosjg-aadaexa/ac s-rec ommendations.html.; Stanley HOBBS, Abhinav LOPEZ, Christiane PICHARDO, Colorectal Cancer Screening: Recommendations for Physicians and Patients from the U.S. Multi-Society Task Force on Colorectal Cancer Screening , Am J Gastroenterology 2017; 112:1719-6122. TEST DESCRIPTION: Composite algorithmic analysis of stool [...] (Jc Mejía al, N Engl J Med 2014;370(14):6454-7281.) Cologuard may produce a false negative or false positive result (no colorectal cancer or precancerous polyp present at colonoscopy follow up). A negative Cologuard test result does not guarantee the absence of CRC or advanced adenoma (pre-cancer). The current Cologuard screening interval is every 3 years. (English Cancer Society and U.S. Multi-Society Task Force). Cologuard performance data in a 10,000 patient pivotal study using colonoscopy as the reference method can be accessed at the following location: www.[employer].Screen/results. Additional description of the Cologuard test process, warnings and precautions can be found at www.[employer].com. Stool specimen (specimen) 05/02/2023 6:30 AM EDT 05/04/2023 7:17 PM EDT us Maya Hernandez MD LAB MOLECULAR DIAGNOS TICS ORDERABLES Final Result [facility] (CLIA #:[id number]) [address] [place] [address], [place] [phone] * FIT DNA/Cologuard Cancer Screening (05/02/2023) Cologuard Cancer Screen Negative [facility] (CLIA #:[id number]) Stool us Maya Hernandez MD HEALTH MAINTENANCE Fi nal Result Performing Organization Address [facility] Co de Phone Number [facility] (CLIA #:[id number]) [address] [place] [address], [place] [phone] from Last 3 Months or Most Recently Relevant to Health Maintenance Insurance [facility] CARE < 65 DENTAL - [facility] Care Teams Ar Manager Relationship Specialty Start Date End Date Maya Brannon MD [address] [place] [phone] PCP - General Family Medicine 03/12/18
--- OUTSIDE RECORDS SUMMARY | 2024-10-23 09:14 | XMS_ITS | Encounter Summary ---
Author Organization [employer] Address [address] [facility] [address] [address] 7t [place] [address] Care Team Providers Care Filter Tip Inspector Name Role Phone Maya Brannon MD Primary Care Provide r Encounter Details Date Type Department Care Team (Late st Contact Info) Description 06/11/2023 Abstract [facility] [address] [place] [address] Salma Hayden, LETYS [address] [place] [address] Social History Tobacco Use Types Packs/Day Years [...] Description 02/12/2025 8:00 AM EDT Office Visit [facility] [address] [place] [address] Angus, Marina [address] [place] [address] documented as of this encounter Visit Diagnoses Not on filedocumented in this encounter Additional Health Concerns Assessment Noted Time PHQ-9 Depression Total Score: 0 04/24/20 23 9:34 AM EDT documented as of this encounter Care Teams Filter Tip Inspector Relationship Specialty Start Date End Date Maya Brannon MD [address] [place] [address] PCP - General Family Medicine 03/12/18 documented as of this encounter
--- OUTSIDE RECORDS SUMMARY | 2024-10-23 09:14 | XMS_ITS | Encounter Summary ---
Author Organization [employer] Address [address] [facility] 7t [place] [address] Care Team Providers Care Welt Maker Name Role Phone Maya Brannon MD Primary Care Provide r Encounter Details Date Type Department Care Team (Late Contact Info) Description 07/04/2022 Orders Only [facility] [address] [place], [place] [phone] Karena Bates LPN Social History Tobacco Use [...] Description 02/12/2025 8:00 AM EDT Office Visit [facility] AD[facility] [address] [place] [address] Angus, Marina [address] [place] [address] documented as of this encounter Visit Diagnoses Not on filedocumented in this encounter Care Teams Welt Maker Relationship Specialty Start Date End Date Maya Brannon MD [address] [place] [address] PCP - General Family Medicine 03/12/18 documented as of this encounter
--- OUTSIDE RECORDS SUMMARY | 2024-10-23 09:14 | XMS_ITS | Encounter Summary ---
Author Organization [employer] [facility] Address [address] [facility] 7t [place] [address] Care Team Providers Care Labor Conciliator Name Role Phone Maya Brannon MD Primary Care Provide r Encounter Details Date Type Department Care Team ([facility] Contact Info) Description 10/03/2022 Abstract [facility] AD[facility] [address] [place] [address] Salma Hayden DDS [address] [place] [address] Social History Tobacco Use Types Packs/Day Years [...] [facility] Contact Info) Description 02/12/2025 8:00 AM EDT Office Visit [facility] [address] [place] [address] Marina Greco [address] [place] [address] documented as of this encounter Visit Diagnoses Not on filedocumented in this encounter Care Teams Labor Conciliator Relationship Specialty Start Date End Date Maya Brannon MD [address] [place] [address] PCP - General Family Medicine 03/12/18 documented as of this encounter
--- OUTSIDE RECORDS SUMMARY | 2024-10-23 09:14 | XMS_ITS | Encounter Summary ---
Author Organization [employer] [facility] Address [address] [facility] 7t [place] [address] Care Team Providers Care Customer Account Coordinator Name Role Phone Maya Brannon MD Primary Care Provide r Reason for Visit * Reason Comments Med Refill Encounter Details Date Type Department Care Team ([facility] Contact Info) Description 01/30/2023 Refill [facility] [address] [place] [address] Maya Brannon MD [address] [place] [address] Social History Tobacco Use Types Packs/Day Years [...] Upcoming Encounters Date Type Department Care Team ([facility] Contact Info) Description 02/12/2025 8:00 AM EDT Office Visit [facility] ADULT [facility] [address] [place] [address] Marina Greco [address] [place] [address] documented as of this encounter Visit Diagnoses Not on filedocumented in this encounter Care Teams Customer Account Coordinator Relationship Specialty Start Date End Date Maya Brannon MD [address] [place] [phone] PCP - General Family Medicine 03/12/18 documented as of this encounter
--- OUTSIDE RECORDS SUMMARY | 2024-10-23 09:14 | XMS_ITS | Encounter Summary ---
Author Organization [employer] Address [address] [place] [address] Care Team Providers Care Breed To Wean Production Technician Name Role Phone Maya Brannon MD Primary Care Provide r Encounter Details Date Type Department Care Team ([facility] st Contact Info) Description 06/06/2023 Orders Only [facility] [address] [place] [address] Donato Redd, PharmD [address] [place] [address] Social History Tobacco Use Types Packs/Day Years [...] Description 02/12/2025 8:00 AM EDT Office Visit [facility] ADULT DENT[facility] [address] [place] [address] Angus, Marina [address] [place] [address] documented as of this encounter Visit Diagnoses Not on filedocumented in this encounter Additional Health Concerns Assessment Noted Time PHQ-9 Depression Total Score: 0 04/24/20 23 9:34 AM EDT documented as of this encounter Care Teams Breed To Wean Production Technician Relationship Specialty Start Date End Date Maya Brannon MD [address] [place] [address] PCP - General Family Medicine 03/12/18 documented as of this encounter
--- OUTSIDE RECORDS SUMMARY | 2024-10-23 09:14 | XMS_ITS | Encounter Summary ---
Author Organization [employer] [facility] Address [address] [facility] 7t [address] [address] Care Team Providers Care Tin Assorter Name Role Phone Maya Brannon MD Primary Care Provide r Encounter Details Date Type Department Care Team ([facility] Contact Info) Description 11/27/2022 Abstract [facility] ADULT DENTAL [address] [place] [address] Salma Hayden DDS [address] [place] [address] Social History Tobacco Use Types Packs/Day Years [...] Upcoming Encounters Date Type Department Care Team ([facility] Contact Info) Description 02/12/2025 8:00 AM EDT Office Visit [facility] ADULT DENTAL [address] [place] [address] Marina Greco [address] [place] [address] documented as of this encounter Visit Diagnoses Not on filedocumented in this encounter Care Teams Tin Assorter Relationship Specialty Start Date End Date Maya Brannon MD 230 [place] [address] PCP - General Family Medicine 03/12/18 documented as of this encounter
--- OUTSIDE RECORDS SUMMARY | 2024-10-23 09:14 | XMS_ITS | Encounter Summary ---
Author Organization [employer] Address [address] 7t [place] [address] Care Team Providers Care Gas Engine Operator Generators Name Role Phone Maya Brannon MD Primary Care Provide r Encounter Details Date Type Department Care Team ([facility] Contact Info) Description 11/14/2022 Orders Only [facility] CHC MED & PEDS [address] [place], [place] [phone] Karena Bates LPN Social History Tobacco Use [...] Upcoming Encounters Date Type Department Care Team ([facility] Contact Info) Description 02/12/2025 8:00 AM EDT Office Visit [facility] ADULT DENTAL [address] [place], [place] [phone] Angus, Marina [address] [place] [address] documented as of this encounter Visit Diagnoses Not on filedocumented in this encounter Care Teams Gas Engine Operator Generators Relationship Specialty Start Date End Date Maya Brannon MD 230 [place] [address] PCP - General Family Medicine 03/12/18 documented as of this encounter
--- OUTSIDE RECORDS SUMMARY | 2024-10-23 09:14 | XMS_ITS | Encounter Summary ---
Author Organization [employer] Address [address] 7t [place] [address] Care Team Providers Care Business Office Associate Name Role Phone Maya Brannon MD Primary Care Provide r Encounter Details Date Type Department Care Team ([facility] Contact Info) Description 01/30/2023 Orders Only [facility] CHC MED & PEDS [address] [place], [place] [phone] Karena Bates LPN Social History Tobacco Use [...] Upcoming Encounters Date Type Department Care Team ([facility] Contact Info) Description 02/12/2025 8:00 AM EDT Office Visit [facility] ADULT DENTAL [address] [place] [address] Angus, Marina [address] [place] [address] documented as of this encounter Visit Diagnoses Not on filedocumented in this encounter Care Teams Business Office Associate Relationship Specialty Start Date End Date Maya Brannon MD 230 [place] [address] PCP - General Family Medicine 03/12/18 documented as of this encounter
--- OUTSIDE RECORDS SUMMARY | 2024-10-23 09:14 | XMS_ITS | Encounter Summary ---
Author Organization [employer] [facility] Address [address] [facility] 7t [place] [address] Care Team Providers Care Supervisor Rocket Propellant Plant Name Role Phone Maya Brannon MD Primary Care Provide r Encounter Details Date Type Department Care Team ([facility] Contact Info) Description 11/02/2022 Abstract [facility] ADULT DENTAL [address] [place] [address] Salma Hayden DDS [address] [place] [address] Social History Tobacco Use Types Packs/Day Years [...] Department Care Team ([facility] Contact Info) Description 02/12/2025 8:00 AM EDT Office Visit [facility] ADULT DENTAL [address] [place] [address] Marina Greco [address] [place] [address] documented as of this encounter Visit Diagnoses Not on filedocumented in this encounter Care Teams Supervisor [employer]ocket [employer] Plant Relationship Specialty Start Date End Date Maya Brannon MD 230 [place] [address] PCP - General Family Medicine 03/12/18 documented as of this encounter
--- OUTSIDE RECORDS SUMMARY | 2024-10-23 09:14 | XMS_ITS | Encounter Summary ---
Author Organization [employer] Address [address] 7[address] [place] [address] Care Team Providers Care Refueling Ramp Supervisor Name Role Phone Maya Brannon MD Primary Care Provide r Encounter Details Date Type Department Care Team ([facility] Contact Info) Description 12/11/2022 Orders Only [facility] CHC MED & PEDS [address] [place], [place] [phone] Karena Bates LPN Social History Tobacco Use [...] Upcoming Encounters Date Type Department Care Team ([facility] Contact Info) Description 02/12/2025 8:00 AM EDT Office Visit [facility] ADULT DENTAL [address] [place] [address] Angus Marina [address] [place] [address] documented as of this encounter Visit Diagnoses Not on filedocumented in this encounter Care Teams Refueling Ramp Supervisor Relationship Specialty Start Date End Date Maya Brannon MD [address] [place] [address] PCP - General Family Medicine 03/12/18 documented as of this encounter
--- OUTSIDE RECORDS SUMMARY | 2024-10-23 09:14 | XMS_ITS | Encounter Summary ---
Author Organization [employer] [facility] Address [address] [facility] 7t [place] [address] Care Team Providers Care Car Pusher Name Role Phone Maya Brannon MD Primary Care Provide r Encounter Details Date Type Department Care Team (Latest Contact Info) Description 07/08/2019 Abstract [facility] CONVERSIONS Dental, Provider, DDS Social History [...] Upcoming Encounters Date Type Department Care Team ( st Contact Info) Description 02/12/2025 8:00 AM EDT Office Visit [facility] ADULT DENTAL [address] [place] [address] Angus, Marina [address] [place] [address] documented as of this encounter Visit Diagnoses Not on filedocumented in this encounter Care Teams Car Pusher Relationship Specialty Start Date End Date Maya Brannon MD [address] [place] [address] PCP - General Family Medicine 03/12/18 documented as of this encounter
--- OUTSIDE RECORDS SUMMARY | 2024-10-23 09:14 | XMS_ITS | Encounter Summary ---
Author Organization [employer] [facility] Address [address] [facility] 7t [place] [address] Care Team Providers Care Water Pump Assembler Name Role Phone Maya Brannon MD Primary Care Provide r Encounter Details Date Type Department Care Team ([facility] Contact Info) Description 11/07/2022 Abstract [facility] ADULT DENTAL [address] [place] [address] Salma Hayden DDS [address] [place] [address] Social History Tobacco Use Types Packs/Day Years [...] Encounters Date Type Department Care Team ([facility] Contact Info) Description 02/12/2025 8:00 AM EDT Office Visit [facility] ADULT DENTAL [address] [place] [address] Marina Greco [address] [place] [address] documented as of this encounter Visit Diagnoses Not on filedocumented in this encounter Care Teams Water Pump Assembler Relationship Specialty Start Date End Date Maya Brannon MD 230 [place] [address] PCP - General Family Medicine 03/12/18 documented as of this encounter
--- OUTSIDE RECORDS SUMMARY | 2024-10-23 09:14 | XMS_ITS | Encounter Summary ---
Author Organization [employer] [facility] Address [address] [facility] 7t [place] [address] Care Team Providers Care Supervisor Wash House Name Role Phone Maya Brannon MD Primary Care Provide r Encounter Details Date Type Department Care Team (Latest Contact Info) Description 12/12/2021 Abstract [facility] CONVERSIONS Dental, Provider, DDS Social History [...] Description 02/12/2025 8:00 AM EDT Office Visit [facility] ADULT DENTAL [address] [place] [address] Angus, Marina [address] [place] [address] documented as of this encounter Visit Diagnoses Not on filedocumented in this encounter Care Teams Supervisor Wash House Relationship Specialty Start Date End Date Maya Brannon MD [address] [place] [address] PCP - General Family Medicine 03/12/18 documented as of this encounter
--- OUTSIDE RECORDS SUMMARY | 2024-10-23 09:14 | XMS_ITS | Encounter Summary ---
Author Organization [employer] Address [address] [facility] 7t [place] [address] Care Team Providers Care Ware Finisher Name Role Phone Maya Brannon MD Primary Care Provide r Reason for Visit * Reason Onset Date Comments loose crown 12/03/2023 Encounter Details Date Type Department Care Team ([facility] Contact Info) Description 12/03/[address] [facility] ADULT DENTAL [address] [place] [address] Salma Hayden, DDS [address] [place] [address] loose crown Social History Tobacco Use Types [...] Description 02/12/2025 8:00 AM EDT Office Visit [facility] ADULT DENTAL [address] [place] [address] Angus, Marina [address] [place] [address] documented as of this encounter Visit Diagnoses Not on filedocumented in this encounter Additional Health Concerns Assessment Noted Time PHQ-9 Depression Total Score: 0 04/24/20 23 9:34 AM EDT documented as of this encounter Care Teams Ware Finisher Relationship Specialty Start Date End Date Maya Brannon MD 230 [place] [address] PCP - General Family Medicine 03/12/18 documented as of this encounter
[2024-10-23 09:59] VITALS: BP 134/62; PULSE 54; BMI 33.7
--- NOTE | 2024-10-23 09:59 | MHC.OFFVIS ---
Vital Signs 10/23/24 09:59 Height 5 ft 6 in Weight 208 lb 8.917 oz BMI 33.7 BP 134/62 Blood Pressure Location Rt brachial Position Sitting Pulse 54 Pulse Source Pulse Oximeter Intake Visit Reasons: follow up/ echo Superintendent Board Mill Required: No Allergies Iodinated Contrast Media [IV CONTRAST] Allergy (Unknown, Verified 10/23/24 10:01) ITCHING nut - unspecified [NUT - UNSPECIFIED] Allergy (Unknown, Verified 10/23/24 10:01) THROAT SWELLING penicillin G Allergy (Unknown, Verified 10/23/24 10:01) hives Penicillins [PENICILLINS] Allergy (Unknown, Verified 10/23/24 10:01) HIVES gregorio Allergy (Verified 10/23/24 10:01) Anaphylaxis Medication List - Last Reconciled 10/23/24 by PATTI Fsoter albuterol sulfate 90 mcg/actuation (Ventolin HFA) 2 puffs inhalation Q4-6H PRN amlodipine 10 mg PO DAILY aspirin 81 mg PO DAILY atorvastatin 40 mg PO DAILY carvedilol 6.25 mg PO BIDWM cholecalciferol (vitamin D3) (Vitamin D3) 25 mcg PO QAM epinephrine (EpiPen 2-Anurag) 0.3 mg (0.3 mL) IM Q4H PRN esomeprazole magnesium 20 mg PO DAILY fluticasone propionate 110 mcg/actuation 2 puffs PO BID hydrochlorothiazide 25 mg PO DAILY iron,carbonyl-vitamin C 65 mg iron- 125 mg (Vitron-C) 1 tab PO BEDTIME meloxicam 15 mg PO DAILY metformin 500 mg PO DAILY metronidazole 500 mg PO BID montelukast 10 mg PO BEDTIME omeprazole 40 mg PO DAILY vit B complex 100 combo no.2 ER (Balanced B-100 Complex) 1 tab PO DAILY vitamin A palmitate 3,000 mcg PO DAILY 3 weeks HPI HPI follow up/ echo: Details: Neris is a 63-year-old female with past medical history of hypertension, smoking, peripheral vascular disease, asthma, 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 Today she reports she has been doing well since her last visit 11/19/2023. She will notice some heart palpitations in the night where her heart is beating fast for up to 30 seconds then normalizing. This happens only occasionally without pattern. She has had no sustained rapid heartbeats, no dizziness, presyncope, syncope, falls. She will notice occasional pinching pains in her left chest region. No chest discomfort with activity. No shortness of breath, PND, orthopnea or edema. She has chronic right-sided weakness from her prior CVA and reports only light physical activities. She is able to ambulate without a cane. She has a CASE MANAGEMENT COORDINATOR. She is taking her meds as directed. ON LICENSE OF [facility] Medical History Murmur, cardiac Diabetes mellitus Hypertension Brain aneurysm Subarachnoid hemorrhage Mild persistent asthma Tobacco abuse PVD (peripheral vascular disease) Carpal tunnel syndrome, right Surgical History History of gastric bypass Status post coil embolization of cerebral aneurysm Hx of section H/O left breast biopsy Total knee replacement status History of cholecystectomy History of appendectomy Family History Father CVA (cerebral vascular accident) CVD (cardiovascular disease) Mother CVD (cardiovascular disease) Uterus cancer Heart attack Social History Household Members: Family Household Members Other:: 3 Housing: Apartment Do you presently have visiting nurse or other home services: Yes Unable to assess alcohol history related to: Unable to respond Alcohol intake: never Patient Tobacco Use Status: Former Tobacco user Tobacco use type: Cigarette service: No Current occupational 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 Review of Systems Const All systems reviewed & are unremarkable except as noted in HPI and below ENT Denies dizziness Card Details: pinching pains in chest, brief heart palpitations Denies chest pain, Denies chest pain at rest, Denies chest pain with activity, Reports rapid heart rate, Denies pedal edema, Denies edema, Denies leg edema, Denies lightheadedness, Denies palpitations, Denies dyspnea, Denies dyspnea on exertion and Denies orthopnea Resp Denies cough, Denies dyspnea and Denies dyspnea on exertion GI Denies hematochezia and Denies change in stool character Musc Denies abnormal gait, Denies limited range of motion, Denies muscle cramps, Denies muscle weakness, Denies numbness, Denies radiating pain into limb, Denies stiffness and Denies tingling Neuro Denies abnormal gait, Denies dizziness, Denies numbness and Denies tingling Endo Denies palpitations Physical Exam Vital Signs: Last Vital Signs Pulse 54 10/23/24 09:59 BP 134/62 10/23/24 09:59 BMI result Body Mass Index 33.7 Const General: cooperative, healthy appearing, comfortable and no acute distress Orientation/consciousness: patient oriented x3 Neck Neck: Yes normal visual inspection and Yes no JVD Resp Effort & Inspection: normal respiratory effort Auscultation: clear to auscultation bilaterally, no crackles, no rales, no rhonchi and no wheezes Cardio Rate: regular rate Rhythm: regular rhythm Heart sounds: S1 normal heart sound present, S2 normal heart sound present, no gallops, no murmurs and no rubs Neuro General: patient oriented x3 Extrem General: Yes normal to inspection, No no pedal edema and No calf tenderness Psych Appearance: grossly normal Mental Status: mental status grossly normal Speech and movement: Normal speech and movement present Assessment & Plan Assessment & Plan (1) Hypertension: Code(s): I10 - Essential (primary) hypertension Category: Medical Plan: [place] blood pressure goal less than 130/80. Blood pressure near goal at present. Continue hydrochlorothiazide, amlodipine, carvedilol. Labs done 10/06/2024 show potassium 4.0, creatinine 0.78. No med changes made at this time (2) Palpitations: Code(s): R00.2 - Palpitations Category: Medical Plan: Reports of intermittent brief heart palpitations. Recent echocardiogram shows normal EF. Will check Holter monitor to assess for any arrhythmia. She may be feeling extrasystoles or brief atrial tach. Reviewed reduction in caffeinated beverages, good hydration and getting adequate rest. (3) CVA (cerebral vascular accident): Code(s): I63.9 - Cerebral infarction, unspecified Category: Medical Plan: 03/2020 developed severe headache, subarachnoid hemorrhage related to aneurysm, residual CVA with right-sided weakness. Clinically doing well and ambulates without assistance. Plan Time spent on chart review, documentation, interview, assessment Orders: Orders ECG 3 day holter monitor Today R00.2 - Palpitations Coding Level of Care Code Est Pt Level 4 (01079) Complex EM visit Add On G2211 Diagnoses Hypertension I10 Palpitations R00.2 CVA (cerebral vascular accident) I63.9 Time Spent (min) 28
== END 2024-10-23 10:27 | disposition home or self-care (01) ==
LOC: HO.HCS 09:03
PROVIDERS: PCP Internal Medicine; Visit Provider Nurse Practitioner Family
DX: I10 Essential (primary) hypertension (principal); R00.2 Palpitations; I63.9 Cerebral infarction, unspecified
CPT/HCPCS: 99214; G2211

== ENCOUNTER → 2024-10-23 09:02 | Outpatient (BNVA) | payer OTHER, SELFPAY | PROVIDERS: PCP Internal Medicine; Visit Provider Nurse Practitioner Family | DX: I10 Essential (primary) hypertension (principal); I73.9 Peripheral vascular disease, unspecified; R00.2 Palpitations; I69.351 Hemiplegia and hemiparesis following cerebral infarction affecting right dominant side; Z87.891 Personal history of nicotine dependence | CPT/HCPCS: 99212 ==

== ENCOUNTER → 2024-11-03 08:23 | Outpatient (REF) | payer OTHER, SELFPAY ==
--- OUTSIDE RECORDS SUMMARY | 2024-11-03 08:38 | XMS_ITS | Encounter Summary ---
Author Organization [employer] Address [address] 7t [place] [address] Care Team Providers Care Wet Plant Operator Name Role Phone Maya Brannon MD Primary Care Provide r Encounter Details Date Type Department Care Team ([facility] st Contact Info) Description 05/15/2023 Abstract [facility] ADULT DENTAL [address] [place] [address] Salma Hayden, DDS [address] [place] [address] Social History Tobacco Use Types Packs/Day Years [...] Description 02/12/2025 8:00 AM EDT Office Visit [facility] ADULT DENTAL [address] [place] [address] Angus, Marina [address] [place] [address] documented as of this encounter Visit Diagnoses Not on filedocumented in this encounter Additional Health Concerns Assessment Noted Time PHQ-9 Depression Total Score: 0 04/24/20 23 9:34 AM EDT documented as of this encounter Care Teams Wet Plant Operator Relationship Specialty Start Date End Date Maya Brannon MD [address] [place] [address] PCP - General Family Medicine 03/12/18 documented as of this encounter
--- OUTSIDE RECORDS SUMMARY | 2024-11-03 08:38 | XMS_ITS | Encounter Summary ---
Author Organization [employer] Address [address] [facility] [address] 7t [place] [address] Care Team Providers Care Digital Designer Name Role Phone Maya Brannon MD Primary Care Provide r Encounter Details Date Type Department Care Team ([facility] Contact Info) Description 04/10/2023 Abstract [facility] MEDICINE [address] [place] [address] Maya Brannon MD [address] [place] [address] Social History Tobacco Use Types Packs/Day Years [...] Description 02/12/2025 8:00 AM EDT Office Visit [facility] ADULT DENTAL [address] [place] [address] Angus Marina [address] [place] [address] documented as of this encounter Visit Diagnoses Not on filedocumented in this encounter Care Teams Digital Designer Relationship Specialty Start Date End Date Maya Brannon MD [address] [place] [address] PCP - General Family Medicine 03/12/18 documented as of this encounter
--- OUTSIDE RECORDS SUMMARY | 2024-11-03 08:38 | XMS_ITS | Encounter Summary ---
Author Organization [employer] Address [address] [facility] [address] [place] [address] Care Team Providers Care Seed Corn Manager Production Name Role Phone Maya Brannon MD Primary Care Provide r Encounter Details Date Type Department Care Team ([facility] st Contact Info) Description 05/15/2023 Abstract [facility] ADULT DENTAL [address] [place] [address] Salma Hayden, DDS [address] [place] [address] Social History Tobacco Use Types Packs/Day Years [...] your housing situation today? I have sabrina engladn 04/24/[address] you li [...] [facility] ADULT DENTAL [address] [place] [address] Angus, Marina [address] [place] [address] documented as of this encounter Visit Diagnoses Not on filedocumented in this encounter Additional Health Concerns Assessment Noted Time PHQ-9 Depression Total Score: 0 04/24/20 23 9:34 AM EDT documented as of this encounter Care Teams Seed Corn Manager Production Relationship Specialty Start Date End Date Maya Brannon MD [address] [place] [address] PCP - General Family Medicine 03/12/18 documented as of this encounter
--- OUTSIDE RECORDS SUMMARY | 2024-11-03 08:38 | XMS_ITS | Encounter Summary ---
Author Organization [employer] Address [address] [facility] 7t [place] [address] Care Team Providers Care Food Service Tray Attendant Name Role Phone Maya Brannon MD Primary Care Provide r Reason for Visit * Reason Comments Med Refill Encounter Details Date Type Department Care Team ([facility] Contact Info) Description 03/31/2023 Refill [facility] CHC MED & PEDS [address] [place], [place] [phone] Yoli Lockwood FNP [address] [place] [address] Dept [place] [address] RUQ pain Social History Tobacco Use Types [...] Upcoming Encounters Date Type Department Care Team ([facility] Contact Info) Description 02/12/2025 8:00 AM EDT Office Visit [facility] ADULT DENTAL [address] [place], [place] [phone] Angus, Marina [address] [place], [place] [phone] documented as of this encounter Visit Diagnoses Diagnosis RUQ pain Abdominal pain, right upper quadrant documented in this encounter Care Teams Food Service Tray Attendant Relationship Specialty Start Date End Date Maya Brannon MD [address] [place] [address] PCP - General Family Medicine 03/12/18 documented as of this encounter
--- OUTSIDE RECORDS SUMMARY | 2024-11-03 08:39 | XMS_ITS | Encounter Summary ---
Author Organization [employer] Address [address] [facility] [address] [facility] [address] 7t [place] [address] Care Team Providers Care Fine Wire Drawer Name Role Phone Maya Brannon MD Primary Care Provide r Encounter Details Date Type Department Care Team (Late Contact Info) Description 07/04/2022 Orders Only [facility] CHC MED & PEDS [address] [place], [place] [phone] Karena Bates LPN Social History Tobacco Use [...] [facility] [address] [place] [address] Angus, Marina [address] [place] [address] documented as of this encounter Visit Diagnoses Not on filedocumented in this encounter Care Teams Fine Wire Drawer Relationship Specialty Start Date End Date Maya Brannon MD [address] [place] [address] PCP - General Family Medicine 03/12/18 documented as of this encounter
--- OUTSIDE RECORDS SUMMARY | 2024-11-03 08:39 | XMS_ITS | Encounter Summary ---
Author Organization [email or web address] Address [address]t [place] [address] Care Team Providers Care Glass Mould Cleaner Name Role Phone Maya Brannon MD Primary Care Provide r Reason for Visit * Reason Comments Med Refill Encounter Details Date Type Department Care Team ([facility] Contact Info) Description 01/30/2023 Refill [facility] DIABETES/NUTRITION [address] [place] [address] Maya Brannon MD [address] [place] [address] Social History Tobacco Use Types Packs/Day Years [...] Encounters Date Type Department Care Team ([facility] Contact Info) Description 02/12/2025 8:00 AM EDT Office Visit [facility] ADULT DENTAL [address] [place] [address] Marina Greco [address] [place] [address] documented as of this encounter Visit Diagnoses Not on filedocumented in this encounter Care Teams Glass Mould Cleaner Relationship Specialty Start Date End Date Maya Brannon MD [address] [place] [address] PCP - General Family Medicine 03/12/18 documented as of this encounter
--- OUTSIDE RECORDS SUMMARY | 2024-11-03 08:39 | XMS_ITS | Encounter Summary ---
Author Organization [employer] Address [address] [facility] [facility] [address] [place] [address] Care Team Providers Care Marking Stitcher Name Role Phone Maya Brannon MD Primary Care Provide r Encounter Details Date Type Department Care Team ([facility] Contact Info) Description 11/02/2022 Abstract [facility] ADULT DENTAL [address] [place] [address] Salma Hayden DDS [address] [place] [address] Social History Tobacco Use Types Packs/Day Years [...] Upcoming Encounters Date Type Department Care Team ([facility] Contact Info) Description 02/12/2025 8:00 AM EDT Office Visit [facility] ADULT DENTAL [address] [place] [address] Marina Greco [address] [place] [address] documented as of this encounter Visit Diagnoses Not on filedocumented in this encounter Care Teams Marking Stitcher Relationship Specialty Start Date End Date Maya Brannon MD [address] [place] [address] PCP - General Family Medicine 03/12/18 documented as of this encounter
--- OUTSIDE RECORDS SUMMARY | 2024-11-03 08:39 | XMS_ITS | Clinical Summary ---
Author Organization [employer] Address [address] [place] [address] Care Team Providers Care Manager Fraud Name Role Phone Maya Brannon MD Primary Care Provide r Allergies Active Allergy Reactions Criticality Noted Date Comments Penicillins Rash Low 06/28/2016 Medications albuterol (2.5 MG/3ML) 0.083% nebulizer solution inhale 3 milliliter by nebulization route 3 times every day as needed 1 Active pregabalin (Lyrica) 300 MG capsule Take 1 capsule by mouth every 12 (twelve) hours. Active loratadine (Claritin) 10 MG tabletIndication s:Rash Take 1 tablet as needed by mouth once daily 90 tablet 3 Active azithromycin (Zithromax Z-Anurag) 250 MG tablet Take 2 tabs day 1 and then 1 tab daily to finish 6 tablet 3 Active SUMAtriptan (Imitrex) 50 MG tablet TAKE 1 TABLET BY MOUTH NEEDED FOR MIGRAINE HEADACHE, DO NOT EXCEED 4 DOSES PER 24 HOURS 3 Active Vitamins-Lipotro pics (Complex Z-209-Scuglubg) tablet controlled-relea se TAKE 1 TABLET BY MOUTH EVERY DAY 3 Active Vitron-C 65-125 MG tablet TAKE 1 TABLET BY MOUTH AT BEDTIME 3 Active fluticasone (Flovent HFA) 110 MCG/ACT inhalerIndicatio ns:RSV bronchitis INHALE 2 PUFFS BY MOUTH TWICE DAILY. USE WITH SPACER. RINSE MOUTH AFTER USING. 12 g 6 3 Active Blood Pressure Monitor kitIndications:E ssential hypertension Use as directed 3x/week 1 kit 3 Active Dextromethorphan -guaiFENesin (Mucinex DM) 30-600 MG tablet sustained-releas e 12 hour Take 1 tablet by mouth 2 times daily. 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 180 tablet 3 4 Active triamcinolone (Kenalog) 0.1 % creamIndications :Rash Apply topically if needed in the morning and at bedtime for rash. 80 g 4 Active hydroCHLOROthiaz michelle (HYDRODiuril) 25 MG tablet TAKE 1 TABLET BY MOUTH EVERY MORNING 90 tablet 3 4 Active amLODIPine (Norvasc) 10 MG tabletIndication s:Elevated blood pressure reading TAKE 1 TABLET BY MOUTH EVERY MORNING 90 tablet 1 4 Active Aspirin Low Dose 81 MG EC tablet TAKE 1 TABLET BY MOUTH EVERY MORNING 90 tablet 1 4 Active atorvastatin (Lipitor) 40 MG tabletIndication s:RUQ pain TAKE 1 TABLET BY MOUTH EVERY MORNING 90 tablet 1 4 Active carvedilol (Coreg) 6.25 MG tabletIndication s:Primary hypertension TAKE 1 TABLET BY MOUTH TWICE DAILY IN THE MORNING AND IN THE EVENING WITH FOOD 180 tablet 1 4 Active D3-1000 25 MCG (1000 UT) capsuleIndicatio ns:Depression, unspecified depression type TAKE 1 CAPSULE BY MOUTH EVERY MORNING 90 capsule 1 4 Active permethrin (Elimite) 5 % creamIndications :Scabies apply to skin from hairline to toes and wash off 8-10 hours later 120 g 1 4 Active glucose blood (FREESTYLE LITE) test stripIndications :Type 2 diabetes mellitus with hyperglycemia, without long-term current use of insulin ([facility]) TEST BLOOD SUGAR TWICE DAILY 50 strip 11 4 Active albuterol (Ventolin HFA) 108 (90 Base) MCG/ACT inhalerIndicatio ns:Bronchitis Inhale 2 puffs every 6 (six) hours if needed for wheezing. 18 g 2 4 Active azithromycin (Zithromax) 250 MG tabletIndication s:Bronchitis Take 2 tabs PO daily x 1d then 1 tab PO daily on D2 to D5 6 tablet 4 Active albuterol (2.5 MG/3ML) 0.083% nebulizer solutionIndicati ons:Moderate persistent asthma, unspecified whether complicated Take 3 mL (2.5 mg) by nebulization every 4 (four) hours if needed for wheezing. 75 mL 3 4 025 Active Asmanex HFA 200 MCG/ACT aerosolIndicatio ns:Moderate persistent asthma, unspecified whether complicated INHALE 1 PUFF BY MOUTH TWICE DAILY 13 g 2 4 Active montelukast (Singulair) 10 MG tabletIndication s:Moderate persistent asthma without complication TAKE 1 TABLET BY MOUTH EVERY EVENING 90 tablet 1 4 Active DULoxetine (Cymbalta) [address] capsuleIndicatio ns:Depression, unspecified depression type TAKE 1 CAPSULE BY MOUTH EVERY MORNING 30 capsule 3 5 Active meloxicam (Mobic) 15 MG tablet TAKE 1 TABLET BY MOUTH EVERY MORNING 30 tablet 3 5 Active esomeprazole (NexIUM) [address] capsuleIndicatio ns:Gastroesophag eal reflux disease, unspecified whether esophagitis present TAKE 1 CAPSULE BY MOUTH EVERY MORNING BEFORE BREAKFAST 28 capsule 3 5 Active Active Problems Problem Noted Date Diagnosed Date [...] Significantly improved with Imitrex, no residual deficits Civil Designer to take Tylenol ASA Take Imitrex if [...] Assessment & Plan (06/12/2023 12:56 PM EST): Civil Designer to avoid picking on the ear with [...] and using OTC meds Repeated is 150/85, after school counselor to check BP at home No [...] Encounters Date Type Department Care Team Description 11/02/2024 Refill [facility] MED & PEDS [address] [place], [place] [phone] Maya Brannon MD Type 2 diabetes mellitus with hyperglycemia, unspecified whether [facility] insulin use ([facility]) 10/28/2024 Telephone [facility] MEDICINE [address] [place], [place] [phone] Maya Brannon MD Results 10/28/2024 Orders Only [facility] MEDICINE [address] [place], [place] [phone] Maya Brannon MD Primary osteoarthritis of left shoulder (Primary Dx) 10/08/2024 2:00 PM EDT Office Visit [facility] OPTOMETRY [address] [place], [place] [phone] Mona Cantrell, OD Type 2 diabetes mellitus without ophthalmic manifestations (CMS/HCC) (Primary Dx); Dry eyes; Cortical age-related cataract of both eyes; Hyperopia of both eyes with astigmatism and presbyopia 10/08/2024 Travel 10/05/2024 Telephone [facility] MED & PEDS [address] [place] [address] Maya Brannon MD DME Incontinence Recertification 10/01/2024 1:15 PM EDT Office Visit [facility] MEDICINE [address] [place] [phone] Maya Brannon MD Essential hypertension (Primary Dx); Type 2 diabetes mellitus with hyperglycemia, without long-term current use of insulin ([facility]); Encounter for preventive care; Class 2 severe obesity due to excess calories with serious comorbidity and body mass index (BMI) of 36.0 to 36.9 in adult ([facility]); Dietary counseling; Exercise counseling; Acute pain of left shoulder 10/01/2024 Travel 10/01/2024 Refill [facility] MEDICINE [address] [place] [phone] Maya Brannon MD Gastroesophageal reflux disease, unspecified whether esophagitis present 09/22/2024 Patient Outreach [facility] MEDICINE [address] [place] [phone] Maya Brannon MD Pre-visit Planning (SDOH screening completed on 08/18/2024) 09/12/2024 Refill [facility] MED & PEDS [address] [place] [address] Maya Brannon MD Depression, unspecified depression type 08/20/2024 Refill [facility] MEDICINE [address] [place] [address] Maya Brannon MD 08/18/2024 Patient Outreach [facility] MEDICINE [address] [place] [phone] Maya Brannon MD Pre-visit Planning (SDOH screening [...] 02/12/2025 8:00 AM EDT Office Visit [facility] ADULT DENTAL [address] [place] [address] Joshua Grecoaris [address] [place] [address] Health Maintenance Due Date Last Done Comments [...] EDT Narrative 10/07/2024 10:07 AM EDT ? [facility] ?[address] ?[place] [address] ?XRay Report ? Signed ? Patient: Ewa Kuhn ?MR#: [id number] ?? 59 ? : 1960 ?Acct:[id number] ? Age/Sex: 64 / F ?ADM Date: 10/06/24 ? Loc: HO.XRAY ? Attending Dr: Maya Hernandez MD ? Ordering Physician: Maya Brannon MD ?? Date of Service: 10/06/24 ?? Procedure(s): XR shoulder LT min 2V ?? Accession Number(s): [id number] ? cc: Maya Brannon MD ? CLINICAL [...] DD/ 1006 ? TD/TT: 10/07/24 1006 ? Service Loss Control Consultant: ? Procedure Note Donotuseinterpreter, Image - 10/07/[address] [address] XRay Report Signed Patient: Howard Kuhn#: [id number] 59 : 2Acct:[id number] Age/Sex: 64 / FADM Date: 10/06/24 Loc: HO.XRAY Attending Dr: Maya Hernandez MD Ordering Physician: Maya Brannon MD Date of Service: 10/06/24 Procedure(s): XR shoulder LT min 2V Accession Number(s): [id number] cc: Maya Brannon MD CLINICAL HISTORY: pain Exam: AP, Grashey, and scapular Y-views of the left shoulder. Comparison: None. Findings: No fracture, dislocation, or separation. 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 Impression: Moderate DJD. This document has been electronically signed by: Chris Aikns MD on 10/07/2024 10:06:25 Dictated By: Chris Akins MD Signed By: <Electronically signed by Chris Akins MD in OV> 10/07/24 1007 DD/ 1006 TD/TT: 10/07/24 1006 Service Loss Control Consultant: us Maya Hernandez MD IMG XR PROCEDURES Fin al Result * Lipid Panel, Standard (10/06/2024 10:44 AM EDT) Triglycerides 45 <150 mg/dL [facility] Comment:Desirable Triglyceri de: less than 150 mg/dLBorderline High Triglyceride 150-199 mg/dLHigh Triglyceride: 200-499 mg/dLVery High Triglyceride: greater than or equal to 5OO mg/dL Cholesterol 117 <200 mg/dL [facility] Comment:Desirable Cholestero l: less than 200 mg/dLBorderline High Cholesterol: 200-239 mg/dLHigh Cholesterol: greater than 239 mg/dL LDL Cholesterol Calculated 59 <100 mg/dL [facility] Comment:Desirable LDL: less than 100 mg/dLNear Optimal/Above Optimal LDL: 110- 129 mg/dLBorderline High LDL: 130-159 mg/dLHigh LDL: 160-189 mg/dLVery High LDL: greater than or equal to 190 mg/dL HDL Cholesterol 49 >40 mg/dL [facility] Comment:Desirable HDL: great er than 40 mg/dL Note: This HDL assay may give artificially low results in patients with liver disease. Blood Venous blood specimen / Unknown 10/06/2024 10:44 AM EDT 10/06/2024 10:44 AM EDT Maya Hernandez MD LAB BLOOD ORDERABLES Final Result [facility] [address] [place] [phone] * (ABNORMAL) Comprehensive Metabolic Panel (10/06/2024 10:44 AM EDT) Sodium 141 135 - 145 mmol/L [facility] Potassium 4.0 3.3 - 5.1 mmol/L [facility] Chloride 105 96 - 108 mmol/L [facility] Carbon Dioxide 31(H) 22 - 29 mmol/L [facility] Anion Gap 9(L) 12 - 20 [facility] Urea Nitrogen (BUN) 21(H) 9 - 16 mg/dL [facility] Creatinine, Serum 0.78 0.5 - 1.4 mg/dL [facility] Estimated Glomerular Filt Rate >60 [facility] Comment:Chronic Kidney Disea se: Estimated GFR < 60 mL/min/1.33d7Tiusjb Kidney Disease: Estimated GFR < 15 mL/min/1.73m2 Glucose 151(H) 60 - 115 mg/dL [facility] Calcium 9.3 8.4 - 10.2 mg/dL [facility] Bilirubin, Total 0.5 0.0 - 1.0 mg/dL [facility] Aspartate Amino Transferase 25 5 - 31 U/L [facility] Alanine Aminotransferase 20 0 - 31 U/L [facility] Total Protein 7.2 6.5 - 8.0 g/dL [facility] Albumin Level 4.2 3.5 - 5.0 g/dL [facility] Alkaline Phosphatase 116 39 - 117 U/L [facility] Blood Venous blood specimen / Unknown 10/06/2024 10:44 AM EDT 10/06/2024 10:44 AM EDT Maya Hernandez MD LAB BLOOD ORDERABLES Final Result Performing Organization Address [facility]/ZIP Co de Phone Number [facility] [address] [place] [phone] * Albumin, Random Urine W/Creatinine (10/06/2024 10:40 AM EDT) Creatinine, Urine 76.97 mg/dL [facility] Microalbumin Urine <5.0 mg/L [facility] Microalbum Creatinine Ratio Ur TNP <30 ug/mg cr [facility] Comment:Unable to calculate albumin/creatinine ratio due to lowmicroalbumin or creatinine result. Urine (Urine, Random) 10/06/2024 10:40 AM EDT 10/06/2024 11:29 AM EDT Maya Hernandez MD LAB URINE ORDERABLES Final Result Performing Organization Address City/[facility]/ZIP Co de Phone Number [facility] [address] [place] [phone] * (ABNORMAL) POCT HGB A1C (10/01/2024 [...] Media Lot # [id number] Lot# Expiration Date , Blood Capillary blood specimen / Unknown 10/01/2024 1:25 PM EDT us Maya Hernandez MD POINT OF CARE TEST EN TER/EDIT ORDERABLES Final Result * BI Mammogram Screening Tomosynthesis Bilateral (11/19/2023 11:05 AM EDT) Anatomical Region Laterality Modality Breast Bilateral Mammography 11/19/2023 11:0 5 AM EDT Narrative 12/20/2023 7:12 AM EDT ? [facility] ? [address] ?[place] [address] ? Mammography Report ? Signed ? Patient: Devang Kuhnfina ?MR#: [id number] ?? 59 ? : 1960 ?Acct:[id number] ? Age/Sex: 63 / F ?ADM Date: // ? Loc: HO.MAMMO ? Attending Dr: Maya Hernandez MD ? Ordering Physician: Maya Brannon MD ?Results: ?? 1Negative ? Date of Service: //24 ?Follow Up: 1 Year From Orig ?? inal Mammogram ? Procedure(s): MM tomosynthesis screening BI ?? Accession Number(s): [id number] ? cc: Maya Brannon MD ? EXAMINATION: [...] 0708 ? DD/ 1105 ? TD/TT: ? Service Loss Control Consultant: ? Procedure Note Aracelis, Sophia - 12/20/2023 [place] [facility] [address] [place] [address] Mammography Report Signed Patient: BamDevangChilo#: [id number] 59 : 2Acct:[id number] Age/Sex: 63 / FADM Date: 11/19/23 Loc: HO.MAMMO Attending Dr: Maya Hernandez MD Ordering Physician: Maya Brannon MDResults: 1Negative Date of Service: 11/19/23Follow Up: 1 Year From Orig ina Mammogram Procedure(s): MM tomosynthesis screening BI Accession Number(s): [id number] cc: Maya Brannon MD EXAMINATION: MM SCREENING [...] in OV> 12/20/23 0708 DD/ 1105 TD/TT: Service Loss Control Consultant: us Maya Heranndez MD IMG BI PROCEDURES Fin al Result * Image-Guided Pap with Age-Based Screening??with CT/NG,??Trichomonas (07/02/2023 10:05 AM EST) Trichomonas (NAAT) NOT DETECTED NOT DETECTED [facility] Comment:The analytical perfo rmance characteristics of thisassay have been determined by [employer]. Themodifications have not been cleared or approved bythe FDA. This assay has been validated pursuant to theCLIA regulations and is used for clinical purposes.For additional information, please refer tohttp://FastFig.Bocada/faq/Trichomonastma(This link is being provided for information/educational purposes only.)THIS TEST WAS PERFORMED AT:[facility] [address] [phone] CASTRO MD CTNG Ref Lab NOT DETECTED NOT DETECTED [facility] NG Ref Lab NOT DETECTED NOT DETECTED [facility] 07/02/2023 10:0 5 AM EST 07/03/2023 12:15 PM EST Maya Hernandez MD LAB CYTOLOGY ORDERABL ES Final Result [facility] [address] [place] [phone] * HPV mRNA E6/E7 w/Reflex to HPV Genotypes 16, 18/45 (07/02/2023 10:05 AM EST) HPV nRNA E6/E7 Not Detected Not Detected [facility] Comment:Methodology: Transcr iption-Mediated AmplificationThis assay detects E6/E7 viral messenger RNA (mRNA) from 14high-risk HPV types (16,18,31,33,35,39,45,51,52,56,58,59,66,68).Cervical sources are required for HPV testing.If a vaginal source from a patient who has had atotal hysterectomy with removal of cervix wassubmitted, please contact the testing laboratoryfor alternative testing options.For additional information, please refer tohttp://FastFig.Bocada/faq/LPD940d9(This link if provided for information/educational purposes only.)THIS TEST WAS PERFORMED AT:[facility] [address] [phone] CASTRO MD HPV mRNA E6/E7 TNP [facility] HPV 16 RNA TNP [facility] HPV 18/45 RNA TNP [facility] 07/02/2023 10:0 5 AM EST 07/03/2023 11:15 AM EST Maya Hernandez MD LAB CYTOLOGY ORDERABL ES Final Result [facility] [address] [place] [phone] * Cologuard?? colon cancer screening (05/02/2023 6:30 AM EDT) Cologuard Result Negative Negative 05/14/20 10:05 PM EST [facility] (CLIA #:[id number]) Comment: NEGATIVE TEST RESULT. A negative Cologuard [...] cancer. ??Following a negative Cologuard result, the [place] [employer] Society and U.S. Multi-Society Task Force screening guidelines recommend a Cologuard re-screening interval of 3 years. References: [place] [employer] Guideline for Colorectal Cancer Screening: https://www.cancer.org/cancer/bfjbg-vjiiyq-pjjzlp/accfhrjby-ideuwsfdz-nwcpgck/ac s-rec ommendations.html.; Stanley DK, Abhinav CR, Christiane FatimaK, Colorectal Cancer Screening: Recommendations for Physicians and Patients from the U.S. Multi-Society Task Force on Colorectal Cancer Screening , Am J Gastroenterology 2017; 112:1174-6762. TEST DESCRIPTION: Composite algorithmic analysis of stool [...] Reed. et al, N Engl J Med 2014;370(14):7917-4277.) Cologuard may produce a false negative or false positive result (no colorectal cancer or precancerous polyp present at colonoscopy follow up). A negative Cologuard test result does not guarantee the absence of CRC or advanced adenoma (pre-cancer). The current Cologuard screening interval is every 3 years. ([place] [employer] Society and U.S. Multi-Society Task Force). Cologuard performance data in a 10,000 patient pivotal study using colonoscopy as the reference method can be accessed at the following location: www.Bufys.com/results. Additional description of the Cologuard test process, warnings and precautions can be found at www.cologuard.com. Stool specimen (specimen) 05/02/2023 6:30 AM EDT 05/04/2023 7:17 PM EDT us Maya Hernandez MD LAB MOLECULAR DIAGNOS TICS ORDERABLES Final Result [facility] (CLIA #:[id number]) [address] [place] [address], [place] [phone] * FIT DNA/Cologuard Cancer Screening (05/02/2023) Cologuard Cancer Screen Negative [facility] (CLIA #:[id number]) Stool us Maya Hernandez MD HEALTH MAINTENANCE Fi nal Result Performing Organization Address City/[facility]/ZIP Co de Phone Number [facility] (CLIA #:[id number]) [address] [place] [address], [place] [phone] from Last 3 Months or Most Recently Relevant to Health Maintenance Insurance [employer] ONE CARE < 65 [place] [id number] CCA ONE CARE < 65 DENTAL - [facility] Care Teams Manager Fraud Relationship Specialty Start Date End Date Maya Brannon MD [address] [place] [phone] PCP - General Family Medicine 03/12/18
--- OUTSIDE RECORDS SUMMARY | 2024-11-03 08:39 | XMS_ITS | Encounter Summary ---
Author Organization [employer] Address [address] [place] [address] Care Team Providers Care Assembler Crimper Name Role Phone Maya Brannon MD Primary Care Provide r Encounter Details Date Type Department Care Team ([facility] Contact Info) Description 10/03/[address] [facility] ADULT DENTAL [address] [place] [address] Salma Hayden DDS [address] [place] [address] Social History Tobacco Use Types Packs/Day Years [...] Upcoming Encounters Date Type Department Care Team ([facility] Contact Info) Description 02/12/2025 8:00 AM EDT Office Visit [facility] ADULT DENTAL [address] [place] [address] Marina Greco [address] [place] [address] documented as of this encounter Visit Diagnoses Not on filedocumented in this encounter Care Teams Assembler Crimper Relationship Specialty Start Date End Date Maya Brannon MD [address] [place] [address] PCP - General Family Medicine 03/12/18 documented as of this encounter
--- OUTSIDE RECORDS SUMMARY | 2024-11-03 08:39 | XMS_ITS | Encounter Summary ---
Author Organization [employer] Address [address] [place] [address] Care Team Providers Care Billing And Accounting Staff Assistant Name Role Phone Maya Brannon MD Primary Care Provide r Reason for Visit * Reason Comments Med Refill Encounter Details Date Type Department Care Team ([facility] Contact Info) Description 11/02/2024 Refill [facility] MED & PEDS [address] [place], [place] [phone] Maya Brannon MD [address] [place] [address] Type 2 diabetes mellitus with hyperglycemia, unspecified whether technician terminal and repeater insulin use ([facility]) Social History Tobacco Use Types Packs/Day Years [...] Description 02/12/2025 8:00 AM EDT Office Visit [facility] ADULT DENTAL [address] [place] [address] Angus, Marina [address] [place] [address] documented as of this encounter Visit Diagnoses Diagnosis Type 2 diabetes mellitus with hyperglycemia, unspecified whether technician terminal and repeater insulin use ([facility]) documented in this encounter Additional Health Concerns Assessment Noted Time PHQ-9 Depression Total Score: 0 04/24/20 23 9:34 AM EDT documented as of this encounter Care Teams Billing And Accounting Staff Assistant Relationship Specialty Start Date End Date Maya Brannon MD [address] [place] [address] PCP - General Family Medicine 03/12/18 documented as of this encounter
--- OUTSIDE RECORDS SUMMARY | 2024-11-03 08:39 | XMS_ITS | Encounter Summary ---
Author Organization [employer] Address [address] [place] [address] Care Team Providers Care Ballistics Expert Forensic Name Role Phone Maya Brannon MD Primary Care Provide r Encounter Details Date Type Department Care Team (Latest Contact Info) Description 07/08/2019 Abstract [facility] CONVERSIONS Dental, Provider, DDS Social [...] 02/12/2025 8:00 AM EDT Office Visit [facility] ADULT DENTAL [address] [place] [address] Angus, Marina [address] [place] [address] documented as of this encounter Visit Diagnoses Not on filedocumented in this encounter Care Teams Ballistics Expert Forensic Relationship Specialty Start Date End Date Maya Brannon MD [address] [place] [address] PCP - General Family Medicine 03/12/18 documented as of this encounter
--- OUTSIDE RECORDS SUMMARY | 2024-11-03 08:39 | XMS_ITS | Encounter Summary ---
Author Organization [employer] Address [address] [place] [address] Care Team Providers Care Assessment Technician Name Role Phone Maya Brannon MD Primary Care Provide r Encounter Details Date Type Department Care Team ([facility] Contact Info) Description 12/11/2022 Orders Only [facility] CHC MED & PEDS [address] [place], [place] [phone] Karena Bates LPN Social History Tobacco Use [...] 02/12/2025 8:00 AM EDT Office Visit [facility] ADULT DENTAL [address] [place] [address] Angus, Marina [address] [place] [address] documented as of this encounter Visit Diagnoses Not on filedocumented in this encounter Care Teams Assessment Technician Relationship Specialty Start Date End Date Maya Brannon MD 230 [place] [address] PCP - General Family Medicine 03/12/18 documented as of this encounter
--- OUTSIDE RECORDS SUMMARY | 2024-11-03 08:39 | XMS_ITS | Encounter Summary ---
Author Organization [employer] Address [address] 7t [place] [address] Care Team Providers Care Cosmetic Sales Advisor Name Role Phone Maya Brannon MD Primary Care Provide r Encounter Details Date Type Department Care Team ([facility] Contact Info) Description 11/27/2022 Abstract [facility] ADULT DENTAL [address] [place] [address] Salma Hayden DDS [address] [place] [address] Social History Tobacco Use Types Packs/Day Years [...] Upcoming Encounters Date Type Department Care Team ([facility] Contact Info) Description 02/12/2025 8:00 AM EDT Office Visit [facility] ADULT DENTAL [address] [place] [address] Marina Greco [address] [place] [address] documented as of this encounter Visit Diagnoses Not on filedocumented in this encounter Care Teams Cosmetic Sales Advisor Relationship Specialty Start Date End Date Maya Brannon MD [address] [place] [address] PCP - General Family Medicine 03/12/18 documented as of this encounter
--- OUTSIDE RECORDS SUMMARY | 2024-11-03 08:39 | XMS_ITS | Encounter Summary ---
Author Organization [employer] Address [address] [place] [address] Care Team Providers Care Bookkeeping Assistant Name Role Phone Maya Brannon MD Primary Care Provide r Encounter Details Date Type Department Care Team ([facility] Contact Info) Description 11/07/2022 Abstract [facility] ADULT DENTAL [address] [place] [address] Salma Hayden DDS [address] [place] [address] Social History Tobacco Use Types Packs/Day Years [...] Description 02/12/2025 8:00 AM EDT Office Visit [facility] ADULT DENTAL [address] [place] [address] Marina Greco [address] [place] [address] documented as of this encounter Visit Diagnoses Not on filedocumented in this encounter Care Teams Bookkeeping Assistant Relationship Specialty Start Date End Date Maya Brannon MD [address] [place] [address] PCP - General Family Medicine 03/12/18 documented as of this encounter
--- OUTSIDE RECORDS SUMMARY | 2024-11-03 08:39 | XMS_ITS | Encounter Summary ---
Author Organization [employer] Address [address] 7[address] [place] [address] Care Team Providers Care Tool Filer Hand Name Role Phone Maya Brannon MD Primary Care Provide r Encounter Details Date Type Department Care Team ([facility] st Contact Info) Description 06/11/2023 Abstract [facility] ADULT DENTAL [address] [place] [address] Salma Hayden, DDS [address] [place] [address] Social History Tobacco Use Types Packs/Day Years [...] Description 02/12/2025 8:00 AM EDT Office Visit [facility] ADULT DENTAL [address] [place] [address] Angus, Marina [address] [place] [address] documented as of this encounter Visit Diagnoses Not on filedocumented in this encounter Additional Health Concerns Assessment Noted Time PHQ-9 Depression Total Score: 0 04/24/20 23 9:34 AM EDT documented as of this encounter Care Teams Tool Filer Hand Relationship Specialty Start Date End Date Maya Brannon MD 230 [place] [address] PCP - General Family Medicine 03/12/18 documented as of this encounter
--- OUTSIDE RECORDS SUMMARY | 2024-11-03 08:39 | XMS_ITS | Encounter Summary ---
Author Organization [employer] Address [address] [place] [address] Care Team Providers Care Subway Operator Name Role Phone Maya Brannon MD Primary Care Provide r Encounter Details Date Type Department Care Team ([facility] Contact Info) Description 11/14/2022 Orders Only [facility] CHC MED & PEDS [address] [place], [place] [phone] Karena Bates LPN Social History Tobacco Use [...] Description 02/12/2025 8:00 AM EDT Office Visit [facility] ADULT DENTAL [address] [place], [place] [phone] Angus, Marina [address] [place] [address] documented as of this encounter Visit Diagnoses Not on filedocumented in this encounter Care Teams Subway Operator Relationship Specialty Start Date End Date Maya Brannon MD 230 [place] [address] PCP - General Family Medicine 03/12/18 documented as of this encounter
--- OUTSIDE RECORDS SUMMARY | 2024-11-03 08:39 | XMS_ITS | Encounter Summary ---
Author Organization [employer] Address [address] 7[address] [place] [address] Care Team Providers Care Devil Tender Name Role Phone Maya Brannon MD Primary Care Provide r Encounter Details Date Type Department Care Team ([facility] Contact Info) Description 01/30/2023 Orders Only [facility] CHC MED & PEDS [address] [place], [place] [phone] Karena Bates LPN Social History Tobacco Use [...] Description 02/12/2025 8:00 AM EDT Office Visit [facility] ADULT DENTAL [address] [place] [address] Angus, Marina [address] [place] [address] documented as of this encounter Visit Diagnoses Not on filedocumented in this encounter Care Teams Devil Tender Relationship Specialty Start Date End Date Maya Brannon MD 230 [place], [place] [phone] PCP - General Family Medicine 03/12/18 documented as of this encounter
--- OUTSIDE RECORDS SUMMARY | 2024-11-03 08:39 | XMS_ITS | Encounter Summary ---
Author Organization [employer] Address [address] [place] [address] Care Team Providers Care Sports Clerk Name Role Phone Maya Brannon MD [...] Description 02/12/2025 8:00 AM EDT Office Visit [facility] ADULT DENTAL [address] [place] [address] Angus, Marina [address] [place] [address] documented as of this encounter Visit Diagnoses Not on filedocumented in this encounter Care Teams Sports Clerk Relationship Specialty Start Date End Date Maya Brannon MD 230 [place] [address] PCP - General Family Medicine 03/12/18 documented as of this encounter
--- OUTSIDE RECORDS SUMMARY | 2024-11-03 08:39 | XMS_ITS | Encounter Summary ---
Author Organization [employer] Address [address] 7[address] [place] [address] Care Team Providers Care Hub Borer Name Role Phone Maya Brannon MD Primary Care Provide r Encounter Details Date Type Department Care Team ([facility] st Contact Info) Description 06/06/2023 Orders Only [facility] MEDICINE [address] [place] [address] Donato Redd, PharmD 230 [place] [address] Social History Tobacco Use Types Packs/Day Years [...] Visit [facility] ADULT DENTAL [address] [place] [address] Angus, Marina [address] [place] [address] documented as of this encounter Visit Diagnoses Not on filedocumented in this encounter Additional Health Concerns Assessment Noted Time PHQ-9 Depression Total Score: 0 04/24/20 23 9:34 AM EDT documented as of this encounter Care Teams Hub Borer Relationship Specialty Start Date End Date Maya Brannon MD 230 [place] [address] PCP - General Family Medicine 03/12/18 documented as of this encounter
--- OUTSIDE RECORDS SUMMARY | 2024-11-03 08:39 | XMS_ITS | Encounter Summary ---
Author Organization [employer] Address [address] [place] [address] Care Team Providers Care Ict Project Manager Name Role Phone Maya Brannon MD Primary Care Provide r Reason for Visit * Reason Onset Date Comments loose crown 12/03/2023 Encounter Details Date Type Department Care Team ([facility] st Contact Info) Description 12/03/2023 Telephone [facility] ADULT DENTAL [address] [place] [address] Salma Hayden, DDS [address] [place] [address] loose crown Social History Tobacco Use Types [...] Description 02/12/2025 8:00 AM EDT Office Visit [facility] ADULT DENTAL [address] [place] [address] Angus, Marina [address] [place] [address] documented as of this encounter Visit Diagnoses Not on filedocumented in this encounter Additional Health Concerns Assessment Noted Time PHQ-9 Depression Total Score: 0 04/24/20 23 9:34 AM EDT documented as of this encounter Care Teams Ict Project Manager Relationship Specialty Start Date End Date Maya Brannon MD 230 [place] [address] PCP - General Family Medicine 03/12/18 documented as of this encounter
== END ==
LOC: HO.CARD 08:23
PROVIDERS: PCP Internal Medicine; Visit Provider Nurse Practitioner Family
DX: R00.2 Palpitations (principal)
CPT/HCPCS: 93242

== ENCOUNTER → 2024-11-03 08:25 | Outpatient (BNV) | payer OTHER, SELFPAY | PROVIDERS: PCP Internal Medicine; Visit Provider Internal Medicine Cardiovascular Disease | DX: R00.2 Palpitations (principal) | CPT/HCPCS: 93244 ==

== ENCOUNTER 2025-02-12 08:58 | Outpatient (AMB) | payer OTHER, SELFPAY ==
--- NOTE | 2025-02-12 08:59 | A.OFFVIS_ITS ---
Vital Signs 02/12/25 09:03 Height 5 ft 6 in Weight 208 lb BMI 33.6 Handedness Right Intake Visit Reasons: New prob-LT shoulder OA Intake Note: Ewa is a 65 year old right hand dominant female who presents today for a evaluation of her right shoulder pain. Patient reports ongoing pain for about 6 months. She reports that she had a fall back in May. Patient mentions that her pain is on the lateral aspect of the shoulder and it radiates up to her neck. Patient wasn't able to lift her arm and do her daily activities. She mentions that her pain has gotten better but she feels her pain might be more in her neck. Patient reports taking Tylenol with mild relief. Impression: Moderate DJD. Evp Managing Director Services: Evp Managing Director Offered & Declined Accompanied by: QUICK TECHNICIAN Allergies Iodinated Contrast Media (IV CONTRAST) Allergy (Unknown, Verified 02/12/25 09:03) ITCHING nut - unspecified (NUT - UNSPECIFIED) Allergy (Unknown, Verified 02/12/25 09:03) THROAT SWELLING penicillin G Allergy (Unknown, Verified 02/12/25 09:03) hives Penicillins (PENICILLINS) Allergy (Unknown, Verified 02/12/25 09:03) HIVES gregorio Allergy (Verified 02/12/25 09:03) Anaphylaxis HPI HPI New prob-LT shoulder OA: Details: Ms. Kuhn is a 65-year-old right hand dominant female who presents today for a evaluation of right shoulder pain. Patient reports ongoing pain for about 6 mon ths. She reports that she had a fall back in May. She reports that her pain is on the side of the shoulder and it radiates to her back and up to her neck. Patient is unable to lift her arm and do her daily activities. She mentions that her pain has gotten slightly better but she feels her pain might be more in her neck. Patient reports taking Tylenol with mild relief. [facility] Medical History Murmur, cardiac Diabetes mellitus Hypertension Brain aneurysm Subarachnoid hemorrhage Mild persistent asthma Tobacco abuse PVD (peripheral vascular disease) Carpal tunnel syndrome, right Surgical History History of gastric bypass Status post coil embolization of cerebral aneurysm Hx of section H/O left breast biopsy Total knee replacement status History of cholecystectomy History of appendectomy Family History Father CVA (cerebral vascular accident) CVD (cardiovascular disease) Mother CVD (cardiovascular disease) Uterus cancer Heart attack Social History Household Members: Family Household Members Other:: 3 Housing: Apartment Do you presently have visiting nurse or other home services: Yes Unable to assess alcohol history related to: Unable to respond Alcohol intake: never Patient Tobacco Use Status: Former Tobacco user Tobacco use type: Cigarette service: No Current occupational 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 Forward flexion abduction to 90 degrees. External rotation to 30 degrees. Able to reach back pocket. NVI. Psych Appearance: grossly normal Mental Status: mental status grossly normal Attitude: cooperative Assessment & Plan Assessment & Plan (1) Primary osteoarthritis, left shoulder: Code(s): M19.012 - Primary osteoarthritis, left shoulder Category: Medical (2) Myofascial pain: Code(s): M79.18 - Myalgia, other site Category: Medical Plan Ms. Kuhn is a 65-year-old right hand dominant female who presents today for a evaluation of right shoulder pain. Patient reports ongoing pain for about 6 months. She reports that she had a fall back in May. She reports that her pain is on the side of the shoulder and it radiates to her back and up to her neck. Patient is unable to lift her arm and do her daily activities. She mentions that her pain has gotten slightly better but she feels her pain might be more in her neck. Patient reports taking Tylenol with mild relief. While the office today, I discussed the role of oral anti-inflammatories, cortisone injection and physical therapy. Patient would like to attempt a course of oral anti-inflammatories to see if this provides her with any relief. I will also placed an order for physical therapy if the patient is interested in attending. Should these combination of conservative treatment options not be helpful for the patient the next step would be a cortisone injection into the glenohumeral joint. Patient is satisfied with this plan. I have sent a prescription for Celebrex 200 mg to be taken p.o. b.i.d. for the next 30 days to the pharmacy. She will follow up with Orthopedics p.r.n., sooner if needed. X-rays of the left shoulder which were obtained on 10/06/2024 revealed arthritic changes. Medications: New celecoxib (Celebrex) Please instruct patient to discontinue the meloxicam and do not take with any other NSAIDs 200 mg PO BID 60 caps 0RF 30 days Coding Level of Care Code New Pt Level 3 (10320) Diagnoses Primary osteoarthritis, left shoulder M19.012 Myofascial pain M79.18
[2025-02-12 09:03] VITALS: BMI 33.6
--- OUTSIDE RECORDS SUMMARY | 2025-02-12 09:15 | XMS_ITS | Encounter Summary ---
Author Organization [employer] Address [address]t [place] [address] Care Team Providers Care Avionics System Engineer Name Role Phone Maya Brannon MD Primary Care Provide r Reason for Visit * Reason Comments Med Refill Encounter Details Date Type Department Care Team ([facility] Contact Info) Description 03/31/2023 Refill [facility] CHC MED & PEDS [address] [place], [place] [phone] Yoli Lockwood FNP RUQ pain Social History Tobacco Use Types [...] Upcoming Encounters Date Type Department Care Team ([facility] Contact Info) Description 02/19/2025 3:00 PM EDT Office Visit [facility] ADULT DENTAL [address] [place], [place] [phone] Angus Marina [address] [place] [address] documented as of this encounter Visit Diagnoses Diagnosis RUQ pain Abdominal pain, right upper quadrant documented in this encounter Care Teams Avionics System Engineer Relationship Specialty Start Date End Date Maya Brannon MD [address] [place] [address] PCP - General Family Medicine 03/12/18 documented as of this encounter
== END 2025-02-12 09:41 | disposition home or self-care (01) ==
LOC: HO.HOS 08:58
PROVIDERS: PCP Internal Medicine; Visit Provider Physician Assistant
DX: M19.012 Primary osteoarthritis, left shoulder (principal); M79.18 Myalgia, other site
CPT/HCPCS: 99203

== ENCOUNTER → 2025-02-12 08:58 | Outpatient (BNVA) | payer OTHER, SELFPAY | PROVIDERS: PCP Internal Medicine; Visit Provider Physician Assistant | DX: M25.511 Pain in right shoulder (principal); M19.012 Primary osteoarthritis, left shoulder; M79.18 Myalgia, other site | CPT/HCPCS: 99202 ==

== ENCOUNTER 2025-03-24 10:32 | Outpatient (REF) | payer OTHER, SELFPAY ==
--- NOTE | ~2025-03-24 | MM_ITS ---
EXAMINATION: MM SCREENING DIGITAL BREAST TOMOSYNTHESIS, BILATERAL CLINICAL INFORMATION: Screening. Asymptomatic. COMPARISON: Comparison made to multiple prior, most recent November 19, 2023, and most remote January 28, 2019. TECHNIQUE: Digital breast tomosynthesis is performed in mediolateral oblique and craniocaudal views along with computer-aided detection (CAD). Synthesized 2D images are generated from the tomosynthesis. FINDINGS: BREAST COMPOSITION: There are scattered areas of fibroglandular density. RIGHT BREAST: Tissue marker from previous needle core biopsy. No significant masses, suspicious calcifications or other abnormalities are seen. LEFT BREAST: 2 tissue markers from previous needle core biopsies. No significant masses, suspicious calcifications or other abnormalities are seen. MM/MM tomosynthesis screening BI IMPRESSION: BILATERAL BREASTS: Benign, no mammographic evidence of malignancy. Normal interval follow-up is recommended in 12 months. ASSESSMENT: BI-RADS: Category 2: Benign RECOMMENDATION: Routine annual mammography screening. FOLLOW-UP: 1 year F/U This examination should not preclude the clinical evaluation of a suspicious palpable abnormality. This patient's information was entered into a reminder system with a target due date for their next mammogram. Electronically signed by: Brien Betancourt MD 03/26/2025 04:59 PM EDT
--- OUTSIDE RECORDS SUMMARY | 2025-03-24 13:09 | XMS_ITS | Encounter Summary ---
Author Organization [employer] Address [address] [facility] 7t [place] [address] Care Team Providers Care Factory Representative Name Role Phone Maya Brannon MD Primary Care Provide r Reason for Visit * Reason Comments Med Refill Encounter Details Date Type Department Care Team ([facility] Contact Info) Description 01/30/2023 Refill C DIABETES/NUTRITION [address] [place] [address] Maya Brannon MD [address] [place] [address] Social History Tobacco Use Types Packs/Day Years [...] as of this encounter Plan of Treatment Not on file documented as of this encounter Visit Diagnoses Not on filedocumented in this encounter Care Teams Factory Representative Relationship Specialty Start Date End Date Maya Brannon MD [address] [place] [address] PCP - General Family Medicine 03/12/18 documented as of this encounter
--- OUTSIDE RECORDS SUMMARY | 2025-03-24 13:09 | XMS_ITS | Encounter Summary ---
Author Organization [employer] Address [address]t [place] [address] Care Team Providers Care Outdoor Guide Name Role Phone Maya Brannon MD Primary Care Provide r Encounter Details Date Type Department Care Team (Late st Contact Info) Description 05/15/2023 Abstract [facility] ADULT DENTAL [address] [place] [address] Salma Hayden, DDS [address] [place] [address] Social History Tobacco Use Types Packs/Day Years [...] as of this encounter Care Teams Outdoor Guide Relationship Specialty Start Date End Date Maya Brannon MD [address] [place] [address] PCP - General Family Medicine 03/12/18 documented as of this encounter
--- OUTSIDE RECORDS SUMMARY | 2025-03-24 13:09 | XMS_ITS | Encounter Summary ---
Author Organization [employer] Address [address] [place] [address] Care Team Providers Care Supplier Quality Engineer Name Role Phone Maya Brannon MD Primary Care Provide r Encounter Details Date Type Department Care Team (Late st Contact Info) Description 01/30/2023 Orders Only [facility] CHC MED & PEDS [address] [place] [address] Karena Bates LPN Social History Tobacco Use [...] on filedocumented in this encounter Care Teams Supplier Quality Engineer Relationship Specialty Start Date End Date Maya Brannon MD 230 [place] [address] PCP - General Family Medicine 03/12/18 documented as of this encounter
--- OUTSIDE RECORDS SUMMARY | 2025-03-24 13:09 | XMS_ITS | Encounter Summary ---
Author Organization [employer] Address [address] [place] [address] Care Team Providers Care Medical Lab Director Name Role Phone Maya Brannon MD Primary Care Provide r Encounter Details Date Type Department Care Team (Latest Contact Info) Description 12/12/2021 Abstract [facility] Dental, Provider, DDS Social History Tobacco [...] on filedocumented in this encounter Care Teams Medical Lab Director Relationship Specialty Start Date End Date Maya Brannon MD [address] [place] [address] PCP - General Family Medicine 03/12/18 documented as of this encounter
--- OUTSIDE RECORDS SUMMARY | 2025-03-24 13:09 | XMS_ITS | Encounter Summary ---
Author Organization [employer] Address [address] [place] [address] Care Team Providers Care Tobacco Cloth Reclaimer Name Role Phone Maya Brannon MD Primary Care Provide r Encounter Details Date Type Department Care Team ([facility] st Contact Info) Description 10/03/2022 Abstract [facility] ADULT DENTAL [address] [place] [address] Salma Hayden DDS [address] [place] [address] Social History Tobacco Use Types Packs/Day Years [...] on filedocumented in this encounter Care Teams Tobacco Cloth Reclaimer Relationship Specialty Start Date End Date Maya Brannon MD [address] [place] [address] PCP - General Family Medicine 03/12/18 documented as of this encounter
--- OUTSIDE RECORDS SUMMARY | 2025-03-24 13:09 | XMS_ITS | Encounter Summary ---
Author Organization [employer] Address [address] [place] [address] Care Team Providers Care Superintendent Container Terminal Name Role Phone Maya Brannon MD Primary Care Provide r Encounter Details Date Type Department Care Team ([facility] st Contact Info) Description 11/27/2022 Abstract [facility] ADULT DENTAL [address] [place] [address] Salma Hayden DDS [address] [place] [address] Social History Tobacco Use Types Packs/Day Years [...] on filedocumented in this encounter Care Teams Superintendent Container Terminal Relationship Specialty Start Date End Date Maya Brannon MD [address] [place] [address] PCP - General Family Medicine 03/12/18 documented as of this encounter
--- OUTSIDE RECORDS SUMMARY | 2025-03-24 13:09 | XMS_ITS | Encounter Summary ---
Author Organization [employer] Address [address] [place] [address] Care Team Providers Care Funeral Pre Arrangement Counselor Name Role Phone Maya Brannon MD Primary Care Provide r Encounter Details Date Type Department Care Team (Late st Contact Info) Description 05/15/2023 Abstract [facility] ADULT DENTAL [address] [place] [address] Salma Hayden, DDS [address] [place] [address] Social History Tobacco Use Types Packs/Day Years [...] documented as of this encounter Care Teams Funeral Pre Arrangement Counselor Relationship Specialty Start Date End Date Maya Brannon MD [address] [place] [address] PCP - General Family Medicine 03/12/18 documented as of this encounter
--- OUTSIDE RECORDS SUMMARY | 2025-03-24 13:09 | XMS_ITS | Encounter Summary ---
Author Organization [employer] Address [address] [place] [address] Care Team Providers Care Laundry Machine Operator Name Role Phone Maya Brannon MD Primary Care Provide r Encounter Details Date Type Department Care Team (Late st Contact Info) Description 11/14/2022 Orders Only [facility] CHC MED & PEDS [address] [place], [place] [phone] Karena Bates LPN Social History Tobacco Use [...] on filedocumented in this encounter Care Teams Laundry Machine Operator Relationship Specialty Start Date End Date Maya Brannon MD [address] [place] [address] PCP - General Family Medicine 03/12/18 documented as of this encounter
--- OUTSIDE RECORDS SUMMARY | 2025-03-24 13:09 | XMS_ITS | Encounter Summary ---
Author Organization [employer] Address [address] [place] [address] Care Team Providers Care Commercial Solar Sales Consultant Name Role Phone Maya Brannon MD Primary Care Provide r Encounter Details Date Type Department Care Team ([facility] st Contact Info) Description 06/06/20[address] Orders [address] [facility] MEDICINE [address] [place] [address] Donato Redd, PharmD [address] [place] [address] Social History Tobacco Use Types Packs/Day Years [...] documented as of this encounter Care Teams Commercial Solar Sales Consultant Relationship Specialty Start Date End Date Maya Brannon MD [address] [place] [address] PCP - General Family Medicine 03/12/18 documented as of this encounter
--- OUTSIDE RECORDS SUMMARY | 2025-03-24 13:09 | XMS_ITS | Encounter Summary ---
Author Organization [facility] Address [address] [place] [address] Care Team Providers Care Graduate School Dean Name Role Phone Maya Brannon MD Primary Care Provide r Reason for Visit * Reason Onset Date Comments loose crown 12/03/2023 Encounter Details Date Type Department Care Team ([facility] st Contact Info) Description 12/03/2023 Telephone [facility] ADULT DENTAL [address] [place] [address] Salma Hayden, DDS [address] [place] [address] loose crown Social History Tobacco Use Types [...] documented in this encounter Plan of Treatment Not on file documented as of this encounter Visit Diagnoses Not on filedocumented in this encounter Additional Health Concerns Assessment Noted Time PHQ-9 Depression Total Score: 0 04/24/20 23 9:34 AM EDT documented as of this encounter Care Teams Graduate School Dean Relationship Specialty Start Date End Date Maya Brannon MD [address] [place] [address] PCP - General Family Medicine 03/12/18 documented as of this encounter
--- OUTSIDE RECORDS SUMMARY | 2025-03-24 13:09 | XMS_ITS | Encounter Summary ---
Author Organization [employer] Address [address] 7[address] [place] [address] Care Team Providers Care Robotic Machine Operator Name Role Phone Maya Brannon MD Primary Care Provide r Reason for Visit * Reason Comments Med Refill Encounter Details Date Type Department Care Team ([facility] Contact Info) Description 03/31/2023 Refill [facility] CHC MED & PEDS [address] [place] [address] Yoli Lockwood FNP RUQ pain Social History [...] quadrant documented in this encounter Care Teams Robotic Machine Operator Relationship Specialty Start Date End Date Maya Brannon MD [address] [place] [address] PCP - General Family Medicine 03/12/18 documented as of this encounter
--- OUTSIDE RECORDS SUMMARY | 2025-03-24 13:09 | XMS_ITS | Encounter Summary ---
Author Organization [employer] Address [address] [place] [address] Care Team Providers Care Sorter/Assay Tech Name Role Phone Maya Brannon MD Primary Care Provide r Reason for Visit * Reason Comments Med Refill Encounter Details Date Type Department Care Team ([facility] Contact Info) Description 03/22/2025 Refill [facility] MEDICINE [address] [place] [address] Maya Brannon MD [address] [place] [address] Social History Tobacco Use Types Packs/Day Years [...] documented as of this encounter Care Teams Sorter/Assay Tech Relationship Specialty Start Date End Date Maya Brannon MD [address] [place] [address] PCP - General Family Medicine 03/12/18 documented as of this encounter
--- OUTSIDE RECORDS SUMMARY | 2025-03-24 13:09 | XMS_ITS | Encounter Summary ---
Author Organization [employer] Address [address] [place] [address] Care Team Providers Care Display Specialist Name Role Phone Maya Brannon MD Primary Care Provide r Encounter Details Date Type Department Care Team (Late st Contact Info) Description 07/04/2022 Orders Only [facility] CHC MED & PEDS [address] [place], [place] [phone] Karena Bates LPN Social History Tobacco Use [...] on filedocumented in this encounter Care Teams Display Specialist Relationship Specialty Start Date End Date Maya Brannon MD [address] [place] [address] PCP - General Family Medicine 03/12/18 documented as of this encounter
--- OUTSIDE RECORDS SUMMARY | 2025-03-24 13:09 | XMS_ITS | Encounter Summary ---
Author Organization [employer] Address [address] [place] [address] Care Team Providers Care Harbormaster Name Role Phone Maya Brannon MD Primary Care Provide r Encounter Details Date Type Department Care Team ([facility] st Contact Info) Description 11/07/2022 Abstract [facility] ADULT DENTAL [address] [place] [address] Salma Hayden DDS [address] [place] [address] Social History Tobacco Use Types Packs/Day Years [...] on filedocumented in this encounter Care Teams Harbormaster Relationship Specialty Start Date End Date Maya Brannon MD [address] [place] [address] PCP - General Family Medicine 03/12/18 documented as of this encounter
--- OUTSIDE RECORDS SUMMARY | 2025-03-24 13:09 | XMS_ITS | Encounter Summary ---
Author Organization [employer] Address [address] [place] [address] Care Team Providers Care Sizer Machine Name Role Phone Maya Brannon MD Primary Care Provide r Encounter Details Date Type Department Care Team (Latest Contact Info) Description 07/08/2019 Abstract [facility] Dental, Provider, DDS Social [...] on filedocumented in this encounter Care Teams Sizer Machine Relationship Specialty Start Date End Date Maya Brannon MD [address] [place] [phone] PCP - General Family Medicine 03/12/18 documented as of this encounter
--- OUTSIDE RECORDS SUMMARY | 2025-03-24 13:09 | XMS_ITS | Encounter Summary ---
Author Organization [employer] Address [address] [place] [address] Care Team Providers Care Supervisor Gas Meter Repair Name Role Phone Maya Brannon MD Primary Care Provide r Encounter Details Date Type Department Care Team (Late st Contact Info) Description 12/11/2022 Orders Only [facility] CHC MED & PEDS [address] [place] [address] Karena Bates LPN Social History Tobacco Use [...] filedocumented in this encounter Care Teams Supervisor Gas Meter Repair Relationship Specialty Start Date End Date Maya Brannon MD [address] [place] [address] PCP - General Family Medicine 03/12/18 documented as of this encounter
--- OUTSIDE RECORDS SUMMARY | 2025-03-24 13:09 | XMS_ITS | Encounter Summary ---
Author Organization [employer] Address [address] 7t [place] [address] Care Team Providers Care Examiner Rating Clerk Name Role Phone Maya Brannon MD Primary Care Provide r Encounter Details Date Type Department Care Team ([facility] st Contact Info) Description 11/02/2022 Abstract [facility] ADULT DENTAL [address] [place] [address] Salma Hayden DDS [address] [place] [address] Social History Tobacco Use Types Packs/Day Years [...] on filedocumented in this encounter Care Teams Examiner Rating Clerk Relationship Specialty Start Date End Date Maya Brannon MD [address] [place] [address] PCP - General Family Medicine 03/12/18 documented as of this encounter
--- OUTSIDE RECORDS SUMMARY | 2025-03-24 13:09 | XMS_ITS | Encounter Summary ---
Author Organization [employer] Address [address] [facility] [address] 7t [place] [address] Care Team Providers Care Director Camp Name Role Phone Maya Brannon MD Primary Care Provide r Encounter Details Date Type Department Care Team (Late st Contact Info) Description 04/10/2023 Abstract [facility] MEDICINE [address] [place] [address] Maya Brannon MD [address] [place] [address] Social History Tobacco Use Types Packs/Day Years [...] filedocumented in this encounter Care Teams Director Camp Relationship Specialty Start Date End Date Maya Brannon MD [address] [place] [address] PCP - General Family Medicine 03/12/18 documented as of this encounter
--- OUTSIDE RECORDS SUMMARY | 2025-03-24 13:09 | XMS_ITS | Clinical Summary ---
Author Organization [employer] Address [address] [facility] 7[address] [place] [address] Care Team Providers Care Adapted Physical Education Aide Name Role Phone Maya Brannon MD Primary [...] HOURS 05/27/20 23 Active Vitamins-Lipotr opics (Complex [id number]) tablet controlled-rele ase TAKE 1 TABLET BY [...] times daily. 28 tablet 06/19/20 23 Active triamcinolone (Kenalog) 0.1 % creamIndication s:Rash Apply topically if needed in the morning and at bedtime for rash. 80 g 02/17/20 24 Active permethrin (Elimite) 5 % creamIndication s:Scabies apply to skin from hairline to toes and wash off 8-10 hours later 120 g 1 04/06/20 24 Active glucose blood (FREESTYLE LITE) test stripIndication s:Type 2 diabetes mellitus with hyperglycemia, without long-term current use of insulin ([facility]) TEST BLOOD SUGAR TWICE DAILY 50 strip 11 04/16/20 24 Active azithromycin (Zithromax) 250 MG tabletIndicatio [...] DAILY 13 g 2 05/19/20 24 Active TRUEplus Lancets 33G miscIndications :Type 2 diabetes mellitus with hyperglycemia, unspecified whether skilled nursing insulin use ([facility]) TEST BLOOD SUGAR TWICE DAILY 100 each 11 11/04/19 25 Active amLODIPine (Norvasc) 10 MG tabletIndicatio ns:Elevated blood pressure reading TAKE 1 TABLET BY MOUTH EVERY MORNING 90 tablet 1 11/12/19 25 Active atorvastatin (Lipitor) 40 MG tabletIndicatio ns:RUQ pain TAKE 1 TABLET BY MOUTH EVERY MORNING 90 tablet 1 11/12/19 25 Active Aspirin Low Dose 81 MG EC tablet TAKE 1 TABLET BY MOUTH EVERY MORNING 90 tablet 1 11/12/19 25 Active carvedilol (Coreg) 6.25 MG tabletIndicatio ns:Primary hypertension TAKE 1 TABLET BY MOUTH TWICE DAILY IN THE MORNING AND IN THE EVENING WITH FOOD 180 tablet 1 11/12/19 25 Active Ventolin HFA 108 (90 Base) MCG/ACT inhalerIndicati ons:Bronchitis INHALE 2 PUFFS BY MOUTH EVERY 6 HOURS NEEDED FOR WHEEZING 18 g 2 11/22/19 25 Active metFORMIN (Glucophage) 500 MG tabletIndicatio ns:Type 2 diabetes mellitus with hyperglycemia, without long-term current use of insulin ([facility]) TAKE 1 TABLET BY MOUTH TWICE DAILY IN THE MORNING AND IN THE EVENING WITH FOOD 180 tablet 3 11/28/19 25 Active D3-1000 25 MCG (1000 UT) capsuleIndicati ons:Depression, unspecified depression type TAKE 1 CAPSULE BY MOUTH EVERY MORNING 90 capsule 1 12/25/19 25 Active esomeprazole (NexIUM) [address] capsuleIndicati ons:Gastroesoph ageal reflux disease, unspecified whether esophagitis present TAKE 1 CAPSULE BY MOUTH EVERY MORNING BEFORE BREAKFAST 28 capsule 3 01/21/20 25 Active DULoxetine (Cymbalta) [address] capsuleIndicati ons:Depression, unspecified depression type TAKE 1 CAPSULE BY MOUTH EVERY MORNING 30 capsule 3 01/22/20 25 Active meloxicam (Mobic) 15 MG tablet TAKE 1 TABLET BY MOUTH EVERY MORNING 30 tablet 3 01/22/20 25 Active montelukast (Singulair) 10 MG tabletIndicatio ns:Moderate persistent asthma without complication TAKE 1 TABLET BY MOUTH EVERY EVENING 90 tablet 1 02/19/20 25 Active hydroCHLOROthia zide (HYDRODiuril) 25 MG tablet TAKE 1 TABLET BY MOUTH EVERY MORNING 90 tablet 3 03/23/20 25 Active hydroCHLOROthia zide (HYDRODiuril) 25 MG tablet TAKE 1 TABLET BY MOUTH EVERY MORNING 90 tablet 3 02/20/20 24 2024 Discontinued Active Problems Problem Noted [...] Significantly improved with Imitrex, no residual deficits Afterschool to take Tylenol ASA Take Imitrex if [...] Assessment & Plan (06/12/2023 12:56 PM EST): Afterschool to avoid picking on the ear with [...] and using OTC meds Repeated is 150/85, chemical dependency counselor to check BP at home No [...] Cuff Size: Adult) Pulse 77 Temp 97.2 F (36.2 C) (Oral) Resp 18 Wt 220 lb 6.4 oz (100 kg) SpO2 99% BMI 36.68 kg/m - Aerobic exercise to reduce BP. Initial [...] Encounters Date Type Department Care Team Description 03/22/2025 Refill [facility] MEDICINE [address] [place] [address] Maya Brannon MD 02/18/2025 Refill [facility] CHC MED & PEDS [address] [place], [place] [phone] Maya Brannon MD Moderate persistent asthma without complication 01/21/2025 Refill [facility] CHC MED & PEDS [address] [place], [place] [phone] Maya Brannon MD Depression, unspecified depression type 01/19/2025 Refill [facility] MEDICINE [address] [place] [address] Maya Brannon MD Gastroesophageal reflux disease, unspecified whether esophagitis present 12/23/2024 Refill [facility] CHC MED & PEDS [address] [place] [address] Maya Brannon MD Depression, unspecified depression type from Last 3 Months Immunizations Immunization Administration Dates Next Due Influenza injectable quadriv [...] 84 10/01/2024 1:24 PM EDT Temperature 35.8 C (96.5 F) 10/01/2024 1:24 PM EDT Respiratory Rate 17 10/01/2024 1:24 PM EDT Oxygen Saturation 98% 10/01/2024 1:24 PM EDT Inhaled Oxygen Concentration - - Weight 96.2 kg (212 lb) 10/01/2024 1:24 PM EDT Height 162.6 cm (5' 4 ) 10/01/2024 1:24 PM EDT Body Mass Index 36.39 10/01/2024 1:24 PM EDT Plan of Treatment Health Maintenance Due Date Last Done Comments CT Colonography 1960 Colonoscopy 1960 FIT 1960 HIV Screening 1960 Sigmoidoscopy 1960 Disability Screening 1962 Alcohol/Substance Use Screening 1974 Hepatitis C Screening 01/27/1980 Zoster Vaccines (1 of 2) 01/27/2012 Diabetes: Foot Exam 09/20/2023 09/19/2022, 09/19/2022, 09/19/2022, Additional history exists Dental Oral Exam 10/16/2023 04/15/2023 Dental Prophylaxis 11/06/2023 05/07/2023, 08/15/2022 Depression Screening 04/24/2024 04/24/2023, 04/24/20 23 FOBT 05/02/2024 05/02/2023, 05/02/2023 Mammogram 11/18/2024 11/19/2023, 03/0 12/2022, 09/04/2022, Additional history exists COVID-19 Vaccine ( season) 2025 04/24/2023, 08/13/2022, 08/09/2021, Additional history exists Influenza Vaccine (#1) 2025 , 05/15/2021, 02/23/2019, Additional history exists Diabetes: Hemoglobin A1C 04/02/2025 025, 02/17/2024, 11/15/2023, Additional history exists SDOH Screening 08/18/2025 08/18/2024 Diabetes: Urine Protein Screening 10/06/2025 10/06/2024, 12/02/2020 Lipid Panel 10/06/2025 10/06/2024, 03/31, 02/01/2023, Additional history exists Tobacco Screening 10/08/2025 10/08/2024 DTaP/Tdap/Td Vaccines (2 - Td or Tdap) 01/10/2026 01/11/2016 Dental X-Ray: Full Mouth 02/14/2026 12/12/2021 Pos tponed from 12/13/2024 (Other Medical Reasons) Colorectal Cancer Screening 05/02/2026 FIT DNA/Cologuard 05/02/2026 05/02/2023, 05/02/2023 Eye Exam 10/08/2026 10/08/2024, 09/29, 10/08/2024, Additional history exists Cervical Cancer Screening 07/02/2028 HPV/Cotest 07/02/2028 07/02/2023 Pap Smear 07/02/2028 07/02/2023, 07/02/2023 Dental X-Ray: Bitewings Discontinued 04/15/2023 RSV Patients and Patients Aged 60 years [...] patient's age to complete this topic Meningococcal B Vaccine Aged Out No l onger eligible based on patient's age to complete [...] Procedure Name Priority Date/Time Associated Diagnosis Comments LIPID PANEL, STANDARD Routine 10/06/2024 10:44 AM [...] 0:00 AM EST Missing teeth, acquired LAB COLOGUARD COLON CANCER SCREEN Routine 05/02/2023 6:30 AM EDT Colon cancer screening BITEWINGS - 4 RADIOGRAPHIC IMAGES Routine 04/15/2023 1:30 PM EDT PERIODIC ORAL EVALUATION - ESTABLISHED PATIENT Routine 04/15/2023 1:30 PM EDT from Last 3 Months or Most Recently Relevant to Health Maintenance Results * Lipid Panel, Standard (10/06/2024 10:44 AM EDT) Triglycerides 45 <150 mg/dL [facility] Comment:Desirable Triglyceri de: less than 150 mg/dLBorderline High Triglyceride 150-199 mg/dLHigh Triglyceride: 200-499 mg/dLVery High Triglyceride: greater than or equal to 5OO mg/dL Cholesterol 117 <200 mg/dL [facility] Comment:Desirable Cholestero l: less than 200 mg/dLBorderline High Cholesterol: 200-239 mg/dLHigh Cholesterol: greater than 239 mg/dL LDL Cholesterol Calculated 59 <100 mg/dL [facility] Comment:Desirable LDL: less than 100 mg/dLNear Optimal/Above Optimal LDL: 110- 129 mg/dLBorderline High LDL: 130-159 mg/dLHigh LDL: 160-189 mg/dLVery High LDL: greater than or equal to 190 mg/dL HDL Cholesterol 49 >40 mg/dL [facility] Comment:Desirable HDL: great er than 40 mg/dL Note: This HDL assay may give artificially low results in patients with liver disease. Blood Venous blood specimen / Unknown 10/06/2024 10:44 AM EDT 10/06/2024 10:44 AM EDT us Maya Hernandez MD LAB BLOOD ORDERABLES Final Result [facility] [address] [place], [place] [phone] * Albumin, Random Urine W/Creatinine (10/06/2024 10:40 AM EDT) Creatinine, Urine 76.97 mg/dL [facility] Microalbumin Urine <5.0 mg/L [facility] Microalbum Creatinine Ratio Ur TNP <30 ug/mg cr [facility] Comment:Unable to calculate albumin/creatinine ratio due to lowmicroalbumin or creatinine result. Urine (Urine, Random) 10/06/2024 10:40 AM EDT 10/06/2024 11:29 AM EDT us Maya Hernandez MD LAB URINE ORDERABLES Final Result [facility] [address] [place] [phone] * (ABNORMAL) POCT HGB A1C (10/01/2024 [...] AM EDT Narrative 12/20/2023 7:12 AM EDT [address] [place] [address] Mammography Report Signed Patient: Ewa Kuhn MR#: [id number] 59 : 1960 Acct:[id number] Age/Sex: 63 / F ADM Date: 11/19/23 Loc: MAMMO Attending Dr: Maya Hernandez MD Ordering Physician: Maya Brannon MD Results: 1Negative Date of Service: 11/19/23 Follow Up: 1 Year From Orig inal Mammogram Procedure(s): MM tomosynthesis screening BI Accession Number(s): [id number] cc: Maya Brannon MD EXAMINATION: MM SCREENING [...] in OV> 12/20/23 0708 DD/ 1105 TD/TT: Set Key Driver: Procedure Note Donotuseinterpreter, Image - 12/20/2023 [facility] [address] [place] [address] Mammography Report Signed Patient: Howard Kuhn#: [id number] [birth year] : 2Acct:[id number] Age/Sex: 63 / FADM Date: 11/19/23 Loc: NAYE Attending Dr: Maya Hernandez MD Ordering Physician: Maya Brannon MDResults: 1Negative Date of Service: 11/19/23Follow Up: 1 Year From Orig inal Mammogram Procedure(s): MM tomosynthesis screening BI Accession Number(s): [id number] cc: Maya Brannon MD EXAMINATION: MM SCREENING [...] in OV> 12/20/23 0708 DD/ 1105 TD/TT: Set Key Driver: Maya Hernandez MD IMG BI PROCEDURES Fin al Result * Image-Guided Pap with Age-Based Screening??with CT/NG,??Trichomonas (07/02/2023 10:05 AM EST) Trichomonas (NAAT) NOT DETECTED NOT DETECTED [facility] Comment:The analytical perfo rmance characteristics of thisassay have been determined by [employer]. Themodifications have not been cleared or approved bythe FDA. This assay has been validated pursuant to theIA regulations and is used for clinical purposes.For additional information, please refer tohttp://education.Declara/faq/Trichomonastma(This link is being provided for information/educational purposes only.)THIS TEST WAS PERFORMED AT[facility] [place] [phone] CASTRO MD CTNG Ref Lab NOT DETECTED NOT DETECTED [facility] NG Ref Lab NOT DETECTED NOT DETECTED [facility] 07/02/2023 10:0 5 AM EST 07/03/2023 12:15 PM EST us Maya Hernandez MD LAB CYTOLOGY ORDERABL ES Final Result [facility] [address] [place] [address] [phone] * HPV mRNA E6/E7 w/Reflex to HPV Genotypes 16, 18/45 (07/02/2023 10:05 AM EST) HPV nRNA E6/E7 Not Detected Not Detected [facility] Comment:Methodology: Transcr iption-Mediated AmplificationThis assay detects E6/E7 viral messenger RNA (mRNA) from 14high-risk HPV types (16,18,31,33,35,39,45,51,52,56,58,59,66,68).Cervical sources are required for HPV testing.If a vaginal source from a patient who has had atotal hysterectomy with removal of cervix wassubmitted, please contact the testing laboratoryfor alternative testing options.For additional information, please refer tohttp://education.Declara/faq/NLG281k0(This link if provided for information/educational purposes only.)THIS TEST WAS PERFORMED AT[facility] [place] [phone] CASTRO MD HPV mRNA E6/E7 [facility] HPV 16 RNA [facility] HPV 18/45 RNA [facility] 07/02/2023 10:0 5 AM EST 07/03/2023 11:15 AM EST us Maya Hernandez MD LAB CYTOLOGY ORDERABL ES Final Result [facility] [address] [place] [address] [phone] * Cologuard?? colon cancer screening (05/02/2023 6:30 AM EDT) Cologuard Result Negative Negative 05/14/20 10:05 PM EST [facility] (CLIA #:[id number]) Comment: NEGATIVE TEST RESULT. A negative Cologuard result indicates a low likelihood that a colorectal cancer (CRC) or advanced adenoma (adenomatous polyps with more advanced pre-malignant features) is present. The chance that a person with a negative Cologuard test has a colorectal cancer is less than 1 in 1500 (negative predictive value >99.9%) or has an advanced adenoma is less than 5.3% (negative predictive value 94.7%). These data are based on a prospective cross-sectional study of 10,000 individuals at average risk for colorectal cancer who were screened with both Cologuard and colonoscopy. (Jc Reed. et al, N Engl J Med 2014;370(14):5627-6409) The normal value (reference range) for this assay is negative. COLOGUARD RE-SCREENING RECOMMENDATION: Periodic colorectal cancer screening is an important part of preventive healthcare for asymptomatic individuals at average risk for colorectal cancer. Following a negative Cologuard result, the [place] [employer] and U.S. Multi-Society Task Force screening guidelines recommend a Cologuard re-screening interval of 3 years. References: [place] [employer] Guideline for Colorectal Cancer Screening: https://www.cancer.org/cancer/lhlig-matujw-jomckn/rdhsakcfe-tmjstouln-jdnmyih/ac s-rec ommendations.html.; Stanley HOBBS, Abhinav LOPEZ, Christiane FatimaK, Colorectal Cancer Screening: Recommendations for Physicians and Patients from the U.S. Multi-Society Task Force on Colorectal Cancer Screening , Am J Gastroenterology 2017; 112:4710-3591. TEST DESCRIPTION: Composite algorithmic analysis of stool DNA-biomarkers with hemoglobin immunoassay. Quantitative values of individual biomarkers are not [...] Blakely et al, N Engl J Med 2014;370(14):1949-6391.) Cologuard may produce a false negative or false positive result (no colorectal cancer or precancerous polyp present at colonoscopy follow up). A negative Cologuard test result does not guarantee the absence of CRC or advanced adenoma (pre-cancer). The current Cologuard screening interval is every 3 years. ([place] [employer] and U.S. Multi-Society Task Force). Cologuard performance data in a 10,000 patient pivotal study using colonoscopy as the reference method can be accessed at the following location: www.Tumblr/results. Additional description of the Cologuard test process, warnings and precautions can be found at www.MedicalodgesogStandardNinerd.com. Stool specimen (specimen) 05/02/2023 6:30 AM EDT 05/04/2023 7:17 PM EDT Maya Hernandez MD LAB MOLECULAR DIAGNOS TICS ORDERABLES Final Result [facility] (CLIA #:[id number]) [address] [place] [address], from Last 3 Months or Most Recently Relevant to Health Maintenance Insurance [facility] < 65 [facility] < 65 [facility] Care Teams Adapted Physical Education Aide Relationship Specialty Start Date End Date Maya Brannon MD [address] [place] [address] PCP - General Family Medicine 03/12/18
--- OUTSIDE RECORDS SUMMARY | 2025-03-24 13:09 | XMS_ITS | Encounter Summary ---
Author Organization [employer] Address [address] [place] [address] Care Team Providers Care Residential Assistant Name Role Phone Maya Brannon MD Primary Care Provide r Encounter Details Date Type Department Care Team (Late st Contact Info) Description 06/11/2023 Abstract [facility] ADULT DENTAL [address] [place] [address] Salma Hayden, DDS [address] [place] [address] Social History Tobacco Use Types Packs/Day Years [...] documented as of this encounter Care Teams Residential Assistant Relationship Specialty Start Date End Date Maya Brannon MD [address] [place] [address] PCP - General Family Medicine 03/12/18 documented as of this encounter
== END 2025-03-24 10:33 | disposition home or self-care (01) ==
LOC: HO.MAMMO 10:32
PROVIDERS: PCP Internal Medicine; Visit Provider Internal Medicine
DX: Z12.31 Encounter for screening mammogram for malignant neoplasm of breast (principal)
CPT/HCPCS: 77063; 77067

== ENCOUNTER → 2025-03-24 10:45 | Outpatient (BNV) | payer OTHER, SELFPAY | PROVIDERS: PCP Internal Medicine; Visit Provider Radiology Body Imaging | DX: Z12.31 Encounter for screening mammogram for malignant neoplasm of breast (principal) | CPT/HCPCS: 77063; 77067 ==